=== PATIENT | female | born 1945 | race Caucasian/White ===

== ENCOUNTER 2021-12-14 14:23 | Outpatient (NON) | payer MEDICARE, SELFPAY | END 2021-12-14 14:24 | disposition home or self-care (01) | LOC: ANHLAB 14:24 | PROVIDERS: PCP Nurse Practitioner; Visit Provider Nurse Practitioner | DX: C44.729 Squamous cell carcinoma of skin of left lower limb, including hip (principal) | CPT/HCPCS: 88305; 88331 ==

== ENCOUNTER 2024-05-17 16:41 | Emergency (ER) | payer MEDICARE, SELFPAY ==
--- NOTE | ~2024-05-17 | XR_ITS ---
EXAM: XR tibia fibula LT 2V DATE: 05/17/2024 17:34 HISTORY: L leg swelling, infection ANTERIOR MID LOWER LEG . COMPARISON: None available. FINDINGS: Decreased mineralization. No fracture or dislocation. No lytic or blastic lesion. Mild deg enerative change at the knee and ankle. No erosion or periosteal change. Possible mild anterior soft tissue swelling. No foreign body or subcutaneous gas. Atherosclerotic ossification. Impression no acu te osseous finding in the left tibia/fibula. IMPRESSION: . Reviewed, dictated and finalized at location K. IMPRESSION: .
[2024-05-17 16:43] VITALS: BP 156/83; PULSE 95; RESP 18; TEMP 36.4; O2SAT 95
--- OUTSIDE RECORDS SUMMARY | 2024-05-17 16:44 | XMS_ITS | Data Portability ---
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 Name Role Phone TERRA RASHID Primary Care Provider Assessment Encounter Date Assessment Date Assessment LastModified by Organization Details LastModified Time 05/09/2023 05/09/2023 Assessment: Nicotine smoke: 1 ppd [id number] = 55 pack years Cough Dyspnea Postnasal drip Severe COPD Plan: The following were reviewed and explained to the patient: primary care/referral note PFT 07/07/18 FEV1 0.66 L (33%) PFT 09/08/20 FEV1 0.68 L (36%) Chest CT 10/24/[address] 01/18/[address] 01/20/[address] 07/01/22 emphysema Start Atrovent nasal spray 0.06% 1 spray to each nostril up to 4 times a day for postnasal drip. Cough/Dyspnea workup will be done as follows: Respiratory allergen panel for [facility] Serum IgE Serum total IgG, IgG1, IgG2, IgG3, IgG4 Shbpv-6-sgeclopkyg n phenotype and level TB stimulated gamma interferon B-type natriuretic peptide (BNP) Eosinophil count Complete pulmonary function testing (PFT) Sputum gm stain and culture The [employer] recommends annual screening for lung cancer with low-dose computed tomography (LDCT) for people aged 50 to 80 years old who smoke or formerly smoked and have a 20-year or greater pack-year history. Screening is no longer discontinued even when a person has not smoked for 15 years. Pulmonary rehabilitation may be included in the management of patients with chronic obstructive pulmonary disease (COPD). For respiratory diseases different from COPD, there have been no formal statements regarding patient selection. Pulmonary rehabilitation consists of assessment, exercise, education, and emotional support. It covers the goals of rehabilitation, the techniques of breathing, the necessity of nicotine cessation, the strategies to deal with panic attacks, the rationale of pulmonary medications, and the importance of nutrition. As the patient learns to live with her pulmonary condition through exercise and education, the patient will regain confidence with her abilities and feel improvement in her overall quality of life. The patient's FEV1 is 36%. The patient will be enrolled in pulmonary rehabilitation pending insurance coverage. General concepts of pulmonary rehabilitation were explained. Educational video was shown. Advised to continue not to smoke. Continue Roflumilast 500 mcg daily. Minimize Albuterol nebs as needed. Continue Albuterol HFA as needed. Continue Trelegy Ellipta 100/62.5/25 mcg 1 inhalation daily. Gargle after use. The patient does not know how to accurately administer the inhalers. Today, the patient was shown how to take these medications. The proper technique for delivering these medications was instructed. The patient expressed a clear understanding and demonstrated back how to use these medications. Without the proper technique, the patient will not reap the benefits of these medications as the contents will not reach the lower airways as intended to be. Adherence to therapy is advocated. Nonadherence may lead to treatment failure, further progression of the condition, and other complications. Hospitals admissions are often the result of individuals not taking prescription medications accurately. Alternatively, greater adherence to medication regimens have shown to lower rates of hospitalization and decrease total medical costs in patients with chronic medical conditions. Advocated influenza vaccination annually and pneumonia vaccination CARL. Encouraged patient to adjust caloric intake to maintain/achieve ideal body weight, emphasizing on fruits, vegetables, whole grains, and fat-free or low-fat products. These include lean meats, poultry, fish, beans, eggs, and nuts and foods that are low in saturated fats, trans-fats, cholesterol, salt (sodium), and glycemic index. Stressed the importance of regular exercise up to the patient's capacity limits. In this case, we recommend regular (4 x a week or more) walking or other light activity. Patient to monitor BP daily and bring records to PCP for further management. Follow-up: 1 week after PFT Not available 05/09/2023 14:57:59 06/23/2023 06/23/2023 Assessment: Nicotine smoke: 1 ppd [id number] = 55 pack years Postnasal drip (+) Aspergillus fumigatus IgE Severe COPD Plan: The following were reviewed and explained to the patient: Lab data 05/09/23 (+) Aspergillus fumigatus IgE PFT 07/07/18 FEV1 0.66 L (33%) PFT 09/08/20 FEV1 0.68 L (36%) PFT 06/14/23 FEV1 0.61 L (35%) Chest CT 10/24/[address] 01/18/[address] 01/20/[address] 07/01/22 emphysema Continue Atrovent nasal spray 0.06% 1 spray to each nostril up to 4 times a day for postnasal drip. Cough/Dyspnea workup will be done as follows: Sputum gm stain and culture if purulent [employer] recommends annual screening for lung cancer with low-dose computed tomography (LDCT) for people aged 50 to 80 years old who smoke or formerly smoked and have a 20-year or greater pack-year history. Screening is no longer discontinued even when a person has not smoked for [address] one week before return. Pulmonary rehabilitation may be included in the management of patients with chronic obstructive pulmonary disease (COPD). For respiratory diseases different from COPD, there have been no formal statements regarding patient selection. Pulmonary rehabilitation consists of assessment, exercise, education, and emotional support. It covers the goals of rehabilitation, the techniques of breathing, the necessity of nicotine cessation, the strategies to deal with panic attacks, the rationale of pulmonary medications, and the importance of nutrition. As the patient learns to live with her pulmonary condition through exercise and education, the patient will regain confidence with her abilities and feel improvement in her overall quality of life. The patient's FEV1 is 35%. The patient will be enrolled in pulmonary rehabilitation pending insurance coverage. General concepts of pulmonary rehabilitation were explained. Educational video was shown. Advised to continue not to smoke. Continue Roflumilast 500 mcg daily. Minimize Albuterol nebs as needed. Continue Albuterol HFA as needed. Continue Trelegy Ellipta 100/62.5/25 mcg 1 inhalation daily. Gargle after use. The patient does not know how to accurately administer the inhalers. Today, the patient was shown how to take these medications. The proper technique for delivering these medications was instructed. The patient expressed a clear understanding and demonstrated back how to use these medications. Without the proper technique, the patient will not reap the benefits of these medications as the contents will not reach the lower airways as intended to be. Adherence to therapy is advocated. Nonadherence may lead to treatment failure, further progression of the condition, and other complications. Hospitals admissions are often the result of individuals not taking prescription medications accurately. Alternatively, greater adherence to medication regimens have shown to lower rates of hospitalization and decrease total medical costs in patients with chronic medical conditions. Advocated influenza vaccination annually and pneumonia vaccination CARL. Encouraged patient to adjust caloric intake to maintain/achieve ideal body weight, emphasizing on fruits, vegetables, whole grains, and fat-free or low-fat products. These include lean meats, poultry, fish, beans, eggs, and nuts and foods that are low in saturated fats, trans-fats, cholesterol, salt (sodium), and glycemic index. Stressed the importance of regular exercise up to the patient's capacity limits. In this case, we recommend regular (4 x a week or more) walking or other light activity. Patient to monitor BP daily and bring records to PCP for further management. Follow-up: 3 months, September 2023 Not available 06/23/2023 10:37:33 09/26/2023 09/26/2023 Assessment: Nicotine smoke: 1 ppd [id number] = 55 pack years Postnasal drip (+) Aspergillus fumigatus IgE Severe COPD Plan: The following were reviewed and explained to the patient: Lab data 05/09/23 (+) Aspergillus fumigatus IgE PFT 07/07/18 FEV1 0.66 L (33%) PFT 09/08/20 FEV1 0.68 L (36%) PFT 06/14/23 FEV1 0.61 L (35%) Chest CT 10/24/[address] 01/18/[address] 01/20/[address] 07/01/22 emphysema Continue Atrovent nasal spray 0.06% 1 spray to each nostril up to 4 times a day for postnasal drip. Cough/Dyspnea workup will be done as follows: Sputum gm stain and culture if purulent Chest x-ray PA and lateral today due to increased cough frequency Pulmonary rehabilitation may be included in the management of patients with chronic obstructive pulmonary disease (COPD). For respiratory diseases different from COPD, there have been no formal statements regarding patient selection. Pulmonary rehabilitation consists of assessment, exercise, education, and emotional support. It covers the goals of rehabilitation, the techniques of breathing, the necessity of nicotine cessation, the strategies to deal with panic attacks, the rationale of pulmonary medications, and the importance of nutrition. As the patient learns to live with her pulmonary condition through exercise and education, the patient will regain confidence with her abilities and feel improvement in her overall quality of life. The patient's FEV1 is 35%. The patient will be enrolled in pulmonary rehabilitation pending insurance coverage. General concepts of pulmonary rehabilitation were explained. Educational video was shown. Advised to continue not to smoke. Continue Roflumilast 500 mcg daily. Minimize Albuterol nebs as needed. Continue Albuterol HFA as needed. Continue Trelegy Ellipta 100/62.5/25 mcg 1 inhalation daily. Gargle after use. The patient does not know how to accurately administer the inhalers. Today, the patient was shown how to take these medications. The proper technique for delivering these medications was instructed. The patient expressed a clear understanding and demonstrated back how to use these medications. Without the proper technique, the patient will not reap the benefits of these medications as the contents will not reach the lower airways as intended to be. Adherence to therapy is advocated. Nonadherence may lead to treatment failure, further progression of the condition, and other complications. Hospitals admissions are often the result of individuals not taking prescription medications accurately. Alternatively, greater adherence to medication regimens have shown to lower rates of hospitalization and decrease total medical costs in patients with chronic medical conditions. Advocated influenza vaccination annually and pneumonia vaccination CARL. Encouraged patient to adjust caloric intake to maintain/achieve ideal body weight, emphasizing on fruits, vegetables, whole grains, and fat-free or low-fat products. These include lean meats, poultry, fish, beans, eggs, and nuts and foods that are low in saturated fats, trans-fats, cholesterol, salt (sodium), and glycemic index. Stressed the importance of regular exercise up to the patient's capacity limits. In this case, we recommend regular (4 x a week or more) walking or other light activity. Patient to monitor BP daily and bring records to PCP for further management. Follow-up: 9 months, June 2024 Not available 09/26/2023 12:06:10 Plan of Treatment Reminders Order Date Submit Date Provider Last Modified By Organization Details Last Modified Time Details Appointments Any 15 2024 10:00A Lili Starr MD Not available Not available Not available Lab alpha-1-a ntitrypsi n (aat) phenotype , serum [id number] (Lab), [address] [place], [address], 06/28/2023 12:48:29 BNP (B-type natriuret ic peptide), serum or plasma [address] [facility] (Lab), [address] [place], [address], 05/09/2023 17:03:42 ige, total, serum [address] (Lab), [address] [place], [address], 06/28/2023 12:48:30 tb (M tuberculo sis), ifn-gamma silvia, blood [id number] [place] [address] (Lab), [address] [place], [address], 06/28/2023 12:48:30 eosinophi l count, manual, blood (OBS) [email or web address] [place] [address] (Lab), [address] [place], [address], 06/28/2023 12:48:30 [address] s 1+2+3+4, serum [id number] [place] [address] (Lab), [address] [place], [address], 06/28/2023 12:48:30 respirato ry allergen panel - [facility] [address]23 [facility] (Lab), [address] [place], [address], 05/25/2023 12:12:49 respirato ry allergen panel - [facility] b 2023 024 [email or web address] 5 [facility] (Lab), [address] [place], [address], 06/28/2023 12:48:30 culture, sputum 2023 024 [email or web address] 5 [facility] (Lab), [address] [place], [address], 06/28/2023 12:48:30 hepatic function panel, serum 2022 023 [email or web address] 5 Not available 01/19/2023 12:19:26 Referral pulmonary rehab referral 2023 024 [email or web address] [facility], [address] [place], [address], 12/19/2023 10:16:51 pulmonary rehab referral 2023 024 5 [facility], [address] [place], [address], 07/22/2023 11:37:19 pulmonary rehab referral 2023 024 [email or web address] 5 [facility], [address] [place], [address], 06/23/2023 14:35:46 Procedures None recorded. Surgeries None recorded. Imaging XR, chest, 2 view 2023 024 [facility] ([facility]), [address] [place], [address], 09/26/2023 14:20:10 LDCT, chest, for lung cancer screening 2023 024 [email or web address] 2 [facility] ([facility] Sched[facility]), [address] [place], [address], 09/05/2023 09:58:29 LDCT, chest, for lung cancer screening [address] (Radiology), [address] [facility] [place], [address], 06/30/2022 09:27:40 Medication Orders albuterol sulfate HFA 90 mcg/actua tion aerosol inhaler 2023 024 [facility]/Pharmacy #[id number], [address], [place], [address], 09/26/2023 11:53:52 Trelegy Ellipta 100 mcg-62.5 mcg-25 mcg powder for inhalatio n 2023 024 [id number], [address], [place], [address], 09/26/2023 11:53:[address] 500 mcg tablet 2023 024 [facility]/Pharmacy #[id number], [address], [place], [address], 09/26/2023 11:53:53 ipratropi um bromide 42 mcg (0.06 %) nasal spray 2023 024 [id number], [address], [place], [address], 09/26/2023 11:53:51 albuterol sulfate HFA 90 mcg/actua tion aerosol inhaler 2023 024 [facility]/Pharmacy #[id number], [address], [place], [address], 06/23/2023 10:41:14 Trelegy Ellipta 100 mcg-62.5 mcg-25 mcg powder for inhalatio n 2023 024 [id number], [address], [place], [address], 06/23/2023 10:37:[address] 500 mcg tablet 2023 024 [id number], [address], [place], [address], 06/23/2023 10:37:50 ipratropi um bromide 42 mcg (0.06 %) nasal spray 2023 [id number], [address], [place], [address], 06/23/2023 10:37:51 albuterol sulfate HFA 90 mcg/actua tion aerosol inhaler 2023 024 [id number] [address] [place], [address], 05/09/2023 14:44:30 Trelegy Ellipta 100 mcg-62.5 mcg-25 mcg powder for inhalatio n 2023 024 [id number], [address], [place], [address], 05/09/2023 14:44:[address] 500 mcg tablet 2023 024 [id number], [address], [place], [address], 05/09/2023 14:44:29 ipratropi um bromide 42 mcg (0.06 %) nasal spray 2023 024 [id number] [address] [place], [address], 05/09/2023 14:44:31 prednison e 20 mg tablet 2022 023 [facility] #[id number], [address], [place], [address], 05/01/2023 15:58:22 amoxicill in 875 mg-potass ium clavulana te 125 mg tablet 2022 023 [facility]/Pharmacy #[id number], [address], [place], [address], 05/01/2023 15:57:09 Trelegy Ellipta 100 mcg-62.5 mcg-25 mcg powder for inhalatio n [address] [facility][id number], [address], [place], [address], 11/05/2022 11:29:28 ipratropi um bromide 42 mcg (0.06 %) nasal spray 2022 023 [facility]armacy #[id number], [address], [place], [address], 05/09/2023 14:10:41 ipratropi um bromide 42 mcg (0.06 %) nasal spray 2022 023 [facility] #[id number], [address], [place], [address], 05/09/2023 14:10:41 Patient TargetsNo targets recorded. Patient Instructions Encounter Date Encounter Id Patient Instructions Last Modified By Organization Details Last Modified Time 11/05/2022 [id number] six minute walk test* - needs within 30days please [place] Not available 11/30/2022 09:59:06 05/09/2023 [id number] complete PFT w/ post bronchodilator spirometry* [email or web address] Not available 06/01/2023 09:10:20 09/26/2023 [id number] complete PFT w/ post bronchodilator spirometry* Not available 09/26/2023 12:02:46 Reason for Referral Pulmonary Rehab Referral for Severe chronic obstructive pulmonary disease Referring Physician: Mitch Starr, Pulmonary Disease, Encounter Date: 05/09/2023 Pulmonary Rehab Referral for Severe chronic obstructive pulmonary disease Referring Physician: Mitch Starr, Pulmonary Disease, Encounter Date: 06/23/2023 Pulmonary Rehab Referral for Severe chronic obstructive pulmonary disease Referring Physician: Mitch Starr, Pulmonary Disease, Encounter Date: 09/26/2023 Results Created Date Observation Date Name Description Value Unit Range Abnormal Flag Note LastModifiedBy Organization Detail LastModifiedTime 07/03/19 23 07/01/2022 CT, chest , w/o contr ast No observ ation record ed. [email or web address] [facility] (Radiology) [address] [place], [address], 07/05/2022 17:44:43 06/17/19 24 06/14/2023 compl ete PFT w/ post [facility] hodil ator jose metry * No observ ation record ed. [facility] ([facility] Sched[facility]) [address] [place], [address], 06/17/2023 09:53:05 09/26/19 24 09/26/2023 XR, chest , 2 view No observ ation record ed. [email or web address]5 [facility] [address] [place], [address], 09/26/2023 17:27:40 Result Notes None recorded. Problems Name Problem SNOMED Code Status Onset Date Resolution Date Notes Provider Name and Address Organization Details Recorded Time Posterior rhinorrhea 70963364 Active 2021 Not Available [facility] 3 02:52:22 COVID-19 248359257 Active 2020 Not Available [facility] 3 02:52:22 Ex-smoker 8000755 Active 2020 Not Available [facility] 3 02:52:22 Severe chronic obstructive pulmonary disease 753670365 Active 2023 Mitch Starr MD [address] [facility], [facility] [address], [place], [address] , [facility] [employer] [facility] 14:40:06 Notes:Medical History: COVID infection 11/2019 Rhinitis with postnasal drip Eosinophils 150/uL (+) Aspergillus fumigatus IgE AAT 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 Procedures Surgical History None recorded. Imaging Results Imaging Date Name Status LastModified by Organization Details LastModified Time 07/01/2022 CT, chest, w/o contrast completed [address] (Radiology) [address] [place], [address], 07/05/2022 17:44:43 06/14/2023 complete PFT w/ post bronchodilator spirometry* completed [facility] ([facility] Sched[facility]) [address] [place], [address], 06/17/2023 09:53:05 09/26/2023 XR, chest, 2 view [address] [place], [address], 09/26/2023 17:27:40 Procedure Notes None recorded. Medical Equipment None Reported. Allergies No known drug allergies Medications Name Sig Start Date Stop Date Status Note LastModified by Organization Details LastModified Time hydrocortis one 0.5 % topical cream APPLY TO AFFECTED AREA(S) ON THE SKIN ONCE EVERY 12 HOURS NEEDED 11/02 completed Not Available Not Available Not Available carvedilol 6.25 mg tablet TK 1 T PO BID 06/18 completed Not Available Not Available Not Available prednisone 10 mg tablet 06/29 completed Not Available Not Available Not Available doxycycline hyclate 100 mg capsule TAKE 1 CAPSULE BY MOUTH TWICE A DAY active Not Available Not Available No t Available clindamycin HCl 300 mg capsule TK 1 C PO Q 8 H FOR 10 DAYS 12/18 completed Not Available Not Available Not Available albuterol sulfate 2.5 mg/3 mL (0.083 %) solution for nebulizatio n INHALE 3 ML 4 TIMES A DAY BY NEBULIZAT ION ROUTE 05/08 completed Not Available Not Available Not Available ammonium lactate 12 % lotion APPLY TOPICALLY TO THE AFFECTED AREA EVERY DAY AT BEDTIME 04/30 completed Not Available Not Available Not Available azithromyci n 250 mg tablet TAKE 2 TABLETS BY MOUTH TODAY, THEN TAKE 1 TABLET DAILY FOR 4 DAYS 04/30 completed Not Available Not Available Not Available ofloxacin 0.3 % eye drops 04/30 completed Not Available Not Available Not Available prednisone 20 mg tablet TAKE 2 TABLETS BY MOUTH EVERY DAY IN THE MORNING FOR 5 DAYS 04/30 completed Not Available Not Available Not Available alendronate 70 mg tablet 06/29 completed Not Available Not Available Not Available permethrin 5 % topical cream APPLY TOPICALLY FROM NECK TO TOES AND LEAVE ON FOR 8 HOURS DIRECTED. REPEAT IN 1 WEEK 04/30 completed Not Available Not Available Not Available aspirin 81 mg tablet,reinaldo yed release qod active Not Available Not Available Not Available triamcinolo ne acetonide 0.1 % topical cream APPLY 1 APPLICATI ON ONTO THE LEFT LEG TWICE DAILY active Not Available Not Available No t Available simvastatin 40 mg tablet TAKE 1 TABLET BY MOUTH EVERYDAY AT BEDTIME active Not Available Not Available No t Available ketorolac 0.5 % eye drops 04/30 completed Not Available Not Available Not Available prednisolon e acetate 1 % eye drops,suspe nsion 04/30 completed Not Available Not Available Not Available linezolid 600 mg tablet TAKE 1 TABLET BY MOUTH EVERY 12 HOURS active Not Available Not Available No t Available benzonatate 100 mg capsule TAKE 1 CAPSULE BY MOUTH THREE TIMES A DAY 04/30 completed Not Available Not Available Not Available oseltamivir 75 mg capsule 06/29 completed Not Available Not Available Not Available clotrimazol e-betametha sone 1 %-0.05 % topical cream APPLY TO AFFECTED AREA TWICE A DAY 04/30 completed Not Available Not Available Not Available raloxifene 60 mg tablet TAKE 1 TABLET BY MOUTH EVERY DAY IN THE MORNING active Not Available Not Available No t Available montelukast 10 mg tablet TAKE 1 TABLET BY MOUTH EVERY DAY active Not Available Not Available No t Available hydroxyzine HCl 25 mg tablet TAKE 1 TABLET BY MOUTH EVERY DAY AT BEDTIME NEEDED FOR ITCHING FOR 30 DAYS 11/02 completed Not Available Not Available Not Available mupirocin 2 % topical ointment APPLY A SMALL AMOUNT TO AFFECTED AREA 3 TIMES A DAY active Not Available Not Available No t Available mirtazapine 15 mg tablet TAKE 1 TABLET BY MOUTH EVERYDAY AT BEDTIME active Not Available Not Available No t Available metoprolol succinate ER 25 mg tablet,exte nded release 24 hr TAKE 1 AND 1/2 TABLETS BY MOUTH EVERY DAY IN THE MORNING active Not Available Not Available No t Available levofloxaci n 500 mg tablet TK 1 T PO Q 24 H active Not Available Not Available No t Available methylpredn isolone 4 mg tablets in a dose pack TAKE 6 TABLETS ON DAY 1 DIRECTED ON PACKAGE AND DECREASE BY 1 TAB EACH DAY FOR A TOTAL OF 6 DAYS 05/04 completed Not Available Not Available Not Available albuterol sulfate HFA 90 mcg/actuati on aerosol inhaler INHALE 1 PUFF BY MOUTH EVERY 4 HOURS NEEDED active Not Available Not Available No t Available ipratropium bromide 42 mcg (0.06 %) nasal spray SPRAY 1 SPRAY 4 TIMES A DAY BY INTRANASA L ROUTE DIRECTED FOR 30 DAYS. active Not Available Not Available No t Available dexamethaso ne 0.5 mg tablet TAKE 1 TABLET BY MOUTH TWICE DAILY FOR 10 DAYS active Not Available Not Available No t Available hydroxyzine HCl 10 mg tablet TAKE 1 TABLET 3 TIMES A DAY BY ORAL ROUTE NEEDED. active Not Available Not Available No t Available cefdinir 300 mg capsule TAKE 1 CAPSULE BY MOUTH EVERY 12 HOURS 04/30 completed Not Available Not Available Not Available losartan 100 mg tablet TAKE 1 TABLET BY MOUTH EVERY DAY IN THE MORNING active Not Available Not Available No t Available fluticasone propionate 50 mcg/actuati on nasal spray,suspe nsion ADMINISTE R 1 SPRAY INTO EACH NOSTRIL EVERY DAY active Not Available Not Available No t Available cholecalcif emi (vitamin D3) 125 mcg (5,000 unit) capsule TAKE 1 CAPSULE BY MOUTH EVERY DAY active Not Available Not Available No t Available doxycycline hyclate 100 mg tablet 06/29 completed Not Available Not Available Not Available amoxicillin 875 mg-potassiu m clavulanate 125 mg tablet TAKE 1 TABLET BY MOUTH EVERY 12 HOURS DIRECTED FOR 7 DAYS 04/30 completed Not Available Not Available Not Available hydroxyzine pamoate 25 mg capsule TAKE 1 CAPSULE BY MOUTH ONCE EVERY 8-12 HOURS NEEDED FOR ITCHING 11/02 completed Not Available Not Available Not Available escitalopra m 5 mg tablet 06/29 completed Not Available Not Available Not Available Spiriva with HandiHaler 18 mcg and inhalation capsules 10/11 completed Not Available Not Available Not Available nitrofurant oin monohydrate /macrocryst als 100 mg capsule TAKE 1 CAPSULE BY MOUTH EVERY 12 HOURS 11/02 completed Not Available Not Available Not Available raloxifene active Not Available Not Av ailable Not Available Centrum Silver qd 04/30 completed Not Available Not Available Not Available Symbicort 160 mcg-4.5 mcg/actuati on HFA aerosol inhaler active Not Available Not Available Not Available cholecalcif emi (vitamin D3) 125 mcg (5,000 unit) tablet TAKE 1 TABLET BY MOUTH EVERY DAY active Not Available Not Available No t Available Vitamin D3 50 mcg (2,000 unit) capsule TAKE 1 CAPSULE BY MOUTH EVERY DAY 04/30 completed Not Available Not Available Not Available roflumilast 500 mcg tablet TAKE 1 TABLET BY MOUTH EVERY DAY AFTER A MEAL 2023 active Not Available Not Available Not Avai lable Mucus DM 30 mg-600 mg tablet,exte nded release TAKE 1 TABLET BY MOUTH EVERY 12 HOURS 04/30 completed Not Available Not Available Not Available Trelegy Ellipta 100 mcg-62.5 mcg-25 mcg powder for inhalation INHALE 1 PUFF BY MOUTH EVERY DAY 2023 active Not Available Not Available Not Avai lable Fluzone High-Dose Quad 2020-21 (PF) 240 mcg/0.7 mL IM syringe ADM 0.7ML IM UTD active Not Available Not Available No t Available Vitals Date Recorded Body height Body mass index (BMI) Body weight Body temperature Heart rate Oxygen saturation Oxygen saturation in Arterial blood by Pulse oximetry Systolic blood pressure Diastolic blood pressure Provider Name and Address Organization Details Last Updated DateTime 3 160.02 cm 16.8 kg/m2 97265.2 8 g 98.3 [degF] 97 /min 97 % 97 % 110 mm[Hg] 52 mm[Hg] Bruna HOOD - S [facility] 3 11:28:54 Date Recorded Body height Body mass index (BMI) Body weight Body temperature Heart rate Oxygen saturation Oxygen saturation in Arterial blood by Pulse oximetry Systolic blood pressure Diastolic blood pressure Provider Name and Address Organization Details Last Updated DateTime 3 160.02 cm 15.9 kg/m2 17830.3 1 g 97.7 [degF] 107 /min 93 % 93 % 132 mm[Hg] 62 mm[Hg] Bruna Cooley [place] [facility] 3 11:06:37 Date Recorded Body height Body mass index (BMI) Body weight Body temperature Systolic blood pressure Diastolic blood pressure Provider Name and Address Organization Details Last Updated DateTime 4 154.94 cm 16.9 kg/m2 33058.1 6 g 97.7 [degF] 136 mm[Hg] 62 mm[Hg] Linda Sosa MA [place] [facility] 4 14:09:33 Date Recorded Heart rate Oxygen saturation Oxygen saturation in Arterial blood by Pulse oximetry Heart rate Respiratory rate Provider Name and Address Organization Details Last Updated DateTime 4 97 /min 94 % 94 % 97 /min 15 /min Mitch Starr MD [address], [address] [place], [place] [facility] 4 14:57:07 Date Recorded Body height Body mass index (BMI) Body weight Heart rate Systolic blood pressure Diastolic blood pressure Provider Name and Address Organization Details Last Updated DateTime 4 154.94 cm 16.6 kg/m2 08689.1 3 g 84 /min 120 mm[Hg] 72 mm[Hg] Estefanía Cormier CMA [place] [facility] 4 10:12:12 Date Recorded Body temperature Oxygen saturation Oxygen saturation in Arterial blood by Pulse oximetry Heart rate Respiratory rate Provider Name and Address Organization Details Last Updated DateTime 4 97.5 [degF] 95 % 95 % 84 /min 15 /min Mitch Starr MD [address], [place], [address] [place] [facility] 4 10:34:34 Date Recorded Body height Body mass index (BMI) Body weight Body temperature Heart rate Oxygen saturation Oxygen saturation in Arterial blood by Pulse oximetry Systolic blood pressure Diastolic blood pressure Provider Name and Address Organization Details Last Updated DateTime 4 154.94 cm 15.7 kg/m2 51154.8 9 g 97.6 [degF] 88 /min 93 % 93 % 130 mm[Hg] 70 mm[Hg] Estefanía Cormier CMA [place] [facility] 4 11:24:47 Social History Question Answer Notes LastModified by Organization Details LastModified Time Tobacco Smoking Status Former Smoker [facility] [address] [facility] 04/14/[facility]22 02:38:59 What Is Your Level Of Alcohol Consumption? None MIGRATION.[id number] [id number] Information not available 04/14/2022 What Is Your Level Of Caffeine Consumption? Moderate MIGRATION.0301 [id number] Information not available 04/14/2022 How Much Tobacco Do You Chew? None MIGRATION.030 [id number] Information not available 04/14/2022 In The 14 Days Before Symptom Onset, Have You Had Close Contact With A Laboratory-confi rmed COVID-19 While That Case Was Ill? No MIGRATION.030 [id number] Information not available 04/14/2022 In The 14 Days Before Symptom Onset, Have You Had Close Contact With A Person Who Is Under Investigation For COVID-19 While That Person Was Ill? No MIGRATION.0301 [id number] Information not available 04/14/2022 Are You Currently Employed? No Information not available 05/09/2023 What Type Of Diet Are You Following? REGULAR MIGRATION.0301 [id number] Information not available 04/14/2022 Which Illicit Or Recreational Drugs Have You Used? None MIGRATION.0301 [id number] Information not available 04/14/2022 Do You Or Have You Ever Used E-cigarettes Or Vape? Never Used Electronic Cigarettes MIGRATION.0301 [id number] Information not available 04/14/2022 Do You Have An Electrostatic Air Filter? No Information not available 05/09/2023 When Did You Quit Smoking? 1-5yearssinalissa koroma MIGRATION.0301 [id number] Information not available 04/14/2022 Do You Have A Humidifier? No Information not available 05/09/2023 Where Do You Live? SingleLevelHouse Information not available 05/09/2023 Do You Have Moisture Problems In Your Home? No Information not available 05/09/2023 What Was The Date Of Your Most Recent Tobacco Screening? 05/09/2023 Information not available 05/09/2023 Do You Have Any Pets? No MIGRATION.0301 [id number] Information not available 04/14/2022 What Is Your Relationship Status? Single Information not available 05/09/2023 Do You Use Your Seat Belt Or Car Seat Routinely? Yes Information not available 05/09/2023 Do You Have Smoke And Carbon Monoxide Detectors In Your Home? Yes Information not available 05/09/2023 At What Age Did You Start Smoking Tobacco? 17 MIGRATION.0301 [id number] Information not available 04/14/2022 Are You Passively Exposed To Smoke? No Information not available 05/09/2023 Do You Or Have You Ever Used Smokeless Tobacco? Never Used Smokeless Tobacco MIGRATION.0301 [id number] Information not available 04/14/2022 Do You Feel Stressed (tense, Restless, Nervous, Or Anxious, Or Unable To Sleep At Night)? [id number] Information not available 05/09/2023 Do You Use Any Illicit Or Recreational Drugs? No MIGRATION.0301 101060 Information not available 04/14/2022 Do You Use Sunscreen Routinely? Yes Information not available 05/09/2023 Have You Recently Traveled Abroad? No MIGRATION.0301 287012 Information not available 04/14/2022 Do You Have Any Dietary Restrictions? No MIGRATION.0301 216111 Information not available 04/14/2022 Do You Or Have You Ever Used Any Other Forms Of Tobacco Or Nicotine? No MIGRATION.0301 [id number] Information not available 04/14/2022 Sex: Unknown Functional Status None recorded. Mental Status None recorded. Family History Relationship Description Onset Age of this Age Resolved Age Notes LastModified by Organization Details LastModified Time Father Heart disease Not available 2023 14:47:23 Mother Heart disease Not available 2023 14:47:28 Maternal Uncle Heart disease Not available 2023 14:47:39 Brother Heart disease Not available 2023 14:47:48 Son Coronary artery bypass graft Not available 14:48:31 Medical History No medical history recorded. Gynecological HistoryNo gynecological history recorded. Obstetrics History GPAL:G 0 P 0 0 0 0 Immunizations Vaccine Type Date Status Note Provider Nam e and Address Organization Details Recorded Time COVID-19, mRNA, LNP-S, PF, 100 mcg/0.5mL dose or 50 mcg/0.25mL dose 1 completed Not Available formerly [facility] 04/14/2022 03:03:57 COVID-19, mRNA, LNP-S, PF, 100 mcg/0.5mL dose or 50 mcg/0.25mL dose 1 completed Not Available formerly [facility] 04/14/2022 03:03:57 Influenza, high-dose, quadrivalent, PF 0 completed Not Available formerly [facility] 04/14/2022 03:03:57 Influenza, split virus, quadrivalent, preservative 9 completed Not Available formerly [facility] 04/14/2022 03:03:58 Past Encounters Encounter ID Performer Location Encounter Start Date Encounter Closed Date Diagnosis/Indication Diagnosis SNOMED-CT Code Diagnosis ICD10 Code Diagnosis Note [id number] [facility] [address] [address] 04/25/2020 00:00:00 04/25/2020 13:31:22 [id number] [facility] [place] [address] [place] [address] 08/22/2020 00:00:00 08/22/2020 13:13:26 [id number] [facility] [place] [address] [place] [address] 12/25/2020 00:00:00 12/25/2020 13:30:05 [id number] [facility] [place] [address] [place] [address] 05/04/2021 00:00:00 05/04/2021 13:24:03 [id number] [facility] [place] [address] [place] [address] 11/02/2021 00:00:00 11/02/2021 11:54:10 [id number] Elisha Stokes [facility] [place] [address] [place] [address] 05/03/2022 11:19:49 05/03/2022 14:25:47 Ex-smoker 5438587 Z87.891 Quit 2018 with 80 pack year historyLDC T 01/2021 with no nodule or mass in the lungsShe has not completed repeat, re-ordered today Posterior rhinorrhea 758 45194 R09.82 Continue ipratropiu m - good clinical benefitSal ine nasal rinses History of SARS-CoV-2 29 94367767 94733530 Z86.16 01/01/2020 Improved Chronic ob structive pulmonary disease 54061200 J44.9 CAT 16 1/2PFT 09/08/20 with FEV1:FVC ratio 33%.FEV1 PBD 35%.TLC 130%.DLCO 39%Continu e Trelegy Ellipta 100 and DalirespIn structed on techniqueA lbuterol PRNShe is aware of reportable signs and symptoms.C ontinues to decline MD due to cost - she will look in to Silver Sneakers through the [facility] on RA 07/17/18 WNLRTO in 6 months, PRN for concerns Bronchiectasis 48464350 J47.9 CT 01/17/21, noted to LLLContinu e flutter valve consistent lyNebulize r [id number] Elisha Stokes [facility] [place] [address] [place] [address] 11/05/2022 10:36:20 11/05/2022 11:53:57 Long-term drug therapy 602541106 Z79.899 Check LFT Acute exac erbation of chronic obstructive pulmonary disease 935280303 J44.1 Start prednisone and amoxDiscus sed S/S that require emergent evaluation Chronic ob structive pulmonary disease 46843378 J44.9 CAT 24 (was 16)PFT 09/08/20 with FEV1:FVC ratio 33%.FEV1 PBD 35%.TLC 130%.DLCO 39%Decline s repeatCont inue Trelegy Ellipta 100 and DalirespIn structed on techniqueA lbuterol PRNShe is aware of reportable signs and symptoms.C ontinues to decline MD due to cost - she will look in to Silver Sneakers through the [facility] on RA 07/17/18 WNLCheck 6MWTRTO in 6 months, PRN for concerns Posterior rhinorrhea 758 65788 R09.82 Continue ipratropiu m - good clinical benefitSal ine nasal rinses History of SARS-CoV-2 29 65274005 29020946 Z86.16 01/01/2020 Improved Ex-smoker 0294459 Z87.89 1 Quit 2017 with 80 pack year historyLDC T 01/2021 with no nodule or mass in the lungsRepea flavia 06/2022 with no changes [id number] MD BRAYDEN Guidry[address] [address] 05/09/2023 13:51:11 05/10/2023 08:03:22 Posterior rhinorrhea 67615803 R09.82 Dyspnea on exertion 6084 5006 R06.09 R05.9 T78.40XA D89.9 Ex-smoker 7885660 Z87.89 1 F17.218 F17.219 Severe chr onic obstructive pulmonary disease 534667939 J44.9 J42 [id number] [facility] [address] 06/23/2023 09:38:19 06/23/2023 10:47:42 Posterior rhinorrhea 95911529 R09.82 Ex-smoker 2312253 Z87.89 1 F17.218 F17.219 Severe chr onic obstructive pulmonary disease 341476267 J44.9 J42 [id number] MD [facility]mon[address] [address] 09/26/2023 10:42:54 09/27/2023 08:04:44 Posterior rhinorrhea 93029481 R09.82 Severe chr onic obstructive pulmonary disease 093893196 J44.9 J42 Health Concerns Section Related Observation LastModified by Organization Detai ls LastModified Time None Recorded Concern Status LastModified by Organization Details LastModified Time None Recorded Advance Directives Directive None Recorded Payers Encounter Date Sequence Insurance Name Policy Number Policy Farfan Covered Member ID Farfan Member ID Guarantor Name 05/03/2022 1 [employer] (MEDICARE REPLACEMENT PPO) [id number] L Elo Morrow [id number] Elo Odalys 11/05/2022 1 [employer] (MEDICARE REPLACEMENT PPO) [id number] L Elo Morrow [id number] Elo Odalys 05/09/2023 1 [employer] (MEDICARE REPLACEMENT PPO) [id number] L Elo Morrow [id number] Elo Odalys 06/23/2023 1 [employer] (MEDICARE REPLACEMENT PPO) [id number] Shilpa Wooner [id number] Elo Coelloebner 09/26/2023 1 [employer] (MEDICARE REPLACEMENT PPO) [id number] Shilpa Morrow [id number] Elo Wooner Notes Date Note Type Note Provider Name and Address Organization Details Recorded Time 05/03/2022 text/html Ms Morrow prese nts today to follow up on COPD, dyspnea, cough, recent exacerbationShe reports that she was using samples of Daliresp and realized that they were 3 months when she started to have some dyspnea.Antibiotics x2 and steroids from PCM.She is now using Daliresp from pharmacy and reports improvement in shortness of breath.Reports she is almost back to baselineContinues to have difficulty with the weather changesCough is chronic, unchangedRare clear mucous productionNo hemoptysisShe can still dress and bathe without shortness of breathNo dyspnea at rest.Denies weight loss, wheezing, chest tightnessRemains compliant with Trelegy Ellipta 100 - this remains affordable and she has good clinical benefitRescue use is rare.Continues compliance with DalirespShe has had one exacerbation this year Elisha Stokes, [employer] [address] [facility], [facility] [address], [place], [address], [facility] 05/03/2022 16:32:29 11/05/2022 text/html Ms Odalys elizabeth nts today to follow up on COPD, dyspnea, coughSHe has had increased dyspnea and cough for the last monthCough is mildly productive.Increased fatigue.Compliant with Daliresp and Trelegy Ellipta 100Has increased albuterol useContinues to have difficulty with the weather changesCough is chronic, unchangedRare clear mucous productionNo hemoptysisShe can still dress and bathe without shortness of breathDenies weight loss, wheezing, chest tightnessGood benefit from ipratropium Elisha Stokes, [employer] [address] [facility], [facility] [address], [place], [address], [facility] [employer] 11/05/2022 15:25:17 05/09/2023 text/html Primary care/Ref erring provider: Terra Rashid MD Patient is here to go over shortness of breath evaluation/management. Initial development of shortness of breath: 2018 Duration of shortness of breath: 6 years Condition of shortness of breath: stable Timing of shortness of breath: none Frequency: up to 3 times a day Limits activities: yes Aggravating factors: walking, going upstairs, getting upset Alleviating factors: rest Modified [employer] [place] (mMRC) Dyspnea Scale - Grade 2 Grade 0 I only get breathless with strenuous exercise . Grade 1 I get short of breath when hurrying on the level or walking up a slight hill . Grade 2 I walk slower than people of the same age on the level because of breathlessness or have to stop for breath when walking at my own pace on the level . Grade 3 I stop for breath after walking about 100 yards or after a few minutes on the level . Grade 4 I am too breathless to leave the house or I am breathless when dressing . Treatment history: Albuterol nebs as needed since lbuterol HFA as needed since 2017 Roflumilast 500 mcg daily since 2017 Trelegy Ellipta 100/62.5/25 mcg 1 inhalation daily since 2019 Other symptoms: Drooling: no Dysarthria: no Neck pain: no Odynophagia: no Dysphagia: no Weak mastication: no Facial weakness: no Nasal speech: no Protruding tongue: no Productive cough: clear to yellow Wheezing: no Chest tightness: yes Orthopnea: 2-pillow Frequent throat clearing or swallowing: yes Palpitations: no Heartburn: no Edema: no Environmental exposures: Nicotine smoke: 1 ppd 0142-3188 = 55 pack years Follansbee: no Dye: no Dust mites: yes Mold: no Damp basement: no Wood burning stove: no Animal dander: no Cockroaches: no Pollen: yes Arsenic: no Asbestos: no Beryllium: no Cadmium: no Chromium: no Petroleum smoke: no Diesel fumes: no Nickel: no Silica: no Soot: no EPWORTH SLEEPINESS SCALE (ESS) CHANCE OF DOZING SCORE 0 = would never doze 1 = slight chance of dozing 2 = moderate chance of dozing 3 = high chance of dozing SITUATION AND CHANCE OF DOZING Sitting and reading - 0 Watching television - 1 Sitting inactive in a public place (e.g. a theater or meeting) - 0 As a passenger in a car for an hour without a break - 0 Lying down to rest in the afternoon when circumstances permit - 0 Sitting and talking to someone - 0 Sitting quietly after lunch without alcohol - 0 In a car, while stopped for a few minutes in the traffic - 0 TOTAL SCORE 1 Subjectively, patient has a slight chance of dozing. Mitch Starr MD [address] [place] [address], [address], [facility] [place] [facility] 05/09/2023 14:58:13 06/23/2023 text/html Primary care/Ref erring provider: Terra Rashid MD Patient is here to go over her COPD management. Initial development of shortness of breath: 2018Duration of shortness of breath: 6 yearsCondition of shortness of breath: stableTiming of shortness of breath: noneFrequency: up to 3 times a dayLimits activities: yesAggravating factors: walking, going upstairs, getting upsetAlleviating factors: rest Modified [employer] [place] (mMRC) Dyspnea Scale - Grade 2Grade 0 I only get breathless with strenuous exercise .Grade 1 I get short of breath when hurrying on the level or walking up a slight hill .Grade 2 I walk slower than people of the same age on the level because of breathlessness or have to stop for breath when walking at my own pace on the level .Grade 3 I stop for breath after walking about 100 yards or after a few minutes on the level .Grade 4 I am too breathless to leave the house or I am breathless when dressing . Treatment history: Albuterol nebs as needed since lbuterol HFA as needed since 2017Roflumilast 500 mcg daily since 2017 Trelegy Ellipta 100/62.5/25 mcg 1 inhalation daily since 2019 Other symptoms:Drooling: noDysarthria: noNeck pain: noOdynophagia: noDysphagia: noWeak mastication: noFacial weakness: noNasal speech: noProtruding tongue: noProductive cough: clear to yellowWheezing: noChest tightness: yesOrthopnea: 2-pillowFrequent throat clearing or swallowing: yesPalpitations: noHeartburn: noEdema: no Environmental exposures:Nicotine smoke: 1 ppd 2255-6069 = 55 pack yearsPaint: noDye: noDust mites: yesMold: noDamp basement: noWood burning stove: noAnimal dander: noCockroaches: noPollen: yesArsenic: noAsbestos: noBeryllium: noCadmium: noChromium: noCoal smoke: noDiesel fumes: noNickel: noSilica: noSoot: no EPWORTH SLEEPINESS SCALE (ESS) CHANCE OF DOZING SCORE0 = would never doze1 = slight chance of dozing2 = moderate chance of dozing3 = high chance of dozing SITUATION AND CHANCE OF DOZINGSitting and reading - 0Watching television - 1Sitting inactive in a public place (e.g. a theater or meeting) - 0As a passenger in a car for an hour without a break - 0Lying down to rest in the afternoon when circumstances permit - 0Sitting and talking to someone - 0Sitting quietly after lunch without alcohol - 0In a car, while stopped for a few minutes in the traffic - 0TOTAL SCORE 1Subjectively, patient has a slight chance of dozing. Mitch Starr MD [address] [place] [address], [facility] [address], [place], [address], [facility] 06/23/2023 10:45:32 09/26/2023 text/html Primary care/Ref erring provider: Terra Rashid MD Patient is here to go over her COPD management. Initial development of shortness of breath: 2018Duration of shortness of breath: 6 yearsCondition of shortness of breath: stableTiming of shortness of breath: noneFrequency: up to 3 times a dayLimits activities: yesAggravating factors: walking, going upstairs, getting upsetAlleviating factors: rest Modified [employer] [place] (mMRC) Dyspnea Scale - Grade 2Grade 0 I only get breathless with strenuous exercise .Grade 1 I get short of breath when hurrying on the level or walking up a slight hill .Grade 2 I walk slower than people of the same age on the level because of breathlessness or have to stop for breath when walking at my own pace on the level .Grade 3 I stop for breath after walking about 100 yards or after a few minutes on the level .Grade 4 I am too breathless to leave the house or I am breathless when dressing . Treatment history: Albuterol nebs as needed since lbuterol HFA as needed since 2017Roflumilast 500 mcg daily since 2017 Trelegy Ellipta 100/62.5/25 mcg 1 inhalation daily since 2019 Other symptoms:Drooling: noDysarthria: noNeck pain: noOdynophagia: noDysphagia: noWeak mastication: noFacial weakness: noNasal speech: noProtruding tongue: noProductive cough: clear to yellowWheezing: noChest tightness: yesOrthopnea: 2-pillowFrequent throat clearing or swallowing: yesPalpitations: noHeartburn: noEdema: no Environmental exposures:Nicotine smoke: 1 ppd 2205-8131 = 55 pack yearsPaint: noDye: noDust mites: yesMold: noDamp basement: noWood burning stove: noAnimal dander: noCockroaches: noPollen: yesArsenic: noAsbestos: noBeryllium: noCadmium: noChromium: noCoal smoke: noDiesel fumes: noNickel: noSilica: noSoot: no EPWORTH SLEEPINESS SCALE (ESS) CHANCE OF DOZING SCORE0 = would never doze1 = slight chance of dozing2 = moderate chance of dozing3 = high chance of dozing SITUATION AND CHANCE OF DOZINGSitting and reading - 0Watching television - 0Sitting inactive in a public place (e.g. a theater or meeting) - 0As a passenger in a car for an hour without a break - 0Lying down to rest in the afternoon when circumstances permit - 0Sitting and talking to someone - 0Sitting quietly after lunch without alcohol - 0In a car, while stopped for a few minutes in the traffic - 0TOTAL SCORE 0Subjectively, patient has no chance of dozing. Mitch Starr MD [address] [place] [address], [place] [address], [place], [id number], [facility] 09/26/2023 12:06:22 OBGyn Episode No OBEpisode recorded.
--- OUTSIDE RECORDS SUMMARY | 2024-05-17 16:45 | XMS_ITS | Clinical Summary ---
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 Gender Identity Not on file Sexual Orientation Not on file Plan of Treatment Health Maintenance Due Date Last Done Comments Hepatitis C 1962 DTaP, Tdap and Td Vaccines ( 1 - Tdap) 05/22/1963 Zoster Vaccines (1 of 2) 1994 Dexa Scan (General) 2009 Pneumococcal Vaccine: 65+ Ye ars (1 of 1 - PCV) 2009 RSV Immunization or 60+ Years (1 - 1-dose 75+ series) 05/22/2019 COVID-19 Vaccine ( - 2023-2 5 season) 2023 Meningococcal B Vaccine Aged Out No l onger eligible based on patient's age to complete this topic Meningococcal Vaccine Aged Out No morgan kian eligible based on patient's age to complete this topic RSV Immunizations Under 20 Months Aged Out No longer eligible based on patient's age to complete this topic Insurance [facility] Care Teams Saw Boss Relationship Specialty Start Date End Date Terra Rashid MD PCP - General INTERNAL MEDICINE 01/15/20
--- OUTSIDE RECORDS SUMMARY | 2024-05-17 16:45 | XMS_ITS | Data Portability ---
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 Studies ordered as below. Discussed plan with patient/careg iver, who expressed understanding . Follow up as noted below. Not available 08/25/2023 11:19:56 09/30/2023 09/30/2023 Patient presented for follow up. Studies ordered as below. Discussed plan with patient/careg iver, who expressed understanding . Follow up as noted below. Not available 09/30/2023 11:08:13 11/14/2023 11/14/2023 Patient presented for follow up. Studies ordered as below. Discussed plan with patient/careg iver, who expressed understanding . Follow up as noted below. Not available 11/14/2023 15:58:33 01/06/2024 01/06/2024 Patient presented for follow up. Studies ordered as below. Discussed plan with patient/careg iver, who expressed understanding . Follow up as noted below. Not available 01/06/2024 10:21:14 04/05/2024 04/05/2024 Patient presented for follow up. Studies ordered as below. Discussed plan with patient/careg iver, who expressed understanding . Follow up as noted below. Not available 04/05/2024 10:44:09 Plan of Treatment Reminders Order Date Submit Date Provider Last Modified By Organization Details Last Modified Time Details Appointments BRIAN 2024 09:30A M US CAROTID ARTERY Not available Not available Not available ESTABLISH ED PATIENT 15 2024 09:30A M Terra Rashid MD Not available Not available Not available Lab CMP, serum or plasma 2024 025 [facility], [address], [place], [address], 04/06/2024 14:21:11 CBC w/ auto diff 2024 025 [facility], [address], [place], [address], 04/06/2024 14:21:10 lipid panel w/ direct LDL, serum 2024 025 [facility], [address], [place], [address], 04/12/2024 04:05:20 TSH, serum or plasma 2024 025 [facility] [employer] [facility], [address], [place], [address], 04/12/2024 04:05:20 vitamin D, 25-hydrox y, total, serum 2024 025 [facility] [employer] [facility], [address] [facility], [place], [address], 04/12/2024 04:05:20 CBC 2023 024 [facility] [employer] [facility], [address] [facility], [place], [address], 11/21/2023 04:10:04 CMP, serum or plasma 2023 024 [facility], [address] [facility], [place], [address], 11/15/2023 12:50:20 CBC 2023 024 [facility] [employer] [facility], [address], [place], [address], 10/07/2023 04:04:54 CMP, serum or plasma 2023 024 [facility], [address] [place] [address], [address], 10/01/2023 13:30:36 lipid panel w/ direct LDL, serum 2023 024 [facility], [address] [place] [address], [address], 10/07/2023 04:04:54 TSH, serum or plasma 2023 024 [facility], [address] [place] [address], [address], 10/07/2023 04:04:54 vitamin D, 25-hydrox y, total, serum 2023 024 [facility], [address] [place] [address], [address], 10/07/2023 04:04:54 Referral dermatolo gist referral 2023 024 [facility], [address], [place], [address], 01/06/2024 15:04:22 Procedures None recorded. Surgeries None recorded. Imaging CT, chest, w/o contrast 2023 024 [facility], [address], [place], [address], 03/31/2024 04:01:39 Medication Orders raloxifen e 60 mg tablet 2024 025 [facility] #[id number], [address], [place], [address], 04/05/2024 11:21:37 Dermend topical cream 2024 025 [facility]/Pharmacy #[id number], [address], [place], [address], 04/05/2024 11:21:29 benzonata te 100 mg capsule 2024 025 [id number], [address] , [place], [address], 04/05/2024 11:21:32 Zithromax Z-Mik 250 mg tablet 2024 025 [id number], [address] , [place], [address], 04/05/2024 11:21:33 metoprolo l succinate ER 50 mg tablet,ex tended release 24 hr 2024 025 [id number], [address], [place], [address], 04/05/2024 11:21:33 losartan 100 mg tablet 2024 025 [id number], [address] , [place], [address], 04/05/2024 11:21:34 prednison e 20 mg tablet 2024 025 [id number], [address] , [place], [address], 04/05/2024 11:21:31 mirtazapi ne 15 mg tablet 2024 025 [id number], [address] , [place], [address], 04/05/2024 11:21:31 cholecalc iferol (vitamin D3) 125 mcg (5,000 unit) capsule 2024 025 [id number], [address], [place], [address], 04/05/2024 11:21:26 Aspercrem e (lidocain e HCl) 4 % topical 2023 025 [id number], [address], [place], [address], 04/05/2024 11:15:03 linezolid 600 mg tablet 2023 024 [id number] [address] [place], [address], 01/06/2024 11:16:43 mupirocin 2 % topical ointment 2023 024 [facility], [address] [place], [address], 01/06/2024 11:17:04 linezolid 600 mg tablet 2023 024 [id number], [address] [place], [address], 01/06/2024 11:16:43 mupirocin 2 % topical ointment 2023 024 [id number], [address] [place], [address], 01/06/2024 11:17:02 Dermend topical cream 2023 024 [id number], [address], [place], [address], 08/25/2023 11:42:54 hydroxyzi ne HCl 10 mg tablet 2023 025 [id number], [address] [place], [address], 04/05/2024 11:15:42 doxycycli ne hyclate 100 mg capsule 2023 024 [id number], [address], [place], [address], 04/05/2024 11:08:40 mupirocin 2 % topical ointment 2023 024 [id number], [address], [place], [address], 01/06/2024 11:17:02 Patient TargetsNo targets recorded. Patient Instructions Encounter Date Encounter Id Patient Instructions Last Modified By Organization Details Last Modified Time 09/30/2023 [id number] Peripheral Arterial Disease (PAD): Care Instructions mshenouda Not available 09/30/2023 11:35:42 mammogram: about this test mshenouda Not available 09/30/2023 11:35:41 osteoporosis: ca re instructions mshenouda Not available 09/30/2023 11:35:42 chronic obstructive pulmonary disease (COPD): care instructions mshenouda Not available 09/30/2023 11:35:41 learning about copd and how to prevent lung infections mshenouda Not available 09/30/2023 11:35:41 high cholesterol : care instructions mshenouda Not available 09/30/2023 11:35:41 chronic obstructive pulmonary disease (COPD): care instructions mshenouda Not available 09/30/2023 11:35:41 01/06/2024 [id number] Peripheral Arterial Disease (PAD): Care Instructions mshenouda Not available 01/06/2024 11:21:59 osteoporosis: ca re instructions mshenouda Not available 01/06/2024 11:21:59 mammogram: about this test mshenouda Not available 01/06/2024 11:21:59 learning about healthy weight mshenouda Not available 01/06/2024 11:21:58 chronic obstructive pulmonary disease (COPD): care instructions mshenouda Not available 01/06/2024 11:21:59 learning about copd and how to prevent lung infections mshenouda Not available 01/06/2024 11:21:59 high cholesterol : care instructions mshenouda Not available 01/06/2024 11:21:59 04/05/2024 [id number] Peripheral Arterial Disease (PAD): Care Instructions mshenouda Not available 04/05/2024 11:21:17 (BRIAN) ankle brachial index* [place] Not available 04/05/2024 12:29:52 mammogram: about this test mshenouda Not available 04/05/2024 11:21:17 arthritis: care instructions mshenouda Not available 04/05/2024 11:21:16 osteoporosis: ca re instructions mshenouda Not available 04/05/2024 11:21:17 cough: care instructions mshenouda Not available 04/05/2024 11:21:18 diverticulosis: care instructions mshenouda Not available 04/05/2024 11:21:16 learning about diverticulosis and diverticulitis mshenouda Not available 04/05/2024 11:21:17 chronic obstructive pulmonary disease (COPD): care instructions mshenouda Not available 04/05/2024 11:21:16 learning about copd and how to prevent lung infections mshenouda Not available 04/05/2024 11:21:17 high cholesterol : care instructions mshenouda Not available 04/05/2024 11:21:17 age-related macular degeneration: care instructions mshenouda Not available 04/05/2024 11:21:16 living will mshenouda Not available 03/18 11:20:55 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 [address] [facility] [address], [place], [address], 04/06/2024 14:21:11 04/05/19 25 04/05/2024 COMPR EHENS TOMASA METAB OLIC PANEL potassium 4.1 mmol/ L 3.5-5. 2 Not Available [facility] [address] [facility] [address], [place], [address], 04/06/2024 14:21:11 04/05/19 25 04/05/2024 COMPR EHENS TOMASA METAB OLIC PANEL chloride 101 mmol/ L 98-107 Not Available [facility] [address] [facility] [address], [place], [address], 04/06/2024 14:21:11 04/05/19 25 04/05/2024 COMPR EHENS TOMASA METAB OLIC PANEL carbon dioxide (co2) 30.0 mmol/ L 18.0-2 9.0 high Not Available [facility] [address] [facility] [address], [place], [address], 04/06/2024 14:21:11 04/05/19 25 04/05/2024 COMPR EHENS TOMASA METAB OLIC PANEL glucose 96 mg/dL 65-99 Jacque l Fasti n - 99 mg/dL Impai red Fasti n - 125 mg/dL Diagn ostic of Diabe marly: => 126 mg/dL Ameri can [facility], 2007 Not Available [facility] [address] [facility] [address], [place], [address], 04/06/2024 14:21:11 04/05/19 25 04/05/2024 COMPR EHENS TOMASA METAB OLIC PANEL urea nitrogen (BUN) 15 mg/dL 8-23 Not Available [facility] [address] [facility] [address], [place], [address], 04/06/2024 14:21:11 04/05/19 25 04/05/2024 COMPR EHENS TOMASA METAB OLIC PANEL creatinine 0.50 mg/dL 0.57-1 .00 low Not Available [facility] [address] [facility] [address], [place], [address], 04/06/2024 14:21:11 04/05/19 25 04/05/2024 COMPR EHENS TOMASA METAB OLIC PANEL eGFR 95 mL/mi nute/ 1.73_ m2 >59 MDRD Study Equat ion: The calcu lated GFR is NOT appli cable for pedia tric (< 18 years old) and > 70 year old patie nts and patie nts that are NOT of stead y state . Not Available [facility] [address] [facility] [address], [place], [address], 04/06/2024 14:21:11 04/05/19 25 04/05/2024 COMPR EHENS TOMASA METAB OLIC PANEL calcium 9.3 mg/dL 8.7-10 .3 Not Available [facility] [address] [facility] [address], [place], [address], 04/06/2024 14:21:11 04/05/19 25 04/05/2024 COMPR EHENS TOMASA METAB OLIC PANEL protein, total 6.5 gm/dL 6.4-8. 3 Not Available [facility] [address] [facility] [address], [place], [address], 04/06/2024 14:21:11 04/05/19 25 04/05/2024 COMPR EHENS TOMASA METAB OLIC PANEL albumin 4.1 gm/dL 3.5-5. 2 Not Available [facility] [address] [facility] [address], [place], [address], 04/06/2024 14:21:11 04/05/19 25 04/05/2024 COMPR EHENS TOMASA METAB OLIC PANEL bilirubin, total 0.20 mg/dL 0.00-1 .20 Not Available [facility] [address] [facility] [address], [place], [address], 04/06/2024 14:21:11 04/05/19 25 04/05/2024 COMPR EHENS TOMASA METAB OLIC PANEL alkaline phosphatase (ALP) 65 U/L 39-117 Not Available [facility] [address] [facility] [address], [place], [address], 04/06/2024 14:21:11 04/05/19 25 04/05/2024 COMPR EHENS TOMASA METAB OLIC PANEL aspartate aminotransfe rase (AST) 25 U/L 0-32 Not Available [facility] [address] [facility] [address], [place], [address], 04/06/2024 14:21:11 04/05/19 25 04/05/2024 COMPR EHENS TOMASA METAB OLIC PANEL alanine aminotransfe rase (ALT) 21 U/L 0-33 Not Available [facility] [address] [facility] [address], [place], [address], 04/06/2024 14:21:11 04/05/19 25 04/05/2024 COMPR EHENS TOMASA METAB OLIC PANEL A/G ratio (calculated) 1.7 ratio 1.0-2. [address] [facility] [address] [facility] [address], [place], [address], 04/06/2024 14:21:11 04/05/19 25 04/05/2024 COMPR EHENS TOMASA METAB OLIC PANEL globulin (calculated) 2.4 gm/dL 1.5-3. [address] [facility] [address] [facility] [address], [place], [address], 04/06/2024 14:21:11 04/05/19 25 04/05/2024 COMPR EHENS TOMASA METAB OLIC PANEL BUN/creatini ne ratio (calculated) 30.0 ratio 8.0-20 .0 high Not Available [facility] [address] [facility] [address], [place], [address], 04/06/2024 14:21:11 04/05/19 25 04/05/2024 COMPR EHENS TOMASA METAB OLIC PANEL serum hemolysis index Normal index normal Not Available [facility] [address] [facility] [address], [place], [address], 04/06/2024 14:21:11 Result Notes None recorded. Problems Name Problem SNOMED Code Status Onset Date Resolution Date Notes Provider Name and Address Organization Details Recorded Time Chronic obstructiv e pulmonary disease 10169861 Active Not Available [facility] 3 13:52:09 Diverticul itis 563627964 Completed 08/01/2015 Terra Rashid MD [address], [place], [address] , [facility] 6 09:23:19 Pulmonary emphysema 47303067 Active Not Available [facility] 3 13:52:10 Benign hypertensi on 94272478 Active Not Available [facility] 3 13:52:09 Blood glucose outside reference range 378250438 Active Not Available [facility] 3 13:52:09 Hyperlipid emia 19015952 Active Not Available [facility] 3 13:52:09 Neoplasm of liver 626379723 Completed 10/19/2019 Terra Rashid MD [address], [place], [address] , [facility] 0 10:57:51 Osteopenia 694239429 Completed 08/01/2015 Terra Rashid MD [address], [place], [address] , [facility] 6 09:26:25 Osteoporos is 00014831 Active Not Available [facility] 3 13:52:09 Simple renal cyst 22931122 Active Not Available [facility] 3 13:52:10 Diverticul ar disease of colon 868469994 Active 2015 Not Available [facility] 3 13:52:09 Hemangioma of liver 54089547 Active 2015 Not Available [facility] 3 13:52:10 Mixed anxiety and depressive disorder 517622890 Active 2016 Not Available [facility] 3 13:52:09 Ex-smoker 7637196 Active 2016 Not Available [facility] 3 13:52:10 Coronary arterioscl erosis 50407022 Active [address] chest 7 Not Available [facility] 3 13:52:09 Body mass index less than 20 799457771 Active 2018 Not Available [facility] 3 13:52:09 Osteoarthr itis 113912439 Active 2019 Not Available [facility] 3 13:52:09 COVID-19 813235039 Completed 202007/17/2020 Terra Rashid MD [address], [place], [address] , [facility] 1 10:28:46 Allergic rhinitis caused by pollen 64066077 Active 2021 Not Available [facility] 3 13:52:09 Peripheral vascular disease 994245426 Active 2021 Not Available [facility] 3 13:52:09 Vitamin D deficiency 58758434 Active 2021 Not Available [facility] 3 13:52:09 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 277755838 Active 2022 Not Available [facility] 3 13:52:09 Cyst of kidney 094055134 Active [address] chest 3 Not Available [facility] 3 13:52:10 History of malignant neoplasm of skin 885602863 Active 2023 Terra Rashid MD [address], [place], [address] , [facility] 4 11:09:16 Problem Notes None recorded. Procedures Surgical History Date Name Laterality Status Provider Name and Address Organization Details Recorded Time 10/28/19 17 Date of Last Colonoscopy completed Shirley Ivey [facility] 05/13/2017 10:15:11 Tonsillectomy completed Shirley Ivey [facility] 08/01/2015 08:32:59 Imaging Results None recorded. Procedure Notes None recorded. Medical Equipment None Reported. Allergies Allergen ID Allergen Name Allergen Category Reaction Reaction Severity Criticality Documentation Date Start Date Code Code System Note Provider Name and Address Organization Details Recorded Time 2298 Augmentin medicatio n Not available Not available Not available 08/01/2015 22865 2 RxNorm Shirley Ivey [facility] 6 08:32:43 Medications Name Sig Start Date Stop Date Status Note LastModified by Organization Details LastModified Time magnesium citrate 1.745 gm/30ml soln 11/12 completed Not Available Not Available Not Available janelle yost 06/16 completed Not Available Not Available Not Available Prescriptio n - Prior Authorizati on Request take 1 tablet every day 12/02 completed Not Available Not Available Not Available hydrocortis one 0.5 % topical cream APPLY TO AFFECTED AREA(S) ON THE SKIN ONCE EVERY 12 HOURS NEEDED 04/26 completed Not Available Not Available Not Available carvedilol 6.25 mg tablet TAKE 1 TABLET BY MOUTH TWICE A DAY 01/18 completed Not Available Not Available Not Available prednisone 10 mg tablet 07/12 completed Not Available Not Available Not Available doxycycline hyclate 100 mg capsule TAKE 1 CAPSULE BY MOUTH TWICE A DAY 04/05 completed Not Available Not Available Not Available carvedilol 12.5 mg tablet TAKE 1 TABLET BY MOUTH TWICE A DAY active Not Available Not Available No t Available clindamycin HCl 300 mg capsule Take 1 capsule every 8 hours by oral route for 10 days. 07/21 completed Not Available Not Available Not Available albuterol sulfate 2.5 mg/3 mL (0.083 %) solution for nebulizatio n INHALE 3 ML 4 TIMES A DAY BY NEBULIZAT ION ROUTE 04/19 completed Not Available Not Available Not Available ammonium lactate 12 % lotion APPLY TOPICALLY TO THE AFFECTED AREA EVERY DAY AT BEDTIME 04/05 completed Not Available Not Available Not Available azithromyci n 250 mg tablet TAKE 2 TABLETS BY MOUTH TODAY, THEN TAKE 1 TABLET DAILY FOR 4 DAYS DIRECTED active Not Available Not Available No t Available ofloxacin 0.3 % eye drops 07/06 completed Not Available Not Available Not Available metoprolol succinate ER 50 mg tablet,exte nded release 24 hr TAKE 1 TABLET BY MOUTH EVERY DAY IN THE MORNING active Not Available Not Available No t Available clarithromy garret 500 mg tablet Take 1 tablet every 12 hours by oral route. 03/14 completed Not Available Not Available Not Available albuterol sulfate 1.25 mg/3 mL solution for nebulizatio n INHALE 1 VIAL (3 MLS) VIA NEBULIZER 3 TIMES A DAY NEEDED active Not Available Not Available No t Available FreeStyle Lancets 28 gauge bid PRN 05/24 completed Not Available Not Available Not Available prednisone 20 mg tablet TAKE 1 TABLET BY MOUTH EVERY DAY active Not Available Not Available No t Available alendronate 70 mg tablet TAKE 1 TABLET BY MOUTH EVERY WEEK 12/02 completed Not Available Not Available Not Available atenolol 25 mg tablet Take 1 tablet by mouth twice a day 11/12 completed Not Available Not Available Not Available clobetasol 0.05 % topical cream APPLY A THIN FILM TO AFFECTED AREA TWICE DAILY FOR 1 MONTH, THEN TWICE WEEKLY FOR THE NEXT 2 WEEKS active Not Available Not Available No t Available permethrin 5 % topical cream APPLY TOPICALLY FROM NECK TO TOES AND LEAVE ON FOR 8 HOURS DIRECTED. REPEAT IN 1 WEEK 06/23 completed Not Available Not Available Not Available metronidazo le 500 mg tablet Take 1 tablet every 8 hours by oral route. 03/17 completed Not Available Not Available Not Available sulfamethox azole 800 mg-trimetho prim 160 mg tablet 07/31 completed Not Available Not Available Not Available peg-electro lyte solution 420 gram oral solution 11/12 completed Not Available Not Available Not Available aspirin 81 mg tablet,reinaldo yed release TAKE 1 TABLET BY MOUTH EVERY DAY 2018 active Not Available Not Available Not Avai lable triamcinolo ne acetonide 0.1 % topical cream APPLY TWICE DAILY TO RASH UP TO 4 WEEKS, THEN DECREASE TO TWICE A DAY TWICE WEEKLY FOR MAINTENAN CE active Not Available Not Available No t Available simvastatin 40 mg tablet TAKE 1 TABLET BY MOUTH EVERYDAY AT BEDTIME active Not Available Not Available No t Available carvedilol 3.125 mg tablet Take 1 tablet twice a day by oral route. 12/02 completed Not Available Not Available Not Available ketorolac 0.5 % eye drops 03/22 completed Not Available Not Available Not Available alprazolam 0.25 mg tablet Take 1 tablet every day by oral route as needed. 12/02 completed Not Available Not Available Not Available prednisolon e acetate 1 % eye drops,suspe nsion 06/23 completed Not Available Not Available Not Available linezolid 600 mg tablet TAKE 1 TABLET BY MOUTH EVERY 12 HOURS 01/05 completed Not Available Not Available Not Available benzonatate 100 mg capsule TAKE 1 CAPSULE BY MOUTH THREE TIMES A DAY active Not Available Not Available No t Available oseltamivir 75 mg capsule Take 1 capsule twice a day by oral route. 05/15 completed Not Available Not Available Not Available ranitidine 150 mg tablet 1 PO BID 10/13 completed Not Available Not Available Not Available buspirone 10 mg tablet TAKE 1 TABLET 3 TIMES A DAY BY ORAL ROUTE NEEDED. 2024 active Not Available Not Available Not Avai lable clotrimazol e-betametha sone 1 %-0.05 % topical cream APPLY TO AFFECTED AREA TWICE A DAY 06/23 completed Not Available Not Available Not Available omeprazole 20 mg capsule,del ayed release Take 1 capsule every 12 hours by oral route. 08/26 completed Not Available Not Available Not Available raloxifene 60 mg tablet TAKE 1 TABLET BY MOUTH EVERY DAY IN THE MORNING active Not Available Not Available No t Available montelukast 10 mg tablet TAKE 1 TABLET BY MOUTH EVERY DAY 04/05 completed Not Available Not Available Not Available hydroxyzine HCl 25 mg tablet TAKE 1 TABLET BY MOUTH EVERY DAY AT BEDTIME NEEDED FOR ITCHING FOR 30 DAYS 09/29 completed Not Available Not Available Not Available zinc 50 mg tablet Take 1 tablet every day by oral route for 20 days. 04/18 completed Not Available Not Available Not Available ranitidine 150 mg capsule 1 PO BID 2016 active Not Available Not Available Not Avai lable mupirocin 2 % topical ointment AAA BID 2024 active Not Available Not Available Not Avai lable mirtazapine 15 mg tablet TAKE 1 TABLET BY MOUTH AT BEDTIME 2024 active Not Available Not Available Not Avai lable metoprolol succinate ER 25 mg tablet,exte nded release 24 hr TAKE 1 AND 1/2 TABLETS BY MOUTH EVERY DAY IN THE MORNING active Not Available Not Available No t Available levofloxaci n 500 mg tablet Take 1 tablet every 24 hours by oral route. 03/16 completed Not Available Not Available Not Available methylpredn isolone 4 mg tablets in a dose pack Take 1 package by oral route as needed. 05/05 completed Not Available Not Available Not Available albuterol sulfate HFA 90 mcg/actuati on aerosol inhaler INHALE 1 PUFF BY MOUTH THREE TIMES DAILY NEEDED active Not Available Not Available No t Available ipratropium bromide 42 mcg (0.06 %) nasal spray SPRAY 1 SPRAY 4 TIMES A DAY BY INTRANASA L ROUTE DIRECTED FOR 30 DAYS. 04/05 completed Not Available Not Available Not Available dexamethaso ne 0.5 mg tablet TAKE 1 TABLET BY MOUTH TWICE DAILY FOR 10 DAYS 07/17 completed Not Available Not Available Not Available Tussionex Pennkinetic ER 10 mg-8 mg/5 mL suspension, extended release Take 5 mL every 12 hours by oral route. 03/14 completed Not Available Not Available Not Available hydroxyzine HCl 10 mg tablet TAKE 1 TABLET 3 TIMES A DAY BY ORAL ROUTE NEEDED. 04/05 completed Not Available Not Available Not Available cefdinir 300 mg capsule TAKE 1 CAPSULE BY MOUTH EVERY 12 HOURS 03/04 completed Not Available Not Available Not Available [...] t Available doxycycline hyclate 100 mg tablet TAKE 1 TABLET BY MOUTH TWICE A DAY active Not Available Not Available No t Available amoxicillin 875 mg-potassiu m clavulanate 125 mg tablet 01/18 completed Not Available Not Available Not Available hydroxyzine pamoate 25 mg capsule TAKE 1 CAPSULE BY MOUTH ONCE EVERY 8-12 HOURS NEEDED FOR ITCHING 10/26 completed Not Available Not Available Not Available escitalopra m 5 mg tablet TAKE 1 TABLET BY MOUTH EVERY NIGHT AT BEDTIME 08/26 completed Not Available Not Available Not Available Spiriva with HandiHaler 18 mcg and inhalation capsules INHALE THE CONTENTS OF 1 CAPSULE VIA HANDIHALE R EVERY MORNING 07/12 completed Not Available Not Available Not Available nitrofurant oin monohydrate /macrocryst als 100 mg capsule TAKE 1 CAPSULE BY MOUTH EVERY 12 HOURS 10/26 completed Not Available Not Available Not Available losartan 100 mg-hydrochl orothiazide 12.5 mg tablet TAKE 1 TABLET EVERY MORNING 06/28 completed Not Available Not Available Not Available CeraVe topical cream Apply 1 g twice a day by topical route. 12/02 completed Not Available Not Available Not Available Symbicort 160 mcg-4.5 mcg/actuati on HFA aerosol inhaler USE 2 PUFFS TWICE A DAY WITH SPACER 07/12 completed Not Available Not Available Not Available cholecalcif emi (vitamin D3) 125 mcg (5,000 unit) tablet TAKE 1 TABLET BY MOUTH EVERY DAY 04/05 completed Not Available Not Available Not Available ranitidine 15 mg/mL oral suspension compounding kit active Not Available Not Available Not Available OneTouch Delica Lancets 33 gauge Use 1 lancet two times daily 2016 active Not Available Not Available Not Avai lable Vitamin D3 50 mcg (2,000 unit) capsule TAKE 1 CAPSULE BY MOUTH EVERY DAY 07/28 completed Not Available Not Available Not Available roflumilast 500 mcg tablet TAKE 1 TABLET BY MOUTH EVERY DAY AFTER A MEAL active Not Available Not Available No t Available OneTouch Verio test strips Check blood sugar two times daily 2016 active Not Available Not Available Not Avai lable Chantix Starting Month Box 0.5 mg (11)-1 mg (42) tablets in dose pack as directed 08/01 completed Not Available Not Available Not Available Mucus DM 30 mg-600 mg tablet,exte nded release TAKE 1 TABLET BY MOUTH EVERY 12 HOURS 10/26 completed Not Available Not Available Not Available Eliquis 5 mg tablet TAKE 1 TABLET BY MOUTH TWICE DAILY 07/17 completed Not Available Not Available Not Available Dermend topical cream Apply 1 g twice a day by topical route. 2024 active Not Available Not Available Not Avai lable Incruse Ellipta 62.5 mcg/actuati on powder for inhalation Inhale 1 puff every day by inhalatio n route. 07/12 completed Not Available Not Available Not Available Trelegy Ellipta 100 mcg-62.5 mcg-25 mcg powder for inhalation INHALE 1 PUFF BY MOUTH EVERY DAY active Not Available Not Available No t Available Mylanta Gas Minis 42 mg chewable tablet Take 1 tablet every day by oral route at dinner for 90 days. 2020 active Not Available Not Available Not Avai lable Fluzone High-Dose Quad 2019- (PF) 240 mcg/0.7 mL IM syringe ADM 0.7ML IM UTD 12/16 completed Not Available Not Available Not Available Vitals Date Recorded Body height Respiratory rate Body temperature Body mass index (BMI) Body weight Provider Name and Address Organization Details Last Updated DateTime 4 160.02 cm 16 /min 97.8 [degF] 15.1 kg/m2 34898.3 5 g Herlinda Tobar [facility] 4 11:22:02 Date Recorded Heart rate Systolic blood pressure Diastolic blood pressure Provider Name and Address Organization Details Last Updated DateTime 08/25/2023 92 /min 131 mm[Hg] 81 mm[Hg] Terra Rashid MD [address] [place] [address] [address], [place], [address], [facility] 08/25/2023 11:35:24 Date Recorded Body height Heart rate Respiratory rate Body temperature Body mass index (BMI) Body weight Systolic blood pressure Diastolic blood pressure Provider Name and Address Organization Details Last Updated DateTime 4 160.02 cm 79 /min 18 /min 97.7 [degF] 14.9 kg/m2 76668.7 6 g 138 mm[Hg] 77 mm[Hg] Herlinda Tobar [facility] 4 11:08:49 Date Recorded Body height Body temperature Respiratory rate Heart rate Systolic blood pressure Diastolic blood pressure Provider Name and Address Organization Details Last Updated DateTime 4 160.02 cm 97.8 [degF] 18 /min 113 /min 156 mm[Hg] 75 mm[Hg] Herlinda Tobar [facility] 4 16:00:51 Date Recorded Body height Body mass index (BMI) Body weight Body temperature Respiratory rate Heart rate Provider Name and Address Organization Details Last Updated DateTime 4 160.02 cm 14.7 kg/m2 83811.1 7 g 98.2 [degF] 18 /min 89 /min Herlinda Tobar [facility] 4 10:25:29 Date Recorded Systolic blood pressure Diastolic blood pressure Provider Name and Address Organization Details Last Updated DateTime 01/06/2024 134 mm[Hg] 78 mm[Hg] Terra Rashid MD [address] [facility] [address], [place], [address], [facility] 01/06/2024 11:17:36 Date Recorded Body height Body mass index (BMI) Body weight Body temperature Respiratory rate Heart rate Systolic blood pressure Diastolic blood pressure Provider Name and Address Organization Details Last Updated DateTime 5 160.02 cm 14.7 kg/m2 01910.1 7 g 98.7 [degF] 18 /min 110 /min 175 mm[Hg] 89 mm[Hg] Herlinda Tobar [facility] 5 10:47:47 Social History Question Answer Notes LastModified by Organizat ion Details LastModified Time Tobacco Smoking Status Former Smoker about 1PPD for over 30 years Grace resendiz, [facility] 04/18/2020 10:01:14 Do You Have An Advance Directive? No [id number] Information not available 11/30/2019 What Is Your Level Of Alcohol Consumption? None [id number] Information not available 11/30/2019 What Is Your Level Of Caffeine Consumption? Occasional Information not available 04/18/2020 Commercial Sex Work No Information not available 04/18/2020 Are There Any Guns Present In Your Home? No Information not available 04/18/2020 High Number Of Sexual Partners No Information not available 04/18/2020 History Of Inconsistent/n o Condom Use No Information not available 04/18/2020 Live Alone Or With Others? Alone [email or web address] Information not available 08/01/2015 What Was The Date Of Your Most Recent Tobacco Screening? 07/21/2018 [id number] Information not available 11/30/2019 Mother With HIV? No Information not available 04/18/2020 Performs Monthly Self-breast Exam? No Information not available 04/18/2020 Seat Belts Used Routinely Yes Information not available 04/18/2020 Sexual Partner Has HIV? No Information not available 04/18/2020 Sexual Partner Uses IV Drugs? No Information not available 04/18/2020 Smoke Alarm In Home Yes Information not available 04/18/2020 Do You Use Sunscreen Routinely? No Information not available 04/18/2020 Have You Used IV Drugs? No Information not available 04/18/2020 Sex: Unknown Functional Status Question Answer Note LastModified by Organization D etails LastModified Time Are you able to care for yourself? Yes Information n ot available 04/18/2020 Mental Status None recorded. Family History Relationship Description Onset Age of this Age Resolved Age Notes LastModified by Organization Details LastModified Time Father Coronary arterioscler osis 83 [email or web address] Not available 2015 08:33:25 Father Malignant tumor of prostate [email or web address] Not available 2015 08:33:34 Mother Coronary arterioscler osis 92 [email or web address] Not available 2015 08:33:25 Brother Coronary arterioscler osis 63 Not available 2015 08:33:25 Brother Diabetes mellitus [email or web address] Not available 2015 08:33:41 Medical History Condition Response Coronary Artery Disease N Other N Gout N Kidney Stones N Blood Diseases N Hyperthyroidism N Blood Transfusion N Breast Cancer N COPD N Depression N Lung Disease N Hypothyroidism N Defects or Inherited Disease N Developmental or Behavioral Disorders N Breast Problem N Difficulty Swallowing N Anesthesia Complications N Meniere's disease N Anxiety Disorder N Muscle, Joint, or Bone Problems N Obesity N Vision or Eye Problems N Arthritis N Polyps N Infertility N Mental Disorder N Cancer N Varicosities N Stroke N Endometriosis N Bladder or Kidney Problems N High Cholesterol N Liver Disease N Fibromyalgia N Headaches N Kidney Disease N Allergies/Hayfever N Heart Problems N Ear or Hearing Problems N Hospitalizations N Thyroid Problems N GI Problems N ADD/ADHD N Skin Problems N Eating Disorder N Anemia N MRSA exposure N Constipation N Mental Illness N Ovarian Cancer N Diabetes N Bedwetting N Seizures/Epilepsy N Tuberculosis N AIDS/HIV N Congestive Heart Failure (CHF) N Eczema N Diverticulitis N Abuse/Domestic Violence N Asthma N Reflux/GERD N Hepatitis N Heart Disease N Pulmonary Embolism N Pre-Eclampsia N Hypertension N Chronic Ear Infections N Osteoporosis N Chicken Pox N Autism Spectrum Disorder (ASD) N Thrombophilias N Gynecological History Statement/Question Response Date of Last Mammogram Date of Last Colonoscopy 10/27/2016 Obstetrics History GPAL:G 0 P 0 0 0 0 Immunizations Vaccine Type Date Status Note Provider Nam e and Address Organization Details Recorded Time Influenza, split virus, quadrivalent, preservative 5 completed Terra Rashid MD [address], [place], [address], [facility] 12/12/2022 14:04:19 pneumococcal polysaccharide PPV23 6 completed Terra Rashid MD [address], [place], [address], [facility] 12/12/2022 14:04:19 Influenza, split virus, quadrivalent, preservative 8 completed Terra Rashid MD [address], [place], [address], [facility] 12/12/2022 14:04:19 Influenza, split virus, quadrivalent, preservative 8 completed Terra Rashid MD [address], [place], [address], [facility] 12/12/2022 14:04:19 Influenza, split virus, quadrivalent, preservative 9 completed Terra Rashid MD [address], [place], [address], [facility] 12/12/2022 14:04:19 Influenza, split virus, quadrivalent, preservative 0 completed Terra Rashid MD [address], [place], [address], [facility] 12/12/2022 14:04:19 SARS-COV-2 (COVID-19) vaccine, UNSPECIFIED 1 completed Terra Rashid MD [address], [place], [address], [facility] 12/12/2022 14:04:19 Td(adult) unspecified formulation 6 completed Terra Rashid MD [address], [place], [address], [facility] 12/12/2022 14:04:19 Influenza, split virus, quadrivalent, preservative 1 completed Terra Rashid MD [address], [place], [address], [facility] 12/12/2022 14:04:19 Influenza, split virus, trivalent, preservative 6 completed Not Available [facility] 03/03/2019 02:27:19 Influenza, adjuvanted, quadrivalent, PF 3 completed Terra Rashid MD [address], [place], [address], [facility] 12/12/2022 14:04:19 COVID-19, mRNA, LNP-S, PF, lakhwinder-sucrose, 30 mcg/0.3 mL 3 completed Terra Rashid MD [address], [place], [address], [facility] 12/12/2022 14:04:19 Pneumococcal conjugate PCV20, polysaccharide [id number] conjugate, adjuvant, PF 4 completed Terra Rashid MD [address], [place], [address], [facility] 01/11/2024 17:30:57 Tdap 4 completed Terra Rashid MD [address], [place], [address], [facility] 01/11/2024 17:30:57 Pneumococcal conjugate PCV 13 7 completed Terra Rashid MD [address], [place], [address], [facility] 12/12/2022 14:04:19 Influenza, split virus, quadrivalent, preservative 7 completed Terra Rashid MD [address], [place], [address], [facility] 12/12/2022 14:04:19 Past Encounters Encounter ID Performer Location Encounter Start Date Encounter Closed Date Diagnosis/Indication Diagnosis SNOMED-CT Code Diagnosis ICD10 Code Diagnosis Note [id number] Terra Rashid MD [facility], [place], [facility] [address] [place] [address] 08/01/2015 08:59:01 08/01/2015 09:38:49 Benign hypertension 67372919 I10 Chronic ob structive pulmonary disease 42925698 J44.9 Osteopenia 317900219 M85 .80 Hyperlipidemia 94107380 E78.5 Active or passive immunization 281814369 Z23 Screening mammography 24 426943 Z12.31 Screening for malignant neoplasm of colon 971797865 Z12.11 Viral screening 20318284 4 Z11.59 Eruption 183116139 R21 [id number] Terra Rashid MD [facility], [place], [facility] [address] [place] [address] 11/07/2015 09:05:03 11/07/2015 09:57:02 Benign hypertension 33479982 I10 Chronic ob structive pulmonary disease 97805256 J44.9 Gastroesop hageal reflux disease without esophagitis 334341836 K21.9 Active or passive immunization 907950187 Z23 Screening mammography 24 679795 Z12.31 [id number] Terra Rashid MD [facility], [place], [facility] [address] [place] [address] 12/22/2015 09:55:08 12/22/2015 11:22:43 Eruption 487377981 R21 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 Diarrhea 13568022 R19.7 trial of viberzi // need C scope [id number] Terra Rashid MD [facility], [place], [facility] [address] [place] [address] 02/04/2016 09:52:20 02/04/2016 11:00:21 Sinusitis 38322554 J32.9 Cough 05272289 R05 Benign hypertension 1072 5009 I10 [id number] Edwige Smith [facility], [facility] [address] [place] [address] 03/10/2016 09:21:53 03/10/2016 10:44:31 Cough 80875729 R05 Acute bronchitis 5993954 2 J20.9 [id number] Terra Rashid MD [facility], [place], [facility] [address] [place] [address] 03/17/2016 09:24:01 03/17/2016 10:22:41 Eruption 350318095 R21 Tobacco de pendence, continuous 407451157 F17.290 [id number] Terra Rashid MD [facility], [facility] [address] [place] [address] 04/29/2016 09:21:17 04/29/2016 10:03:29 Cough 53365751 R05 Dyspnea 677197675 R06.00 O2 is 97% Wheezing 72793837 R06.2 Pulmonary emphysema 8743 3001 J43.9 Blood gluc ose outside reference range 289695946 R73.09 Benign hypertension 1072 5009 I10 Screening for malignant neoplasm of colon 951477548 Z12.11 Active or passive immunization 782020609 Z23 [id number] Edwige Smith [facility], [facility] [address] [place] [address] 06/18/2016 09:55:43 06/18/2016 10:44:02 Acute bronchitis 78199546 J20.9 Blood gluc ose outside reference range 006953727 R73.09 BS today 120 1 hour pp Probably increased due to bronchitis . Patient asking about diabetic diet. She agrees to diabetic education class offer here. [id number] Terra Rashid MD [facility], [facility] [address] [place] [address] 06/28/2016 10:48:07 06/28/2016 11:46:49 Pneumonia 350816924 J18.9 cont' Abx and prednisone , CXR 6 weeks Hyponatremia 11509890 E8 7.1 Benign hypertension 1072 5009 I10 Chronic ob structive pulmonary disease 96583635 J44.9 At [facility] ed risk for readmission to hospital 3797136891 100 Z91.89 [id number] Terra Rashid MD [facility], [facility] [address] [place] [address] 08/06/2016 10:15:20 08/06/2016 11:09:34 Benign hypertension 04804319 I10 Hyperlipidemia 84299338 E78.5 Pulmonary emphysema 8743 3001 J43.9 Osteoporosis 77605385 M8 1.0 Screening mammography 24 367165 Z12.31 Screening for malignant neoplasm of cervix 049272267 Z12.4 Screening for malignant neoplasm of colon 579016004 Z12.11 Active or passive immunization 843213709 Z23 [id number] Terra Rashid MD [facility], [facility] [address] [place] [address] 11/12/2016 09:16:28 11/12/2016 10:32:13 Adult health examination 626458966 Z00.00 Benign hypertension 1072 5009 I10 will change to coreg //BP 2 weeks Mixed anxi ety and depressive disorder 034829568 F41.8 Chronic ob structive pulmonary disease 97958298 J44.9 stable for now Hyperlipidemia 19061559 E78.5 last LDL 08/06/16 @ goal Osteoporosis 99007567 M8 1.0 last DEXA 04/18/15 Pulmonary emphysema 8743 3001 J43.9 stable Hemangioma of liver 9346 9006 D18.03 Diverticul ar disease of colon 031900928 K57.30 Blood gluc ose outside reference range 322217319 R73.09 check BG BID PRN R/O hypo Screening for malignant neoplasm of colon 475941238 Z12.11 last C scope 11/06/16 , recheck 2019 Screening mammography 24 894425 Z12.31 Screening for malignant neoplasm of cervix 744651125 Z12.4 Active or passive immunization 459823928 Z23 flu [id number] Terra Rashid MD [facility], [facility] [address] [place] [address] 01/05/2017 11:08:04 01/05/2017 12:20:45 Acute exacerbation of chronic obstructive pulmonary disease 989691138 J44.1 had in pt care for 4 daysstill on prednisone and DESMOND PRNon LABA,LAMA, ICS , and daliresppu lm eval Mixed anxi ety and depressive disorder 728982306 F41.8 add lorazepam .25 PRN QD [id number] Terra Rashid MD [facility], [facility] [address] [place] [address] 02/11/2017 10:02:20 02/11/2017 10:49:43 Pulmonary emphysema 88111583 J43.9 with exacerbati on , started 1-2 days ago Osteopenia 104663894 M85 .80 Benign hypertension 1072 5009 I10 Chronic ob structive pulmonary disease 73404082 J44.9 stable for now Superficia l ecchymosis 709539952 R58 [id number] LAWRENCE CEDILLO APN [facility], [facility] [address] [place] [address] 04/08/2017 09:52:46 04/08/2017 10:58:11 Swelling of ankle joint 488261957 M25.472 Benign hypertension 1072 5009 I10 Chronic ob structive pulmonary disease 67469253 J44.9 Hyperlipidemia 63657854 E78.5 Cellulitis of lower limb 078795509 L03.119 [id number] Terra Rashid MD [facility], [facility] [address] [place] [address] 05/13/2017 09:50:04 05/13/2017 10:57:12 Coronary arteriosclerosis 59091014 I25.10 Benign hypertension 1072 5009 I10 Chronic ob structive pulmonary disease 15487801 J44.9 stable for now Hyperlipidemia 72554371 E78.5 last LDL 08/06/16 @ goal Blood gluc ose outside reference range 149446889 R73.09 check BG BID PRN R/O hypo Osteoporosis 55190277 M8 1.0 last DEXA 04/18/15 Screening for malignant neoplasm of colon 420739318 Z12.11 last C scope 11/06/16 , recheck 2020 Screening mammography 24 505236 Z12.31 Screening for malignant neoplasm of cervix 772431080 Z12.4 Active or passive immunization 147817274 Z23 flu [id number] LAWRENCE CEDILLO APN [facility], [facility] [address] [place] [address] 07/15/2017 11:32:07 07/15/2017 12:24:14 Easy bruising 411940880 R58 bilateral forearms -may use vit C daily, bilberry extract (use with caution may cause hypoglycem ia), aloe vera, arnica creamhas been seen by dermatolog ist [id number] Terra Rashid MD [facility] [employer], [facility] [address] [place] [address] 08/26/2017 11:18:34 08/26/2017 12:28:41 Benign hypertension 10692304 I10 Hyperlipidemia 54846745 E78.5 last LDL 08/06/16 @ goal Coronary arteriosclerosis 14836204 I25.10 sees cardiology on reg basis Chronic ob structive pulmonary disease 42775378 J44.9 stable for now Screening mammography 24 173246 Z12.31 Screening for malignant neoplasm of cervix 054694157 Z12.4 Screening for malignant neoplasm of colon 722821189 Z12.11 last C scope 11/06/16 , recheck 2020 Active or passive immunization 296112455 Z23 flu [id number] Terra Rashid MD [facility] [employer], [facility] [address] [place] [address] 12/02/2017 09:20:10 12/02/2017 10:07:02 Chronic obstructive pulmonary disease 83643832 J44.9 stable for now Benign hypertension 1072 5009 I10 Hyperlipidemia 19877722 E78.5 last LDL 04/2017 @ goal Osteoporosis 05590533 M8 1.0 last DEXA 05/13/17 Mixed anxi ety and depressive disorder 682272787 F41.8 No SI , No HI Screening mammography 24 806418 Z12.31 Screening for malignant neoplasm of cervix 822369516 Z12.4 Active or passive immunization 453337212 Z23 flu [id number] LAWRENCE CEDILLO APN [facility], [facility] [address] [place] [address] 01/23/2018 09:29:56 01/23/2018 10:16:12 Cough 56660389 R05 completed abxcontinu es to experience cough -denies sob or wheezing Chronic ob structive pulmonary disease 07032380 J44.9 [id number] Terra Rashid MD [facility], [facility] [address] [place] [address] 04/07/2018 10:11:13 04/07/2018 11:08:49 Benign hypertension 43610345 I10 increase carvedilol to 6.25 Coronary arteriosclerosis 83294606 I25.10 sees cardiology on reg basis Hyperlipidemia 69772077 E78.5 last LDL 04/2017 @ goal Osteoporosis 18162087 M8 1.0 last DEXA 05/13/17 Mixed anxi ety and depressive disorder 745917874 F41.8 No SI , No HI Chronic ob structive pulmonary disease 32781442 J44.9 stable for now Screening mammography 24 479435 Z12.31 Screening for malignant neoplasm of cervix 944033795 Z12.4 Screening for malignant neoplasm of colon 859472809 Z12.11 last C scope 11/06/16 , recheck 2020 Active or passive immunization 174395655 Z23 flu Eruption 587720292 R21 [id number] LAWRENCE CEDILLO APN [employer], [facility] [address] [place] [address] 05/15/2018 09:52:02 05/15/2018 10:22:00 Follow-up visit 656606087 Z09 Chronic ob structive pulmonary disease 85153579 J44.9 cefdinir and prednisone rx not covering spiriva as per pthas not used proair since dc from hospital === feeling much bettero2 95% Benign hypertension 1072 5009 I10 Coronary arteriosclerosis 99265182 I25.10 Leukocytosis 038507901 D 72.829 could be due to IV and oral steroidno signs of infectionf ollow up after steroid taper Mixed anxi ety and depressive disorder 533714683 F41.8 Hyperlipidemia 22556206 E78.5 Antiplatel et agent therapy 427522773 Z79.02 Gastroesop hageal reflux disease without esophagitis 364199807 K21.9 Osteoporosis 18784341 M8 1.0 [id number] LAWRENCE CEDILLO APN [facility] [employer], [facility] [address] [place] [address] 07/12/2018 14:38:58 07/12/2018 15:47:52 Cellulitis of lower limb 238492223 L03.119 right ankle - started tuesday -edema and heatappt 07/21/18 will be kept for eval Benign hypertension 1072 5009 I10 stable on current regimen Chronic ob structive pulmonary disease 95797203 J44.9 has seen pulm - follow up 07/30/18 -trelegy -dc symbicort and spiriva Ankle edema 55693568 R60 .0 right ankle [id number] Terra Rashid MD [facility], [facility] [address] [place] [address] 07/21/2018 12:31:21 07/21/2018 13:13:07 Cellulitis of lower limb 422188493 L03.119 Superficia l ecchymosis 114728052 R58 decrease ASA to QOD , moistrizur e BID Chronic ob structive pulmonary disease 00853194 J44.9 stable for now Benign hypertension 1072 5009 I10 good control Screening mammography 24 204002 Z12.31 Screening for malignant neoplasm of cervix 448878687 Z12.4 Screening for malignant neoplasm of colon 383181524 Z12.11 last C scope 11/06/16 , recheck 2020 Active or passive immunization 316508523 Z23 flu [id number] Terra Rashid MD [facility], [facility] [address] [place] [address] 10/13/2018 11:25:59 10/13/2018 12:23:31 Benign hypertension 85395897 I10 good control Osteoporosis 66951726 M8 1.0 last DEXA 05/13/17 Hyperlipidemia 35715779 E78.5 last LDL 04/2017 @ goal Chronic ob structive pulmonary disease 34492141 J44.9 stable for nowlast PFT 03/2018 Ex-smoker 4887156 Z87.89 1 quit 2017having LDCT with pulm Screening mammography 24 736657 Z12.31 Screening for malignant neoplasm of cervix 744934976 Z12.4 Screening for malignant neoplasm of colon 365199724 Z12.11 last C scope 11/06/16 , recheck 2020 Adult heal th examination 696363109 Z00.01 Active or passive immunization 556391779 Z23 flu Coronary arteriosclerosis 33648013 I25.10 sees cardiology on reg basis Hemangioma of liver 9346 9006 D18.03 on US 11/11/16 Diverticul ar disease of colon 805147589 K57.30 asymptomat ic Mixed anxi ety and depressive disorder 343279972 F41.8 No SI , No [place] [id number] Terra Rashid MD [employer] [address] [place] [address] 01/18/2019 10:08:10 01/18/2019 10:56:50 Benign hypertension 28878649 I10 good control , will change coreg to metoprolol BP,Pulse 2 weeks Blood gluc ose outside reference range 436134074 R73.09 check BG BID PRN R/O hypo Body mass index less than 20 396439325 Z68.1 Chronic ob structive pulmonary disease 41695343 J44.9 stable for nowlast PFT 03/2018 Coronary arteriosclerosis 33031301 I25.10 sees cardiology on reg basis Hyperlipidemia 78957468 E78.5 last LDL 03/2018 @ goal Mixed anxi ety and depressive disorder 443308203 F41.8 No SI , No HI Osteoporosis 17793786 M8 1.0 last DEXA 05/13/17 Screening mammography 24 468173 Z12.31 Screening for malignant neoplasm of cervix 726014758 Z12.4 Screening for malignant neoplasm of colon 030811949 Z12.11 last C scope 11/06/16 , recheck 2020 Active or passive immunization 553157084 Z23 [id number] Terra Rashid MD [employer] [employer] [address] [place] [address] 04/20/2019 10:02:17 04/20/2019 10:33:41 Benign hypertension 66903959 I10 good control ,BP,Pulse 2 weeks Chronic ob structive pulmonary disease 46197301 J44.9 stable for nowlast PFT 03/2018 Coronary arteriosclerosis 11327605 I25.10 sees cardiology on reg basis Hyperlipidemia 36211704 E78.5 last LDL 01/2019 @ goal Mixed anxi ety and depressive disorder 292885647 F41.8 No SI , No HI Osteoporosis 78374340 M8 1.0 last DEXA 05/13/17 Pruritic rash 63004132 L 28.2 Screening mammography 24 718678 Z12.31 Screening for malignant neoplasm of cervix 511234088 Z12.4 Screening for malignant neoplasm of colon 647642796 Z12.11 last C scope 11/06/16 , recheck 2020 Active or passive immunization 729835974 Z23 [id number] Terra Rashid MD [employer] [employer] [address] [place] [address] 07/20/2019 10:09:47 07/20/2019 10:53:44 Benign hypertension 19468990 I10 good control ,increase metoprolol to 1.5 tab QAM BP , Pulse 2 weeks Body mass index less than 20 893301092 Z68.1 education Blood gluc ose outside reference range 038576384 R73.09 check BG BID PRN R/O hypo Chronic ob structive pulmonary disease 31916736 J44.9 stable for nowlast PFT 03/2018 Coronary arteriosclerosis 96485609 I25.10 sees cardiology on reg basis Hyperlipidemia 54360265 E78.5 last LDL 01/2019 @ goal Mixed anxi ety and depressive disorder 985091355 F41.8 No SI , No HI Osteoporosis 95778363 M8 1.0 last DEXA 05/13/17las t Vit D level 04/20/19 Screening mammography 24 373824 Z12.31 Screening for malignant neoplasm of cervix 016237323 Z12.4 Screening for malignant neoplasm of colon 227305121 Z12.11 last C scope 11/06/16 , recheck 2020 Active or passive immunization 046637061 Z23 Eruption 917738279 R21 [id number] Terra Rashid MD [employer] [employer] [address] [place] [address] 10/19/2019 10:18:07 10/19/2019 11:11:51 Benign hypertension 98121351 I10 good control ,BP , Pulse 2 weeks Hyperlipidemia 52785023 E78.5 last LDL 07/20/19 @ goal Osteoporosis 82768613 M8 1.0 last DEXA 07/20/19last Vit D level 04/20/19 Chronic ob structive pulmonary disease 67031925 J44.9 stable for nowlast PFT 07/20/19 Screening mammography 24 847454 Z12.31 Screening for malignant neoplasm of cervix 300569148 Z12.4 Screening for malignant neoplasm of colon 950943879 Z12.11 last C scope 11/06/16 , recheck 2020 Active or passive immunization 301818188 Z23 flu shot Adult heal th examination 759490895 Z00.01 Mixed anxi ety and depressive disorder 946953043 F41.8 No SI , No HI Pulmonary emphysema 8743 3001 J43.9 with exacerbati on , started 1-2 days ago Simple renal cyst 831925 09 N28.1 Ex-smoker 6815380 Z87.89 1 quit 2018having LDCT with pulm Hemangioma of liver 9346 9006 D18.03 on US 11/11/16 Diverticul ar disease of colon 789427286 K57.30 asymptomat ic Coronary arteriosclerosis 98274305 I25.10 sees cardiology on reg basis Blood gluc ose outside reference range 389779698 R73.09 check BG BID PRN R/O hypo Eruption 589317707 R21 [id number] Terra Rashid MD [employer] [employer] [address] [place] [address] 01/18/2020 10:15:45 01/18/2020 10:55:46 Tachycardia 9138756 R00.0 Benign hypertension 1072 5009 I10 good control ,BP , Pulse 2 weeks Chronic ob structive pulmonary disease 89351211 J44.9 stable for nowlast PFT 07/20/19 Hyperlipidemia 66689584 E78.5 last LDL 07/20/19 @ goal Mixed anxi ety and depressive disorder 181356278 F41.8 No SI , No HI Osteoporosis 77166655 M8 1.0 last DEXA 07/20/19last Vit D level 10/19/19 Screening mammography 24 418655 Z12.31 Screening for malignant neoplasm of cervix 081265987 Z12.4 Screening for malignant neoplasm of colon 194882252 Z12.11 last C scope 11/06/16 , recheck 2020 Active or passive immunization 322441075 Z23 flu shot COVID-19 418076525 U07.1 test +ve 12/30/19 , asymptomat ic now , O2 is 97% on RA [id number] Terra Rashid MD [facility] [employer] [address] [place] [address] 04/18/2020 09:55:13 04/18/2020 10:21:59 Benign hypertension 26077854 I10 good control ,BP , Pulse 2 weeks Body mass index less than 20 778163845 Z68.1 education Chronic ob structive pulmonary disease 15788922 J44.9 stable for nowlast PFT 07/20/19 Coronary arteriosclerosis 52074935 I25.10 sees cardiology on reg basis Diverticul ar disease of colon 229554631 K57.30 asymptomat ic Hyperlipidemia 43931322 E78.5 last LDL 07/20/19 @ goal Mixed anxi ety and depressive disorder 232377947 F41.8 No SI , No HI Osteoporosis 93257410 M8 1.0 last DEXA 07/20/19last Vit D level 10/19/19 Congestion of nasal sinus 81168403 R09.81 Pneumonia 134530322 J18. 9 cont' Abx and prednisone , CXR 6 weeks Screening mammography 24 261411 Z12.31 Screening for malignant neoplasm of cervix 132181103 Z12.4 Screening for malignant neoplasm of colon 396131367 Z12.11 last C scope 11/06/16 , recheck 2020 Active or passive immunization 526121806 Z23 had flu shot 10/2019 [id number] Terra Rashid MD [facility] [address] [place] [address] 07/17/2020 10:11:48 07/17/2020 10:48:10 Chronic obstructive pulmonary disease 15307797 J44.9 stable for nowlast PFT 07/20/19 Body mass index less than 20 399713959 Z68.1 education Benign hypertension 1072 5009 I10 good control ,BP , Pulse 2 weeks Coronary arteriosclerosis 86265854 I25.10 sees cardiology on reg basis Osteoporosis 25158500 M8 1.0 last DEXA 07/20/19 last Vit D level 04/18/20 Abdominal distension, gaseous 048707994 R14.0 Screening mammography 24 256898 Z12.31 last mammogram 04/23/20 Screening for malignant neoplasm of cervix 037772558 Z12.4 Screening for malignant neoplasm of colon 084790583 Z12.11 last C scope 11/06/16 , recheck 2020 Active or passive immunization 627685016 Z23 had flu shot 10/2019 Pruritic rash 74250804 L 28.2 Hyperlipidemia 97713278 E78.5 last LDL 04/18/20 @ goal [id number] Terra Rashid MD [employer], [facility] [address] [place] [address] 10/17/2020 10:15:52 10/17/2020 11:29:05 Hyperlipidemia 68879885 E78.5 last LDL 04/18/20 @ goal Mixed anxi ety and depressive disorder 718667927 F41.8 No SI , No HI Osteoporosis 56952759 M8 1.0 last DEXA 07/20/19 last Vit D level 04/18/20 Benign hypertension 1072 5009 I10 good control ,BP , Pulse 2 weeksEKG 01/18/2020 Body mass index less than 20 461555282 Z68.1 education Chronic ob structive pulmonary disease 78251679 J44.9 stable for nowlast PFT 07/20/19 Coronary arteriosclerosis 43098775 I25.10 sees cardiology on reg basis Screening mammography 24 009883 Z12.31 last mammogram 04/23/20 Screening for malignant neoplasm of cervix 965340674 Z12.4 Screening for malignant neoplasm of colon 229795671 Z12.11 last C scope 11/06/16 , recheck 2019 Active or passive immunization 087392750 Z23 had flu shot 10/2019 [id number] Terra Rashid MD [employer] [employer] [address] [place] [address] 01/16/2021 10:29:29 01/16/2021 11:12:27 Adult health examination 306875396 Z00.01 Benign hypertension 1072 5009 I10 good control ,BP , Pulse 2 weeksEKG 01/18/2020 Blood gluc ose outside reference range 248496540 R73.09 check BG BID PRN R/O hypo Body mass index less than 20 676103068 Z68.1 education Chronic ob structive pulmonary disease 94327557 J44.9 stable for nowlast PFT 2020 per Pt Coronary arteriosclerosis 47582364 I25.10 sees cardiology on reg basis Diverticul ar disease of colon 976423761 K57.30 asymptomat ic Ex-smoker 1984447 Z87.89 1 quit 2018having LDCT with pulm Hemangioma of liver 9346 9006 D18.03 on US 11/11/16 Hyperlipidemia 30836898 E78.5 last LDL 10/17/20 @ goal Mixed anxi ety and depressive disorder 503825217 F41.8 No SI , No HI 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 410485858 M19.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 Osteoporosis 75587704 M8 1.0 last DEXA 07/20/19 last Vit D level 10/17/20 Pulmonary emphysema 8743 3001 J43.9 with exacerbati on , started 1-2 days ago Simple renal cyst 747876 09 N28.1 stable Screening mammography 24 077337 Z12.31 last mammogram 04/23/20 Screening for malignant neoplasm of cervix 259717445 Z12.4 Screening for malignant neoplasm of colon 614124988 Z12.11 last C scope 11/06/16 , recheck 2020 Active or passive immunization 405200920 Z23 had flu shot 10/2019 Urgent deloris adrianne to urinate 07974543 R39.15 [id number] Terra Rashid MD [employer] [employer] [address] [place] [address] 04/17/2021 10:49:10 04/17/2021 11:32:50 Chronic obstructive pulmonary disease 41028572 J44.9 stable for nowlast PFT 2020 per Pt Localized eruption of skin 617543352 R21 Hyperlipidemia 49653214 E78.5 last LDL 10/17/20 @ goal Mixed anxi ety and depressive disorder 419921115 F41.8 No SI , No HI Osteoporosis 31715977 M8 1.0 last DEXA 07/20/19 last Vit D level 10/17/20 Benign hypertension 1072 5009 I10 good control ,BP , Pulse 2 weeksEKG 01/21/21 Screening mammography 24 623893 Z12.31 last mammogram 04/23/20 Screening for malignant neoplasm of cervix 871045945 Z12.4 Screening for malignant neoplasm of colon 387179483 Z12.11 last C scope 11/06/16 , recheck 2020 Active or passive immunization 685581607 Z23 had flu shot 10/2020210 Terra Rashid MD [employer], [facility] [address] [place] [address] 05/05/2021 14:37:56 05/05/2021 15:16:35 Localized eruption of skin 410399314 R21 [id number] Terra Rashid MD [facility] [place], [facility] [address] [place] [address] 07/20/2021 10:49:44 07/20/2021 11:38:34 Benign hypertension 00932970 I10 good control ,BP , Pulse 2 weeksEKG 01/21/21 Blood gluc ose outside reference range 990569268 R73.09 check BG BID PRN R/O hypo Body mass index less than 20 451705506 Z68.1 education Chronic ob structive pulmonary disease 34901293 J44.9 stable for nowlast PFT 2020 per Pt Coronary arteriosclerosis 45597499 I25.10 sees cardiology on reg basis Hyperlipidemia 87409375 E78.5 last LDL 04/17/21 @ goal Osteoporosis 79239174 M8 1.0 last DEXA 07/20/19 last Vit D level 05/17/21 Screening mammography 24 874308 Z12.31 last mammogram 04/2020 Screening for malignant neoplasm of cervix 518578158 Z12.4 Screening for malignant neoplasm of colon 444546167 Z12.11 last C scope 11/06/16 , recheck 2019 Active or passive immunization 033454875 Z23 had flu shot 10/2020 Localized eruption of skin 621035490 R21 arms Advance di rective discussed with patient 413459476 Z71.89 education Allergic r hinitis caused by pollen 44025460 J30.1 [id number] Terra Rashid MD [facility] [place], [facility] [address] [place] [address] 10/26/2021 11:13:03 10/26/2021 12:14:15 Chronic obstructive pulmonary disease 03675445 J44.9 stable for nowlast PFT 2020 per Pt Body mass index less than 20 403504754 Z68.1 education Benign hypertension 1072 5009 I10 good control ,BP , Pulse 2 weeksEKG 01/21/21 Coronary arteriosclerosis 57386534 I25.10 sees cardiology on reg basis Hyperlipidemia 20958732 E78.5 last LDL 04/17/21 @ goal Osteoporosis 38143483 M8 1.0 last DEXA 07/20/19 last Vit D level 05/17/21 Screening mammography 24 135382 Z12.31 last mammogram 04/2020 Screening for malignant neoplasm of cervix 397910575 Z12.4 Screening for malignant neoplasm of colon 490974331 Z12.11 last C scope 11/06/16 , recheck 2020 Active or passive immunization 108711445 Z23 had flu shot 10/2020 [id number] Terra Rashid MD [facility] [address] [place] [address] 01/25/2022 11:19:27 01/25/2022 12:34:50 Adult health examination 797541968 Z00.01 Peripheral vascular disease 671108559 I73.9 mild on screening on house call ABI[employer] education about use ASA 81 QD Benign hypertension 1072 5009 I10 good control ,BP , Pulse 2 weeksEKG 01/21/21 Allergic r hinitis caused by pollen 86291992 J30.1 Blood gluc ose outside reference range 632600223 R73.09 check BG BID PRN R/O hypo Body mass index less than 20 359424172 Z68.1 education Chronic ob structive pulmonary disease 93921147 J44.9 stable for nowlast PFT 10/26/21 Coronary arteriosclerosis 00623584 I25.10 sees cardiology on reg basis Diverticul ar disease of colon 104206672 K57.30 asymptomat ic Ex-smoker 9152089 Z87.89 1 quit 2019having LDCT with pulm Hemangioma of liver 9346 9006 D18.03 on US 11/11/16 Hyperlipidemia 94001296 E78.5 last LDL 04/17/21 @ goal Mixed anxi ety and depressive disorder 759171162 F41.8 No SI , No HI 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 735318647 M19.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 Osteoporosis 97451401 M8 1.0 last DEXA 07/20/19 last Vit D level 05/17/21 Pulmonary emphysema 8743 3001 J43.9 with exacerbati on , started 1-2 days ago Simple renal cyst 398904 09 N28.1 stable Vitamin D deficiency 347 62378 E55.9 Screening mammography 24 273641 Z12.31 last mammogram 04/2020 Screening for malignant neoplasm of cervix 190590607 Z12.4 asymptomat ic Active or passive immunization 238900381 Z23 had flu shot 10/2020 Screening for malignant neoplasm of colon 781166790 Z12.11 last C scope 11/06/16 , recheck 2020 Pharyngitis 929631425 J0 2.9 Localized eruption of skin 376746653 R21 arms [id number] Terra Rashid MD [facility], [facility] [address] [place] [address] 03/04/2022 10:18:18 03/04/2022 12:06:47 Cough 30275339 R05.9 O2 id 93 % on RA Chronic ob structive pulmonary disease 16904684 J44.9 stable for nowlast PFT 10/26/21 [id number] Terra Rashid MD [facility], [facility] [address] [place] [address] 04/26/2022 11:47:21 04/26/2022 12:41:09 Localized eruption of skin 813099552 R21 calf Age relate d macular degeneration 589097356 H35.30 seen ophthgetti ng shots now Preoperati ve cardiovascular examination 941836517 Z01.810 OK for cataract under MAC Chronic ob structive pulmonary disease 95750609 J44.9 stable for nowlast PFT 10/26/21 Screening mammography 24 239203 Z12.31 last mammogram 04/2020 Screening for malignant neoplasm of cervix 574278445 Z12.4 asymptomat ic Screening for malignant neoplasm of colon 013248214 Z12.11 last C scope 11/06/16 , recheck 2020 Active or passive immunization 847536853 Z23 did not get flu shot this year Benign hypertension 1072 5009 I10 good control ,BP , Pulse 2 weeksEKG 01/25/22 [id number] Terra Rashid MD [facility], [facility] [address] [place] [address] 07/27/2022 12:40:41 07/27/2022 13:54:15 Benign hypertension 66373897 I10 good control ,BP , Pulse 2 weeksEKG 01/25/22 Body mass index less than 20 210643777 Z68.1 education Chronic ob structive pulmonary disease 01690514 J44.9 stable for nowlast PFT 10/26/21 Coronary arteriosclerosis 95316170 I25.10 sees cardiology on reg basis Hyperlipidemia 52011830 E78.5 last LDL 01/25/22 @ goal Osteoporosis 20518670 M8 1.0 last DEXA 07/20/19 last Vit D level 05/17/21 Vitamin D deficiency 347 87621 E55.9 Screening mammography 24 425040 Z12.31 last mammogram 07/01/22 Screening for malignant neoplasm of cervix 361140577 Z12.4 asymptomat ic Screening for malignant neoplasm of colon 915709953 Z12.11 last C scope 11/06/16 , recheck 2020 Active or passive immunization 016398529 Z23 did not get flu shot this year [id number] Terra Rashid MD [employer] [address] [place] [address] 10/26/2022 15:17:35 10/26/2022 19:00:20 Benign hypertension 11310045 I10 good control ,BP , Pulse 2 weeksEKG 01/25/22 Chronic ob structive pulmonary disease 25637764 J44.9 stable for nowlast PFT 10/26/21 Coronary arteriosclerosis 01778127 I25.10 sees cardiology on reg basis Hyperlipidemia 29183339 E78.5 last LDL 01/25/22 @ goal Mixed anxi ety and depressive disorder 612438006 F41.8 No SI , No HI Osteoporosis 59480578 M8 1.0 last DEXA 07/20/19 last Vit D level 05/17/21 Peripheral vascular disease 717105290 I73.9 mild on screening [facility] about use ASA 81 QD Localized eruption of skin 139426054 R21 calf Screening mammography 24 351420 Z12.31 last mammogram 07/01/22 Screening for malignant neoplasm of cervix 461383562 Z12.4 asymptomat ic Screening for malignant neoplasm of colon 314969105 Z12.11 last C scope 11/06/16 , recheck 2020 Active or passive immunization 341851294 Z23 did not get flu shot this year [id number] Terra Rashid MD [employer] [address] [place] [address] 01/25/2023 10:53:53 01/25/2023 12:07:27 Adult health examination 477271931 Z00.01 Benign hypertension 1072 5009 I10 good control ,BP , Pulse 2 weeksEKG 01/25/22 Allergic r hinitis caused by pollen 50866132 J30.1 Body mass index less than 20 040275151 Z68.1 education Blood gluc ose outside reference range 896645367 R73.09 check BG BID PRN R/O hypo Chronic ob structive pulmonary disease 38342153 J44.9 stable for nowlast PFT 10/26/21 Coronary arteriosclerosis 55171328 I25.10 sees cardiology on reg basis Cyst of kidney 548797536 N28.1 Diverticul ar disease of colon 994602678 K57.30 asymptomat ic Ex-smoker 4409235 Z87.89 1 quit 2019last LDCT 07/01/22 Hemangioma of liver 9346 9006 D18.03 on US 11/11/16 Hyperlipidemia 45551980 E78.5 last LDL 01/25/22 @ goal Mixed anxi ety and depressive disorder 370049197 F41.8 No SI , No HI 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 535917414 M19.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 Osteoporosis 43409456 M8 1.0 last DEXA 08/10/22 last Vit D level 05/17/21 Peripheral vascular disease 440695172 I73.9 mild on screening on house call ABIlast BRIAN 03/04/22edu cation about use ASA 81 QD Pulmonary emphysema 8743 3001 J43.9 with exacerbati on , started 1-2 days ago Vitamin D deficiency 347 28351 E55.9 Screening mammography 24 375652 Z12.31 last mammogram 07/01/22 Screening for malignant neoplasm of cervix 755012514 Z12.4 asymptomat ic Screening for malignant neoplasm of colon 907987877 Z12.11 last C scope 11/06/16 , recheck 2020 Active or passive immunization 495429342 Z23 up to date Advance di rective discussed with patient 656506896 Z71.89 education Localized eruption of skin 313723153 R21 arms [id number] Terra Rashid MD [facility], [facility] [address] [place] [address] 04/22/2023 10:32:19 04/22/2023 11:36:50 Benign hypertension 92070737 I10 good control ,BP , Pulse 2 weeksEKG 01/25/22 Body mass index less than 20 318190995 Z68.1 education Chronic ob structive pulmonary disease 31827568 J44.9 stable for nowlast PFT 10/26/21 Hyperlipidemia 23449728 E78.5 last LDL 01/25/23 @ goal Mixed anxi ety and depressive disorder 102040379 F41.8 No SI , No HI Osteoporosis 25894005 M8 1.0 last DEXA 08/10/22 last Vit D level 01/25/23 Peripheral vascular disease 080112083 I73.9 mild on screening on house call ABIlast BRIAN 02/2023educ ation about use ASA 81 QD Screening mammography 24 014728 Z12.31 last mammogram 07/01/22 Screening for malignant neoplasm of cervix 941038949 Z12.4 asymptomat ic Screening for malignant neoplasm of colon 242903454 Z12.11 last C scope 11/06/16 , recheck 2020declin e C scope Active or passive immunization 821645628 Z23 up to date Ex-smoker 5572358 Z87.89 1 quit 2019last LDCT 07/01/22 Easy bruising 317544583 R58 History of malignant neoplasm of skin 280701231 Z85.828 per pt [id number] Terra Rashid MD [facility] [address] [place] [address] 06/24/2023 10:38:31 06/24/2023 11:35:49 Chronic obstructive pulmonary disease 24374083 J44.9 stable for nowseen pulm 06/2023last PFT 05/2023 Hyperlipidemia 09622662 E78.5 last LDL 01/25/23 @ goal Mixed anxi ety and depressive disorder 642687527 F41.8 No SI , No HI Peripheral vascular disease 264282693 I73.9 mild on screening on house call ABIlast BRIAN 02/2023educ ation about use ASA 81 QD Screening mammography 24 625059 Z12.31 last mammogram 07/01/22 Screening for malignant neoplasm of cervix 216791889 Z12.4 asymptomat ic Screening for malignant neoplasm of colon 625455802 Z12.11 last C scope 11/06/16 , recheck 2020declin e C scope Active or passive immunization 490080294 Z23 up to date Ex-smoker 5208380 Z87.89 1 quit 2019last LDCT 07/01/22 [id number] Terra Rashid MD [employer] [employer] [address] [place] [address] 08/25/2023 11:02:27 08/25/2023 11:48:51 Cellulitis of lower limb 591702178 L03.119 Itching of skin 75749712 0 L29.9 Easy bruising 614866572 R58 [id number] Terra Rashid MD [employer] [employer] [address] [place] [address] 09/30/2023 10:51:40 09/30/2023 11:43:52 Cellulitis of lower limb 797192419 L03.119 better but not gone Benign hypertension 1072 5009 I10 good control ,BP , Pulse 2 weeksEKG 05/23/23 Chronic ob structive pulmonary disease 33015086 J44.9 stable for nowseen pulm 06/2023last PFT 05/2023 Coronary arteriosclerosis 24017369 I25.10 sees cardiology on reg basis Hyperlipidemia 25546419 E78.5 last LDL 01/25/23 @ goal Osteoporosis 88333120 M8 1.0 last DEXA 08/10/22 last Vit D level 01/25/23 Peripheral vascular disease 891438995 I73.9 mild on screening on house call ABIlast BRIAN 02/2023educ ation about use ASA 81 QD Vitamin D deficiency 347 68219 E55.9 Pulmonary emphysema 8743 3001 J43.9 with exacerbati on , started 1-2 days ago Screening mammography 24 829356 Z12.31 last mammogram 07/19/23 Screening for malignant neoplasm of cervix 404587489 Z12.4 asymptomat ic Screening for malignant neoplasm of colon 821654885 Z12.11 last C scope 11/06/16 , recheck 2020declin e C scope Active or passive immunization [id number] Z23 up to date [id number] Terra Rashid MD [facility] [employer] [address] [place] [address] 11/14/2023 15:43:43 11/14/2023 16:48:06 Cellulitis of lower limb 330722529 L03.119 better but not goneelevat ion , Aristeo wrap ,derm eval Liver enzy mes level above reference range 947768200 R74.01 on 10/01/23 Benign hypertension 1072 5009 I10 good control ,BP , Pulse 2 weeksEKG 05/23/23 [id number] Terra Rashid MD [facility] [employer] [address] [place] [address] 01/06/2024 10:05:06 01/06/2024 11:25:03 Benign hypertension 48243634 I10 good control ,BP , Pulse 2 weeksEKG 05/23/23last ophth eval 11/2023 per pt Blood gluc ose outside reference range 544727677 R73.09 hypo Body mass index less than 20 624206885 Z68.1 education Chronic ob structive pulmonary disease 11167757 J44.9 stable for nowseen pulm 06/2023last PFT 05/2023 Coronary arteriosclerosis 23728415 I25.10 sees cardiology on reg basis History of malignant neoplasm of skin 521695680 Z85.828 per pt Hyperlipidemia 47614295 E78.5 last LDL 10/01/23 @ goal Mixed anxi ety and depressive disorder 677286798 F41.8 No SI , No HI Osteoporosis 77177715 M8 1.0 last DEXA 08/10/22 last Vit D level 10/01/23 Peripheral vascular disease 715869988 I73.9 mild on screening on house call ABIlast BRIAN 02/2023educ ation about use ASA 81 QD Vitamin D deficiency 347 46037 E55.9 last level 10/11/23 Screening mammography 314869 Z12.31 last mammogram 07/19/23 Screening for malignant neoplasm of cervix 938965836 Z12.4 asymptomat ic Screening for malignant neoplasm of colon 434299303 Z12.11 last C scope 11/06/16 , recheck 2019declin e C scope Active or passive immunization 476129000 Z23 up to date Pain of le ft shoulder joint 8284348609 0110146 M25.512 [id number] Terra Rashid MD [facility] [address] [place] [address] 04/05/2024 10:39:42 04/05/2024 11:27:03 Benign hypertension 06117056 I10 increase toprolBP , Pulse 2 weeksEKG 05/23/23last ophth eval 11/2023 per pt Cough 29510676 R05.9 O2 id 93 % on RA Chronic ob structive pulmonary disease 63997673 J44.9 stable for nowseen pulm 06/2023last PFT 05/2023 Coronary arteriosclerosis 75443467 I25.10 sees cardiology on reg basis Hemangioma of liver 9346 9006 D18.03 on US 11/11/16 Hyperlipidemia 58567277 E78.5 last LDL 10/01/23 @ goal 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 868301516 M19.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 Osteoporosis 80803765 M8 1.0 last DEXA 08/10/22 last Vit D level 10/01/23 Peripheral vascular disease 027291671 I73.9 mild on screening on house call ABIlast BRIAN 02/2023educ ation about use ASA 81 QD Vitamin D deficiency 347 85155 E55.9 last level 10/11/23 Easy bruising 444273993 R58 Screening mammography 24 316301 Z12.31 last mammogram 07/19/23 Screening for malignant neoplasm of cervix 951259337 Z12.4 asymptomat ic Screening for malignant neoplasm of colon 805007857 Z12.11 last C scope 11/06/16 , recheck 2020declin e C scope Active or passive immunization 384959637 Z23 up to date Mixed anxi ety and depressive disorder 420504250 F41.8 No SI , No HI Adult heal th examination 925558543 Z00.01 Diverticul ar disease of colon 355052208 K57.30 asymptomat ic History of malignant neoplasm of skin 357962974 Z85.828 per pt Age relate d macular degeneration 631268803 H35.30 seen ophthgetti ng shots now Health Concerns Section Related Observation LastModified by Organization Detai ls LastModified Time None Recorded Concern Status LastModified by Organization Details LastModified Time None Recorded Advance Directives Directive N: Payers Encounter Date Sequence Insurance Name Policy Number Policy Farfan Covered Member ID Farfan Member ID Guarantor Name 08/25/2023 1 [employer] (MEDICARE REPLACEMENT PPO) [id number] Shilpa Coelloebner [id number] Elo Odalys 09/30/2023 1 [employer] (MEDICARE REPLACEMENT PPO) [id number] Elo Pierce Odalys [id number] Elo Odalys 11/14/2023 1 [employer] (MEDICARE REPLACEMENT PPO) [id number] L Elo Pierce Odalys [id number] Elo Odalys 01/06/2024 1 [employer] (MEDICARE REPLACEMENT PPO) [id number] Shilpa Pierce Odalys [id number] Elo Odalys 04/05/2024 1 [employer] (MEDICARE REPLACEMENT PPO) [id number] Shilpa Coelloebner [id number] Elo Odalys Notes Date Note Type Note Provider Name and Address Organization Details Recorded Time 08/25/2023 text/html Hypertension F/UReported bypatient.Medications: taking medications as directed; no side effects from medication Lifestyle:regular exercise; limiting/avoiding salt; compliant with low salt diet Associated Symptoms:no dizziness; no lightheadedness; no chest pain; no shortness of breath; no palpitations; no edema; no calf pain with exertion; no headache Rt lower itching , swelling , 1 week Terra Rashid MD [address], [place], [address], [facility] 08/25/2023 11:43:10 09/30/2023 text/html Hypertension F/UReported bypatient.Medications: taking medications as directed; no side effects from medication Lifestyle:regular exercise; limiting/avoiding salt; compliant with low salt diet Associated Symptoms:no dizziness; no lightheadedness; no chest pain; no shortness of breath; no palpitations; no edema; no calf pain with exertion; no headache still have redness and tender Rt low ext Terra Rashid MD [address], [place], [address], [facility] 09/30/2023 11:36:12 11/14/2023 text/html Hypertension F/UReported bypatient.Medications: taking medications as directed; no side effects from medication Lifestyle:regular exercise; limiting/avoiding salt; compliant with low salt diet Associated Symptoms:no dizziness; no lightheadedness; no chest pain; no shortness of breath; no palpitations; no edema; no calf pain with exertion; no headache still have redness , itching , pain on both legs and feet Terra Rashid MD [address] [facility] [address], [place], [address], [facility] 11/14/2023 16:46:52 01/06/2024 text/html Hypertension F/UReported bypatient.Medications: taking medications as directed; no side effects from medication Lifestyle:regular exercise; limiting/avoiding salt; compliant with low salt diet Associated Symptoms:no dizziness; no lightheadedness; no chest pain; no shortness of breath; no palpitations; no edema; no calf pain with exertion; no headache Trera Rashid MD [address] [facility] [address], [place], [address], [facility] 01/06/2024 11:22:36 04/05/2024 text/html Hypertension F/UReported bypatient.Medications: taking medications as directed; no side effects from medication Lifestyle:regular exercise; limiting/avoiding salt; compliant with low salt diet Associated Symptoms:no dizziness; no lightheadedness; no chest pain; no shortness of breath; no palpitations; no edema; no calf pain with exertion; no headacheMedicare Annual Wellness VisitReported bypatient.Diet and Nutrition:healthy diet Fracture Risk:no history of fractures; no recent explained fracture; no sudden unexplained fractures; no previous musculoskeletal injuries Physical Activity:exercises on a regular basis; recent increase in physical activity; good physical condition; discussed exercise habits Depression Risk:never feels sad, empty, or tearful; no loss of interest in activities; no significant changes in weight; no sleep disturbances or insomnia; no agitation; no loss of energy; no feelings of worthlessness or guilt; no thoughts of suicide; no history of depression; no history of mood disorders Orientation:no disorientation to time; no disorientation to date; no disorientation to place Concentration and Memory:no decreased concentrating ability; no memory lapses or loss; does not forget words Speech/Motor difficulties:no speech difficulties; no difficulty expressing formulated concepts; no difficulty with fine manipulative tasks; no difficulty writing/copying; no slowed reaction time; does not knock things over when trying to pick them up Hearing:no loss of hearing Vision:no vision problems Activities of Daily Living:able to bathe with limited or no assistance; able to contol urination and bowels; able to dress with limited or no assistance; able to feed self with limited or no assistance; able to get out of chair or bed with limited or no assistance; able to groom with limited or no assistance; able to toilet with limited or no assistance Instrumental Activities of Daily Living:able to do house work with limited or no assistance; able to grocery shop with limited or no assistance; able to manage medications with limited or no assistance; able to manage money with limited or no assistance; able to prepare meals with limited or no assistance; able to use the phone with limited or no assistance Falls Risk Assessment:no frequent falls while walking; no fall in the past year; no fall since last visit; no dizziness/vertigo Home Safety:use of seatbelts; no vision or hearing loss while driving Terra Rashid MD [address] [place] [address], [place], [address], [facility] 04/05/2024 11:21:40 OBGyn Episode No OBEpisode recorded.
--- OUTSIDE RECORDS SUMMARY | 2024-05-17 16:45 | XMS_ITS | Encounter Summary ---
Author Organization [facility] Address [address] [place] [address] Care Team Providers Care Lung Splitter Name Role Phone Adriane Howard Primary Care Provider Becca webster Encounter Details Date Type Department Care Team (Late st Contact Info) Description 11/16/2021 Lab Requisition [facility] [address] [id number] Froylan Linn MD [address] [facility] [place] [address] Social History Tobacco Use Types Packs/Day Years Used Date Smoking Tobacco: Never Assessed Sex and Gender Information Value Date Recorded Sex Assigned at Not on file Gender Identity Not on file Sexual Orientation Not on file documented as of this encounter Plan of Treatment Not on file documented as of this encounter Procedures Procedure Name Priority Date/Time Associated Diagnosis Comments DERMATOPATHOLOGY Routine 11/12/2021 3:33 AM CDT documented in this encounter Results * DERMATOPATHOLOGY (11/12/2021 3:33 AM CDT) Case Report Dermatopathology Report Case: [id number] Authorizing Provider: Froylan Linn MD Collected: 11/12/2021 03:33 AM Ordering Location: [facility] Received: 11/16/2021 05:45 AM Pathologist: June Lang MD Specimens: A) - Skin, left distal rodriges B) - Skin, left ant ankle C) - Skin, right lower leg 1:39 PM CDT DERMATOPATHOLOGY LABORATORY Final Diagnosis Specimen A. SKIN, left distal rodriges: SQUAMOUS CELL CARCINOMA IN SITU, PRESENT AT THE BASE OF THE SPECIMEN (D04.72) (see microscopic description and comment) Specimen B. SKIN, left ant ankle: HYPERPLASTIC (HYPERTROPHIC) ACTINIC KERATOSIS; EXTENDING TO THE BASE OF THE SPECIMEN (L57.0) (see microscopic description and comment) Specimen C. SKIN, right lower leg: HYPERPLASTIC (HYPERTROPHIC) ACTINIC KERATOSIS; EXTENDING TO THE BASE OF THE SPECIMEN (L57.0) (see microscopic description and comment) 2 1:39 PM [facility] DERMATOPATHOLOGY [facility]ORATORY Clinical History 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 Path# [id number] B: BCCA vs. SCCA. Path# [id number] C: BCCA vs. SCCA. Path# [id number] 2 1:39 PM [facility] DERMATOPATHOLOGY LABORATORY Gross Description Specimen A: Received is one formalin filled container labeled with the patient's name and designated left distal rodriges. The specimen consists of a shave biopsy measuring 4d5t2mi and it is bisected. Jar 0. Specimen B: Received is one formalin filled container labeled with the patient's name and designated left ant ankle. The specimen consists of a shave biopsy measuring 6w1e5qf. Jar 0. Specimen C: Received is one formalin filled container labeled with the patient's name and designated right lower leg. The specimen consists of a shave biopsy measuring 2z7d9er. Jar 0. 2 1:39 PM [facility] DERMATOPATHOLOGY LABORATORY Microscopic Description Specimen A. SKIN, left distal rodriges: The epidermis shows parakeratosis, full thickness disorderly maturation of keratinocytes, mitoses at different levels, and dyskeratotic cells. Focal endophytic features are present. The lesion extends to the base of the biopsy. COMMENT: An invasive squamous cell carcinoma cannot be ruled out. Additional deeper sections were obtained and reviewed. Specimen B. SKIN, left ant ankle: There is hyperkeratosis alternating with parakeratosis. There is epidermal hyperplasia with disorderly maturation of keratinocytes with nuclear pleomorphism confined to the lower half of the epidermis. This process extends to the base of the specimen. COMMENT: A squamous cell carcinoma cannot be ruled out. Specimen C. SKIN, right lower leg: There is hyperkeratosis alternating with parakeratosis. There is epidermal hyperplasia with disorderly maturation of keratinocytes with nuclear pleomorphism confined to the lower half of the epidermis. Adnexal extension of the lesion is seen. This process extends to the base of the specimen. COMMENT: A squamous cell carcinoma cannot be ruled out. Additional deeper sections were obtained and reviewed. 2 1:39 PM CDT DERMATOPATHOLOGY LABORATORY Disclaimer An external and internal positive and negative controls are appropriate for the histochemical, immunohistochemical and immunofluorescence stain(s) in this case (if any), except where stated explicitly. The performance characteristics of the stain(s) cited in this report were developed and its performance characteristic determined by the Dermatopathology Laboratory at [facility], directed by Dr. Raheel uMniz. These tests need not be, and therefore are not, approved by the [place] Food and Drug Administration. The tests are used for clinical purposes. Billing Codes Specimen Charges Stain Charges 96664 15068 37117 1 1 1 2 1:39 PM CDT DERMATOPATHOLOGY LABORATORY Embedded Images 2 1:39 PM CDT DERMATOPATHOLOGY LABORATORY Pathology/Cytology TISSUE SPECIMEN FROM SKIN / Unknown 11/12/2021 3:33 AM CDT 11/16/2021 5:45 AM CDT Miscellaneous samples (specimen) TISSUE SPECIMEN FROM SKIN / Unknown 11/12/2021 3:33 AM CDT 11/16/2021 5:45 AM CDT Miscellaneous samples (specimen) TISSUE SPECIMEN FROM SKIN / Unknown 11/12/2021 3:33 AM CDT 11/16/2021 5:45 AM CDT Froylan Linn MD LAB - PATHOLOGY/CYTO LOGY ORDERABLES DERMATOPATHOLOGY LABORATORY [facility] - Department of Dermatology [address], [address] [phone] documented in this encounter Visit Diagnoses Not on filedocumented in this encounter Care Teams Lung Splitter Relationship Specialty Start Date End Date Adriane Howard Update Information PCP - General 12/28/21 documented as of this encounter
--- OUTSIDE RECORDS SUMMARY | 2024-05-17 16:45 | XMS_ITS | Data Portability ---
Author Organization [facility] TINGCarlyle Daysi Address [address] [place] [address] Care Team Providers Care Electric Motor Analyst Name Role Phone LEANNE CARDENAS Bit Gatherer [phone] Assessment No assessment recorded. Plan of Treatment Reminders Order Date Submit Date Provider Last Modified By Organization Details Last Modified Time Details Appointments None recorded. Lab urinalysi s, dipstick 2019 jcortopassi 1 In-Office Order, Internal Use Only DO Not Attach Compendium DO Not Attach Compendium, Do Not Delete/merge, [id number] 12:50:12 Referral None recorded. Procedures None recorded. Surgeries None recorded. Imaging MAMMO, screening , bilateral 2019 rrobinsn [facility], [address] [address], [place], [address], 1 08:37:04 Medication Orders None recorded. Patient TargetsNo targets recorded. Patient Instructions Encounter Date Encounter Id Patient Instructions Last Modified By Organization Details Last Modified Time 11/16/2019 [id number] mammogram: about this test Not available 11/16/2019 11:59:25 Reason for Referral None Reported. Results Created Date Observation Date Name Description Value Unit Range Abnormal Flag Note LastModifiedBy Organization Detail LastModifiedTime 11/16/19 20 11/16/2019 urina lysis , dipst ick Leukocytes Negati ve Not Available In-Office Order Internal Use Only DO Not Attach Compendium DO Not Attach Compendium, Do Not Delete/merge, [id number] 11/16/2019 11:09:53 11/16/19 20 11/16/2019 urina lysis , dipst ick Nitrite negati ve Not Available In-Office Order Internal Use Only DO Not Attach Compendium DO Not Attach Compendium, Do Not Delete/merge, 11/16/2019 11:09:53 11/16/19 20 11/16/2019 urina lysis , dipst ick Urobilinogen .2 Not Available In-Of fice Order Internal Use Only DO Not Attach Compendium DO Not Attach Compendium, Do Not Delete/merge, [id number] 11/16/2019 11:09:53 11/16/19 20 11/16/2019 urina lysis , dipst ick Protein Negati ve Not Available In-Office Order Internal Use Only DO Not Attach Compendium DO Not Attach Compendium, Do Not Delete/merge, 11/16/2019 11:09:53 11/16/19 20 11/16/2019 urina lysis , dipst ick pH 6.0 Not Available In-Office Order Internal Use Only DO Not Attach Compendium DO Not Attach Compendium, Do Not Delete/merge, 11/16/2019 11:09:53 11/16/19 20 11/16/2019 urina lysis , dipst ick Blood Non-He molyze d: Trace Not Available In-Office Order Internal Use Only DO Not Attach Compendium DO Not Attach Compendium, Do Not Delete/merge, 11/16/2019 11:09:53 11/16/19 20 11/16/2019 urina lysis , dipst ick Specific [place] 1.030 Not Available In-Off ice Order Internal Use Only DO Not Attach Compendium DO Not Attach Compendium, Do Not Delete/merge, 11/16/2019 11:09:53 11/16/19 20 11/16/2019 urina lysis , dipst ick Ketone Negati ve Not Available In-Office Order Internal Use Only DO Not Attach Compendium DO Not Attach Compendium, Do Not Delete/merge, 11/16/2019 11:09:53 11/16/19 20 11/16/2019 urina lysis , dipst ick Bilirubin Negati ve Not Available In-Office Order Internal Use Only DO Not Attach Compendium DO Not Attach Compendium, Do Not Delete/merge, [id number] 11/16/2019 11:09:53 11/16/19 20 11/16/2019 urina lysis , dipst ick Glucose Negati ve Not Available In-Office Order Internal Use Only DO Not Attach Compendium DO Not Attach Compendium, Do Not Delete/merge, [id number] 11/16/2019 11:09:53 Result Notes None recorded. Problems No Known Problems Medical Equipment None Reported. Allergies No known drug allergies Medications Name Sig Start Date Stop Date Status Note LastModified by Organization Details LastModified Time carvedilol 6.25 mg tablet 11/15 completed Not Available Not Available Not Available doxycycline hyclate 100 mg capsule TAKE 1 CAPSULE BY MOUTH TWICE A DAY active Not Available Not Available No t Available albuterol sulfate 2.5 mg/3 mL (0.083 %) solution for nebulizatio n INHALE 3 ML 4 TIMES A DAY BY NEBULIZAT ION ROUTE active Not Available Not Available No t Available ammonium lactate 12 % lotion APPLY TOPICALLY TO THE AFFECTED AREA EVERY DAY AT BEDTIME active Not Available Not Available No t Available azithromyci n 250 mg tablet TAKE 2 TABLETS BY MOUTH TODAY, THEN TAKE 1 TABLET DAILY FOR 4 DAYS active Not Available Not Available No t Available prednisone 20 mg tablet active Not Available Not Available Not Available permethrin 5 % topical cream APPLY TOPICALLY FROM NECK TO TOES AND LEAVE ON FOR 8 HOURS DIRECTED. REPEAT IN 1 WEEK active Not Available Not Available No t Available triamcinolo ne acetonide 0.1 % topical cream APPLY THIN LAYER TOPICALLY TO THE AFFECTED AREA TWICE DAILY active Not Available Not Available No t Available simvastatin 40 mg tablet TAKE 1 TABLET BY MOUTH EVERYDAY AT BEDTIME active Not Available Not Available No t Available clotrimazol e-betametha sone 1 %-0.05 % topical cream APPLY TO AFFECTED & SURROUNDI NG AREAS OF SKIN TWICE DAILY MORNING & EVENING FOR 2 WEEKS active Not Available Not Available No t Available raloxifene 60 mg tablet TAKE 1 [...] TAKE 1 AND 1/2 TABLETS BY MOUTH ONCE DAILY IN THE MORNING active Not Available Not Available No t Available methylpredn isolone 4 mg tablets in a dose pack active Not Available Not Available Not Available albuterol sulfate HFA 90 mcg/actuati on aerosol inhaler INHALE 1 PUFF BY MOUTH 3 TIMES A DAY NEEDED active Not Available Not Available No t Available ipratropium bromide 42 mcg (0.06 %) nasal spray SPRAY 2 SPRAYS 3 TIMES A DAY BY INTRANASA L ROUTE DIRECTED active Not Available Not Available No t Available dexamethaso ne 0.5 mg tablet TAKE 1 TABLET BY MOUTH TWICE DAILY FOR 10 DAYS active Not Available Not Available No t Available losartan 100 mg tablet TAKE 1 [...] EVERY 12 HOURS DIRECTED FOR 7 DAYS active Not Available Not Available No t Available nitrofurant oin monohydrate /macrocryst als 100 mg capsule TAKE 1 CAPSULE BY MOUTH EVERY 12 HOURS active Not Available Not Available No t Available Daliresp 500 mcg tablet TAKE 1 TABLET BY MOUTH EVERY DAY active Not Available Not Available No t Available Mucus DM 30 mg-600 mg tablet,exte nded release TAKE 1 TABLET BY MOUTH EVERY 12 HOURS active Not Available Not Available No t Available Trelegy Ellipta 100 mcg-62.5 mcg-25 mcg powder for inhalation INHALE 1 PUFF BY MOUTH EVERY DAY active Not Available Not Available No t Available Fluzone High-Dose Quad (PF) 240 mcg/0.7 mL IM syringe active Not Available Not Available N ot Available Vitals Date Recorded Body height Body mass index (BMI) Body weight Systolic blood pressure Diastolic blood pressure Provider Name and Address Organization Details Last Updated DateTime 11/16/2019 158.75 cm 16.9 kg/m2 33427.68 g 128 mm[Hg] 60 mm[Hg] Sofia Murphy MA [place] - [facility] 0 11:31:59 Social History Question Answer Notes LastModified by Organizat ion Details LastModified Time Tobacco Smoking Status Former Smoker 2018 Quit smoking Sofia Murphy MA [facility], [place] - [facility] 11/16/2019 11:21:08 What Is Your Level Of Alcohol Consumption? None Information not available 11/16/2019 Is Blood Transfusion Acceptable In An Emergency? Yes Information not available 11/16/2019 What Is Your Level Of Caffeine Consumption? Moderate Coffee, Soda. Information not available 11/16/2019 How Much Tobacco Do You Chew? None Information not available 11/16/2019 Are You Currently Employed? Yes Information not available 11/16/2019 What Type Of Diet Are You Following? REGULAR Information not available 11/16/2019 Which Illicit Or Recreational Drugs Have You Used? None Information not available 11/16/2019 Do You Or Have You Ever Used E-cigarettes Or Vape? Never Used Electronic Cigarettes Information not available 11/16/2019 Education 12 Information no t available 11/16/2019 What Is Your Occupation? [employer] Information not available 11/16/2019 Live Alone Or With Others? Alone Information not available 11/16/2019 What Was The Date Of Your Most Recent Tobacco Screening? 11/16/2019 Information not available 11/16/2019 How Many Children Do You Have? 3 Information not available 11/16/2019 Performs Monthly Self-breast Exam? No Information not available 11/16/2019 What Is Your Relationship Status? Information not available 11/16/2019 Seat Belts Used Routinely Yes Information not available 11/16/2019 Are You Sexually Active? No Information not available 11/16/2019 At What Age Did You Start Smoking Tobacco? 16 Information not available 11/16/2019 Do You Or Have You Ever Used Smokeless Tobacco? Never Used Smokeless Tobacco Information not available 11/16/2019 How Much Tobacco Do You Smoke? 0.5 PPD Information not available 11/16/2019 General Stress Level Low Information not available 11/16/2019 Do You Use Sunscreen Routinely? No Information not available 11/16/2019 On What Date Was Tobacco Cessation Counseling Provided? 11/16/2019 Information not available 11/16/2019 How Many Years Have You Smoked Tobacco? 56 Information not available 11/16/2019 Sex: Unknown Functional Status Question Answer Note LastModified by Organizat ion Details LastModified Time What is your exercise level? Occasional Information not available 11/16/2019 Mental Status None recorded. Family History Nothing Reported. Medical History Condition Response Diabetes N Coronary Artery Disease N High Blood Pressure Y Atrial Fibrillation N Seizures/Epilepsy N Acid Reflux (GERD) N Cancer N Kidney or Bladder Problems N Stroke N Asthma N Blood Clots N Allergies Y COPD Y Anemia N High Cholesterol Y Heart Attack ([place]) N Heart Failure N Osteoporosis Y Gynecological History Statement/Question Response Menses Monthly N If Post Menopausal, Age at Menopause Date of Last Mammogram Obstetrics History GPAL:G 3 P 3 0 0 3 Type Value Full Term 3 Induced 0 Spontaneous 0 Premature 0 Living 3 Total 3 Past Encounters Encounter ID Performer Location Encounter Start Date Encounter Closed Date Diagnosis/Indication Diagnosis SNOMED-CT Code Diagnosis ICD10 Code Diagnosis Note [id number] RONNIE ZURITA (CHIEF TECHNOLOGIST) [address] [place] [id number] 11/16/2019 10:53:49 11/19/2019 15:58:50 Screening for malignant neoplasm of breast 339222894 Z12.31 Average risk. Advised that can likely stop routine screening after age 75. Postmenopausal state 764 70743 Z78.0 -clinical breast exam completed today, unremarkab le. Pt declined pelvic exam. -cervical cancer screening UTD: last Pap (2009), (negative) . Screening no longer indicated. -referral for screening mammogram issued for routine breast cancer screening -Educated osteoporos is including calcium rich diet, weight bearing exercise. Pt on supplement and gets routine bone density tests. -RTC prn Osteoporosis 44220771 M8 1.0 On raloxifene per PCP. Follows with routine bone density tests. Health Concerns Section Related Observation LastModified by Organization Detai ls LastModified Time None Recorded Concern Status LastModified by Organization Details LastModified Time None Recorded Advance Directives Directive N: 11/16/19 Pt thinks she cross s. Payers Encounter Date Sequence Insurance Name Policy Number Policy Farfan Covered Member ID Farfan Member ID Guarantor Name 11/16/2019 1 [facility] [id number] Elo Morrow [id number] Elo Morrow Notes Date Note Type Note Provider Name and Address Organization Details Recorded Time 11/16/2019 text/html Annual GYNReport ed bypatient.History:n o gynecologic complaints Menstrual cycle:postmenopausa l Urinary symptoms:No hematuria;Stress incontinence Vulva:No genital lesion Vagina:Normal vaginal discharge Breast:No breast pain; No breast lump; No nipple discharge Menopausal Symptoms:No menopausal symptoms; Normal vaginal lubrication Psychological symptoms:No depression; No anxiety; No PMDD Preventive measures:Encourage self breast examination; Encourage regular exercise; Encourage no tobacco use; Needs to schedule mammogram; Needs to schedule colonoscopy 74 yo F former smoker (28 PY) with PMH of COPD, hyperlipidemia, HTN, hemorrhoids presenting for routine gynecological visit. She was referred by her PCP. Last mammogram: unknown but is overdue Last Pap: unknown, probably ~10 years ago, pt denies any history of abnormal resultsDEXA: pt states her PCP orders DEXA scans every couple of years and that she takes medicines for it. RONNIE ZURITA Attn: Accounting,[address] [facility], [place], [address], [facility] 11/16/2019 12:59:10 OBGyn Episode No OBEpisode recorded.
--- OUTSIDE RECORDS SUMMARY | 2024-05-17 16:45 | XMS_ITS | Clinical Summary ---
Author Organization [facility] Address [address] [place] [address] Care Team Providers Care Wood Model Builder Name Role Phone Adriane Howard Primary Care Provider Becca webster Source Comments [facility],non-owned Affiliates and Associated Physician Practices is amultiple site organization consisting of ambulatory clinics and hospital sitesin [place], [place], [place] and [place]. This disclosure is being madepursuant to the Care Everywhere program and may not contain all informatio navailable regarding this patient. Last updated 17.[facility] Social History Tobacco Use Types Packs/Day Years Used Date Smoking Tobacco: Never Assessed Sex and Gender Information Value Date Recorded Sex Assigned at Not on file Gender Identity Not on file Sexual Orientation Not on file Plan of Treatment Health Maintenance Due Date Last Done Comments BONE DENSITY TESTING 1944 DTAP/TDAP/TD VACCINES (1 - Tdap) 05/22/1963 PNEUMOCOCCAL VACCINE 50+ (1 of 1 - PCV) 1994 ZOSTER VACCINE (1 of 2) 1994 Respiratory Syncytial Virus (RSV) Vaccine Pt: or over 60 yrs (1 - 1-dose 75+ series) 05/22/2019 COVID-19 VACCINE ( - 2023-2 5 season) 2023 INFLUENZA VACCINE (#1) 2023 08/07/2015 DEPRESSION SCREENING 02/15/2024 HEPATITIS B VACCINE Aged Out No longe r eligible based on patient's age to complete this topic HIB VACCINE Aged Out No longer eligi ble based on patient's age to complete this topic HPV VACCINE Aged Out No longer eligi ble based on patient's age to complete this topic MENINGOCOCCAL (Group B) VACC INE SHARED DECISION-MAKING Aged Out No longer eligibl e based on patient's age to complete this topic MENINGOCOCCAL GROUPS A/C/Y/W VACCINE Aged Out No longer eligible b ased on patient's age to complete this topic Care Teams Wood Model Builder Relationship Specialty Start Date End Date Adriane Howard Update Information PCP - General 12/28/21
--- NOTE | 2024-05-17 17:17 | ED.LOWEXIN ---
HPI - Extremity Injury (Lower) General Chief Complaint: Extremity Injury, Lower Stated Complaint: injury to left leg Time Seen by Provider: 05/17/24 17:01 History of Present Illness HPI Narrative: Patient is a 78 year old female who presents to the ER with complaints of left lower extremity redness and swelling. She reports she ran into her car door on April 26, 2024, and injured the medial portion of her L anterior rodriges. Patient reports she went to urgent care where they put her on doxycycline and mupirocin. She is unsure when she last received her tetanus shot. Patient denies any recent fevers, calf pain, decreased range of motion. She endorses a history of COPD, but no diabetes. Related Data Allergies Allergy/AdvReac Type Severity Reaction Status Date / Time No Known Allergies Allergy Verified 05/17/24 16:42 Review of Systems Review of Systems: All systems reviewed & are unremarkable except as noted in HPI and below Exam Narrative: GENERAL: Well appearing, well-nourished, non-toxic, in no acute distress. HEAD: Normocephalic, atraumatic. NECK: Supple. No adenopathy, no masses. RESPIRATORY: Airway patent, respirations nonlabored. Clear to auscultation bilaterally, no rales, rhonchi, wheezing. CARDIOVASCULAR: Regular rate and rhythm without murmurs, rubs, or gallops. Peripheral pulses 2+ and equal bilaterally. ABDOMINAL: Soft, nontender, nondistended, no hepatosplenomegaly. Normoactive BS. MUSCULOSKELETAL: Moves all extremities. Strength/ROM intact without gross deformities. SKIN: Warm, dry, normal color. No rashes. + hot, edematous, reddened medial down to lower portion of L anterior rodriges with open wound approximately 1 1/2 inches long-open area is red with small amount of purulent drainage. NEURO: A&O X3. Speech clear. Cranial nerves II-XII intact. No ataxic movements. PSYCHIATRIC: Appropriate mood and affect. Normal interaction. Course Vital Signs Vital signs: Vital Signs Temperature 36.4 C 05/17/24 16:43 Pulse Rate 95 05/17/24 16:43 Respiratory Rate 18 05/17/24 16:43 Blood Pressure 156/83 H 05/17/24 16:43 Pulse Oximetry 95 05/17/24 16:43 Oxygen Delivery Room Air 05/17/24 16:43 Temperature 36.4 C 05/17/24 16:43 Pulse Rate 95 05/17/24 16:43 Respiratory Rate 18 05/17/24 16:43 Blood Pressure 156/83 H 05/17/24 16:43 Pulse Oximetry 95 05/17/24 16:43 Oxygen Delivery Room Air 05/17/24 16:43 MDM - Extremity Injury (Lower) MDM Narrative Medical decision making narrative: Patient is a 78 year old female who presents to the ER with complaints of left lower extremity redness and swelling. She reports she ran into her car door on April 26, 2024, and injured the medial portion of her L anterior rodriges. Patient reports she went to urgent care where they put her on doxycycline and mupirocin. She is unsure when she last received her tetanus shot. Patient denies any recent fevers, calf pain, decreased range of motion. She endorses a history of COPD, but no diabetes. Labs Ordered: None necessary Imaging Ordered: Left tib/fib x-ray Medications Ordered: Toradol 30 mg IM, Tdap Results: Patient's x-ray indicates Decreased mineralization. No fracture or dislocation. No lytic or blastic lesion. Mild degenerative change at the knee and ankle. No erosion or periosteal change. Possible mild anterior soft tissue swelling. No foreign body or subcutaneous gas. Atherosclerotic ossification. Impression no acute osseous finding in the left tibia/fibula. Diagnosis: Cellulitis Patient Education/Shared MDM: 1720-patient requests she not be admitted to the hospital for IV antibiotics. Results of x-ray shared with patient. She endorses improvement following medication administration. Patient strongly advised to maintain hydration status upon discharge and follow-up with her PCP as soon as possible. She will be discharged home with a prescription for Bactrim and Keflex. Patient should complete her full dose of antibiotics. Strict return precautions provided. Patient verbalized understanding is in agreement with plan. Vital signs stable at time of discharge. All questions answered. Differential Diagnosis Differential diagnosis: Likely other (Cellulitis, osteomyelitis, need for immunization) Imaging Data Attestation: I personally reviewed and interpreted this imaging study as follows: Radiologist's impression: Impressions Tibia/Fibula X-Ray 05/17/24 17:44 IMPRESSION: . Discharge Plan Discharge Clinical Impression: Cellulitis Patient Disposition: Home, Self-Care Condition: Stable Instructions: Antibiotic Form Additional Instructions: Please return to the ER with any worsening symptoms. Follow-up VERY closely with your primary care provider. Make an appointment as soon as possible. Take all medications as prescribed, including regularly scheduled medications. Complete full dose of antibiotics. Patient Language: New Zealander Prescriptions: New sulfamethoxazole-trimethoprim [Bactrim DS] 800-160 mg tablet 1 tablet PO Q12H 5 Days Qty: 10 0RF cephalexin 500 mg capsule 500 mg PO Q8H 10 Days Qty: 30 0RF Follow-up/Referrals: PHYSICIAN NOT ON STAFF,NONSTAFF [Non-Staff] - Time of Disposition: 18:41
[2024-05-17] MEDS: KETOROLAC 30 MG/ML VIAL (*BKC) IM (17:21)
--- OUTSIDE RECORDS SUMMARY | 2024-05-17 17:39 | XMS_ITS | Encounter Summary ---
Author Organization [facility] Address [address] [place] [address] Care Team Providers Care Funeral Arranger Name Role Phone Adriane Howard Primary Care Provider Becca webster Encounter Details Date Type Department Care Team (Late st Contact Info) Description 11/16/2021 Lab Requisition [facility] [address] [place] [id number] Froylan Linn MD 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 Path# [id number] B: BCCA vs. SCCA. Path# [id number] C: BCCA vs. SCCA. Path# [id number] 2 1:39 PM [facility] DERMATOP[facility]Y [facility]ORAT[facility] Gross Description Specimen A: Received is one formalin filled container labeled with the patient's name and designated left distal rodriges. The specimen consists of a shave biopsy measuring 2i1c1hs and it is bisected. Jar 0. Specimen B: Received is one formalin filled container labeled with the patient's name and designated left ant ankle. The specimen consists of a shave biopsy measuring 8f7x6ok. Jar 0. Specimen C: Received is one formalin filled container labeled with the patient's name and designated right lower leg. The specimen consists of a shave biopsy measuring 6e3d0ds. Jar 0. 2 1:39 PM [facility] DERMATOPATHOLOGY [facility]ORATORY Microscopic Description Specimen A. SKIN, [...] characteristic determined by the Dermatopathology Laboratory at [facility], directed by Dr. Raheel Muniz. These tests need not be, and therefore are not, approved by the [place] Food and Drug Administration. The tests are used for clinical purposes. Billing Codes Specimen Charges Stain Charges 79488 [id number] 1 1 1 2 1:39 PM CDT [...] LAB - PATHOLOGY/CYTO LOGY ORDERABLES DERMATOPATHOLOGY LABORATORY [facility] - Department of Dermatology [address], [address] [phone] documented in this encounter Visit Diagnoses Not on filedocumented in this encounter Care Teams Funeral Arranger Relationship Specialty Start Date End Date Adriane Howard Update Information PCP - General 12/28/21 documented as of this encounter
--- OUTSIDE RECORDS SUMMARY | 2024-05-17 17:39 | XMS_ITS | Clinical Summary ---
Author Organization [facility] Address [address] [place] [address] Care Team Providers Care Front Line Leader Name Role Phone Adriane Howard Primary Care Provider Becca webster Source Comments [facility],non-owned Affiliates and Associated Physician Practices is amultiple site organization consisting of ambulatory clinics and hospital sitesin [place], [place], [place] and [place]. This disclosure is being madepursuant to the Care Everywhere program and may not contain all informatio navailable regarding this patient. Last updated 17.[facility] Social History Tobacco Use Types Packs/Day Years [...] age to complete this topic Care Teams Front Line Leader Relationship Specialty Start Date End Date Adriane Howard Update Information PCP - General 12/28/21
--- OUTSIDE RECORDS SUMMARY | 2024-05-17 17:39 | XMS_ITS | Clinical Summary ---
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
[2024-05-17] MEDS: TETANUS,DIPHTHERIA,AC PERTUSSIS ADULT (0.5 ML) BOOSTRIX IM (18:52)
[2024-05-17] MEDS: SULFAMETHOXAZOLE/TRIMETHOPRIM 800/160 MG DS TABLET 1 TAB PO (18:53)
[2024-05-17] MEDS: CEPHALEXIN 500 MG CAPSULE PO (18:53)
== END 2024-05-17 19:06 | disposition home or self-care (01) ==
PROVIDERS: Emergency Provider Registered Nurse
DX: L03.116 Cellulitis of left lower limb (principal); J44.9 Chronic obstructive pulmonary disease, unspecified; Z23 Encounter for immunization; X58.XXXA Exposure to other specified factors, initial encounter
CPT/HCPCS: 73590; 90471; 90715; 96372; 99283; A9270; J1885

== ENCOUNTER 2024-05-21 14:35 | Inpatient (IN) | payer MEDICARE, SELFPAY ==
--- NOTE | ~2024-05-21 | US_ITS ---
EXAMINATION: US venous doppler [facility] DATE: 05/21/2024 17:51 INDICATION: Left lower extremity swelling TECHNIQUE: Grayscale ultrasound images without and with compression and Doppler ultrasound images of the left lower extremity veins were obtained. COMPARISON: None. FINDINGS: The visualized portions of left common femoral vein, profunda (deep) femoral vein, femoral vein, popl iteal vein, peroneal veins, posterior tibial veins, and greater saphenous vein outflow are patent. IMPRESSION: 1. No deep venous thrombosis. Reviewed, dictated and finalized at location A.
[2024-05-21 14:57] VITALS: BP 139/71; PULSE 95; RESP 14; TEMP 36.9; O2SAT 96
--- NOTE | 2024-05-21 15:49 | ED_ITS ---
HPI - Extremity Injury (Lower) General Chief Complaint: Extremity Injury, Lower <Elisha Aguiar PA-C - Last Filed: 05/21/24 18:40> Stated Complaint: Swelling to left leg-seen <Elisha Aguiar PA-C - Last Filed: 05/21/24 18:40> Time Seen by Provider: 05/21/24 15:50 <Elisha Aguiar PA-C - Last Filed: 05/21/24 18:40> Focused HPI: This is a 79 year old female that presents to the ER for left lower extremity edema. Reports she was seen at urgent care when she hit her rodriges on the car door. She finished a course of doxycycline. Reports she was seen in the ER 2 days ago. Reports she was recommended to stay at that time. Reports she has had worsening redness and swelling in her leg despite taking oral antibiotics prescribed by the ER (Bactrim and Cephalexin). GENERAL: Elderly, well-nourished, and in no acute distress. HEAD: Normocephalic, atraumatic. CHEST: Clear to auscultation. ?No respiratory distress. HEART: Regular rate and rhythm.? NEURO: ?Alert and oriented x3. Patient screened in triage and initial orders placed.? ?Additional care and disposition to be based upon?diagnostic testing and treatment. <Elisha Aguiar PA-C - Last Filed: 05/21/24 18:40> Focused HPI: This is a 79 year old female that presents to the ER for left lower extremity edema. Reports she was seen at urgent care when she hit her rodriges on the car door. She finished a course of doxycycline. Reports she was seen in the ER 2 days ago. Reports she was recommended to stay at that time. Reports she has had worsening redness and swelling in her leg despite taking oral antibiotics prescribed by the ER (Bactrim and Cephalexin). GENERAL: Elderly, well-nourished, and in no acute distress. HEAD: Normocephalic, atraumatic. CHEST: Clear to auscultation. ?No respiratory distress. HEART: Regular rate and rhythm.? NEURO: ?Alert and oriented x3. Patient screened in triage and initial orders placed.? ?Additional care and disposition to be based upon?diagnostic testing and treatment. <Johanna You PA-C - Last Filed: 05/21/24 18:57> Source: patient and old records reviewed <Johanna You PA-C - Last Filed: 05/21/24 18:57> Mode of arrival: ambulatory <Johanna You PA-C - Last Filed: 05/21/24 18:57> Limitations: no limitations <Johanna You PA-C - Last Filed: 05/21/24 18:57> History of Present Illness HPI Narrative: Agree with above HPI. Reports original injury occurred approx 1 month ago. Denies fevers. Denies previous hx of DVT. Denies DM. <Johanna You PA-C - Last Filed: 05/21/24 18:57> Related Data Allergies/Adverse Reactions: Allergies Allergy/AdvReac Type Severity Reaction Status Date / Time No Known Allergies Allergy Verified 05/17/24 16:42 <Elisha Aguiar PA-C - Last Filed: 05/21/24 18:40> Review of Systems 2 Review of Systems: All systems reviewed & are unremarkable except as noted in HPI. <Johanna You PA-C - Last Filed: 05/21/24 18:57> All systems reviewed & are unremarkable except as noted in HPI and below < Johanna You PA-C - Last Filed: 05/21/24 18:57> [facility] Past Medical History Medical History: Medical History (Updated 05/21/24 @ 18:39 by Elisha Aguiar PA-C) History of hyperlipidemia History of hypertension <Elisha Aguair PA-C - Last Filed: 05/21/24 18:40> Social History Social History: Social History (Updated 05/21/24 @ 18:40 by Elisha Aguiar PA-C) Substance use: never <Elisha Aguiar PA-C - Last Filed: 05/21/24 18:40> Exam 2 Narrative: GENERAL: Elderly, petite/frail - BMI 14.9, non-toxic, in no acute distress. HEAD: Normocephalic, atraumatic. RESPIRATORY: Airway patent, respirations nonlabored. Clear to auscultation bilaterally, no rales, rhonchi, wheezing. CARDIOVASCULAR: Regular rate and rhythm without murmurs, rubs, or gallops. Pedal pulses intact. MUSCULOSKELETAL: Moves all extremities. No gross deformities. Diffuse erythema, warmth, slight pitting edema in L lower leg, foot up to just below knee. Scabbed crusted wound to anterior rodriges w/o active purulent drainage - focal tenderness. Superficial abrasion/skin tear to L posterior proximal calf with scant bleeding. SKIN: Warm, dry, normal color. NEURO: A&O X3. Speech clear. Cranial nerves II-XII grossly intact. Steady gait. No ataxic movements. PSYCHIATRIC: Appropriate mood and affect. Normal interaction. <Johanna You PA-C - Last Filed: 05/21/24 18:57> Course [employer]/PA Physician Supervision This visit was performed by both a physician and an APC. I performed all aspects of the MDM as documented. <Leandro Wray MD - Last Filed: 05/21/24 19:01> Vital Signs Vital signs: Vital Signs Temperature 98.5 F 05/21/24 14:57 Pulse Rate 95 05/21/24 14:57 Respiratory Rate 14 05/21/24 14:57 Blood Pressure 139/71 05/21/24 14:57 Pulse Oximetry 96 05/21/24 14:57 Oxygen Delivery Room Air 05/21/24 14:57 Temperature 98.5 F 05/21/24 14:57 Pulse Rate 95 05/21/24 14:57 Respiratory Rate 18 05/21/24 17:07 Blood Pressure 97/78 L 05/21/24 17:07 Pulse Oximetry 93 05/21/24 17:07 Oxygen Delivery Room Air 05/21/24 17:07 <Elisha Aguiar PA-C - Last Filed: 05/21/24 18:40> Vital Signs Temperature 98.5 F 05/21/24 14:57 Pulse Rate 95 05/21/24 14:57 Respiratory Rate 14 05/21/24 14:57 Blood Pressure 139/71 05/21/24 14:57 Pulse Oximetry 96 05/21/24 14:57 Oxygen Delivery Room Air 05/21/24 14:57 Temperature 98.5 F 05/21/24 14:57 Pulse Rate 95 05/21/24 14:57 Respiratory Rate 18 05/21/24 17:07 Blood Pressure 97/78 L 05/21/24 17:07 Pulse Oximetry 93 05/21/24 17:07 Oxygen Delivery Room Air 05/21/24 17:07 <Johanna You PA-C - Last Filed: 05/21/24 18:57> Vital Signs Temperature 98.5 F 05/21/24 14:57 Pulse Rate 95 05/21/24 14:57 Respiratory Rate 14 05/21/24 14:57 Blood Pressure 139/71 05/21/24 14:57 Pulse Oximetry 96 05/21/24 14:57 Oxygen Delivery Room Air 05/21/24 14:57 Temperature 98.5 F 05/21/24 14:57 Pulse Rate 95 05/21/24 14:57 Respiratory Rate 18 05/21/24 17:07 Blood Pressure 97/78 L 05/21/24 17:07 Pulse Oximetry 93 05/21/24 17:07 Oxygen Delivery Room Air 05/21/24 17:07 <Leandro Wray MD - Last Filed: 05/21/24 19:01> MDM - Extremity Injury (Lower) MDM Narrative Medical decision making narrative: Patient presented to ED with 1 month hx of persistent cellulitis to left lower extremity. Was recently seen in the ED here and recommended she be admitted at that time, however patient wanted to try additional antibiotics. Patient has been on 3 separate courses of antibiotics including doxycycline, Bactrim, Keflex. Reporting worsening symptoms. She is afebrile here. Vital signs are otherwise stable. She is neurovascularly intact. Good pulses. Cbc without leukocytosis. CMP is unremarkable. Venous Doppler ultrasound was obtained and negative for DVT. Patient will be admitted for IV abx given failed OP therapy. Discussed case with Maya TRUJILLO hospitalist, accepted patient for admission. IV cefazolin started in the ED. Patient and family in agreement with plan and admission. <Johanna You PA-C - Last Filed: 05/21/24 18:57> Medical Records Attestation: I reviewed the patient's medical records. <Johanna You PA-C - Last Filed: 05/21/24 18:57> Lab Data Attestation: I reviewed the patient's lab results. <Johanna You PA-C - Last Filed: 05/21/24 18:57> Result diagrams: 05/21/24 17:16 05/21/24 17:16 <Elisha Aguiar PA-C - Last Filed: 05/21/24 18:40> Labs: Lab Results 05/21/24 Range/Units 17:16 WBC 7.4 (4.5-10.0) K/mm3 RBC 4.63 (4.2-5.4) M/mm3 Hgb 13.6 (12.0-15.0) g/dL Hct 43.0 (37.0-47.0) % MCV 92.9 (80-100) fl MCH 29.4 (26-34) pg MCHC 31.6 L (32-36) g/dl RDW 14.4 (11.5-14.5) % Plt Count 251 (150-375) k/mm3 MPV 10.9 H (7.4-10.4) fl Immature Gran % (Auto) 0.1 (0-0.5) % Neut % (Auto) 65.5 (45.5-73.1) % Lymph % (Auto) 21.2 (18.3-44.2) % [place] % (Auto) 8.5 (2.6-8.5) % Eos % (Auto) 3.8 (0-4.4) % Baso % (Auto) 0.9 (0.2-1.2) % Lymph # (Auto) 1.57 (0.9-3.2) K/mm3 [place] # (Auto) 0.6 (0.1-0.6) K/mm3 Eos # (Auto) 0.3 (0-0.3) K/mm3 Baso # (Auto) 0.1 (0.0-0.1) K/mm3 Abs Immat Gran (auto) 0.01 (0.00-0.031) K/mm3 Absolute Neuts (auto) 4.8 (1.3-6.7) K/mm3 Absolute Nucleated RBC 0.000 (0.0-0.012) K/mm3 Nucleated RBC % 0.0 (0.0-0.2) % ESR 7 (0-20) mm/hr Sodium 138 (137-145) mmol/L Potassium 4.3 (3.4-5.0) mmol/L Chloride 100 (98-107) mmol/L Carbon Dioxide 31 H (22-30) mmol/L Anion Gap 7 (4-12) mmol/L BUN 19 H (7-17) mg/dL Creatinine 0.91 (0.7-1.0) mg/dL Estim Creat Clear Calc 26 ml/min Estimated GFR 59 (59 - ) Glucose 84 (65-110) mg/dL Calcium 9.4 (8.4-10.2) mg/dL Total Bilirubin 0.4 (0.2-1.3) mg/dL AST 43 H (14-36) U/L ALT 35 (6-35) U/L Alkaline Phosphatase 62 (38-126) U/L C-Reactive Protein < 0.5 (<1.0) mg/dL Total Protein 7.0 (6.3-8.2) g/dL Albumin 4.4 (3.5-5.1) g/dL <Elisha Aguiar PA-C - Last Filed: 05/21/24 18:40> Lab Results 05/21/24 Range/Units 17:16 WBC 7.4 (4.5-10.0) K/mm3 RBC 4.63 (4.2-5.4) M/mm3 Hgb 13.6 (12.0-15.0) g/dL Hct 43.0 (37.0-47.0) % MCV 92.9 (80-100) fl MCH 29.4 (26-34) pg MCHC 31.6 L (32-36) g/dl RDW 14.4 (11.5-14.5) % Plt Count 251 (150-375) k/mm3 MPV 10.9 H (7.4-10.4) fl Immature Gran % (Auto) 0.1 (0-0.5) % Neut % (Auto) 65.5 (45.5-73.1) % Lymph % (Auto) 21.2 (18.3-44.2) % [place] % (Auto) 8.5 (2.6-8.5) % Eos % (Auto) 3.8 (0-4.4) % Baso % (Auto) 0.9 (0.2-1.2) % Lymph # (Auto) 1.57 (0.9-3.2) K/mm3 [place] # (Auto) 0.6 (0.1-0.6) K/mm3 Eos # (Auto) 0.3 (0-0.3) K/mm3 Baso # (Auto) 0.1 (0.0-0.1) K/mm3 Abs Immat Gran (auto) 0.01 (0.00-0.031) K/mm3 Absolute Neuts (auto) 4.8 (1.3-6.7) K/mm3 Absolute Nucleated RBC 0.000 (0.0-0.012) K/mm3 Nucleated RBC % 0.0 (0.0-0.2) % ESR 7 (0-20) mm/hr Sodium 138 (137-145) mmol/L Potassium 4.3 (3.4-5.0) mmol/L Chloride 100 (98-107) mmol/L Carbon Dioxide 31 H (22-30) mmol/L Anion Gap 7 (4-12) mmol/L BUN 19 H (7-17) mg/dL Creatinine 0.91 (0.7-1.0) mg/dL Estim Creat Clear Calc 26 ml/min Estimated GFR 59 (59 - ) Glucose 84 (65-110) mg/dL Calcium 9.4 (8.4-10.2) mg/dL Total Bilirubin 0.4 (0.2-1.3) mg/dL AST 43 H (14-36) U/L ALT 35 (6-35) U/L Alkaline Phosphatase 62 (38-126) U/L C-Reactive Protein < 0.5 (<1.0) mg/dL Total Protein 7.0 (6.3-8.2) g/dL Albumin 4.4 (3.5-5.1) g/dL <Johanna You PA-C - Last Filed: 05/21/24 18:57> Lab Results 05/21/24 Range/Units 17:16 WBC 7.4 (4.5-10.0) K/mm3 RBC 4.63 (4.2-5.4) M/mm3 Hgb 13.6 (12.0-15.0) g/dL Hct 43.0 (37.0-47.0) % MCV 92.9 (80-100) fl MCH 29.4 (26-34) pg MCHC 31.6 L (32-36) g/dl RDW 14.4 (11.5-14.5) % Plt Count 251 (150-375) k/mm3 MPV 10.9 H (7.4-10.4) fl Immature Gran % (Auto) 0.1 (0-0.5) % Neut % (Auto) 65.5 (45.5-73.1) % Lymph % (Auto) 21.2 (18.3-44.2) % [place] % (Auto) 8.5 (2.6-8.5) % Eos % (Auto) 3.8 (0-4.4) % Baso % (Auto) 0.9 (0.2-1.2) % Lymph # (Auto) 1.57 (0.9-3.2) K/mm3 [place] # (Auto) 0.6 (0.1-0.6) K/mm3 Eos # (Auto) 0.3 (0-0.3) K/mm3 Baso # (Auto) 0.1 (0.0-0.1) K/mm3 Abs Immat Gran (auto) 0.01 (0.00-0.031) K/mm3 Absolute Neuts (auto) 4.8 (1.3-6.7) K/mm3 Absolute Nucleated RBC 0.000 (0.0-0.012) K/mm3 Nucleated RBC % 0.0 (0.0-0.2) % ESR 7 (0-20) mm/hr Sodium 138 (137-145) mmol/L Potassium 4.3 (3.4-5.0) mmol/L Chloride 100 (98-107) mmol/L Carbon Dioxide 31 H (22-30) mmol/L Anion Gap 7 (4-12) mmol/L BUN 19 H (7-17) mg/dL Creatinine 0.91 (0.7-1.0) mg/dL Estim Creat Clear Calc 26 ml/min Estimated GFR 59 (59 - ) Glucose 84 (65-110) mg/dL Calcium 9.4 (8.4-10.2) mg/dL Total Bilirubin 0.4 (0.2-1.3) mg/dL AST 43 H (14-36) U/L ALT 35 (6-35) U/L Alkaline Phosphatase 62 (38-126) U/L C-Reactive Protein < 0.5 (<1.0) mg/dL Total Protein 7.0 (6.3-8.2) g/dL Albumin 4.4 (3.5-5.1) g/dL <Leandro Wray MD - Last Filed: 05/21/24 19:01> Imaging Data Attestation: I personally reviewed and interpreted this imaging study as follows: < Johanna You PA-C - Last Filed: 05/21/24 18:57> Radiologist's impression: ITS Impressions Venous Doppler Study 05/21/24 18:09 IMPRESSION: 1. No deep venous thrombosis. <Elisha Aguiar PA-C - Last Filed: 05/21/24 18:40> Critical Care Time Critical Care Time Critical Care Time: No <Elisha Aguiar PA-C - Last Filed: 05/21/24 18:40> Discharge Plan Discharge Clinical Impression: Cellulitis of left lower extremity <Elisha Aguiar PA-C - Last Filed: 05/21/24 18:40> Patient Disposition: Still a Patient <FABIOLA Owens Last Filed: 05/21/24 18:40> Condition: Stable <FABIOLA Owens Last Filed: 05/21/24 18:40> Patient Language: Uzbek <FABIOLA Owens Last Filed: 05/21/24 18:40> Prescriptions: No Action sulfamethoxazole-trimethoprim [Bactrim DS] 800-160 mg tablet 1 tablet PO Q12H 5 Days Qty: 10 0RF cephalexin 500 mg capsule 500 mg PO Q8H 10 Days Qty: 30 0RF <FABIOLA Owens Last Filed: 05/21/24 18:40> Follow-up/Referrals: UNKNOWN,DOCTOR [Non-Staff] - <FABIOLA Owens Last Filed: 05/21/24 18:40>
--- OUTSIDE RECORDS SUMMARY | 2024-05-21 16:46 | XMS_ITS | Data Portability ---
Author Organization [place] - [facility], Main Office Address [address] [place] [address] Care Team Providers Care Gluing Machine Operator Automatic Name Role Phone TERRA RASHID Primary Care Provider Assessment Encounter Date Assessment Date Assessment LastModified by Organization Details LastModified Time 05/09/2023 05/09/2023 Assessment: Nicotine smoke: 1 ppd 2733-5463 = 55 pack years Cough Dyspnea Postnasal [...] done as follows: Respiratory allergen panel [facility] Serum IgE Serum total IgG, IgG1, IgG2, IgG3, IgG4 Rkpzu-7-heyhiudtig n phenotype and level TB stimulated gamma interferon B-type natriuretic peptide (BNP) Eosinophil count Complete pulmonary function testing (PFT) Sputum gm stain and culture The [employer] recommends annual screening for lung [...] 06/23/2023 06/23/2023 Assessment: Nicotine smoke: 1 ppd 0502-6012 = 55 pack years Postnasal drip (+) [...] gm stain and culture if purulent The [employer] recommends annual screening for lung [...] 09/26/2023 09/26/2023 Assessment: Nicotine smoke: 1 ppd 7658-1134 = 55 pack years Postnasal drip (+) [...] n (aat) phenotype , serum [email or web address] (Lab), [address] [place], [address], 06/28/2023 12:48:29 BNP (B-type natriuret ic peptide), serum or plasma 2023 024 [facility] (Lab), [address] [place], [address], 05/09/2023 17:03:42 ige, total, serum [address] (Lab), [address] [place], [address], 06/28/2023 12:48:30 tb (M tuberculo sis), ifn-gamma silvia, blood [email or web address] [place] [address] (Lab), [address] [place], [address], 06/28/2023 12:48:30 eosinophi l count, manual, blood (OBS) [email or web address] [place] [address] (Lab), [address] [place], [address], 06/28/2023 12:48:30 [address] s 1+2+3+4, serum [email or web address] [place] [address] (Lab), [address] [place], [address], 06/28/2023 12:48:30 respirato ry allergen panel - [facility] [place] [facility] 2023 [facility] (Lab), [address] [place], [address], 05/25/2023 12:12:49 respirato ry allergen panel - [facility] b 2023 024 5 [facility] (Lab), [address] [place], [address], 06/28/2023 12:48:30 culture, sputum 2023 024 [email or web address] 5 [facility] (Lab), [address] [place], [address], 06/28/2023 12:48:30 hepatic function panel, serum 2022 023 [email or web address] 5 Not available 01/19/2023 12:19:26 Referral pulmonary rehab referral 2023 024 [email or web address] [facility], [address] [place], [address], 12/19/2023 10:16:51 pulmonary rehab referral 2023 024 [email or web address] 5 [facility], [address] [place], [address], 07/22/2023 11:37:19 pulmonary rehab referral 2023 024 [email or web address] 5 [facility], [address] [place], [address], 06/23/2023 14:35:46 Procedures None recorded. Surgeries None recorded. Imaging XR, chest, 2 view 2023 024 [place] [facility] (One Call Scheduling), [address] [place], [address], 09/26/2023 14:20:10 LDCT, chest, for lung cancer screening 2023 024 [email or web address] 2 [facility] (One Call Scheduling), [address] [place], [address], 09/05/2023 09:58:29 LDCT, chest, for lung cancer screening [address] (Radiology), [address] [facility] [place], [address], 06/30/2022 09:27:40 Medication Orders albuterol sulfate HFA 90 mcg/actua tion aerosol inhaler 2023 024 [facility]/Pharmacy #[id number], [address], [place], [address], 09/26/2023 11:53:52 Trelegy Ellipta 100 mcg-62.5 mcg-25 mcg powder for inhalatio n 2023 024 [id number], [address], [place], [address], 09/26/2023 11:53:[address] 500 mcg tablet 2023 024 [facility]/Pharmacy #33829, [address], [place], [address], 09/26/2023 11:53:53 ipratropi um bromide 42 mcg (0.06 %) nasal spray 2023 024 [id number], [address], [place], [address], 09/26/2023 11:53:51 albuterol sulfate HFA 90 mcg/actua tion aerosol inhaler 2023 024 [facility]/Pharmacy #61576, [address], [place], [address], 06/23/2023 10:41:14 Trelegy Ellipta 100 mcg-62.5 mcg-25 mcg powder for inhalatio n 2023 024 [id number], [address], [place], [address], 06/23/2023 10:37:[address] 500 mcg tablet 2023 024 [id number], [address], [place], [address], 06/23/2023 10:37:50 ipratropi um bromide 42 mcg (0.06 %) nasal spray 2023 024 [id number], [address], [place], [address], 06/23/2023 10:37:51 albuterol sulfate HFA 90 mcg/actua tion aerosol inhaler 2023 024 [facility] [address] [place], [address], 05/09/2023 14:44:30 Trelegy Ellipta 100 mcg-62.5 mcg-25 mcg powder for inhalatio n 2023 024 [id number], [address], [place], [address], 05/09/2023 14:44:[address] 500 mcg tablet 2023 024 [id number], [address], [place], [address], 05/09/2023 14:44:29 ipratropi um bromide 42 mcg (0.06 %) nasal spray 2023 024 [facility] [address] [place], [address], 05/09/2023 14:44:31 prednison e 20 mg tablet 2022 023 [facility][id number], [address], [place], [address], 05/01/2023 15:58:22 amoxicill in 875 mg-potass ium clavulana te 125 mg tablet 2022 023 [facility]/Pharmacy #98163, [address], [place], [address], 05/01/2023 15:57:09 Trelegy Ellipta 100 mcg-62.5 mcg-25 mcg powder for inhalatio n 2022 023 [facility]/Pharmacy #03446, [address], [place], [address], 11/05/2022 11:29:28 ipratropi um bromide 42 mcg (0.06 %) nasal spray 2022 023 [facility]/Pharmacy #57531, [address], [place], [address], 05/09/2023 14:10:41 ipratropi um bromide 42 mcg (0.06 %) nasal spray 2022 023 [facility]armacy #86304, [address], [place], [address], 05/09/2023 14:10:41 Patient TargetsNo targets recorded. Patient Instructions Encounter Date Encounter Id Patient Instructions Last Modified By Organization Details Last Modified Time 11/05/2022 [id number] six minute walk test* - needs within 30days please [place] Not available 11/30/2022 09:59:06 05/09/2023 [id number] complete PFT w/ post bronchodilator spirometry* [email or web address] Not available 06/01/2023 09:10:20 09/26/2023 [id number] complete PFT w/ post bronchodilator spirometry* Not [...] contr ast No observ ation record ed. [email or web address] [facility] (Radiology) [address] [place], [address], 07/05/2022 17:44:43 06/17/19 24 06/14/2023 compl ete PFT w/ post [facility] hodil ator jose metry * No observ ation record ed. [facility] (One Call Scheduling) [address] [place], [address], 06/17/2023 09:53:05 09/26/19 24 09/26/2023 XR, chest , 2 view No observ ation record ed. [email or web address] [address] [place], [address], 09/26/2023 17:27:40 Result Notes None recorded. Problems Name Problem SNOMED Code Status Onset Date Resolution Date Notes Provider Name and Address Organization Details Recorded Time Posterior rhinorrhea 08669724 Active 2021 Not Available [facility] 02:52:22 COVID-19 112404694 Active 2020 Not Available [employer] 3 02:52:22 Ex-smoker 3052083 Active 2020 Not Available [facility] 02:52:22 Severe chronic obstructive pulmonary disease 924911103 Active 2023 Mitch Starr MD [address] [facility], [place], [address] , [facility] [employer] [facility] 14:40:06 Notes:Medical History: COVID infection 11/2019 Rhinitis with postnasal drip Eosinophils 150/uL (+) 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 Procedures Surgical History None recorded. Imaging Results Imaging Date Name Status LastModified by Organization Details LastModified Time 07/01/2022 CT, chest, w/o contrast completed [address] (Radiology) [address] [place], [address], 07/05/2022 17:44:43 06/14/2023 complete PFT w/ post bronchodilator spirometry* completed [facility] (One Call Scheduling) [address] [place], [address], 06/17/2023 09:53:05 09/26/2023 XR, chest, 2 view completed [address] [place], [address], 09/26/2023 17:27:40 Procedure Notes None recorded. Medical [...] Updated DateTime 3 160.02 cm 16.8 kg/m2 44812.2 8 g 98.3 [degF] 97 /min 97 % 97 % 110 mm[Hg] 52 mm[Hg] Bruna HOOD - [facility] [employer] 3 11:28:54 Date Recorded Body height Body mass index (BMI) Body weight Body temperature Heart rate Oxygen saturation Oxygen saturation in Arterial blood by Pulse oximetry Systolic blood pressure Diastolic blood pressure Provider Name and Address Organization Details Last Updated DateTime 3 160.02 cm 15.9 kg/m2 85312.3 1 g 97.7 [degF] 107 /min 93 % 93 % 132 mm[Hg] 62 mm[Hg] Bruna Cooley OR [employer] [facility] [employer] 3 11:06:37 Date Recorded Body height Body mass index (BMI) Body weight Body temperature Systolic blood pressure Diastolic blood pressure Provider Name and Address Organization Details Last Updated DateTime 4 154.94 cm 16.9 kg/m2 74414.1 6 g 97.7 [degF] 136 mm[Hg] 62 mm[Hg] Linda Sosa MA OR [employer] [facility] [employer] 4 14:09:33 Date Recorded Heart rate Oxygen saturation Oxygen saturation in Arterial blood by Pulse oximetry Heart rate Respiratory rate Provider Name and Address Organization Details Last Updated DateTime 4 97 /min 94 % 94 % 97 /min 15 /min Mitch Starr MD [address], [address] [place] [employer] 4 14:57:07 Date Recorded Body height Body mass index (BMI) Body weight Heart rate Systolic blood pressure Diastolic blood pressure Provider Name and Address Organization Details Last Updated DateTime 4 154.94 cm 16.6 kg/m2 82112.1 3 g 84 /min 120 mm[Hg] 72 mm[Hg] Estefanía Cormier CMA [place] [employer] [facility] [employer] 4 10:12:12 Date Recorded Body temperature Oxygen saturation Oxygen saturation in Arterial blood by Pulse oximetry Heart rate Respiratory rate Provider Name and Address Organization Details Last Updated DateTime 4 97.5 [degF] 95 % 95 % 84 /min 15 /min Mitch Starr MD [address], [place], [address] [place] [employer] [facility] [employer] 4 10:34:34 Date Recorded Body height Body mass index (BMI) Body weight Body temperature Heart rate Oxygen saturation Oxygen saturation in Arterial blood by Pulse oximetry Systolic blood pressure Diastolic blood pressure Provider Name and Address Organization Details Last Updated DateTime 4 154.94 cm 15.7 kg/m2 25330.8 9 g 97.6 [degF] 88 /min 93 % 93 % 130 mm[Hg] 70 mm[Hg] Estefanía Cormier CMA [place] [facility] 4 11:24:47 Social History Question Answer Notes LastModified by Organization Details LastModified Time Tobacco Smoking Status Former Smoker quit 2018 Not Available [facility] 04/14/2022 02:38:59 What Is Your Level Of Alcohol Consumption? None MIGRATION.0301 [id number] Information not available 04/14/2022 What Is Your Level Of Caffeine Consumption? Moderate MIGRATION.0301 616117 Information not available 04/14/2022 How Much Tobacco Do You Chew? None MIGRATION.030 [id number] Information not available 04/14/2022 In The 14 Days Before Symptom Onset, Have You Had Close Contact With A Laboratory-confi rmed COVID-19 While That Case Was Ill? No MIGRATION.030 [id number] Information not available 04/14/2022 In The 14 Days Before Symptom Onset, Have You Had Close Contact With A Person Who Is Under Investigation For COVID-19 While That Person Was Ill? No MIGRATION.0301 [id number] Information not available 04/14/2022 Are You Currently Employed? No Information not available 05/09/2023 What Type Of Diet Are You Following? REGULAR MIGRATION.0301 [id number] Information not available 04/14/2022 Which Illicit Or Recreational Drugs Have You Used? None MIGRATION.0301 [id number] Information not available 04/14/2022 Do You Or Have You Ever Used E-cigarettes Or Vape? Never Used Electronic Cigarettes MIGRATION.0301 605863 Information not available 04/14/2022 Do You Have An Electrostatic Air Filter? No Information not available 05/09/2023 When Did You Quit Smoking? 1-5yearssinalissa koroma MIGRATION.0301 614101 Information not available 04/14/2022 Do You Have A Humidifier? No Information not available 05/09/2023 Where Do You Live? SingleLevelHouse Information not available 05/09/2023 Do You Have Moisture Problems In Your Home? No Information not available 05/09/2023 What Was The Date Of Your Most Recent Tobacco Screening? 05/09/2023 Information not available 05/09/2023 Do You Have Any Pets? No MIGRATION.0301 [id number] Information not available 04/14/2022 What Is Your Relationship Status? Single Information not available 05/09/2023 Do You Use Your Seat Belt Or Car Seat Routinely? Yes Information not available 05/09/2023 Do You Have Smoke And Carbon Monoxide Detectors In Your Home? Yes Information not available 05/09/2023 At What Age Did You Start Smoking Tobacco? 17 MIGRATION.0301 405778 Information not available 04/14/2022 Are You Passively Exposed To Smoke? No Information not available 05/09/2023 Do You Or Have You Ever Used Smokeless Tobacco? Never Used Smokeless Tobacco MIGRATION.0301 [id number] Information not available 04/14/2022 Do You Feel Stressed (tense, Restless, Nervous, Or Anxious, Or Unable To Sleep At Night)? [id number] Information not available 05/09/2023 Do You Use Any Illicit Or Recreational Drugs? No MIGRATION.0301 421702 Information not available 04/14/2022 Do You Use Sunscreen Routinely? Yes Information not available 05/09/2023 Have You Recently Traveled Abroad? No MIGRATION.0301 227628 Information not available 04/14/2022 Do You Have Any Dietary Restrictions? No MIGRATION.0301 312281 Information not available 04/14/2022 Do You Or Have You Ever Used Any Other Forms Of Tobacco Or Nicotine? No MIGRATION.0301 950201 Information not available 04/14/2022 Sex: Unknown Functional [...] 50 mcg/0.25mL dose 1 completed Not Available [facility] 04/14/2022 03:03:57 COVID-19, mRNA, LNP-S, PF, 100 mcg/0.5mL dose or 50 mcg/0.25mL dose 1 completed Not Available [facility] 04/14/2022 03:03:57 Influenza, high-dose, quadrivalent, PF 0 completed Not Available [facility] 04/14/2022 03:03:57 Influenza, split virus, quadrivalent, preservative 9 completed Not Available [facility] 04/14/2022 03:03:58 Past Encounters Encounter ID Performer Location Encounter Start Date Encounter Closed Date Diagnosis/Indication Diagnosis SNOMED-CT Code Diagnosis ICD10 Code Diagnosis Note [id number] [facility] [address] [address] 04/25/2020 00:00:00 04/25/2020 13:31:22 [id number] [facility] [place] [address] [place] [address] 08/22/2020 00:00:00 08/22/2020 13:13:26 [id number] [facility] [place] [address] [place] [address] 12/25/2020 00:00:00 12/25/2020 13:30:05 [id number] [facility] [place] [address] [place] [id number] 05/04/2021 00:00:00 05/04/2021 13:24:03 [id number] [facility] [place] [address] [place] [address] 11/02/2021 00:00:00 11/02/2021 11:54:10 [id number] Elisha Stokes [facility] [place] [address] [place] [address] 05/03/2022 11:19:49 05/03/2022 14:25:47 Ex-smoker 2391288 Z87.891 Quit 2018 with 80 pack year historyLDC T 01/2021 with no nodule or mass in the lungsShe has not completed repeat, re-ordered today Posterior rhinorrhea 758 49838 R09.82 Continue ipratropiu m - good clinical benefitSal ine nasal rinses History of SARS-CoV-2 29 71788668 85471994 Z86.16 01/01/2020 Improved Chronic ob structive pulmonary disease 15423454 J44.9 CAT 16 1/2PFT 09/08/20 with FEV1:FVC ratio 33%.FEV1 PBD 35%.TLC 130%.DLCO 39%Continu e Trelegy Ellipta 100 and DalirespIn structed on techniqueA lbuterol PRNShe is aware of reportable signs and symptoms.C ontinues to decline ND due to cost - she will look in to Silver Sneakers through the [facility] on RA 07/17/18 WNLRTO in 6 months, PRN for concerns Bronchiectasis 00446430 J47.9 CT 01/17/21, noted to LLLContinu e flutter valve consistent lyNebulize r [id number] Elisha Stokes [facility] [place] [address] [place] [address] 11/05/2022 10:36:20 11/05/2022 11:53:57 Long-term drug therapy 955230351 Z79.899 Check LFT Acute exac erbation of chronic obstructive pulmonary disease 046348548 J44.1 Start prednisone and amoxDiscus sed S/S that require emergent evaluation Chronic ob structive pulmonary disease 41291744 J44.9 CAT 24 (was 16)PFT 09/08/20 with FEV1:FVC ratio 33%.FEV1 PBD 35%.TLC 130%.DLCO 39%Decline s repeatCont inue Trelegy Ellipta 100 and DalirespIn structed on techniqueA lbuterol PRNShe is aware of reportable signs and symptoms.C ontinues to decline ND due to cost - she will look in to [employer] [facility] the [employer] on RA 07/17/18 WNLCheck 6MWTRTO in 6 months, PRN for concerns Posterior rhinorrhea 758 69151 R09.82 Continue ipratropiu m - good clinical benefitSal ine nasal rinses History of SARS-CoV-2 29 44989172 27181194 Z86.16 01/01/2020 Improved Ex-smoker 6612778 Z87.89 1 Quit 2017 with 80 pack year historyLDC T 01/2021 with no nodule or mass in the lungsRepea flavia 06/2022 with no changes [id number] MD BRAYDEN Guidry[address] [address] 05/09/2023 13:51:11 05/10/2023 08:03:22 Posterior rhinorrhea 52187046 R09.82 Dyspnea on exertion 6084 5006 R06.09 R05.9 T78.40XA D89.9 Ex-smoker 1329473 Z87.89 1 F17.218 F17.219 Severe chr onic obstructive pulmonary disease 542428156 J44.9 J42 [id number] MD [facility] [address] 06/23/2023 09:38:19 06/23/2023 10:47:42 Posterior rhinorrhea 77557645 R09.82 Ex-smoker 4029595 Z87.89 1 F17.218 F17.219 Severe chr onic obstructive pulmonary disease 957868153 J44.9 J42 [id number] MD BRAYDEN [facility] Pulmon[address] [address] 09/26/2023 10:42:54 09/27/2023 08:04:44 Posterior rhinorrhea 44684488 R09.82 Severe chr onic obstructive pulmonary disease 878386676 J44.9 J42 Health Concerns Section Related Observation LastModified by Organization Detai ls LastModified Time None Recorded Concern Status LastModified by Organization Details LastModified Time None Recorded Advance Directives Directive None Recorded Payers Encounter Date Sequence Insurance Name Policy Number Policy Farfan Covered Member ID Farfan Member ID Guarantor Name 05/03/2022 1 [employer] (MEDICARE REPLACEMENT PPO) [id number] L Elo Morrow [id number] Elo Odalys 11/05/2022 1 [employer] (MEDICARE REPLACEMENT PPO) [id number] L Elo Morrow [id number] Elo Odalys 05/09/2023 1 [employer] (MEDICARE REPLACEMENT PPO) [id number] L Elo Morrow [id number] Elo Odalys 06/23/2023 1 [employer] (MEDICARE REPLACEMENT PPO) [id number] Shilpa Wooner [id number] Elo Coelloebner 09/26/2023 1 [employer] (MEDICARE REPLACEMENT PPO) [id number] Shilpa Morrow [id number] Elo Wooner Notes Date Note Type Note Provider Name and Address Organization Details Recorded Time 05/03/2022 text/html Ms Mororw prese nts today to follow up on [...] had one exacerbation this year Elisha Stokes, SASH [employer]ER[employer]BC [address] [facility] [address], [place], [address], [facility] [employer] 05/03/2022 16:32:29 11/05/2022 text/html Ms Odalys elizabeth [...] chest tightnessGood benefit from ipratropium Elisha Stokes, SASH [employer] [address] [facility] [address], [place], [address], [facility] [employer] 11/05/2022 15:25:17 05/09/2023 text/html Primary care/Ref erring [...] upset Alleviating factors: rest Modified [employer] [place] (mMRC) Dyspnea Scale - Grade 2 Grade [...] no Environmental exposures: Nicotine smoke: 1 ppd 8258-3725 = 55 pack years Gruver: no Dye: no Dust mites: yes Mold: no Damp basement: no Wood burning stove: no Animal dander: no Cockroaches: no Pollen: yes Arsenic: no Asbestos: no Beryllium: no Cadmium: no Chromium: no Winston smoke: no Diesel fumes: no Nickel: no [...] slight chance of dozing. Mitch Starr MD [address] [place] [address], [address], [facility] [employer] [facility] 05/09/2023 14:58:13 06/23/2023 text/html Primary care/Ref erring provider: eTrra Rashid MD Patient is here to go over her COPD management. Initial development of shortness of breath: 2018Duration of shortness of breath: 6 yearsCondition of shortness of breath: stableTiming of shortness of breath: noneFrequency: up to 3 times a dayLimits activities: yesAggravating factors: walking, going upstairs, getting upsetAlleviating factors: rest Modified [employer] [place] (mMRC) Dyspnea Scale - Grade 2Grade 0 [...] noEdema: no Environmental exposures:Nicotine smoke: 1 ppd 5804-6427 = 55 pack yearsPaint: noDye: noDust mites: [...] slight chance of dozing. Mitch Starr MD [address] [place] [address], [facility], [place], [address], [facility] [employer] 06/23/2023 10:45:32 09/26/2023 text/html Primary care/Ref erring provider: Terra Rashid MD Patient is here to go over her COPD management. Initial development of shortness of breath: 2018Duration of shortness of breath: 6 yearsCondition of shortness of breath: stableTiming of shortness of breath: noneFrequency: up to 3 times a dayLimits activities: yesAggravating factors: walking, going upstairs, getting upsetAlleviating factors: rest Modified [employer] [place] (mMRC) Dyspnea Scale - Grade 2Grade 0 [...] noEdema: no Environmental exposures:Nicotine smoke: 1 ppd 0826-1805 = 55 pack yearsPaint: noDye: noDust mites: [...] no chance of dozing. Mitch Starr MD [address] [place] [address], [place] [address], [place], [address], [facility] 09/26/2023 12:06:22 OBGyn Episode No OBEpisode recorded.
--- OUTSIDE RECORDS SUMMARY | 2024-05-21 16:47 | XMS_ITS | Clinical Summary ---
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
--- OUTSIDE RECORDS SUMMARY | 2024-05-21 16:47 | XMS_ITS | Encounter Summary ---
Author Organization [facility] Address [address] [place] [address] Care Team Providers Care Restaurant Kitchen Manager Name Role Phone Adriane Howard Primary Care Provider Becca webster Encounter Details Date Type Department Care Team (Late st Contact Info) Description 11/16/2021 Lab Requisition [facility] DermPath Lab [address] [id number] Froylan Linn MD [address] [place] [address] Social History Tobacco Use Types Packs/Day Years [...] AM CDT) Case Report Dermatopathology Report Case: [id number] Authorizing Provider: Froylan Linn MD Collected: 11/12/2021 03:33 AM Ordering Location: [facility] DermPath Lab Received: 11/16/2021 05:45 AM Pathologist: [...] microscopic description and comment) 2 1:39 PM [facility] Clinical History 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 SCCA. Path# [id number] 2 1:39 PM [facility] Gross Description Specimen A: Received is one formalin filled container labeled with the patient's name and designated left distal rodriges. The specimen consists of a shave biopsy measuring 1d8g1tu and it is bisected. Jar 0. Specimen B: Received is one formalin filled container labeled with the patient's name and designated left ant ankle. The specimen consists of a shave biopsy measuring 4b7k9je. Jar 0. Specimen C: Received is one formalin filled container labeled with the patient's name and designated right lower leg. The specimen consists of a shave biopsy measuring 4k1k2ug. Jar 0. 2 1:39 PM [facility] Microscopic Description Specimen A. SKIN, [...] characteristic determined by the Dermatopathology Laboratory at [facility], directed by Dr. Raheel Muniz. These tests need not be, and therefore are not, approved by the [place] Food and Drug Administration. The tests are used for clinical purposes. Billing Codes Specimen Charges Stain Charges 68481 69404 28438 1 1 1 2 1:39 PM CDT [...] LAB - PATHOLOGY/CYTO LOGY ORDERABLES DERMATOPATHOLOGY LABORATORY [facility] - Department of Dermatology [address], [address] [phone] documented in this encounter Visit Diagnoses Not on filedocumented in this encounter Care Teams Restaurant Kitchen Manager Relationship Specialty Start Date End Date Adriane Howard Update Information PCP - General 12/28/21 documented as of this encounter
--- OUTSIDE RECORDS SUMMARY | 2024-05-21 16:47 | XMS_ITS | Data Portability ---
[facility] Address [address] [place] [address] Care Team Providers Care Dental Office Manager Name Role Phone LEANNE CARDENAS Iphone Developer Assessment No assessment recorded. Plan of Treatment Reminders Order Date Submit Date Provider Last Modified By Organization Details Last Modified Time Details Appointments None recorded. Lab urinalysi s, dipstick 2019 [email or web address] 1 In-Office Order, Internal Use Only DO Not Attach Compendium DO Not Attach Compendium, Do Not Delete/merge, [id number] 0 12:50:12 Referral None recorded. Procedures None recorded. Surgeries None recorded. Imaging MAMMO, screening , bilateral 2019 [email or web address] [facility], [address] [place] [address], [place], [address], 1 08:37:04 Medication Orders None recorded. Patient TargetsNo targets recorded. Patient Instructions Encounter Date Encounter Id Patient Instructions Last Modified By Organization Details Last Modified Time 11/16/2019 [id number] mammogram: about this test Not available 11/16/2019 11:59:25 Reason for Referral None Reported. Results Created Date Observation Date Name Description Value Unit Range Abnormal Flag Note LastModifiedBy Organization Detail LastModifiedTime 11/16/19 20 11/16/2019 urina lysis , dipst ick Leukocytes Negati ve Not Available In-Office Order Internal Use Only DO Not Attach Compendium DO Not Attach Compendium, Do Not Delete/merge, [id number] 11/16/2019 11:09:53 11/16/19 20 11/16/2019 urina lysis , dipst ick Nitrite negati ve Not Available In-Office Order Internal Use Only DO Not Attach Compendium DO Not Attach Compendium, Do Not Delete/merge, 11/16/2019 11:09:53 11/16/19 20 11/16/2019 urina lysis , dipst ick Urobilinogen .2 Not Available In-Of fice Order Internal Use Only DO Not Attach Compendium DO Not Attach Compendium, Do Not Delete/merge, [id number] 11/16/2019 11:09:53 11/16/19 20 11/16/2019 urina lysis [...] 11/16/2019 urina lysis , dipst ick Specific [place] 1.030 Not Available In-Off ice Order Internal [...] DO Not Attach Compendium, Do Not Delete/merge, [id number] 11/16/2019 11:09:53 11/16/19 20 11/16/2019 urina lysis , dipst ick Glucose Negati ve Not Available In-Office Order Internal Use Only DO Not Attach Compendium DO Not Attach Compendium, Do Not Delete/merge, [id number] 11/16/2019 11:09:53 Result Notes None recorded. Problems [...] Updated DateTime 11/16/2019 158.75 cm 16.9 kg/m2 92024.68 g 128 mm[Hg] 60 mm[Hg] Sofia Murphy MA [place] - [facility] 0 11:31:59 Social History Question Answer Notes LastModified by Organizat ion Details LastModified Time Tobacco Smoking Status Former Smoker 2018 Quit smoking Sofia Murphy MA [facility], [place] - [facility] 11/16/2019 11:21:08 What Is [...] N Acid Reflux (GERD) N Cancer N Stroke N Kidney or Bladder Problems N Asthma N Allergies Y COPD Y Blood Clots N Anemia N High Cholesterol Y Heart Attack (NM) N Osteoporosis Y Heart Failure N Gynecological History Statement/Question Response Menses Monthly N If Post Menopausal, Age at Menopause Date of Last Mammogram Obstetrics History GPAL:G 3 P 3 0 0 3 Type Value Full Term 3 Induced 0 Spontaneous 0 Premature 0 Living 3 Total 3 Past Encounters Encounter ID Performer Location Encounter Start Date Encounter Closed Date Diagnosis/Indication Diagnosis SNOMED-CT Code Diagnosis ICD10 Code Diagnosis Note [id number] RONNIE ZURITA (HOSPITAL LIBRARIAN) [address] [place] [phone] 11/16/2019 10:53:49 11/19/2019 15:58:50 Screening for malignant neoplasm of breast 960513613 Z12.31 Average risk. Advised that can likely stop routine screening after age 75. Postmenopausal state [phone] 73970 Z78.0 -clinical breast exam completed today, unremarkab le. Pt declined pelvic exam. -cervical cancer screening UTD: last Pap (2009), (negative) . Screening no longer indicated. -referral for screening mammogram issued for routine breast cancer screening -Educated osteoporos is including calcium rich diet, weight bearing exercise. Pt on supplement and gets routine bone density tests. -RTC prn Osteoporosis [id number] M8 1.0 On raloxifene per PCP. Follows [...] Farfan Member ID Guarantor Name 11/16/2019 1 [facility] [id number] Elo Morrow [id number] Elo Morrow Notes Date Note Type Note [...] for it. RONNIE ZURITA Attn: Accounting,[address] [facility], [place], [address], [facility] 11/16/2019 12:59:10 OBGyn Episode No OBEpisode recorded.
--- OUTSIDE RECORDS SUMMARY | 2024-05-21 16:47 | XMS_ITS | Data Portability ---
Author Organization [facility], [employer] Address [address] [address] Care Team Providers Care Home Attendant Name Role Phone TERRA RASHID Primary Care [...] Lab CMP, serum or plasma 2024 025 [facility], [address], [place], [address], 04/06/2024 14:21:11 CBC w/ auto diff 2024 025 [facility], [address], [place], [address], 04/06/2024 14:21:10 lipid panel w/ direct LDL, serum [address], [address], [place], [address], 2024 16:24:50 TSH, serum or plasma [address], [address], [place], [address], 2024 16:24:50 vitamin D, 25-hydrox y, total, serum [address], [address], [place], [address], 2024 16:24:50 CBC 2023 024 [facility], [address], [place], [address], 11/21/2023 04:10:04 CMP, serum or plasma 2023 024 [facility], [address], [place], [address], 11/15/2023 12:50:20 CBC 2023 024 [facility], [address], [place], [address], 10/07/2023 04:04:54 CMP, serum or plasma 2023 024 [facility], [address] [place] [address], [place], [address], 10/01/2023 13:30:36 lipid panel w/ direct LDL, serum 2023 024 [facility], [address] [place] [address], [place], [address], 10/07/2023 04:04:54 TSH, serum or plasma 2023 024 [facility], [address] [place] [address], [place], [address], 10/07/2023 04:04:54 vitamin D, 25-hydrox y, total, serum 2023 024 [facility], [address] [place] [address], [place], [address], 10/07/2023 04:04:54 Referral dermatolo gist referral 2023 024 [facility], [address], [place], [address], 01/06/2024 15:04:22 Procedures None recorded. Surgeries None recorded. Imaging CT, chest, w/o contrast 2023 024 [facility], [address], [place], [address], 03/31/2024 04:01:39 Medication Orders raloxifen e 60 mg tablet 2024 025 [facility] #[id number], [address], [place], [address], 04/05/2024 11:21:37 Dermend topical cream 2024 025 [facility]acy #[id number], [address], [place], [address], 04/05/2024 11:21:29 benzonata te 100 mg capsule 2024 025 [id number], [address], [place], [address], 04/05/2024 11:21:32 Zithromax Z-Mik 250 mg tablet 2024 025 [id number], [address] , [place], [address], 04/05/2024 11:21:33 metoprolo l succinate ER 50 mg tablet,ex tended release 24 hr 2024 025 [id number], [address] [facility], [place], [address], 04/05/2024 11:21:33 losartan 100 mg tablet 2024 025 [id number], [address] , [place], [address], 04/05/2024 11:21:34 prednison e 20 mg tablet 2024 025 [id number], [address] , [place], [address], 04/05/2024 11:21:31 mirtazapi ne 15 mg tablet 2024 025 [id number], [address], [place], [address], 04/05/2024 11:21:31 cholecalc iferol (vitamin D3) 125 mcg (5,000 unit) capsule 2024 025 [id number], [address] [place], [address], 04/05/2024 11:21:26 Aspercrem e (lidocain e HCl) 4 % topical 2023 025 [id number], [address], [place], [address], 04/05/2024 11:15:03 linezolid 600 mg tablet 2023 024 [id number] [address], [place], [address], 01/06/2024 11:16:43 mupirocin 2 % topical ointment 2023 024 [id number], [address], [place], [address], 01/06/2024 11:17:04 linezolid 600 mg tablet 2023 024 [id number], [address], [place], [address], 01/06/2024 11:16:43 mupirocin 2 % topical ointment 2023 024 [id number], [address], [place], [address], 01/06/2024 11:17:02 Dermend topical cream 2023 024 [id number], [address], [place], [address], 08/25/2023 11:42:54 hydroxyzi ne HCl 10 mg tablet 2023 025 [id number], [address], [place], [address], 04/05/2024 11:15:42 doxycycli ne hyclate 100 mg capsule 2023 024 [id number], [address], [place], [address], 04/05/2024 11:08:40 mupirocin 2 % topical ointment 2023 024 [id number], [address], [place], [address], 01/06/2024 11:17:02 Patient TargetsNo targets recorded. Patient Instructions Encounter Date Encounter Id Patient Instructions Last Modified By Organization Details Last Modified Time 09/30/2023 [id number] Peripheral Arterial Disease (PAD): Care Instructions mshenouda [...] instructions [email or web address] Not available 09/30/2023 11:35:41 01/06/2024 [id number] Peripheral Arterial Disease (PAD): Care Instructions [email or web address] [...] instructions [email or web address] Not available 01/06/2024 11:21:59 04/05/2024 [id number] Peripheral Arterial Disease (PAD): Care Instructions mshenouda [...] Not available 03/18 11:20:55 Reason for Referral Graduate Intern Referral for C ellulitis of lower limb Referring Physician: Terra Rashid, Internal Medicine, Encounter Date: 11/14/2023 Results Created Date Observation Date Name Description Value Unit Range Abnormal Flag Note LastModifiedBy Organization Detail LastModifiedTime 04/05/1904/05/2024 COMPR EHENS TOMASA METAB OLIC PANEL sodium 141 mmol/ L 134-14 4 Not Available [facility] [address], [place], [address], 04/06/2024 14:21:11 04/05/1904/05/2024 COMPR EHENS TOMASA METAB OLIC PANEL potassium 4.1 mmol/ L 3.5-5. 2 Not Available [facility] [address] [facility] [address], [place], [address], 04/06/2024 14:21:11 04/05/1910 0404/05/2024 COMPR EHENS TOMASA METAB OLIC PANEL chloride 101 mmol/ L 98-107 Not Available [facility] [address] [facility] [address], [place], [address], 04/06/2024 14:21:11 04/05/19 25 04/05/2024 COMPR EHENS TOMASA METAB OLIC PANEL carbon dioxide (co2) 30.0 mmol/ L 18.0-2 9.0 high Not Available [facility] [address] [facility] [address], [place], [address], 04/06/2024 14:21:11 04/05/19 25 04/05/2024 COMPR EHENS TOMASA METAB OLIC PANEL glucose 96 mg/dL 65-99 Jacque l Fasti n - 99 mg/dL Impai red Fasti n - 125 mg/dL Diagn ostic of Diabe marly: => 126 mg/dL Ameri can [facility] n, 2007 Not Available [facility] [address] [facility] [address], [place], [address], 04/06/2024 14:21:11 04/05/19 25 04/05/2024 COMPR EHENS TOMASA METAB OLIC PANEL urea nitrogen (BUN) 15 mg/dL 8-23 Not Available [facility] [address] [facility] [address], [place], [address], 04/06/2024 14:21:11 04/05/19 25 04/05/2024 COMPR EHENS TOMASA METAB OLIC PANEL creatinine 0.50 mg/dL 0.57-1 .00 low Not Available [facility] [address] [facility] [address], [place], [address], 04/06/2024 14:21:11 04/05/19 25 04/05/2024 COMPR EHENS TOMASA METAB OLIC PANEL eGFR 95 mL/mi nute/ 1.73_ m2 >59 MDRD Study Equat ion: The calcu lated GFR is NOT appli cable for pedia tric (< 18 years old) and > 70 year old patie nts and patie nts that are NOT of [place] . Not Available [facility] [address] [facility] [address], [place], [address], 04/06/2024 14:21:11 04/05/19 25 04/05/2024 COMPR EHENS TOMASA METAB OLIC PANEL calcium 9.3 mg/dL 8.7-10 .3 Not Available [facility] [address] [facility] [address], [place], [address], 04/06/2024 14:21:11 04/05/19 25 04/05/2024 COMPR EHENS TOMASA METAB OLIC PANEL protein, total 6.5 gm/dL 6.4-8. 3 Not Available [facility] [address] [facility] [address], [place], [address], 04/06/2024 14:21:11 04/05/19 25 04/05/2024 COMPR EHENS TOMASA METAB OLIC PANEL albumin 4.1 gm/dL 3.5-5. 2 Not Available [facility] [address] [facility] [address], [place], [address], 04/06/2024 14:21:11 04/05/19 25 04/05/2024 COMPR EHENS TOMASA METAB OLIC PANEL bilirubin, total 0.20 mg/dL 0.00-1 .20 Not Available [facility] [address] [facility] [address], [place], [address], 04/06/2024 14:21:11 04/05/19 25 04/05/2024 COMPR EHENS TOMASA METAB OLIC PANEL alkaline phosphatase (ALP) 65 U/L 39-117 Not Available [facility] [address] [facility] [address], [place], [address], 04/06/2024 14:21:11 04/05/19 25 04/05/2024 COMPR EHENS TOMASA METAB OLIC PANEL aspartate aminotransfe rase (AST) 25 U/L 0-32 Not Available [facility] [address] [facility] [address], [place], [address], 04/06/2024 14:21:11 04/05/19 25 04/05/2024 COMPR EHENS TOMASA METAB OLIC PANEL alanine aminotransfe rase (ALT) 21 U/L 0-33 Not Available [facility] [address] [facility] [address], [place], [address], 04/06/2024 14:21:11 04/05/19 25 04/05/2024 COMPR EHENS TOMASA METAB OLIC PANEL A/G ratio (calculated) 1.7 ratio 1.0-2. 7 Not Available [facility] [address] [facility] [address], [place], [address], 04/06/2024 14:21:11 04/05/19 25 04/05/2024 COMPR EHENS TOMASA METAB OLIC PANEL globulin (calculated) 2.4 gm/dL 1.5-3. 8 Not Available [facility] [address] [facility] [address], [place], [address], 04/06/2024 14:21:11 04/05/19 25 04/05/2024 COMPR EHENS TOMASA METAB OLIC PANEL BUN/creatini ne ratio (calculated) 30.0 ratio 8.0-20 .0 high Not Available [facility] [address] [facility] [address], [place], [address], 04/06/2024 14:21:11 04/05/19 25 04/05/2024 COMPR EHENS TOMASA METAB OLIC PANEL serum hemolysis index Normal index normal Not Available [facility] [address] [facility] [address], [place], [address], 04/06/2024 14:21:11 Result Notes None recorded. Problems Name Problem SNOMED Code Status Onset Date Resolution Date Notes Provider Name and Address Organization Details Recorded Time Chronic obstructiv e pulmonary disease 21560920 Active Not Available [facility] 3 13:52:09 Diverticul itis 182435509 Completed 08/01/2015 Terra Rashid MD [address], [place], [address] , [facility] 6 09:23:19 Pulmonary emphysema 45650852 Active Not Available [facility] 3 13:52:10 Benign hypertensi on 59675501 Active Not Available [facility] 3 13:52:09 Blood glucose outside reference range 845725478 Active Not Available [facility] 3 13:52:09 Hyperlipid emia 57675009 Active Not Available [facility] 3 13:52:09 Neoplasm of liver 666322165 Completed 10/19/2019 Terra Rashid MD [address], [place], [address] , [facility] 0 10:57:51 Osteopenia 969464117 Completed 08/01/2015 Terra Rashid MD [address], [place], [address] , [facility] 6 09:26:25 Osteoporos is 69654003 Active Not Available [facility] 3 13:52:09 Simple renal cyst 44408065 Active Not Available [facility] 3 13:52:10 Diverticul ar disease of colon 582202810 Active 2015 Not Available [facility] 3 13:52:09 Hemangioma of liver 82995156 Active 2015 Not Available [facility] 3 13:52:10 Mixed anxiety and depressive disorder 881118900 Active 2016 Not Available [facility] 3 13:52:09 Ex-smoker 8266325 Active 2016 Not Available [facility] 3 13:52:10 Coronary arterioscl erosis 11902386 Active [address] chest 7 Not Available [facility] 3 13:52:09 Body mass index less than 20 876006520 Active 2018 Not Available [facility] 3 13:52:09 Osteoarthr itis 050708812 Active 2019 Not Available [facility] 3 13:52:09 COVID-19 006388275 Completed 202007/17/2020 Terra Rashid MD [address], [place], [address] , [facility] 1 10:28:46 Allergic rhinitis caused by pollen 60640243 Active 2021 Not Available [facility] 3 13:52:09 Peripheral vascular disease 447911135 Active 2021 Not Available [facility] 3 13:52:09 Vitamin D deficiency 61268020 Active 2021 Not Available [facility] 3 13:52:09 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 Procedures Surgical History Date Name Laterality Status Provider Name and Address Organization Details Recorded Time 10/28/19 17 Date of Last Colonoscopy completed Shirley Ivey [facility] 05/13/2017 10:15:11 Tonsillectomy completed Shirley Ivey [facility] 08/01/2015 08:32:59 Imaging Results None recorded. Procedure Notes None recorded. Medical Equipment None Reported. Allergies Allergen ID Allergen Name Allergen Category Reaction Reaction Severity Criticality Documentation Date Start Date Code Code System Note Provider Name and Address Organization Details Recorded Time 2295 Augmentin medicatio n Not available Not available Not available 08/01/2015 63711 2 RxNorm Shirley Ivey [facility] 6 08:32:43 Medications Name Sig Start Date Stop Date Status Note LastModified by Organization Details LastModified Time magnesium citrate 1.745 gm/30ml soln 11/12 completed Not Available Not Available Not Available arabella yost 06/16 completed Not Available Not Available [...] Not Available Not Available No t Available Arabella Yost 28 gauge bid PRN 05/24 completed Not [...] Available Not Avai lable Fluzone High-Dose Quad (PF) 240 mcg/0.7 mL IM syringe ADM 0.7ML IM UTD 12/16 completed Not Available Not Available Not Available Vitals Date Recorded Body height Respiratory rate Body temperature Body mass index (BMI) Body weight Provider Name and Address Organization Details Last Updated DateTime 4 160.02 cm 16 /min 97.8 [degF] 15.1 kg/m2 67439.3 5 g Herlinda Tobar [facility] 4 11:22:02 Date Recorded Heart rate Systolic blood pressure Diastolic blood pressure Provider Name and Address Organization Details Last Updated DateTime 08/25/2023 92 /min 131 mm[Hg] 81 mm[Hg] Terra Rashid MD [address] [facility] [address], [place], [address], [facility] 08/25/2023 11:35:24 Date Recorded Body height Heart rate Respiratory rate Body temperature Body mass index (BMI) Body weight Systolic blood pressure Diastolic blood pressure Provider Name and Address Organization Details Last Updated DateTime 4 160.02 cm 79 /min 18 /min 97.7 [degF] 14.9 kg/m2 23949.7 6 g 138 mm[Hg] 77 mm[Hg] Herlinda Tobar [facility] 4 11:08:49 Date Recorded Body height Body temperature Respiratory rate Heart rate Systolic blood pressure Diastolic blood pressure Provider Name and Address Organization Details Last Updated DateTime 4 160.02 cm 97.8 [degF] 18 /min 113 /min 156 mm[Hg] 75 mm[Hg] Herlinda Tobar [facility] 4 16:00:51 Date Recorded Body height Body mass index (BMI) Body weight Body temperature Respiratory rate Heart rate Provider Name and Address Organization Details Last Updated DateTime 4 160.02 cm 14.7 kg/m2 49045.1 7 g 98.2 [degF] 18 /min 89 /min Herlinda Tobar [facility] 4 10:25:29 Date Recorded Systolic blood pressure Diastolic blood pressure Provider Name and Address Organization Details Last Updated DateTime 01/06/2024 134 mm[Hg] 78 mm[Hg] Terra Rashid MD [address] [facility] [address], [place], [address], [facility] 01/06/2024 11:17:36 Date Recorded Body height Body mass index (BMI) Body weight Body temperature Respiratory rate Heart rate Systolic blood pressure Diastolic blood pressure Provider Name and Address Organization Details Last Updated DateTime 5 160.02 cm 14.7 kg/m2 82991.1 7 g 98.7 [degF] 18 /min 110 /min 175 mm[Hg] 89 mm[Hg] Herlinda Tobar [facility] 5 10:47:47 Social History Question Answer Notes LastModified by Organizat ion Details LastModified Time Tobacco Smoking Status Former Smoker about 1PPD for over 30 years Grace resendiz, [facility] 04/18/2020 10:01:14 Do You Have An Advance Directive? No [id number] Information not available 11/30/2019 What Is Your Level Of Alcohol Consumption? None [id number] Information not available 11/30/2019 What Is Your [...] 04/18/2020 Live Alone Or With Others? Alone [email or web address] Information not available 08/01/2015 What Was The Date Of Your Most Recent Tobacco Screening? 07/21/2018 [id number] Information not available 11/30/2019 Mother With HIV? [...] LastModified Time Father Coronary arterioscler [email or web address] [email or web address] Not available 2015 08:33:25 Father Malignant tumor of prostate [email or web address] Not available 2015 08:33:34 Mother Coronary arterioscler osis 92 [email or web address] Not available 2015 08:33:25 Brother Coronary arterioscler osis 63 [email or web address] Not available 2015 08:33:25 Brother Diabetes mellitus [email or web address] Not available 2015 08:33:41 Medical History Condition Response Coronary Artery Disease N Other N Gout N Blood Diseases N Kidney Stones N Hyperthyroidism N Blood Transfusion N Breast Cancer N Lung Disease N COPD N Depression N Hypothyroidism N Defects or Inherited Disease N Developmental or Behavioral Disorders N Breast Problem N Difficulty Swallowing N Anesthesia Complications N Meniere's disease N Anxiety Disorder N Muscle, Joint, or Bone Problems N Obesity N Vision or Eye Problems N Arthritis N Polyps N Infertility N Mental Disorder N Cancer N Stroke N Varicosities N Endometriosis N Bladder or Kidney Problems N High Cholesterol N Liver Disease N Fibromyalgia N Headaches N Kidney Disease N Allergies/Hayfever N Heart Problems N Ear or Hearing Problems N Hospitalizations N Thyroid Problems N GI Problems N ADD/ADHD N Eating Disorder N Skin Problems N Anemia N MRSA exposure N Constipation N Mental Illness N Diabetes N Ovarian Cancer N Bedwetting N Seizures/Epilepsy N Tuberculosis N AIDS/HIV N Congestive Heart Failure (CHF) N Eczema N Abuse/Domestic Violence N Diverticulitis N Asthma N Reflux/GERD N Hepatitis N Heart Disease N Pulmonary Embolism N Chronic Ear Infections N Pre-Eclampsia N Hypertension N Chicken Pox N Autism Spectrum Disorder (ASD) N Osteoporosis N Thrombophilias N Gynecological History Statement/Question Response Date of Last Mammogram Date of Last Colonoscopy 10/27/2016 Obstetrics History GPAL:G 0 P 0 0 0 0 Immunizations Vaccine Type Date Status Note Provider Nam e and Address Organization Details Recorded Time Influenza, split virus, quadrivalent, preservative 5 completed Terra Rashid MD [address], [place], [address], [facility] 12/12/2022 14:04:19 pneumococcal polysaccharide PPV23 6 completed Terra Rashid MD [address], [place], [address], [facility] 12/12/2022 14:04:19 Influenza, split virus, quadrivalent, preservative 8 completed Terra Rashid MD [address], [place], [address], [facility] 12/12/2022 14:04:19 Influenza, split virus, quadrivalent, preservative 8 completed Terra Rashid MD [address], [place], [address], [facility] 12/12/2022 14:04:19 Influenza, split virus, quadrivalent, preservative 9 completed Terra Rashid MD [address], [place], [address], [facility] 12/12/2022 14:04:19 Influenza, split virus, quadrivalent, preservative 0 completed Terra Rashid MD [address], [place], [address], [facility] 12/12/2022 14:04:19 SARS-COV-2 (COVID-19) vaccine, UNSPECIFIED 1 completed Terra Rashid MD [address], [place], [address], [facility] 12/12/2022 14:04:19 Td(adult) unspecified formulation 6 completed Terra Rashid MD [address], [place], [address], [facility] 12/12/2022 14:04:19 Influenza, split virus, quadrivalent, preservative 1 completed Terra Rashid MD [address], [place], [address], [facility] 12/12/2022 14:04:19 Influenza, split virus, trivalent, preservative 6 completed Not Available [facility] 03/03/2019 02:27:19 Influenza, adjuvanted, quadrivalent, PF 3 completed Terra Rashid MD [address], [place], [address], [facility] 12/12/2022 14:04:19 COVID-19, mRNA, LNP-S, PF, lakhwinder-sucrose, 30 mcg/0.3 mL 3 completed Terra Rashid MD [address], [place], [address], [facility] 12/12/2022 14:04:19 Pneumococcal conjugate PCV20, polysaccharide [id number] conjugate, adjuvant, PF 4 completed Terra Rashid MD [address], [place], [address], [facility] 01/11/2024 17:30:57 Tdap 4 completed Terra Rashid MD [address], [place], [address], [facility] 01/11/2024 17:30:57 Pneumococcal conjugate PCV 13 7 completed Terra Rashid MD [address], [place], [address], [facility] 12/12/2022 14:04:19 Influenza, split virus, quadrivalent, preservative 7 completed Terra Rashid MD [address] [facility] [address], [place], [address], [facility] 12/12/2022 14:04:19 Past Encounters Encounter ID Performer Location Encounter Start Date Encounter Closed Date Diagnosis/Indication Diagnosis SNOMED-CT Code Diagnosis ICD10 Code Diagnosis Note [id number] Terra Rashid MD [facility], [facility] [address] [place] [address] 08/01/2015 08:59:01 08/01/2015 09:38:49 Benign hypertension 31121372 I10 Chronic ob structive pulmonary disease 74140072 J44.9 Osteopenia 152209960 M85 .80 Hyperlipidemia 83963539 E78.5 Active or passive immunization 821801908 Z23 Screening mammography 24 802104 Z12.31 Screening for malignant neoplasm of colon 402694313 Z12.11 Viral screening 67235828 4 Z11.59 Eruption 715623502 R21 [id number] Terra Rashid MD [facility], [facility] [address] [place] [address] 11/07/2015 09:05:03 11/07/2015 09:57:02 Benign hypertension 55721111 I10 Chronic ob structive pulmonary disease 75501510 J44.9 Gastroesop hageal reflux disease without esophagitis 003138154 K21.9 Active or passive immunization 319207509 Z23 Screening mammography 24 827568 Z12.31 [id number] Terra Rashid MD [facility], [facility] [address] [place] [address] 12/22/2015 09:55:08 12/22/2015 11:22:43 Eruption 558988146 R21 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 Diarrhea 11120537 R19.7 trial of viberzi // need C scope [id number] Terra Rashid MD [facility], [facility] [address] [place] [address] 02/04/2016 09:52:20 02/04/2016 11:00:21 Sinusitis 64272524 J32.9 Cough 49783137 R05 Benign hypertension 1072 5009 I10 [id number] Edwige Smith [facility], [facility] [address] [place] [address] 03/10/2016 09:21:53 03/10/2016 10:44:31 Cough 88445663 R05 Acute bronchitis 1328270 2 J20.9 [id number] Terra [facility] [facility], [facility] [address] [place] [address] 03/17/2016 09:24:01 03/17/2016 10:22:41 Eruption 541345869 R21 Tobacco de pendence, continuous 358389510 F17.290 [id number] Terra Rashid MD [facility], [facility] [address] [place] [address] 04/29/2016 09:21:17 04/29/2016 10:03:29 Cough 53778810 R05 Dyspnea 596809610 R06.00 O2 is 97% Wheezing 34670412 R06.2 Pulmonary emphysema 8743 3001 J43.9 Blood gluc ose outside reference range 580270250 R73.09 Benign hypertension 1072 5009 I10 Screening for malignant neoplasm of colon 124043750 Z12.11 Active or passive immunization 710547716 Z23 [id number] Edwige Smith, [facility], [facility] [address] [place] [address] 06/18/2016 09:55:43 06/18/2016 10:44:02 Acute bronchitis 03974403 J20.9 Blood gluc ose outside reference range 259212499 R73.09 BS today 120 1 hour pp Probably increased due to bronchitis . Patient asking about diabetic diet. She agrees to diabetic education class offer here. [id number] Terra Rashid MD [facility], [facility] [address] [place] [address] 06/28/2016 10:48:07 06/28/2016 11:46:49 Pneumonia 087889140 J18.9 cont' Abx and prednisone , CXR 6 weeks Hyponatremia 29689722 E8 7.1 Benign hypertension 1072 5009 I10 Chronic ob structive pulmonary disease 21373687 J44.9 At [facility] ed risk for readmission to hospital [id number] 100 Z91.89 [id number] Terra Rashid MD [employer], [facility] [address] [place] [address] 08/06/2016 10:15:20 08/06/2016 11:09:34 Benign hypertension 15290540 I10 Hyperlipidemia 01651924 E78.5 Pulmonary emphysema 8743 3001 J43.9 Osteoporosis 75304987 M8 1.0 Screening mammography 24 098320 Z12.31 Screening for malignant neoplasm of cervix 270206510 Z12.4 Screening for malignant neoplasm of colon 495153361 Z12.11 Active or passive immunization 856446004 Z23 [id number] Terra Rashid MD [employer], [facility] [address] [place] [address] 11/12/2016 09:16:28 11/12/2016 10:32:13 Adult health examination 532118634 Z00.00 Benign hypertension 1072 5009 I10 will change to coreg //BP 2 weeks Mixed anxi ety and depressive disorder 988730362 F41.8 Chronic ob structive pulmonary disease 35129529 J44.9 stable for now Hyperlipidemia 86851703 E78.5 last LDL 08/06/16 @ goal Osteoporosis 22665777 M8 1.0 last DEXA 04/18/15 Pulmonary emphysema 8743 3001 J43.9 stable Hemangioma of liver 9346 9006 D18.03 Diverticul ar disease of colon 465606632 K57.30 Blood gluc ose outside reference range 992324854 R73.09 check BG BID PRN R/O hypo Screening for malignant neoplasm of colon 649088121 Z12.11 last C scope 11/06/16 , recheck 2020 Screening mammography 24 192010 Z12.31 Screening for malignant neoplasm of cervix 391160708 Z12.4 Active or passive immunization 677891337 Z23 flu [id number] Terra Rashid MD [employer], [facility] [address] [place] [address] 01/05/2017 11:08:04 01/05/2017 12:20:45 Acute exacerbation of chronic obstructive pulmonary disease 275721541 J44.1 had in pt care for 4 daysstill on prednisone and DESMOND PRNon LABA,LAMA, ICS , and daliresppu lm eval Mixed anxi ety and depressive disorder 510438164 F41.8 add lorazepam .25 PRN QD [id number] Terra Rashid MD [employer] [facility], [facility] [address] [place] [address] 02/11/2017 10:02:20 02/11/2017 10:49:43 Pulmonary emphysema 11003809 J43.9 with exacerbati on , started 1-2 days ago Osteopenia 468833191 M85 .80 Benign hypertension 1072 5009 I10 Chronic ob structive pulmonary disease 18566469 J44.9 stable for now Superficia l ecchymosis 222240214 R58 [id number] LAWRENCE CEDILLO APN [employer] [facility], [facility] [address] [place] [address] 04/08/2017 09:52:46 04/08/2017 10:58:11 Swelling of ankle joint 873101706 M25.472 Benign hypertension 1072 5009 I10 Chronic ob structive pulmonary disease 61249776 J44.9 Hyperlipidemia 43394331 E78.5 Cellulitis of lower limb 062641131 L03.119 [id number] Terra Rashid MD [employer] [facility], [facility] [address] [place] [address] 05/13/2017 09:50:04 05/13/2017 10:57:12 Coronary arteriosclerosis 10509382 I25.10 Benign hypertension 1072 5009 I10 Chronic ob structive pulmonary disease 70614747 J44.9 stable for now Hyperlipidemia 10086910 E78.5 last LDL 08/06/16 @ goal Blood gluc ose outside reference range 506866080 R73.09 check BG BID PRN R/O hypo Osteoporosis 68949106 M8 1.0 last DEXA 04/18/15 Screening for malignant neoplasm of colon 777431204 Z12.11 last C scope 11/06/16 , recheck 2020 Screening mammography 24 753998 Z12.31 Screening for malignant neoplasm of cervix 062670290 Z12.4 Active or passive immunization 441150894 Z23 flu 45405 LAWRENCE CEDILLO APN [employer] [facility], [facility] [address] [place] [address] 07/15/2017 11:32:07 07/15/2017 12:24:14 Easy bruising 371046376 R58 bilateral forearms -may use vit C daily, bilberry extract (use with caution may cause hypoglycem ia), aloe vera, arnica cream[place] [id number] Terra Rashid MD [employer] [facility], [facility] [address] [place] [address] 08/26/2017 11:18:34 08/26/2017 12:28:41 Benign hypertension 24067159 I10 Hyperlipidemia 29772430 E78.5 last LDL 08/06/16 @ goal Coronary arteriosclerosis 81384346 I25.10 sees cardiology on reg basis Chronic ob structive pulmonary disease 44997886 J44.9 stable for now Screening mammography 24 574945 Z12.31 Screening for malignant neoplasm of cervix 765839007 Z12.4 Screening for malignant neoplasm of colon 791523915 Z12.11 last C scope 11/06/16 , recheck 2020 Active or passive immunization 856266527 Z23 flu [id number] Terra Rashid MD [employer] [facility], [facility] [address] [place] [address] 12/02/2017 09:20:10 12/02/2017 10:07:02 Chronic obstructive pulmonary disease 61607550 J44.9 stable for now Benign hypertension 1072 5009 I10 Hyperlipidemia 99120609 E78.5 last LDL 04/2017 @ goal Osteoporosis 29831768 M8 1.0 last DEXA 05/13/17 Mixed anxi ety and depressive disorder 043738344 F41.8 No SI , No HI Screening mammography 24 076722 Z12.31 Screening for malignant neoplasm of cervix 187217004 Z12.4 Active or passive immunization 039432895 Z23 flu [id number] LAWRENCE CEDILLO APN [employer] [facility], [facility] [address] [place] [address] 01/23/2018 09:29:56 01/23/2018 10:16:12 Cough 77004827 R05 completed abxcontinu es to experience cough -denies sob or wheezing Chronic ob structive pulmonary disease 56109074 J44.9 [id number] Terra Rashid MD [employer], [facility] [address] [place] [address] 04/07/2018 10:11:13 04/07/2018 11:08:49 Benign hypertension 90136228 I10 increase carvedilol to 6.25 Coronary arteriosclerosis 99687263 I25.10 sees cardiology on reg basis Hyperlipidemia 02880532 E78.5 last LDL 04/2017 @ goal Osteoporosis 25625783 M8 1.0 last DEXA 05/13/17 Mixed anxi ety and depressive disorder 278273413 F41.8 No SI , No HI Chronic ob structive pulmonary disease 30134164 J44.9 stable for now Screening mammography 24 246770 Z12.31 Screening for malignant neoplasm of cervix 683898940 Z12.4 Screening for malignant neoplasm of colon 974251921 Z12.11 last C scope 11/06/16 , recheck 2020 Active or passive immunization 975200851 Z23 flu Eruption 518907296 R21 [id number] LAWRENCE CEDILLO APN [employer], [facility] [address] [place] [address] 05/15/2018 09:52:02 05/15/2018 10:22:00 Follow-up visit 913130633 Z09 Chronic ob structive pulmonary disease 99314893 J44.9 cefdinir and prednisone rx not covering spiriva as per pthas not used proair since dc from hospital === feeling much bettero2 95% Benign hypertension 1072 5009 I10 Coronary arteriosclerosis 03541471 I25.10 Leukocytosis 111443152 D 72.829 could be due to IV and oral steroidno signs of infectionf ollow up after steroid taper Mixed anxi ety and depressive disorder 947308108 F41.8 Hyperlipidemia 37719241 E78.5 Antiplatel et agent therapy 635522211 Z79.02 Gastroesop hageal reflux disease without esophagitis 849624594 K21.9 Osteoporosis 96884942 M8 1.0 336005 LAWRENCE CEDILLO APN [employer] [address] [place] [address] 07/12/2018 14:38:58 07/12/2018 15:47:52 Cellulitis of lower limb 836430371 L03.119 right ankle - started tuesday -edema and heatappt 07/21/18 will be kept for eval Benign hypertension 1072 5009 I10 stable on current regimen Chronic ob structive pulmonary disease 66199371 J44.9 has seen pulm - follow up 07/30/18 -trelegy -dc symbicort and spiriva Ankle edema 11131889 R60 .0 right ankle [id number] Terra Rashid MD [employer] [facility], [facility] [address] [place] [address] 07/21/2018 12:31:21 07/21/2018 13:13:07 Cellulitis of lower limb 668311081 L03.119 Superficia l ecchymosis 880756185 R58 decrease ASA to QOD , moistrizur e BID Chronic ob structive pulmonary disease 09886842 J44.9 stable for now Benign hypertension 1072 5009 I10 good control Screening mammography 24 466557 Z12.31 Screening for malignant neoplasm of cervix 619202017 Z12.4 Screening for malignant neoplasm of colon 830896012 Z12.11 last C scope 11/06/16 , recheck 2020 Active or passive immunization 509661960 Z23 flu [id number] Terra Rashid MD [employer] [facility], [facility] [address] [place] [address] 10/13/2018 11:25:59 10/13/2018 12:23:31 Benign hypertension 91201571 I10 good control Osteoporosis 66681242 M8 1.0 last DEXA 05/13/17 Hyperlipidemia 20288197 E78.5 last LDL 04/2017 @ goal Chronic ob structive pulmonary disease 11063437 J44.9 stable for nowlast PFT 03/2018 Ex-smoker 2428550 Z87.89 1 quit 2018having LDCT with pulm Screening mammography 24 059999 Z12.31 Screening for malignant neoplasm of cervix 141903600 Z12.4 Screening for malignant neoplasm of colon 999897071 Z12.11 last C scope 11/06/16 , recheck 2020 Adult heal th examination 718185764 Z00.01 Active or passive immunization 404150610 Z23 flu Coronary arteriosclerosis 71776494 I25.10 sees cardiology on reg basis Hemangioma of liver 9346 9006 D18.03 on US 11/11/16 Diverticul ar disease of colon 196177650 K57.30 asymptomat ic Mixed anxi ety and depressive disorder 202703399 F41.8 No SI , No [place] [id number] Terra Rashid MD [employer] [address] [place] [address] 01/18/2019 10:08:10 01/18/2019 10:56:50 Benign hypertension 32580943 I10 good control , will change coreg to metoprolol BP,Pulse 2 weeks Blood gluc ose outside reference range 569964410 R73.09 check BG BID PRN R/O hypo Body mass index less than 20 405278112 Z68.1 Chronic ob structive pulmonary disease 29348360 J44.9 stable for nowlast PFT 03/2018 Coronary arteriosclerosis 43726694 I25.10 sees cardiology on reg basis Hyperlipidemia 77901062 E78.5 last LDL 03/2018 @ goal Mixed anxi ety and depressive disorder 774586280 F41.8 No SI , No HI Osteoporosis 88552438 M8 1.0 last DEXA 05/13/17 Screening mammography 24 751085 Z12.31 Screening for malignant neoplasm of cervix 072428896 Z12.4 Screening for malignant neoplasm of colon 606449124 Z12.11 last C scope 11/06/16 , recheck 2020 Active or passive immunization 999507731 Z23 [id number] Terra Rashid MD [employer] [address] [place] [address] 04/20/2019 10:02:17 04/20/2019 10:33:41 Benign hypertension 85561926 I10 good control ,BP,Pulse 2 weeks Chronic ob structive pulmonary disease 74658036 J44.9 stable for nowlast PFT 03/2018 Coronary arteriosclerosis 79102842 I25.10 sees cardiology on reg basis Hyperlipidemia 80359224 E78.5 last LDL 01/2019 @ goal Mixed anxi ety and depressive disorder 812083788 F41.8 No SI , No HI Osteoporosis 82668149 M8 1.0 last DEXA 05/13/17 Pruritic rash 85954453 L 28.2 Screening mammography 24 420064 Z12.31 Screening for malignant neoplasm of cervix 021635991 Z12.4 Screening for malignant neoplasm of colon 614131350 Z12.11 last C scope 11/06/16 , recheck 2020 Active or passive immunization 434211697 Z23 [id number] Terra Rashid MD [employer], [facility] [address] [place] [address] 07/20/2019 10:09:47 07/20/2019 10:53:44 Benign hypertension 42441527 I10 good control ,increase metoprolol to 1.5 tab QAM BP , Pulse 2 weeks Body mass index less than 20 787236750 Z68.1 education Blood gluc ose outside reference range 218941358 R73.09 check BG BID PRN R/O hypo Chronic ob structive pulmonary disease 97827177 J44.9 stable for nowlast PFT 03/2018 Coronary arteriosclerosis 72467813 I25.10 sees cardiology on reg basis Hyperlipidemia 04244157 E78.5 last LDL 01/2019 @ goal Mixed anxi ety and depressive disorder 217927723 F41.8 No SI , No HI Osteoporosis 01632234 M8 1.0 last DEXA 05/13/17las t Vit D level 04/20/19 Screening mammography 24 591575 Z12.31 Screening for malignant neoplasm of cervix 209546840 Z12.4 Screening for malignant neoplasm of colon 877525339 Z12.11 last C scope 11/06/16 , recheck 2020 Active or passive immunization 545770889 Z23 Eruption 697879295 R21 [id number] Terra Rashid MD [employer], [facility] [address] [place] [address] 10/19/2019 10:18:07 10/19/2019 11:11:51 Benign hypertension 38288579 I10 good control ,BP , Pulse 2 weeks Hyperlipidemia 78428374 E78.5 last LDL 07/20/19 @ goal Osteoporosis 80131911 M8 1.0 last DEXA 07/20/19last Vit D level 04/20/19 Chronic ob structive pulmonary disease 59277888 J44.9 stable for nowlast PFT 07/20/19 Screening mammography 24 792246 Z12.31 Screening for malignant neoplasm of cervix 913340284 Z12.4 Screening for malignant neoplasm of colon 066072523 Z12.11 last C scope 11/06/16 , recheck 2020 Active or passive immunization 946909964 Z23 flu shot Adult heal th examination 154810457 Z00.01 Mixed anxi ety and depressive disorder 952852208 F41.8 No SI , No HI Pulmonary emphysema 8743 3001 J43.9 with exacerbati on , started 1-2 days ago Simple renal cyst 188558 09 N28.1 Ex-smoker 4946020 Z87.89 1 quit 2018having LDCT with pulm Hemangioma of liver 9346 9006 D18.03 on US 11/11/16 Diverticul ar disease of colon 598531574 K57.30 asymptomat ic Coronary arteriosclerosis 52518115 I25.10 sees cardiology on reg basis Blood gluc ose outside reference range 389644213 R73.09 check BG BID PRN R/O hypo Eruption 282711595 R21 [id number] Terra Rashid MD [employer] [address] [place] [address] 01/18/2020 10:15:45 01/18/2020 10:55:46 Tachycardia 3155327 R00.0 Benign hypertension 1072 5009 I10 good control ,BP , Pulse 2 weeks Chronic ob structive pulmonary disease 33238488 J44.9 stable for nowlast PFT 07/20/19 Hyperlipidemia 52947364 E78.5 last LDL 07/20/19 @ goal Mixed anxi ety and depressive disorder 906296700 F41.8 No SI , No HI Osteoporosis 23357677 M8 1.0 last DEXA 07/20/19last Vit D level 10/19/19 Screening mammography 24 202229 Z12.31 Screening for malignant neoplasm of cervix 451592517 Z12.4 Screening for malignant neoplasm of colon 489226865 Z12.11 last C scope 11/06/16 , recheck 2020 Active or passive immunization 292583072 Z23 flu shot COVID-19 801440080 U07.1 test +ve 12/30/19 , asymptomat ic now , O2 is 97% on RA [id number] Terra Rashid MD [employer] [employer] [address] [place] [address] 04/18/2020 09:55:13 04/18/2020 10:21:59 Benign hypertension 41538072 I10 good control ,BP , Pulse 2 weeks Body mass index less than 20 402431489 Z68.1 education Chronic ob structive pulmonary disease 57146338 J44.9 stable for nowlast PFT 07/20/19 Coronary arteriosclerosis 74185919 I25.10 sees cardiology on reg basis Diverticul ar disease of colon 429495114 K57.30 asymptomat ic Hyperlipidemia 37570619 E78.5 last LDL 07/20/19 @ goal Mixed anxi ety and depressive disorder 788733808 F41.8 No SI , No HI Osteoporosis 42699176 M8 1.0 last DEXA 07/20/19last Vit D level 10/19/19 Congestion of nasal sinus 75430063 R09.81 Pneumonia 404500036 J18. 9 cont' Abx and prednisone , CXR 6 weeks Screening mammography 24 868195 Z12.31 Screening for malignant neoplasm of cervix 207293763 Z12.4 Screening for malignant neoplasm of colon 808623610 Z12.11 last C scope 11/06/16 , recheck 2020 Active or passive immunization 763297376 Z23 had flu shot 10/2019 [id number] Terra Rashid MD [facility] [employer], [facility] [address] [place] [address] 07/17/2020 10:11:48 07/17/2020 10:48:10 Chronic obstructive pulmonary disease 57879551 J44.9 stable for nowlast PFT 07/20/19 Body mass index less than 20 833992491 Z68.1 education Benign hypertension 1072 5009 I10 good control ,BP , Pulse 2 weeks Coronary arteriosclerosis 14589933 I25.10 sees cardiology on reg basis Osteoporosis 36695042 M8 1.0 last DEXA 07/20/19 last Vit D level 04/18/20 Abdominal distension, gaseous 608335575 R14.0 Screening mammography 24 444059 Z12.31 last mammogram 04/23/20 Screening for malignant neoplasm of cervix 511101720 Z12.4 Screening for malignant neoplasm of colon 147269147 Z12.11 last C scope 11/06/16 , recheck 2020 Active or passive immunization 882798518 Z23 had flu shot 10/2019 Pruritic rash 47907692 L 28.2 Hyperlipidemia 45364252 E78.5 last LDL 04/18/20 @ goal [id number] Terra Rashid MD [employer] [employer] [address] [place] [address] 10/17/2020 10:15:52 10/17/2020 11:29:05 Hyperlipidemia 97750914 E78.5 last LDL 04/18/20 @ goal Mixed anxi ety and depressive disorder 174500449 F41.8 No SI , No HI Osteoporosis 86975269 M8 1.0 last DEXA 07/20/19 last Vit D level 04/18/20 Benign hypertension 1072 5009 I10 good control ,BP , Pulse 2 weeksEKG 01/18/2020 Body mass index less than 20 742170944 Z68.1 education Chronic ob structive pulmonary disease 54855505 J44.9 stable for nowlast PFT 07/20/19 Coronary arteriosclerosis 56804145 I25.10 sees cardiology on reg basis Screening mammography 24 504823 Z12.31 last mammogram 04/23/20 Screening for malignant neoplasm of cervix 567657997 Z12.4 Screening for malignant neoplasm of colon 151007414 Z12.11 last C scope 11/06/16 , recheck 2019 Active or passive immunization 572342977 Z23 had flu shot 10/2019 [id number] Terra Rashid MD [employer] [employer] [address] [place] [address] 01/16/2021 10:29:29 01/16/2021 11:12:27 Adult health examination 973588036 Z00.01 Benign hypertension 1072 5009 I10 good control ,BP , Pulse 2 weeksEKG 01/18/2020 Blood gluc ose outside reference range 525214572 R73.09 check BG BID PRN R/O hypo Body mass index less than 20 352643935 Z68.1 education Chronic ob structive pulmonary disease 06729121 J44.9 stable for nowlast PFT 2020 per Pt Coronary arteriosclerosis 77373396 I25.10 sees cardiology on reg basis Diverticul ar disease of colon 491942433 K57.30 asymptomat ic Ex-smoker 1174391 Z87.89 1 quit 2018having LDCT with pulm Hemangioma of liver 9346 9006 D18.03 on US 11/11/16 Hyperlipidemia 21911616 E78.5 last LDL 10/17/20 @ goal Mixed anxi ety and depressive disorder 764541571 F41.8 No SI , No HI 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 036917208 M19.90 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 Osteoporosis 46424644 M8 1.0 last DEXA 07/20/19 last Vit D level 10/17/20 Pulmonary emphysema 8743 3001 J43.9 with exacerbati on , started 1-2 days ago Simple renal cyst 839920 09 N28.1 stable Screening mammography 24 217612 Z12.31 last mammogram 04/23/20 Screening for malignant neoplasm of cervix 122112423 Z12.4 Screening for malignant neoplasm of colon 774820977 Z12.11 last C scope 11/06/16 , recheck 2020 Active or passive immunization 794657690 Z23 had flu shot 10/2019 Urgent deloris adrianne to urinate 50671744 R39.15 [id number] Terra Rashid MD [employer] [employer] [address] [place] [address] 04/17/2021 10:49:10 04/17/2021 11:32:50 Chronic obstructive pulmonary disease 13626927 J44.9 stable for nowlast PFT 2020 per Pt Localized eruption of skin 474777794 R21 Hyperlipidemia 01890227 E78.5 last LDL 10/17/20 @ goal Mixed anxi ety and depressive disorder 621426820 F41.8 No SI , No HI Osteoporosis 34726401 M8 1.0 last DEXA 07/20/19 last Vit D level 10/17/20 Benign hypertension 1072 5009 I10 good control ,BP , Pulse 2 weeksEKG 01/21/21 Screening mammography 24 713432 Z12.31 last mammogram 04/23/20 Screening for malignant neoplasm of cervix 545382848 Z12.4 Screening for malignant neoplasm of colon 248475836 Z12.11 last C scope 11/06/16 , recheck 2020 Active or passive immunization 731425078 Z23 had flu shot 10/2020210 Terra Rashid MD [employer], [facility] [address] [place] [address] 05/05/2021 14:37:56 05/05/2021 15:16:35 Localized eruption of skin 255140986 R21 [id number] Terra Rashid MD [facility], [facility] [address] [place] [address] 07/20/2021 10:49:44 07/20/2021 11:38:34 Benign hypertension 71802451 I10 good control ,BP , Pulse 2 weeksEKG 01/21/21 Blood gluc ose outside reference range 286886528 R73.09 check BG BID PRN R/O hypo Body mass index less than 20 765947561 Z68.1 education Chronic ob structive pulmonary disease 28544515 J44.9 stable for nowlast PFT 2020 per Pt Coronary arteriosclerosis 38551140 I25.10 sees cardiology on reg basis Hyperlipidemia 18720536 E78.5 last LDL 04/17/21 @ goal Osteoporosis 10893298 M8 1.0 last DEXA 07/20/19 last Vit D level 05/17/21 Screening mammography 24 451553 Z12.31 last mammogram 04/2020 Screening for malignant neoplasm of cervix 961541732 Z12.4 Screening for malignant neoplasm of colon 338322679 Z12.11 last C scope 11/06/16 , recheck 2019 Active or passive immunization 116665988 Z23 had flu shot 10/2020 Localized eruption of skin 889674904 R21 arms Advance di rective discussed with patient 035705056 Z71.89 education Allergic r hinitis caused by pollen 96536760 J30.1 [id number] Terra Rashid MD [facility], [facility] [address] [place] [address] 10/26/2021 11:13:03 10/26/2021 12:14:15 Chronic obstructive pulmonary disease 42078415 J44.9 stable for nowlast PFT 2020 per Pt Body mass index less than 20 816087819 Z68.1 education Benign hypertension 1072 5009 I10 good control ,BP , Pulse 2 weeksEKG 01/21/21 Coronary arteriosclerosis 29860435 I25.10 sees cardiology on reg basis Hyperlipidemia 76704531 E78.5 last LDL 04/17/21 @ goal Osteoporosis 63024170 M8 1.0 last DEXA 07/20/19 last Vit D level 05/17/21 Screening mammography 24 505136 Z12.31 last mammogram 04/2020 Screening for malignant neoplasm of cervix 323237341 Z12.4 Screening for malignant neoplasm of colon 175556586 Z12.11 last C scope 11/06/16 , recheck 2020 Active or passive immunization 615498538 Z23 had flu shot 10/2020 [id number] Terra Rashid MD [facility] [address] [place] [address] 01/25/2022 11:19:27 01/25/2022 12:34:50 Adult health examination 867207340 Z00.01 Peripheral vascular disease 129566025 I73.9 mild on screening on house call ABIrecheck education about use ASA 81 QD Benign hypertension 1072 5009 I10 good control ,BP , Pulse 2 weeksEKG 01/21/21 Allergic r hinitis caused by pollen 87358328 J30.1 Blood gluc ose outside reference range 362284775 R73.09 check BG BID PRN R/O hypo Body mass index less than 20 965200731 Z68.1 education Chronic ob structive pulmonary disease 59922453 J44.9 stable for nowlast PFT 10/26/21 Coronary arteriosclerosis 03278878 I25.10 sees cardiology on reg basis Diverticul ar disease of colon 177664028 K57.30 asymptomat ic Ex-smoker 8654528 Z87.89 1 quit 2019having LDCT with pulm Hemangioma of liver 9346 9006 D18.03 on US 11/11/16 Hyperlipidemia 44570055 E78.5 last LDL 04/17/21 @ goal Mixed anxi ety and depressive disorder 038927668 F41.8 No SI , No HI 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 080797698 M19.90 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 Osteoporosis 47303193 M8 1.0 last DEXA 07/20/19 last Vit D level 05/17/21 Pulmonary emphysema 8743 3001 J43.9 with exacerbati on , started 1-2 days ago Simple renal cyst 072800 09 N28.1 stable Vitamin D deficiency 347 89230 E55.9 Screening mammography 24 571239 Z12.31 last mammogram 04/2020 Screening for malignant neoplasm of cervix 897754166 Z12.4 asymptomat ic Active or passive immunization 834320085 Z23 had flu shot 10/2020 Screening for malignant neoplasm of colon 074032777 Z12.11 last C scope 11/06/16 , recheck 2020 Pharyngitis 943047205 J0 2.9 Localized eruption of skin 388921494 R21 arms [id number] Terra Rashid MD [employer], [facility] [address] [place] [address] 03/04/2022 10:18:18 03/04/2022 12:06:47 Cough 55562730 R05.9 O2 id 93 % on RA Chronic ob structive pulmonary disease 06779269 J44.9 stable for nowlast PFT 10/26/21 [id number] Terra Rashid MD [employer], [facility] [address] [place] [address] 04/26/2022 11:47:21 04/26/2022 12:41:09 Localized eruption of skin 420565341 R21 calf Age relate d macular degeneration 550793091 H35.30 seen ophthgetti ng shots now Preoperati ve cardiovascular examination 323406101 Z01.810 OK for cataract under MAC Chronic ob structive pulmonary disease 47729738 J44.9 stable for nowlast PFT 10/26/21 Screening mammography 24 600268 Z12.31 last mammogram 04/2020 Screening for malignant neoplasm of cervix 236178502 Z12.4 asymptomat ic Screening for malignant neoplasm of colon 353604725 Z12.11 last C scope 11/06/16 , recheck 2020 Active or passive immunization 850426400 Z23 did not get flu shot this year Benign hypertension 1072 5009 I10 good control ,BP , Pulse 2 weeksEKG 01/25/22 [id number] Terra Rashid MD [employer], [facility] [address] [place] [address] 07/27/2022 12:40:41 07/27/2022 13:54:15 Benign hypertension 14855660 I10 good control ,BP , Pulse 2 weeksEKG 01/25/22 Body mass index less than 20 922659858 Z68.1 education Chronic ob structive pulmonary disease 16840941 J44.9 stable for nowlast PFT 10/26/21 Coronary arteriosclerosis 80597440 I25.10 sees cardiology on reg basis Hyperlipidemia 14384585 E78.5 last LDL 01/25/22 @ goal Osteoporosis 73911683 M8 1.0 last DEXA 07/20/19 last Vit D level 05/17/21 Vitamin D deficiency 347 48264 E55.9 Screening mammography 24 728450 Z12.31 last mammogram 07/01/22 Screening for malignant neoplasm of cervix 425225535 Z12.4 asymptomat ic Screening for malignant neoplasm of colon 988495679 Z12.11 last C scope 11/06/16 , recheck 2020 Active or passive immunization 635867731 Z23 did not get flu shot this year [id number] Terra Rashid MD [employer] [address] [place] [address] 10/26/2022 15:17:35 10/26/2022 19:00:20 Benign hypertension 75063054 I10 good control ,BP , Pulse 2 weeksEKG 01/25/22 Chronic ob structive pulmonary disease 66451639 J44.9 stable for nowlast PFT 10/26/21 Coronary arteriosclerosis 59419988 I25.10 sees cardiology on reg basis Hyperlipidemia 43121852 E78.5 last LDL 01/25/22 @ goal Mixed anxi ety and depressive disorder 341729567 F41.8 No SI , No HI Osteoporosis 03733926 M8 1.0 last DEXA 07/20/19 last Vit D level 05/17/21 Peripheral vascular disease 172082383 I73.9 mild on screening on house call [employer] [facility] education about use ASA 81 QD Localized eruption of skin 309147295 R21 calf Screening mammography 24 615635 Z12.31 last mammogram 07/01/22 Screening for malignant neoplasm of cervix 987852909 Z12.4 asymptomat ic Screening for malignant neoplasm of colon 731091808 Z12.11 last C scope 11/06/16 , recheck 2020 Active or passive immunization 027633113 Z23 did not get flu shot this year [id number] Terra Rashid MD [employer] [address] [place] [address] 01/25/2023 10:53:53 01/25/2023 12:07:27 Adult health examination 485085225 Z00.01 Benign hypertension 1072 5009 I10 good control ,BP , Pulse 2 weeksEKG 01/25/22 Allergic r hinitis caused by pollen 40439961 J30.1 Body mass index less than 20 207197930 Z68.1 education Blood gluc ose outside reference range 865121098 R73.09 check BG BID PRN R/O hypo Chronic ob structive pulmonary disease 61786511 J44.9 stable for nowlast PFT 10/26/21 Coronary arteriosclerosis 54699807 I25.10 sees cardiology on reg basis Cyst of kidney 834459402 N28.1 Diverticul ar disease of colon 449965696 K57.30 asymptomat ic Ex-smoker 3474213 Z87.89 1 quit 2019last LDCT 07/01/22 Hemangioma of liver 9346 9006 D18.03 on US 11/11/16 Hyperlipidemia 46457335 E78.5 last LDL 01/25/22 @ goal Mixed anxi ety and depressive disorder 859833895 F41.8 No SI , No HI 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 352578883 M19.90 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 Osteoporosis 69311042 M8 1.0 last DEXA 08/10/22 last Vit D level 05/17/21 Peripheral vascular disease 896101150 I73.9 mild on screening on house call [facility] BRINA 03/04/22edu cation about use ASA 81 QD Pulmonary emphysema 8743 3001 J43.9 with exacerbati on , started 1-2 days ago Vitamin D deficiency 347 12616 E55.9 Screening mammography 24 076642 Z12.31 last mammogram 07/01/22 Screening for malignant neoplasm of cervix 631724842 Z12.4 asymptomat ic Screening for malignant neoplasm of colon 364169102 Z12.11 last C scope 11/06/16 , recheck 2020 Active or passive immunization 049473203 Z23 up to date Advance di rective discussed with patient 589238453 Z71.89 education Localized eruption of skin 764958798 R21 arms [id number] Terra Rashid MD [place] [employer] [facility] [address] [place] [address] 04/22/2023 10:32:19 04/22/2023 11:36:50 Benign hypertension 87658500 I10 good control ,BP , Pulse 2 weeksEKG 01/25/22 Body mass index less than 20 671138606 Z68.1 education Chronic ob structive pulmonary disease 87029088 J44.9 stable for nowlast PFT 10/26/21 Hyperlipidemia 78662356 E78.5 last LDL 01/25/23 @ goal Mixed anxi ety and depressive disorder 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 No SI , No HI Osteoporosis 11236436 M8 1.0 last DEXA 08/10/22 last Vit D level 01/25/23 Peripheral vascular disease 180958676 I73.9 mild on screening on house call [facility] BRIAN 02/2023educ ation about use ASA 81 QD Screening mammography 24 668184 Z12.31 last mammogram 07/01/22 Screening for malignant neoplasm of cervix 487931736 Z12.4 asymptomat ic Screening for malignant neoplasm of colon 795658665 Z12.11 last C scope 11/06/16 , recheck 2020declin e C scope Active or passive immunization 594453525 Z23 up to date Ex-smoker 8745773 Z87.89 1 quit 2019last LDCT 07/01/22 Easy bruising 023989777 R58 History of malignant neoplasm of skin 605925434 Z85.828 per pt [id number] Terra Rashid MD [employer] [facility], [facility] [address] [place] [address] 06/24/2023 10:38:31 06/24/2023 11:35:49 Chronic obstructive pulmonary disease 31432450 J44.9 stable for nowseen pulm 06/2023last PFT 05/2023 Hyperlipidemia 79143574 E78.5 last LDL 01/25/23 @ goal Mixed anxi ety and depressive disorder 023392980 F41.8 No SI , No HI Peripheral vascular disease 572313704 I73.9 mild on screening on house call [facility] BRIAN 02/2023educ ation about use ASA 81 QD Screening mammography 24 231066 Z12.31 last mammogram 07/01/22 Screening for malignant neoplasm of cervix 423969333 Z12.4 asymptomat ic Screening for malignant neoplasm of colon 068958607 Z12.11 last C scope 11/06/16 , recheck 2020declin e C scope Active or passive immunization 271154256 Z23 up to date Ex-smoker 9479138 Z87.89 1 quit 2019last LDCT 07/01/22 [id number] Terra Rashid MD [employer] [facility], [employer] [address] [place] [address] 08/25/2023 11:02:27 08/25/2023 11:48:51 Cellulitis of lower limb 713137017 L03.119 Itching of skin 53295362 0 L29.9 Easy bruising 921560841 R58 [id number] Terra Rashid MD [employer], [facility] [address] [place] [address] 09/30/2023 10:51:40 09/30/2023 11:43:52 Cellulitis of lower limb 830650207 L03.119 better but not gone Benign hypertension 1072 5009 I10 good control ,BP , Pulse 2 weeksEKG 05/23/23 Chronic ob structive pulmonary disease 56975313 J44.9 stable for nowseen pulm 06/2023last PFT 05/2023 Coronary arteriosclerosis 65743385 I25.10 sees cardiology on reg basis Hyperlipidemia 98080693 E78.5 last LDL 01/25/23 @ goal Osteoporosis 16184977 M8 1.0 last DEXA 08/10/22 last Vit D level 01/25/23 Peripheral vascular disease 730207459 I73.9 mild on screening on house call [facility] BRIAN 02/2023educ ation about use ASA 81 QD Vitamin D deficiency 347 60714 E55.9 Pulmonary emphysema 8743 3001 J43.9 with exacerbati on , started 1-2 days ago Screening mammography 24 476674 Z12.31 last mammogram 07/19/23 Screening for malignant neoplasm of cervix 442173970 Z12.4 asymptomat ic Screening for malignant neoplasm of colon 751417240 Z12.11 last C scope 11/06/16 , recheck 2020declin e C scope Active or passive immunization 826727687 Z23 up to date [id number] Terra Rashid MD [employer], [employer] [address] [place] [address] 11/14/2023 15:43:43 11/14/2023 16:48:06 Cellulitis of lower limb 325862587 L03.119 better but not goneelevat ion , Aristeo wrap ,derm eval Liver enzy mes level above reference range 743497349 R74.01 on 10/01/23 Benign hypertension 1072 5009 I10 good control ,BP , Pulse 2 weeksEKG 05/23/23 [id number] Terra Rashid MD [employer] [address] [place] [address] 01/06/2024 10:05:06 01/06/2024 11:25:03 Benign hypertension 62141150 I10 good control ,BP , Pulse 2 weeksEKG 05/23/23last ophth eval 11/2023 per pt Blood gluc ose outside reference range 588013900 R73.09 hypo Body mass index less than 20 337572960 Z68.1 education Chronic ob structive pulmonary disease 82862134 J44.9 stable for nowseen pulm 06/2023last PFT 05/2023 Coronary arteriosclerosis 73196568 I25.10 sees cardiology on reg basis History of malignant neoplasm of skin 619342156 Z85.828 per pt Hyperlipidemia 16837304 E78.5 last LDL 10/01/23 @ goal Mixed anxi ety and depressive disorder 280798288 F41.8 No SI , No HI Osteoporosis 34045899 M8 1.0 last DEXA 08/10/22 last Vit D level 10/01/23 Peripheral vascular disease 362365197 I73.9 mild on screening on house call [facility] BRIAN 02/2023educ ation about use ASA 81 QD Vitamin D deficiency 347 28218 E55.9 last level 10/11/23 Screening mammography 24 607493 Z12.31 last mammogram 07/19/23 Screening for malignant neoplasm of cervix 104336323 Z12.4 asymptomat ic Screening for malignant neoplasm of colon 007241476 Z12.11 last C scope 11/06/16 , recheck 2020declin e C scope Active or passive immunization 324254004 Z23 up to date Pain of le ft shoulder joint 4414582360 8256541 M25.512 [id number] Terra Rashid MD [employer] [facility] [address] [place] [address] 04/05/2024 10:39:42 04/05/2024 11:27:03 Benign hypertension 97434768 I10 increase toprolBP , Pulse 2 weeksEKG 05/23/23last ophth eval 11/2023 per pt Cough 86305439 R05.9 O2 id 93 % on RA Chronic ob structive pulmonary disease 76332540 J44.9 stable for nowseen pulm 06/2023last PFT 05/2023 Coronary arteriosclerosis 43570193 I25.10 sees cardiology on reg basis Hemangioma of liver 9346 9006 D18.03 on US 11/11/16 Hyperlipidemia 02081236 E78.5 last LDL 10/01/23 @ goal 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 660203575 M19.90 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 Osteoporosis 64120424 M8 1.0 last DEXA 08/10/22 last Vit D level 10/01/23 Peripheral vascular disease 011476755 I73.9 mild on screening on house call [facility] BRIAN 02/2023educ ation about use ASA 81 QD Vitamin D deficiency 347 45381 E55.9 last level 10/11/23 Easy bruising 687793742 R58 Screening mammography 24 239271 Z12.31 last mammogram 07/19/23 Screening for malignant neoplasm of cervix 779905956 Z12.4 asymptomat ic Screening for malignant neoplasm of colon 613797066 Z12.11 last C scope 11/06/16 , recheck 2019declin e C scope Active or passive immunization 846904822 Z23 up to date Mixed anxi ety and depressive disorder 909449027 F41.8 No SI , No HI Adult heal th examination 254282668 Z00.01 Diverticul ar disease of colon 118658613 K57.30 asymptomat ic History of malignant neoplasm of skin 079628528 Z85.828 per pt Age relate d macular degeneration 032325336 H35.30 seen ophthgetti ng shots now Health Concerns Section Related Observation LastModified by Organization Detai ls LastModified Time None Recorded Concern Status LastModified by Organization Details LastModified Time None Recorded Advance Directives Directive N: Payers Encounter Date Sequence Insurance Name Policy Number Policy Farfan Covered Member ID Farfan Member ID Guarantor Name 08/25/2023 1 [employer] (MEDICARE REPLACEMENT PPO) [id number] Shilpa Morrow [id number] Elo Odalys 09/30/2023 1 [employer] (MEDICARE REPLACEMENT PPO) [id number] Shilpa Pierce Odalys [id number] Elo Odalys 11/14/2023 1 [employer] (MEDICARE REPLACEMENT PPO) [id number] Shilpa Pierce Odalys [id number] Elo Odalys 01/06/2024 1 [employer] (MEDICARE REPLACEMENT PPO) [id number] Shilpa Pierce Odalys [id number] Elo Odalys 04/05/2024 1 [employer] (MEDICARE REPLACEMENT PPO) [id number] Shilpa Coelloebner [id number] Elo Odalys Notes Date Note Type Note [...] , 1 week Terra Rashid MD [address], [place], [address], [facility] 08/25/2023 11:43:10 09/30/2023 text/html Hypertension F/UReported bypatient.Medications: taking medications as directed; no side effects from medication Lifestyle:regular exercise; limiting/avoiding salt; compliant with low salt diet Associated Symptoms:no dizziness; no lightheadedness; no chest pain; no shortness of breath; no palpitations; no edema; no calf pain with exertion; no headache still have redness and tender Rt low ext Terra Rashid MD [address], [place], [address], [facility] 09/30/2023 11:36:12 11/14/2023 text/html Hypertension F/UReported bypatient.Medications: [...] legs and feet Terra Rashid MD [address] [facility] [address], [place], [address], [facility] 11/14/2023 16:46:52 01/06/2024 text/html Hypertension F/UReported bypatient.Medications: taking medications as directed; no side effects from medication Lifestyle:regular exercise; limiting/avoiding salt; compliant with low salt diet Associated Symptoms:no dizziness; no lightheadedness; no chest pain; no shortness of breath; no palpitations; no edema; no calf pain with exertion; no headache Terra Rashid MD [address] [facility] [address], [place], [address], [facility] 01/06/2024 11:22:36 04/05/2024 text/html Hypertension F/UReported bypatient.Medications: [...] hearing loss while driving Terra Rashid MD [address] [place] [address] [address], [place], [address], [facility] 04/05/2024 11:21:40 OBGyn Episode No OBEpisode recorded.
--- OUTSIDE RECORDS SUMMARY | 2024-05-21 16:47 | XMS_ITS | Clinical Summary ---
Author Organization [facility] Address [address] [place] [address] Care Team Providers Care Biological Science Technician Fish Name Role Phone Adriane Howard Primary Care Provider Becca webster Source Comments [facility],non-owned Affiliates and Associated Physician Practices is amultiple site organization consisting of ambulatory clinics and hospital sitesin [place], [place], [place] and [place]. This disclosure is being madepursuant to the Care Everywhere program and may not contain all informatio navailable regarding this patient. Last updated 17.[facility] Social History Tobacco Use Types Packs/Day Years [...] VACCINE ( - 2023-2 5 season) 2023 DEPRESSION SCREENING 02/15/2024 INFLUENZA VACCINE (Season Ended) 2024 08/07/19 16 HEPATITIS B VACCINE Aged Out No longe [...] age to complete this topic Care Teams Biological Science Technician Fish Relationship Specialty Start Date End Date Adriane Howard Update Information PCP - General 12/28/21
[2024-05-21 17:07] VITALS: BP 97/78; RESP 18; O2SAT 93
[2024-05-21 17:28] LABS: Basophils Absolute Auto 0.1 K/mm3 (0.0-0.1); Basophils Percent Auto 0.9 % (0.2-1.2); Eosinophils Absolute Auto 0.3 K/mm3 (0-0.3); Eosinophils Percent Auto 3.8 % (0-4.4); Hemoglobin 13.6 g/dL (12.0-15.0); Immature Granulocyte Absolute 0.01 K/mm3 (0.00-0.031); Immature Granulocyte Percent A 0.1 % (0-0.5); Lymphocytes Absolute Auto 1.57 K/mm3 (0.9-3.2); Lymphocytes Percent Auto 21.2 % (18.3-44.2); Mean Corpuscular HGB Conc 31.6 g/dl (32-36); Mean Corpuscular Hemoglobin 29.4 pg (26-34); Mean Corpuscular Volume 92.9 fl (80-100); Mean Platelet Volume 10.9 fl (7.4-10.4); Monocytes Absolute Auto 0.6 K/mm3 (0.1-0.6); Monocytes Percent Auto 8.5 % (2.6-8.5); Neutrophils Absolute Auto 4.8 K/mm3 (1.3-6.7); Neutrophils Percent Auto 65.5 % (45.5-73.1); Platelet Count Result 251 k/mm3 (150-375); Red Blood Count 4.63 M/mm3 (4.2-5.4); Red Cell Distribution Width 14.4 % (11.5-14.5); White Blood Count 7.4 K/mm3 (4.5-10.0)
[2024-05-21 17:43] LABS: Alanine Aminotransferase 35 U/L (6-35); Albumin Level 4.4 g/dL (3.5-5.1); Alkaline Phosphatase 62 U/L (38-126); Anion Gap 7 mmol/L (4-12); Aspartate Amino Transferase 43 U/L (14-36); Bilirubin,Total 0.4 mg/dL (0.2-1.3); Blood Urea Nitrogen 19 mg/dL (7-17); CRP < 0.5 mg/dL (<1.0); Calcium 9.4 mg/dL (8.4-10.2); Carbon Dioxide 31 mmol/L (22-30); Chloride 100 mmol/L (98-107); Estimated CRCL calculation 26 ml/min; Estimated Glomerular Filt Rate 59; Glucose 84 mg/dL (65-110); Potassium 4.3 mmol/L (3.4-5.0); Sodium 138 mmol/L (137-145)
--- OUTSIDE RECORDS SUMMARY | 2024-05-21 18:11 | XMS_ITS | Clinical Summary ---
Author Organization [facility] Address [address] [place] [address] Care Team Providers Care Client Technologies Specialist Name Role Phone Adriane Howard Primary Care Provider Becca webster Source Comments [facility],non-owned Affiliates and Associated Physician Practices is amultiple site organization consisting of ambulatory clinics and hospital sitesin [place], [place], [place] and [place]. This disclosure is being madepursuant to the Care Everywhere program and may not contain all informatio navailable regarding this patient. Last updated 17.[facility] Social History Tobacco Use Types Packs/Day Years [...] age to complete this topic Care Teams Client Technologies Specialist Relationship Specialty Start Date End Date Adriane Howard Update Information PCP - General 12/28/21
--- OUTSIDE RECORDS SUMMARY | 2024-05-21 18:11 | XMS_ITS | Clinical Summary ---
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
--- OUTSIDE RECORDS SUMMARY | 2024-05-21 18:11 | XMS_ITS | Encounter Summary ---
Author Organization [facility] Address [address] [place] [address] Care Team Providers Care Transportation Driver Name Role Phone Adriane Howard Primary Care Provider Becca webster Encounter Details Date Type Department Care Team (Late st Contact Info) Description 11/16/2021 Lab Requisition [facility] DermPath Lab [address] [id number] Froylan Linn MD [address] [address] Social History Tobacco Use Types Packs/Day Years [...] AM CDT) Case Report Dermatopathology Report Case: [id number] Authorizing Provider: Froylan Linn MD Collected: 11/12/2021 03:33 AM Ordering Location: [facility] Derm[facility] Lab Received: 11/16/2021 05:45 [...] Clinical History 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 Path# [id number] B: BCCA vs. SCCA. Path# [id number] C: BCCA vs. SCCA. Path# [id number] 2 1:39 PM [facility] DERMATOPATHOLOGY [facility]ORAT[facility] Gross Description Specimen A: Received is one formalin filled container labeled with the patient's name and designated left distal rodriges. The specimen consists of a shave biopsy measuring 0p6h3bd and it is bisected. Jar 0. Specimen B: Received is one formalin filled container labeled with the patient's name and designated left ant ankle. The specimen consists of a shave biopsy measuring 5m6v7pk. Jar 0. Specimen C: Received is one formalin filled container labeled with the patient's name and designated right lower leg. The specimen consists of a shave biopsy measuring 8u5t9iu. Jar 0. 2 1:39 PM [facility] [...] characteristic determined by the Dermatopathology Laboratory at [facility], directed by Dr. Raheel Muniz. These tests need not be, and therefore are not, approved by the [place] Food and Drug Administration. The tests are used for clinical purposes. Billing Codes Specimen Charges Stain Charges 97641 90799 32919 1 1 1 2 1:39 PM CDT [...] LAB - PATHOLOGY/CYTO LOGY ORDERABLES DERMATOPATHOLOGY LABORATORY [facility] - Department of Dermatology [address], [address] [phone] documented in this encounter Visit Diagnoses Not on filedocumented in this encounter Care Teams Transportation Driver Relationship Specialty Start Date End Date Adriane Howard Update Information PCP - General 12/28/21 documented as of this encounter
[2024-05-21 18:15] LABS: Erythrocyte Sedimentation Rate 7 mm/hr (0-20)
[2024-05-21 19:33] VITALS: BMI 25.1
[2024-05-21] MEDS: ceFAZolin 1 GM/NS 50 ML 1 GM/50 ML BAG IVPB (19:58)
[2024-05-21 20:03] VITALS: TEMP 36.9
--- NOTE | 2024-05-21 20:22 | ADMGEN ---
This patient, Elo Morrow, was admitted to 2 Medical Room 242-. Patient/family oriented to hospital policies and general routines including ID bracelet, bed and alarms, visiting hours, pain management, procedures, bathroom and other care routines, personal items, smoking policy, room service/diet, and visiting hours. Information on how to activate the Rapid Response Team has been discussed. Patient/Family are encouraged to report perceived risks to care and to ask questions if they do not understand what they are told or what they should do.
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
[2024-05-21] MEDS: SODIUM CHLORIDE 0.9% IV 500 ML 999 ML IV CONT (21:22)
[2024-05-21 22:00] VITALS: BP 132/72; PULSE 91; RESP 18; TEMP 36.7; O2SAT 93
[2024-05-21] MEDS: ACETAMINOPHEN 325 MG TABLET 650 MG PO (23:56)
[2024-05-21] MEDS: busPIRone HCL 10 MG TABLET PO (23:56)
[2024-05-22] VITALS (7 sets, daily range): BP systolic 123–155; BP diastolic 60–75; PULSE 67–90; RESP 12–18; TEMP 36.4–37.2; O2SAT 95–100
[2024-05-22] MEDS: ACETAMINOPHEN 325 MG TABLET 650 MG PO ×3 (05:00→20:38)
--- NOTE | 2024-05-22 07:27 | P.PNIM_ITS ---
Progress Note: A&P Assessment and Plan (1) Cellulitis of left lower extremity: Code(s): L03.116 - Cellulitis of left lower limb Status: Acute Assessment and Plan: Failed outpatient p.o. antibiotics??? Continue cefazolin (2) Contact dermatitis of lower leg: Code(s): L25.9 - Unspecified contact dermatitis, unspecified cause Status: Acute Assessment and Plan: contact dermatitis from the large amount of triple antibiotic ointment that she has been putting on the area. Switched to Minerin cream Avoid triple antibiotic cream as it has erythromycin (3) Hypertension: Code(s): I10 - Essential (primary) hypertension Status: Acute Assessment and Plan: Continue Cozaar (4) Anxiety: Code(s): F41.9 - Anxiety disorder, unspecified Status: Acute Assessment and Plan: Continue Remeron and buspirone Added Atarax for itching and anxiety (5) Chronic obstructive pulmonary disease: Code(s): J44.9 - Chronic obstructive pulmonary disease, unspecified Status: Acute Assessment and Plan: Continue home inhalers Time Spent With Patient Time with patient: Greater than 35 minutes Subjective Date/time seen: 05/22/24 07:27 Interval history: 79-year-old female with chronic obstructive pulmonary disease, hypertension, anxiety, and osteoporosis who presented to the emergency department with complaints of left leg swelling and redness. Possible reaction to topical erythromycin. Wound care recommending a new cream. Patient's lower extremity is still swollen and severely painful to touch. Continue IV antibiotics Review of Systems Review of Systems: 12 systems were reviewed and are negativ e except for as per HPI. Exam Narrative: General: Well-developed female sitting up in bed in no acute distress. Nontoxic in appearance. Weight: 64.4 kg. BMI: 25.1. HEENT: PERRL, EOMI. Sclera anicteric. Oral mucosa moist. Neck: Supple. Respiratory: Respirations are nonlabored she is speaking in full sentences. Lung sounds are a bit diminished with rare expiratory wheezing. Cardiovascular: Regular rate and rhythm with S1-S2. Gastrointestinal: Abdomen is soft, nontender, and nondistended with positive bowel sounds. Skin: Warm and dry. Scabbed and crusted wound on the anterior rodriges without active drainage. There is a superficial abrasion/skin tear, likely due to excoriation, on the left posterior calf with some bruising from excoriations as well. The tissue more distal to the anterior abrasion is erythematous and there is some edema. She scratches the area quite frequently. It is not warm but is slightly tender to touch. Extremities: No cyanosis, clubbing, or edema aside from the edema up to the left lower leg. Neurological: Alert. Cranial nerves 2-12 are grossly intact. No gross focal deficits to casual conversation. Psychiatric: Pleasant and cooperative with normal mood and affect. Judgment and insight intact. Objective Data Vital Signs Vital Signs: Vital Signs - 24 hr 05/21/24 14:57 05/21/24 17:07 05/21/24 20:03 Temperature 98.5 F 98.4 F Pulse Rate 95 Respiratory Rate 14 18 Blood Pressure 139/71 97/78 L Pulse Oximetry 96 93 Oxygen Delivery Room Air Room Air 05/21/24 20:41 05/21/24 22:00 05/22/24 06:00 Temperature 98.0 F 97.5 F L Pulse Rate 91 87 Respiratory Rate 18 18 Blood Pressure 132/72 123/60 Pulse Oximetry 93 95 Oxygen Delivery Room Air Intake/Output Intake/Output: Intake & Output 05/19/24 05/20/24 05/21/24 05/22/24 23:59 23:59 23:59 23:59 Intake Total 500 Balance 500 Meds/Results Medications: Active Medications Generic Name Dose Route Start Last Admin Trade Name Freq PRN Reason Stop Dose Admin Acetaminophen 650 mg 05/21/24 18:47 05/22/24 05:00 Acetaminophen 325 Mg Tablet PO 650 mg Q4H PRN Administration Mild Pain (1-3) or Fever Albuterol 1 puff 05/21/24 22:47 Albuterol Sulfate (*Sp) Aerosol 1 Puff INHALATION Q6-8H PRN shortness of breath or wheezing Buspirone HCl 10 mg 05/21/24 22:47 05/21/24 23:56 Buspirone Hcl 10 Mg Tablet PO 10 mg TID PRN Administration anxiety Enoxaparin Sodium 40 mg 05/22/24 09:00 Enoxaparin 40 Mg/0.4 Ml Syringe SUB-Q DAILY NIMA Fluticasone/Umeclidinium/Vilanterol 1 puff 05/22/24 08:00 Fluticasone/Umeclidin/Vilanter 100-62.5-25 Mcg Ellipta INHALATION DAILYRT NIMA Cefazolin Sodium 500 mg/ 50 mls @ 100 mls/hr 05/22/24 08:00 Sodium Chloride IVPB Q12H NIMA Losartan Potassium 100 mg 05/22/24 09:00 Losartan Potassium 100 Mg Tablet PO DAILY NIMA Metoprolol Succinate 50 mg 05/22/24 09:00 Metoprolol Succinate Ext Rel 50 Mg Tabcr PO DAILY NIMA Mirtazapine 15 mg 05/22/24 21:00 Mirtazapine 15 Mg Tablet PO HS [facility] Multi-Ingred Cream/Lotion/Oil/Oint 1 applic 05/22/24 09:00 Eucerin Cream 120 Gm Jar TOPICAL DAILY [facility] Raloxifene HCl 60 mg 05/22/24 09:00 Raloxifene Hcl (*Chemo) 60 Mg Tablet PO DAILY [facility] Simvastatin 40 mg 05/22/24 18:00 Simvastatin 20 Mg Tablet PO QPM [facility] Vitamin D 5,000 units 05/22/24 09:00 Cholecalciferol 5,000 Units Tablet BY MOUTH DAILY [facility] Radiology Results: ITS Impressions Venous Doppler Study 05/21/24 18:09 IMPRESSION: 1. No deep venous thrombosis. Labs Labs: Laboratory Results - last 24 hr 05/21/24 17:16 WBC 7.4 RBC 4.63 Hgb 13.6 Hct 43.0 MCV 92.9 MCH 29.4 MCHC 31.6 L RDW 14.4 Plt Count 251 MPV 10.9 H Immature Gran % (Auto) 0.1 Neut % (Auto) 65.5 Lymph % (Auto) 21.2 [place] % (Auto) 8.5 Eos % (Auto) 3.8 Baso % (Auto) 0.9 Lymph # (Auto) 1.57 [place] # (Auto) 0.6 Eos # (Auto) 0.3 Baso # (Auto) 0.1 Abs Immat Gran (auto) 0.01 Absolute Neuts (auto) 4.8 Absolute Nucleated RBC 0.000 Nucleated RBC % 0.0 ESR 7 Sodium 138 Potassium 4.3 Chloride 100 Carbon Dioxide 31 H Anion Gap 7 BUN 19 H Creatinine 0.91 Estim Creat Clear Calc 26 Estimated GFR 59 Glucose 84 Calcium 9.4 Total Bilirubin 0.4 AST 43 H ALT 35 Alkaline Phosphatase 62 C-Reactive Protein < 0.5 Total Protein 7.0 Albumin 4.4 Quality VTE Prophylaxis VTE prophylaxis: pharmacologic ordered Hospitalist MIPS Advance Care Plan I have confirmed that the patient's Advanced Care Plan is present, code status is documented, or surrogate decision maker is listed in patient medical record.: Yes Medication Reconciliation I have utilized all available resources to obtain, update and review the patients current medications (includes all prescriptions, OTC, herbals, cannabis, and nutritional supplements).: Yes
[2024-05-22] MEDS: LOSARTAN POTASSIUM 100 MG TABLET PO (08:23)
[2024-05-22] MEDS: CHOLECALCIFEROL 5,000 UNITS TABLET 5000 UNITS BY MOUTH (08:23)
[2024-05-22] MEDS: METOPROLOL SUCCINATE EXT REL 50 MG TABCR PO (08:23)
[2024-05-22] MEDS: ENOXAPARIN 40 MG/0.4 ML SYRINGE SUB-Q (08:24)
[2024-05-22] MEDS: SODIUM CHLORIDE 0.9% IVPB ×2 (08:24→20:38)
[2024-05-22] MEDS: CEFAZOLIN IVPB ×2 (08:24→20:38)
[2024-05-22] MEDS: EUCERIN CREAM 120 GM JAR 1 APPLIC TOPICAL (08:31)
[2024-05-22] MEDS: RALOXIFENE HCL (*CHEMO) 60 MG TABLET PO (08:31)
[2024-05-22 08:53] LABS: Anion Gap 7 mmol/L (4-12); Blood Urea Nitrogen 19 mg/dL (7-17); Calcium 8.8 mg/dL (8.4-10.2); Carbon Dioxide 28 mmol/L (22-30); Chloride 102 mmol/L (98-107); Estimated CRCL calculation 51 ml/min; Estimated Glomerular Filt Rate > 60; Glucose 84 mg/dL (65-110); Potassium 4.4 mmol/L (3.4-5.0); Sodium 137 mmol/L (137-145)
[2024-05-22 08:56] LABS: Basophils Absolute Auto 0.1 K/mm3 (0.0-0.1); Basophils Percent Auto 1.2 % (0.2-1.2); Eosinophils Absolute Auto 0.5 K/mm3 (0-0.3); Eosinophils Percent Auto 7.8 % (0-4.4); Hematocrit 41.8 % (37.0-47.0); Hemoglobin 13.1 g/dL (12.0-15.0); Lymphocytes Absolute Auto 1.89 K/mm3 (0.9-3.2); Lymphocytes Percent Auto 27.9 % (18.3-44.2); Mean Corpuscular HGB Conc 31.3 g/dl (32-36); Mean Corpuscular Hemoglobin 29.5 pg (26-34); Mean Corpuscular Volume 94.1 fl (80-100); Mean Platelet Volume 11.3 fl (7.4-10.4); Monocytes Absolute Auto 0.7 K/mm3 (0.1-0.6); Monocytes Percent Auto 10.9 % (2.6-8.5); Neutrophils Absolute Auto 3.5 K/mm3 (1.3-6.7); Neutrophils Percent Auto 52.2 % (45.5-73.1); Platelet Count Result 245 k/mm3 (150-375); Red Blood Count 4.44 M/mm3 (4.2-5.4); Red Cell Distribution Width 14.3 % (11.5-14.5); White Blood Count 6.8 K/mm3 (4.5-10.0)
[2024-05-22] MEDS: FLUTICASONE/UMECLIDIN/VILANTER 100-62.5-25 MCG ELLIPTA 1 PUFF INHALATION (09:37)
[2024-05-22] MEDS: SIMVASTATIN 20 MG TABLET 40 MG PO (17:45)
[2024-05-22 18:41] LABS: Glucose Point of Care 101 mg/dl (65-105)
[2024-05-22] MEDS: busPIRone HCL 10 MG TABLET PO (20:39)
[2024-05-22] MEDS: MIRTAZAPINE 15 MG TABLET PO (20:39)
[2024-05-22] MEDS: hydrOXYzine HCL 25 MG TABLET PO (20:39)
[2024-05-23] MEDS: ACETAMINOPHEN 325 MG TABLET 650 MG PO (04:36)
[2024-05-23 05:13] LABS: Basophils Absolute Auto 0.1 K/mm3 (0.0-0.1); Basophils Percent Auto 1.2 % (0.2-1.2); Eosinophils Absolute Auto 0.7 K/mm3 (0-0.3); Eosinophils Percent Auto 8.1 % (0-4.4); Hematocrit 41.4 % (37.0-47.0); Immature Granulocyte Absolute 0.01 K/mm3 (0.00-0.031); Immature Granulocyte Percent A 0.1 % (0-0.5); Lymphocytes Absolute Auto 2.13 K/mm3 (0.9-3.2); Lymphocytes Percent Auto 25.4 % (18.3-44.2); Mean Corpuscular HGB Conc 31.4 g/dl (32-36); Mean Corpuscular Hemoglobin 29.6 pg (26-34); Mean Corpuscular Volume 94.3 fl (80-100); Mean Platelet Volume 11.4 fl (7.4-10.4); Monocytes Percent Auto 11.8 % (2.6-8.5); Neutrophils Absolute Auto 4.5 K/mm3 (1.3-6.7); Neutrophils Percent Auto 53.4 % (45.5-73.1); Platelet Count Result 253 k/mm3 (150-375); Red Blood Count 4.39 M/mm3 (4.2-5.4); Red Cell Distribution Width 14.3 % (11.5-14.5); White Blood Count 8.4 K/mm3 (4.5-10.0)
[2024-05-23 05:24] LABS: Anion Gap 8 mmol/L (4-12); Blood Urea Nitrogen 17 mg/dL (7-17); Calcium 9.1 mg/dL (8.4-10.2); Carbon Dioxide 28 mmol/L (22-30); Chloride 102 mmol/L (98-107); Estimated CRCL calculation 57 ml/min; Estimated Glomerular Filt Rate > 60; Glucose 72 mg/dL (65-110); Potassium 4.2 mmol/L (3.4-5.0); Sodium 138 mmol/L (137-145)
[2024-05-23 06:00] VITALS: BP 149/63; PULSE 113; RESP 18; TEMP 36.5; O2SAT 90
--- NOTE | 2024-05-23 07:06 | P.PNIM_ITS ---
Progress Note: A&P Assessment and Plan (1) Cellulitis of left lower extremity: Code(s): L03.116 - Cellulitis of left lower limb Status: Acute Assessment and Plan: - Monitor vital signs, I&Os, neuro status and patient is a fall risk - Monitor serum electrolytes, CBC, cultures, WBC and temp curve - Wound care consulted - Continue Cefazolin - Gentle IV fluids resuscitation (2) Contact dermatitis of lower leg: Code(s): L25.9 - Unspecified contact dermatitis, unspecified cause Status: Acute Assessment and Plan: - Contact dermatitis from the large amount of triple antibiotic ointment that she has been putting on the area. - Switched to Minerin cream - Avoid triple antibiotic cream as it has erythromycin (3) Hypertension: Code(s): I10 - Essential (primary) hypertension Status: Acute Assessment and Plan: - Continue Cozaar (4) Anxiety: Code(s): F41.9 - Anxiety disorder, unspecified Status: Acute Assessment and Plan: - Continue Remeron and buspirone - Added Atarax for itching and anxiety (5) Chronic obstructive pulmonary disease: Code(s): J44.9 - Chronic obstructive pulmonary disease, unspecified Status: Acute Assessment and Plan: - Continue home inhalers Time Spent With Patient Time: 15 Subjective Date/time seen: 05/23/24 07:06 Interval history: 79-year-old female with chronic obstructive pulmonary disease, hypertension, anxiety, and osteoporosis who presented to the emergency department with complaints of left leg swelling and redness. 05/23/2024 Possible reaction to topical erythromycin. Wound care recommending a new cream. Patient's lower extremity is still swollen and severely painful to touch. Continue IV antibiotics Review of Systems Review of Systems: 12 systems were reviewed and are negativ e except for as per HPI. Exam Narrative: General: Well-developed female sitting up in bed in no acute distress. Nontoxic in appearance. Weight: 64.4 kg. BMI: 25.1. HEENT: PERRL, EOMI. Sclera anicteric. Oral mucosa moist. Neck: Supple. Respiratory: Respirations are nonlabored she is speaking in full sentences. Lung sounds are a bit diminished with rare expiratory wheezing. Cardiovascular: Regular rate and rhythm with S1-S2. Gastrointestinal: Abdomen is soft, nontender, and nondistended with positive bowel sounds. Skin: Warm and dry. Scabbed and crusted wound on the anterior rodriges without active drainage. There is a superficial abrasion/skin tear, likely due to excoriation, on the left posterior calf with some bruising from excoriations as well. The tissue more distal to the anterior abrasion is erythematous and there is some edema. She scratches the area quite frequently. It is not warm but is slightly tender to touch. Extremities: No cyanosis, clubbing, or edema aside from the edema up to the left lower leg. Neurological: Alert. Cranial nerves 2-12 are grossly intact. No gross focal deficits to casual conversation. Psychiatric: Pleasant and cooperative with normal mood and affect. Judgment and insight intact. Objective Data Vital Signs Vital Signs: Vital Signs - 24 hr 05/22/24 08:22 05/22/24 08:23 05/22/24 08:54 Temperature 98.1 F Pulse Rate 67 67 67 Respiratory Rate 16 16 Blood Pressure 136/66 Pulse Oximetry 100 100 Oxygen Delivery Room Air 05/22/24 14:00 05/22/24 20:00 05/22/24 22:00 Temperature 99.0 F 98.5 F Pulse Rate 90 90 81 Respiratory Rate 12 12 18 Blood Pressure 155/61 H 125/75 Pulse Oximetry 95 95 95 Oxygen Delivery Room Air 05/23/24 06:00 Temperature 97.7 F Pulse Rate 113 H Respiratory Rate 18 Blood Pressure 149/63 H Pulse Oximetry 90 Oxygen Delivery Intake/Output Intake/Output: Intake & Output 05/20/24 05/21/24 05/22/24 05/23/24 23:59 23:59 23:59 23:59 Intake Total 500 1130 Balance 500 1130 Meds/Results Medications: Active Medications Generic Name Dose Route Start Last Admin Trade Name Freq PRN Reason Stop Dose Admin Acetaminophen 650 mg 05/21/24 18:47 05/23/24 04:36 Acetaminophen 325 Mg Tablet PO 650 mg Q4H PRN Administration Mild Pain (1-3) or Fever Albuterol 1 puff 05/21/24 22:47 Albuterol Sulfate (*Sp) Aerosol 1 Puff INHALATION Q6-8H PRN shortness of breath or wheezing Buspirone HCl 10 mg 05/21/24 22:47 05/22/24 20:39 Buspirone Hcl 10 Mg Tablet PO 10 mg TID PRN Administration anxiety Enoxaparin Sodium 40 mg 05/22/24 09:00 05/22/24 08:24 Enoxaparin 40 Mg/0.4 Ml Syringe SUB-Q 40 mg DAILY NIMA Administration Fluticasone/Umeclidinium/Vilanterol 1 puff 05/22/24 08:00 05/22/24 09:37 Fluticasone/Umeclidin/Vilanter 100-62.5-25 Mcg Ellipta INHALATION 1 puff DAILYRT NIMA Administration Hydroxyzine HCl 25 mg 05/22/24 11:13 05/22/24 20:39 Hydroxyzine Hcl 25 Mg Tablet PO 25 mg Q6H PRN Administration Itching Cefazolin Sodium 500 mg/ 50 mls @ 100 mls/hr 05/22/24 08:00 05/22/24 21:08 Sodium Chloride IVPB Infused Q12H NIMA Infusion Losartan Potassium 100 mg 05/22/24 09:00 05/22/24 08:23 Losartan Potassium 100 Mg Tablet PO 100 mg DAILY NIMA Administration Metoprolol Succinate 50 mg 05/22/24 09:00 05/22/24 08:23 Metoprolol Succinate Ext Rel 50 Mg Tabcr PO 50 mg DAILY NIMA Administration Mirtazapine 15 mg 05/22/24 21:00 05/22/24 20:39 Mirtazapine 15 Mg Tablet PO 15 mg HS NIMA Administration Multi-Ingred Cream/Lotion/Oil/Oint 1 applic 05/22/24 09:00 05/22/24 08:31 Eucerin Cream 120 Gm Jar TOPICAL 1 applic DAILY NIMA Administration Raloxifene HCl 60 mg 05/22/24 09:00 05/22/24 08:31 Raloxifene Hcl (*Chemo) 60 Mg Tablet PO 60 mg DAILY NIMA Administration Simvastatin 40 mg 05/22/24 18:00 05/22/24 17:45 Simvastatin 20 Mg Tablet PO 40 mg QPM NIMA Administration Vitamin D 5,000 units 05/22/24 09:00 05/22/24 08:23 Cholecalciferol 5,000 Units Tablet BY MOUTH 5,000 units DAILY NIMA Administration Radiology Results: ITS Impressions Venous Doppler Study 05/21/24 18:09 IMPRESSION: 1. No deep venous thrombosis. Labs Labs: Laboratory Results - last 24 hr 05/22/24 05/22/24 05/23/24 08:18 18:38 04:20 WBC 6.8 8.4 RBC 4.44 4.39 Hgb 13.1 13.0 Hct 41.8 41.4 MCV 94.1 94.3 MCH 29.5 29.6 MCHC 31.3 L 31.4 L RDW 14.3 14.3 Plt Count 245 253 MPV 11.3 H 11.4 H Immature Gran % (Auto) 0.0 0.1 Neut % (Auto) 52.2 53.4 Lymph % (Auto) 27.9 25.4 [place] % (Auto) 10.9 H 11.8 H Eos % (Auto) 7.8 H 8.1 H Baso % (Auto) 1.2 1.2 Lymph # (Auto) 1.89 2.13 [place] # (Auto) 0.7 H 1.0 H Eos # (Auto) 0.5 H 0.7 H Baso # (Auto) 0.1 0.1 Abs Immat Gran (auto) 0.00 0.01 Absolute Neuts (auto) 3.5 4.5 Absolute Nucleated RBC 0.000 0.000 Nucleated RBC % 0.0 0.0 Sodium 137 138 Potassium 4.4 4.2 Chloride 102 102 Carbon Dioxide 28 28 Anion Gap 7 8 BUN 19 H 17 Creatinine 0.70 0.63 L Estim Creat Clear Calc 51 57 Estimated GFR > 60 > 60 Glucose 84 72 POC Capillary Glucose 101 Calcium 8.8 9.1 Quality VTE Prophylaxis VTE prophylaxis: pharmacologic ordered
[2024-05-23] MEDS: CEFAZOLIN IVPB ×2 (09:04→20:33)
[2024-05-23] MEDS: ENOXAPARIN 40 MG/0.4 ML SYRINGE SUB-Q (09:04)
[2024-05-23] MEDS: SODIUM CHLORIDE 0.9% IVPB ×2 (09:04→20:33)
[2024-05-23 09:05] VITALS: PULSE 100
[2024-05-23] MEDS: LOSARTAN POTASSIUM 100 MG TABLET PO (09:05)
[2024-05-23] MEDS: RALOXIFENE HCL (*CHEMO) 60 MG TABLET PO (09:05)
[2024-05-23] MEDS: METOPROLOL SUCCINATE EXT REL 50 MG TABCR PO (09:05)
[2024-05-23] MEDS: CHOLECALCIFEROL 5,000 UNITS TABLET 5000 UNITS BY MOUTH (09:05)
[2024-05-23 09:06] VITALS: RESP 18; O2SAT 92
[2024-05-23] MEDS: EUCERIN CREAM 120 GM JAR 1 APPLIC TOPICAL (09:06)
[2024-05-23] MEDS: FLUTICASONE/UMECLIDIN/VILANTER 100-62.5-25 MCG ELLIPTA 1 PUFF INHALATION (09:09)
[2024-05-23 14:00] VITALS: BP 129/62; PULSE 88; RESP 14; TEMP 36.8; O2SAT 96
[2024-05-23] MEDS: SIMVASTATIN 20 MG TABLET 40 MG PO (17:21)
[2024-05-23] MEDS: MIRTAZAPINE 15 MG TABLET PO (20:34)
[2024-05-23 22:00] VITALS: BP 120/59; PULSE 90; RESP 18; TEMP 36.7; O2SAT 94
[2024-05-24] MEDS: ACETAMINOPHEN 325 MG TABLET 650 MG PO (00:35)
[2024-05-24 06:00] VITALS: BP 129/61; PULSE 84; RESP 18; TEMP 36.3; O2SAT 93
[2024-05-24] MEDS: FLUTICASONE/UMECLIDIN/VILANTER 100-62.5-25 MCG ELLIPTA 1 PUFF INHALATION (08:11)
[2024-05-24 08:27] LABS: Alanine Aminotransferase 29 U/L (6-35); Albumin Level 3.7 g/dL (3.5-5.1); Alkaline Phosphatase 54 U/L (38-126); Anion Gap 3 mmol/L (4-12); Aspartate Amino Transferase 38 U/L (14-36); Bilirubin,Total 0.6 mg/dL (0.2-1.3); Blood Urea Nitrogen 17 mg/dL (7-17); Calcium 8.6 mg/dL (8.4-10.2); Carbon Dioxide 31 mmol/L (22-30); Chloride 105 mmol/L (98-107); Estimated CRCL calculation 64 ml/min; Estimated Glomerular Filt Rate > 60; Glucose 88 mg/dL (65-110); Potassium 4.1 mmol/L (3.4-5.0); Sodium 139 mmol/L (137-145)
[2024-05-24 08:31] LABS: Basophils Absolute Auto 0.1 K/mm3 (0.0-0.1); Basophils Percent Auto 1.2 % (0.2-1.2); Eosinophils Absolute Auto 0.6 K/mm3 (0-0.3); Eosinophils Percent Auto 9.9 % (0-4.4); Hematocrit 41.3 % (37.0-47.0); Hemoglobin 13.2 g/dL (12.0-15.0); Immature Granulocyte Absolute 0.02 K/mm3 (0.00-0.031); Immature Granulocyte Percent A 0.3 % (0-0.5); Lymphocytes Percent Auto 27.9 % (18.3-44.2); Mean Corpuscular Hemoglobin 30.1 pg (26-34); Mean Corpuscular Volume 94.1 fl (80-100); Mean Platelet Volume 11.2 fl (7.4-10.4); Monocytes Absolute Auto 0.6 K/mm3 (0.1-0.6); Monocytes Percent Auto 9.9 % (2.6-8.5); Neutrophils Absolute Auto 3.3 K/mm3 (1.3-6.7); Neutrophils Percent Auto 50.8 % (45.5-73.1); Platelet Count Result 252 k/mm3 (150-375); Red Blood Count 4.39 M/mm3 (4.2-5.4); Red Cell Distribution Width 14.3 % (11.5-14.5); White Blood Count 6.5 K/mm3 (4.5-10.0)
[2024-05-24 09:06] VITALS: PULSE 84
[2024-05-24] MEDS: RALOXIFENE HCL (*CHEMO) 60 MG TABLET PO (09:06)
[2024-05-24] MEDS: CHOLECALCIFEROL 5,000 UNITS TABLET 5000 UNITS BY MOUTH (09:06)
[2024-05-24] MEDS: METOPROLOL SUCCINATE EXT REL 50 MG TABCR PO (09:06)
[2024-05-24] MEDS: LOSARTAN POTASSIUM 100 MG TABLET PO (09:06)
[2024-05-24] MEDS: AMOXICILLIN/CLAVULANATE K 875-125 MG TAB 1 TABLET PO ×2 (09:06→21:17)
[2024-05-24] MEDS: ENOXAPARIN 40 MG/0.4 ML SYRINGE SUB-Q (09:06)
[2024-05-24 09:08] VITALS: PULSE 84; RESP 18; O2SAT 93
[2024-05-24] MEDS: EUCERIN CREAM 120 GM JAR 1 APPLIC TOPICAL (09:08)
--- NOTE | 2024-05-24 11:47 | P.PNIM_ITS ---
Progress Note: A&P Assessment and Plan (1) Cellulitis of left lower extremity: Code(s): L03.116 - Cellulitis of left lower limb Status: Acute Assessment and Plan: - Monitor vital signs, I&Os, neuro status and patient is a fall risk - Monitor serum electrolytes, CBC, cultures, WBC and temp curve - Wound care consulted, started Minerin cream - Continue Cefazolin - Gentle IV fluids resuscitation (2) Contact dermatitis of lower leg: Code(s): L25.9 - Unspecified contact dermatitis, unspecified cause Status: Acute Assessment and Plan: - Contact dermatitis from the large amount of triple antibiotic ointment that she has been putting on the area. - Switched to Minerin cream - Avoid triple antibiotic cream as it has erythromycin (3) Hypertension: Code(s): I10 - Essential (primary) hypertension Status: Acute Assessment and Plan: - Continue Cozaar (4) Anxiety: Code(s): F41.9 - Anxiety disorder, unspecified Status: Acute Assessment and Plan: - Continue Remeron and buspirone - Added Atarax for itching and anxiety (5) Chronic obstructive pulmonary disease: Code(s): J44.9 - Chronic obstructive pulmonary disease, unspecified Status: Acute Assessment and Plan: - Continue home inhalers Time Spent With Patient Time: Subjective Date/time seen: 05/24/24 11:47 Interval history: 79-year-old female with chronic obstructive pulmonary disease, hypertension, anxiety, and osteoporosis who presented to the emergency department with complaints of left leg swelling and redness. 05/24/2024 Patient examined at beside sitting comfortably. Switched to Minerin Cream. Patient's lower extremity is swollen but reports improvement in regards to pain and overall swelling. Continuing IV antibiotics with discharge tomorrow and will switch to PO Cephalexin. Family states that the past couple of evenings it has seemed as though the patient has been more confused than usual. Upon examination in A.M., neurological exam is benign and pt is A&Ox4. Will continue to monitor. Review of Systems Review of Systems: 12 systems were reviewed and are negativ e except for as per HPI. Exam Narrative: General: Well-developed female sitting up in bed in no acute distress. Nontoxic in appearance. Weight: 64.4 kg. BMI: 25.1. HEENT: PERRL, EOMI. Sclera anicteric. Oral mucosa moist. Neck: Supple. Respiratory: Respirations are nonlabored she is speaking in full sentences. Lung sounds normal Cardiovascular: Regular rate and rhythm with S1-S2. Gastrointestinal: Abdomen is soft, nontender, and nondistended with positive bowel sounds. Skin: Warm and dry. Scabbed and crusted wound on the anterior rodriges without active drainage. There is a superficial abrasion/skin tear, likely due to excoriation, on the left posterior calf with some bruising from excoriations as well. The tissue more distal to the anterior abrasion is erythematous and there is some edema. She scratches the area quite frequently. It is not warm but is slightly tender to touch. Extremities: No cyanosis, clubbing, or edema aside from the edema up to the left lower leg. Neurological: Alert. Cranial nerves 2-12 are grossly intact. No gross focal deficits to casual conversation. Psychiatric: Pleasant and cooperative with normal mood and affect. Judgment and insight intact. Objective Data Vital Signs Vital Signs: Vital Signs - 24 hr 05/23/24 14:00 05/23/24 20:00 05/23/24 22:00 Temperature 98.2 F 98.1 F Pulse Rate 88 90 Respiratory Rate 14 18 Blood Pressure 129/62 120/59 L Pulse Oximetry 96 94 Oxygen Delivery Room Air 05/24/24 06:00 05/24/24 09:06 Temperature 97.4 F L Pulse Rate 84 84 Respiratory Rate 18 Blood Pressure 129/61 Pulse Oximetry 93 Oxygen Delivery Intake/Output Intake/Output: Intake & Output 05/21/24 05/22/24 05/23/24 05/24/24 23:59 23:59 23:59 23:59 Intake Total 500 1130 1490 280 Balance 500 1130 1490 280 Meds/Results Medications: Active Medications Generic Name Dose Route Start Last Admin Trade Name Freq PRN Reason Stop Dose Admin Acetaminophen 650 mg 05/21/24 18:47 05/24/24 00:35 Acetaminophen 325 Mg Tablet PO 650 mg Q4H PRN Administration Mild Pain (1-3) or Fever Albuterol 1 puff 05/21/24 22:47 Albuterol Sulfate (*Sp) Aerosol 1 Puff INHALATION Q6-8H PRN shortness of breath or wheezing Amoxicillin/Clavulanate Potassium 1 tablet 05/24/24 09:00 05/24/24 09:06 Amoxicillin/Clavulanate K 875-125 Mg Tab PO 05/30/24 23:59 1 tablet Q12HR NIMA Administration Buspirone HCl 10 mg 05/21/24 22:47 05/22/24 20:39 Buspirone Hcl 10 Mg Tablet PO 10 mg TID PRN Administration anxiety Enoxaparin Sodium 40 mg 05/22/24 09:00 05/24/24 09:06 Enoxaparin 40 Mg/0.4 Ml Syringe SUB-Q 40 mg DAILY NIMA Administration Fluticasone/Umeclidinium/Vilanterol 1 puff 05/22/24 08:00 05/24/24 08:11 Fluticasone/Umeclidin/Vilanter 100-62.5-25 Mcg Ellipta INHALATION 1 puff DAILYRT NIMA Administration Hydroxyzine HCl 25 mg 05/22/24 11:13 05/22/24 20:39 Hydroxyzine Hcl 25 Mg Tablet PO 25 mg Q6H PRN Administration Itching Losartan Potassium 100 mg 05/22/24 09:00 05/24/24 09:06 Losartan Potassium 100 Mg Tablet PO 100 mg DAILY NIMA Administration Metoprolol Succinate 50 mg 05/22/24 09:00 05/24/24 09:06 Metoprolol Succinate Ext Rel 50 Mg Tabcr PO 50 mg DAILY NIMA Administration Mirtazapine 15 mg 05/22/24 21:00 05/23/24 20:34 Mirtazapine 15 Mg Tablet PO 15 mg HS NIMA Administration Multi-Ingred Cream/Lotion/Oil/Oint 1 applic 05/22/24 09:00 05/24/24 09:08 Eucerin Cream 120 Gm Jar TOPICAL 1 applic DAILY NIMA Administration Raloxifene HCl 60 mg 05/22/24 09:00 05/24/24 09:06 Raloxifene Hcl (*Chemo) 60 Mg Tablet PO 60 mg DAILY NIMA Administration Simvastatin 40 mg 05/22/24 18:00 05/23/24 17:21 Simvastatin 20 Mg Tablet PO 40 mg QPM NIMA Administration Vitamin D 5,000 units 05/22/24 09:00 05/24/24 09:06 Cholecalciferol 5,000 Units Tablet BY MOUTH 5,000 units DAILY NIMA Administration Radiology Results: ITS Impressions Venous Doppler Study 05/21/24 18:09 IMPRESSION: 1. No deep venous thrombosis. Labs Labs: Laboratory Results - last 24 hr 05/24/24 08:00 WBC 6.5 RBC 4.39 Hgb 13.2 Hct 41.3 MCV 94.1 MCH 30.1 MCHC 32.0 RDW 14.3 Plt Count 252 MPV 11.2 H Immature Gran % (Auto) 0.3 Neut % (Auto) 50.8 Lymph % (Auto) 27.9 [place] % (Auto) 9.9 H Eos % (Auto) 9.9 H Baso % (Auto) 1.2 Lymph # (Auto) 1.80 [place] # (Auto) 0.6 Eos # (Auto) 0.6 H Baso # (Auto) 0.1 Abs Immat Gran (auto) 0.02 Absolute Neuts (auto) 3.3 Absolute Nucleated RBC 0.000 Nucleated RBC % 0.0 Sodium 139 Potassium 4.1 Chloride 105 Carbon Dioxide 31 H Anion Gap 3 L BUN 17 Creatinine 0.55 L Estim Creat Clear Calc 64 Estimated GFR > 60 Glucose 88 Calcium 8.6 Total Bilirubin 0.6 AST 38 H ALT 29 Alkaline Phosphatase 54 Total Protein 6.0 L Albumin 3.7 Quality VTE Prophylaxis VTE prophylaxis: pharmacologic ordered
[2024-05-24 14:00] VITALS: BP 129/50; PULSE 89; RESP 12; TEMP 36.8; O2SAT 94
[2024-05-24] MEDS: SIMVASTATIN 20 MG TABLET 40 MG PO (17:14)
[2024-05-24 20:35] VITALS: BP 123/59; PULSE 89; RESP 18; TEMP 36.6; O2SAT 97
[2024-05-24] MEDS: MIRTAZAPINE 15 MG TABLET PO (21:16)
[2024-05-25 06:09] VITALS: BP 119/56; PULSE 83; RESP 14; TEMP 37.1; O2SAT 92
[2024-05-25 07:17] LABS: Basophils Absolute Auto 0.1 K/mm3 (0.0-0.1); Basophils Percent Auto 0.7 % (0.2-1.2); Eosinophils Absolute Auto 0.6 K/mm3 (0-0.3); Eosinophils Percent Auto 7.3 % (0-4.4); Hematocrit 41.8 % (37.0-47.0); Hemoglobin 13.2 g/dL (12.0-15.0); Immature Granulocyte Absolute 0.01 K/mm3 (0.00-0.031); Immature Granulocyte Percent A 0.1 % (0-0.5); Lymphocytes Percent Auto 23.5 % (18.3-44.2); Mean Corpuscular HGB Conc 31.6 g/dl (32-36); Mean Corpuscular Hemoglobin 29.7 pg (26-34); Mean Corpuscular Volume 93.9 fl (80-100); Monocytes Absolute Auto 0.8 K/mm3 (0.1-0.6); Monocytes Percent Auto 10.7 % (2.6-8.5); Neutrophils Absolute Auto 4.4 K/mm3 (1.3-6.7); Neutrophils Percent Auto 57.7 % (45.5-73.1); Platelet Count Result 249 k/mm3 (150-375); Red Blood Count 4.45 M/mm3 (4.2-5.4); Red Cell Distribution Width 14.3 % (11.5-14.5); White Blood Count 7.7 K/mm3 (4.5-10.0)
[2024-05-25] MEDS: FLUTICASONE/UMECLIDIN/VILANTER 100-62.5-25 MCG ELLIPTA 1 PUFF INHALATION (08:03)
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
[2024-05-25 09:06] VITALS: PULSE 88
[2024-05-25] MEDS: LOSARTAN POTASSIUM 100 MG TABLET PO (09:06)
[2024-05-25] MEDS: ACETAMINOPHEN 325 MG TABLET 650 MG PO (09:06)
[2024-05-25] MEDS: METOPROLOL SUCCINATE EXT REL 50 MG TABCR PO (09:06)
[2024-05-25] MEDS: AMOXICILLIN/CLAVULANATE K 875-125 MG TAB 1 TABLET PO (09:06)
[2024-05-25] MEDS: RALOXIFENE HCL (*CHEMO) 60 MG TABLET PO (09:06)
[2024-05-25] MEDS: CHOLECALCIFEROL 5,000 UNITS TABLET 5000 UNITS BY MOUTH (09:06)
[2024-05-25] MEDS: EUCERIN CREAM 120 GM JAR 1 APPLIC TOPICAL (09:08)
[2024-05-25 10:23] LABS: Alanine Aminotransferase 33 U/L (6-35); Albumin Level 3.6 g/dL (3.5-5.1); Alkaline Phosphatase 51 U/L (38-126); Anion Gap 6 mmol/L (4-12); Aspartate Amino Transferase 37 U/L (14-36); Bilirubin,Total 0.4 mg/dL (0.2-1.3); Blood Urea Nitrogen 17 mg/dL (7-17); Calcium 8.7 mg/dL (8.4-10.2); Carbon Dioxide 30 mmol/L (22-30); Chloride 104 mmol/L (98-107); Estimated CRCL calculation 40 ml/min; Estimated Glomerular Filt Rate > 60; Glucose 92 mg/dL (65-110); Potassium 4.3 mmol/L (3.4-5.0); Sodium 140 mmol/L (137-145)
== END 2024-05-25 12:38 | disposition home or self-care (01) | DRG 603 ==
LOC: ANHED 18:14 → ANH2MED 19:21
PROVIDERS: Nurse Practitioner Gerontology; Physician Assistant; Admitting Provider Internal Medicine; Emergency Provider Physician Assistant; PCP Internal Medicine; Visit Provider Physician Assistant
DX: L03.116 Cellulitis of left lower limb (principal); E78.5 Hyperlipidemia, unspecified; F41.9 Anxiety disorder, unspecified; I10 Essential (primary) hypertension; J44.9 Chronic obstructive pulmonary disease, unspecified; L25.9 Unspecified contact dermatitis, unspecified cause; M81.0 Age-related osteoporosis without current pathological fracture; Z85.828 Personal history of other malignant neoplasm of skin; Z87.891 Personal history of nicotine dependence
CPT/HCPCS: 36415; 80048; 80053; 82948; 85025; 85652; 86140; 93971; 94640; 96365; 96366; 96375; 99285; A9270; G0378; J0690; J1650; J7040

== ENCOUNTER 2024-10-26 12:16 | Outpatient (CLI) | payer MEDICARE, SELFPAY ==
--- OUTSIDE RECORDS SUMMARY | 2024-10-26 13:12 | XMS_ITS | Encounter Summary ---
Author Organization [facility] Address [address] [place] [address] Care Team Providers Care Valuation Consultant Name Role Phone Adriane Howard Primary Care Provider Becca webster Encounter Details Date Type Department Care Team (Late st Contact Info) Description 11/16/2021 Lab Requisition [facility] [address] [place] [address] Froylan Linn MD [address] [place] [address] Social History Tobacco Use Types Packs/Day Years Used Date Smoking Tobacco: Never Assessed Comments Unknown Sex and Gender Information Value Date Recorded Sex Assigned at Not on file Legal Sex Female 4:06 PM CDT Gender Identity Not on file Sexual Orientation Not on file documented as of this encounter Plan of Treatment Not on file documented as of this encounter Procedures Procedure Name Priority Date/Time Associated Diagnosis Comments DERMATOPATHOLOGY Routine 11/12/2021 3:33 AM CDT documented in this encounter Results * DERMATOPATHOLOGY (11/12/2021 3:33 AM CDT) Case Report Dermatopathology Report Case: [id number] Authorizing Provider: Froylan Linn MD Collected: 11/12/2021 03:33 AM Ordering Location: [facility] Received: 11/16/2021 05:45 AM Pathologist: June Lang MD Specimens: A) - Skin, left distal rodriges B) - Skin, left ant ankle C) - Skin, right lower leg 1:39 PM T DERMATOPATHOLOGY LABORATORY Final Diagnosis Specimen A. 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 Path# [id number] B: BCCA vs. SCCA. Path# [id number] C: BCCA vs. SCCA. Path# [id number] 1:39 PM CDT DERMATOPATHOLOGY LABORATORY Gross Description Specimen A: Received is one formalin filled container labeled with the patient's name and designated left distal rodriges. The specimen consists of a shave biopsy measuring [id number] and it is bisected. Jar 0. Specimen B: Received is one formalin filled container labeled with the patient's name and designated left ant ankle. The specimen consists of a shave biopsy measuring [id number]. Jar 0. Specimen C: Received is one formalin filled container labeled with the patient's name and designated right lower leg. The specimen consists of a shave biopsy measuring [id number]. Jar 0. 1:39 PM T DERMATOPATHOLOGY LABORATORY Microscopic Description Specimen A. SKIN, [...] determined by the Dermatopathology Laboratory at [facility], directed by Dr. Raheel Muniz. These tests need not be, and therefore are not, approved by the [place] Food and Drug Administration. The tests are used for clinical purposes. Billing Codes Specimen Charges Stain Charges 93617 [id number] 1 1 1 2 1:39 PM CDT [...] 3:33 AM CDT 11/16/2021 5:45 AM CDT us Froylan Linn MD LAB - PATHOLOGY/CYTOLOGY ORDER CRISTOPHER Final Result DERMATOPATHOLOGY LABORATORY [facility] - Department of Dermatology [address], [address] [phone] documented in this encounter Visit Diagnoses Not on filedocumented in this encounter Care Teams Valuation Consultant Relationship Specialty Start Date End Date Adriane Howard Update Information PCP - General 12/28/21 documented as of this encounter
--- OUTSIDE RECORDS SUMMARY | 2024-10-26 13:12 | XMS_ITS | Clinical Summary ---
Author Organization [facility] [employer] Address [address] [address] Care Team Providers Care [employer] Sales Consultant Name Role Phone Adriane Howard Primary Care Provider Becca webster Source Comments [facility] [employer],non-owned Affiliates and Associated Physician Practices is amultiple site organization consisting of ambulatory clinics and hospital sitesin [place], [place], [place] and [place]. This disclosure is being madepursuant to the Care Everywhere program and may not contain all information available regarding this patient. Last updated 17.[facility] [employer] Social History Tobacco Use Types Packs/Day Years [...] yrs (1 - 1-dose 75+ series) 05/22/2019 DEPRESSION SCREENING 02/15/2024 COVID-19 VACCINE (1 - 2023-2 5 season) 2024 INFLUENZA VACCINE (#1) 2024 08/07/2015 HEPATITIS B VACCINE Aged Out No longe [...] patient's age to complete this topic Insurance AETNA Care Teams [employer] Sales Consultant Relationship Specialty Start Date End Date Adriane Howard Update Information PCP - General 12/28/21
--- NOTE | 2024-11-09 19:32 | WPDPFTINT ---
PFT Procedure Performed PFT Procedure Performed Spirometry with Pre/Post Bronchodilator Plethysmography (Lung Vol) Diffusing Cap (DLCO) Flow Vol Loop PFT Interpretation DOS: 10/26/2024 REQUESTING: Mona Rea PA-C REASON FOR TESTING: COPD PULMONARY FUNCTION TESTS Results are reliable and reproducible. Repeatability of spirometry FEV1 maneuver pre and post bronchodilator is Grade A. Arash: GLI 2012 reference equations were used. Spirometry: The pre-bronchodilator FEV1 is 0.58 L, 31%, severely decreased. The pre-bronchodilator FVC is 1.54 L, 63%, mildly decreased. The FEV1/FVC ratio is 38%. After bronchodilator, the FEV1 is 0.57 L, 20%, -2%. After bronchodilator, the FVC is 1.63 L, 66%, +5%. The FEV1/FVC ratio is 35%. Lung volumes: The total lung capacity is 5.17 L, 105%. The functional residual capacity is 4.05 L, 143%. The residual volume is 3.63 L, 155%. The RV/TLC is 70%, increased, consistent with air trapping. Airway resistance is increased. Diffusion: DLCO is 4.8, 25%, severely decreased. The DLCO/VA is 2.26, 54%, moderately decreased. Flow volume loop: The flow volume loop shows severe coving of the expiratory limb. IMPRESSION: This shows a severe obstructive ventilatory impairment without response to bronchodilator, moderate air trapping, and a severe diffusion impairment with partial correction for alveolar volume. Lack of response to bronchodilator should not preclude use if clinically indicated. There are no prior studies for comparison. Kathleen Wright MD
--- NOTE | 2024-11-09 19:43 | WPDSIXMINUTE ---
Six Minute Walk Procedure Procedure Performed Pulmonary Stress Test (6 min walk) Six Minute Walk Six Minute Walk: DATE OF SERVICE: 10/26/2024 REQUESTING: Mona eRa PA-C REASON FOR TESTING: COPD SIX MINUTE WALK This test was conducted per ATS guidelines. No walking aids were used. The patient was breathing room air during testing. The initial saturation was 94%, and initial heart rate was 84 beats per minute. The patient walked without stopping, completing 243.8 m/800 ft. The saturation at the end of testing was 91%, and the heart rate was 103 beats per minute. The initial Dionna score was 0. At the end of the test, the Dionna score was 2. IMPRESSION: This is a normal study. The patient did not require supplemental oxygen with exertion. Kathleen Wright MD
== END 2024-10-26 12:17 | disposition home or self-care (01) ==
PROVIDERS: PCP Internal Medicine; Visit Provider Physician Assistant
DX: R06.09 Other forms of dyspnea (principal); J44.9 Chronic obstructive pulmonary disease, unspecified
CPT/HCPCS: 94060; 94618; 94726; 94729

== ENCOUNTER 2025-01-03 15:13 | Outpatient (CLI) | payer MEDICARE, SELFPAY ==
--- NOTE | ~2025-01-03 | CT_ITS ---
EXAMINATION: CTA chest PE protocol DATE: 01/03/2025 15:48 INDICATION: Elevated d-dimer. TECHNIQUE: Computed tomography angiography (CTA) of the chest was performed with 100 mL Omnipaque-350 intravenous contrast timed to evaluate the pulmonary arteries. Coronal maximum intensity projection 3D-reconstructions were created by the technologist. Automated exposure control and iterative reconstruction technique were employed. The dose-length product was 138.07 mGy-cm. COMPARISON: Venous Doppler exam dated 05/21/2024. FINDINGS: Severe monroe acinar emphysematous lungs. Prominent central pulmonary arteries due to pulmonary hypertension. No evidence of pulmonary emboli. Thoracic aorta shows severe atherosclerotic changes. Significant calcific changes of proximal renal arteries and superior mesenteric artery and celiac axis the upper abdomen. IMPRESSION: 1. No evidence of pulmonary emboli. 2. Severe emphysema with evidence of pulmonary arterial hypertension. 3. Significant atherosclerotic changes of thoracic aorta. Atherosclerotic changes of proximal celiac axis, superior mesenteric artery and renal arteries. Reviewed, dictated and finalized at location T. [employer] IMPRESSION: 1. No evidence of pulmonary emboli. 2. Severe emphysema with evidence of pulmonary arterial hypertension. 3. Significant atherosclerotic changes of thoracic aorta. Atherosclerotic gamez es of proximal celiac axis, superior mesenteric artery and renal arteries.
[2025-01-03 15:47] LABS: Estimated Glomerular Filt Rate > 60
--- OUTSIDE RECORDS SUMMARY | 2025-01-03 18:04 | XMS_ITS | Data Portability ---
Author Organization [facility], [employer] Address [address] [address] Care Team Providers Care Dance Entertainer Name Role Phone SAMSON SHAUNHENRYBARB Primary Care Provider Assessment Encounter Date Assessment Date Assessment LastModified by Organization Details LastModified Time 04/05/2024 04/05/2024 Patient presented for follow up. Studies ordered as below. Discussed plan with patient/careg iver, who expressed understanding . Follow up as noted below. Not available 04/05/2024 10:44:09 07/05/2024 07/05/2024 Patient presented for follow up. Studies ordered as below. Discussed plan with patient/careg iver, who expressed understanding . Follow up as noted below. Not available 07/05/2024 10:37:40 07/31/2024 07/31/2024 Patient presented for follow up. Studies ordered as below. Discussed plan with patient/careg iver, who expressed understanding . Follow up as noted below. Not available 07/31/2024 15:21:33 08/29/2024 08/29/2024 Patient presented for follow up. Studies ordered as below. Discussed plan with patient/careg iver, who expressed understanding . Follow up as noted below. Not available 08/29/2024 15:08:37 11/29/2024 11/29/2024 Patient presented for follow up. Studies ordered as below. Discussed plan with patient/careg iver, who expressed understanding . Follow up as noted below. Not available 11/29/2024 14:17:28 Plan of Treatment Reminders Order Date Submit Date Provider Last Modified By Organization Details Last Modified Time Details Appointments ESTABLISH ED PATIENT 15 2025 01:15P Lili Rashid MD Not available Not available Not available Lab CMP, serum or plasma 2024 025 [facility], [address] [place] [address], [id number], 12/01/2024 13:14:07 CBC w/ auto diff 2024 025 [facility], [address] [place] [address], [address], 12/01/2024 13:14:06 lipid panel w/ direct LDL, serum 2024 025 [facility], [address] [place] [address], [address], 12/06/2024 04:08:42 TSH, serum or plasma 2024 025 [facility], [address] [place] [address], [address], 12/06/2024 04:08:42 D-dimer, quant, plasma 2024 025 [facility], [address] [place] [address], [address], 12/01/2024 13:14:08 vitamin D, 25-hydrox y, total, serum 2024 025 [employer] [facility], [address], [address], [place], [address], 09/07/2024 04:05:08 CMP, serum or plasma 2024 025 [employer] [facility], [address], [address], [place], [address], 10/03/2024 03:40:04 CBC w/ auto diff 2024 025 [employer] [facility], [address], [address], [place], [address], 09/07/2024 04:05:08 CMP, serum or plasma 2024 025 [facility], [address] [place] [address], [address], 04/06/2024 14:21:11 CBC w/ auto diff 2024 025 [facility], [address] [place] [address], [address], 04/06/2024 14:21:10 lipid panel w/ direct LDL, serum [address], [address] [place] [address], [address], 2024 16:24:50 TSH, serum or plasma [address], [address] [place] [address], [address], 2024 16:24:50 vitamin D, 25-hydrox y, total, serum [address], [address] [place] [address], [address], 2024 16:24:50 Referral gastroent erologist referral 2024 025 ALLYSON Pérez MD, [address], [address], [place], [address], 12/20/2024 16:30:54 dermatolo gist referral 2024 025 [facility], [address], [address], [place], [address], 08/28/2024 04:07:50 pulmonolo gist referral 2024 025 [facility], [address], [address], [place], [address], 09/21/2024 13:51:38 Procedures None recorded. Surgeries None recorded. Imaging CT, chest + abdomen + pelvis, w/o contrast 2024 [facility], [address], [place], [address], 12/06/2024 04:08:42 bone density 2024 025 [facility], [address], [place], [address], 09/12/2024 04:03:54 MAMMO, screening , digital, bilateral 2024 025 [facility], [address], [place], [address], 11/27/2024 04:11:17 electroca rdiogram 2024 025 [facility], [facility], [address] [place] [address] [address] , [facility] [address], [place], [address], 08/30/2024 11:13:19 Medication Orders Dermend topical cream 2024 025 [facility] #[id number], [address], [place], [address], 11/29/2024 15:26:32 ammonium lactate 12 % lotion 2024 025 [facility] #[id number], [address], [place], [address], 11/29/2024 15:26:32 Ensure Clear oral liquid 2024 025 [facility] #[id number], [address], [place], [address], 11/29/2024 15:26:[address] 500 mcg tablet 2024 025 [id number], [address], [place], [address], 08/29/2024 15:35:20 prednison e 20 mg tablet 2024 025 [id number], [address] [place], [address], 08/29/2024 15:35:23 albuterol sulfate HFA 90 mcg/actua tion aerosol inhaler 2024 025 [id number], [address] [place], [address], 07/31/2024 15:49:22 mupirocin 2 % topical ointment 2024 025 [id number], [address] [place], [address], 07/31/2024 15:49:22 ammonium lactate 12 % lotion 2024 025 [id number], [address] [place], [address], 07/31/2024 15:49:22 prednison e 20 mg tablet 2024 025 [id number], [address] [place], [address], 07/05/2024 11:07:59 clindamyc in HCl 300 mg capsule 2024 025 [facility] #[id number], [address] [place], [address], 08/29/2024 15:33:53 mupirocin 2 % topical ointment 2024 025 [facility] #[id number], [address] [place], [address], 07/05/2024 11:08:00 raloxifen e 60 mg tablet 2024 025 [id number], [address], [place], [address], 04/05/2024 11:21:37 Dermend topical cream 2024 025 [id number], [address] , [place], [address], 04/05/2024 11:21:29 benzonata te 100 mg capsule 2024 025 [id number], [address] [facility], [place], [address], 07/05/2024 10:53:35 Zithromax Z-Mik 250 mg tablet 2024 025 [id number], [address] [facility], [place], [address], 07/05/2024 10:53:31 metoprolo l succinate ER 50 mg tablet,ex tended release 24 hr 2024 025 [id number], [address], [place], [address], 04/05/2024 11:21:33 losartan 100 mg tablet 2024 025 [id number], [address] , [place], [address], 04/05/2024 11:21:34 prednison e 20 mg tablet 2024 025 [facility], [address] [place], [address], 04/05/2024 11:21:31 mirtazapi ne 15 mg tablet 2024 025 [id number], [address], [place], [address], 04/05/2024 11:21:31 cholecalc iferol (vitamin D3) 125 mcg (5,000 unit) capsule 2024 025 [facility] #[id number], [address], [place], [address], 04/05/2024 11:21:26 Patient TargetsNo targets recorded. Patient Instructions Encounter Date Encounter Id Patient Instructions Last Modified By Organization Details Last Modified Time 04/05/2024 [id number] Peripheral Arterial Disease (PAD): Care Instructions mshenouda [...] living will mshenouda Not available 03/18 11:20:55 07/05/2024 [id number] Peripheral Arterial Disease (PAD): Care Instructions mshenouda Not available 07/05/2024 11:07:55 leg and ankle edema: care instructions mshenouda Not available 07/05/2024 11:07:55 chronic obstructive pulmonary disease (COPD): care instructions mshenouda Not available 07/05/2024 11:07:55 learning about copd and how to prevent lung infections mshenouda Not available 07/05/2024 11:07:55 07/31/2024 [id number] Peripheral Arterial Disease (PAD): Care Instructions mshenouda Not available 07/31/2024 15:49:19 osteoporosis: ca re instructions mshenouda Not available 07/31/2024 15:49:19 rash: care instructions mshenouda Not available 07/31/2024 15:49:19 chronic obstructive pulmonary disease (COPD): care instructions mshenouda Not available 07/31/2024 15:49:19 learning about copd and how to prevent lung infections mshenouda Not available 07/31/2024 15:49:19 dry skin: care instructions mshenouda Not available 07/31/2024 15:49:19 08/29/2024 [id number] Peripheral Arterial Disease (PAD): Care Instructions mshenouda Not available 08/29/2024 15:39:19 osteoporosis: ca re instructions mshenouda Not available 08/29/2024 15:39:19 mammogram: about this test mshenouda Not available 08/29/2024 15:39:19 high cholesterol : care instructions mshenouda Not available 08/29/2024 15:39:19 11/29/2024 [id number] Peripheral Arterial Disease (PAD): Care Instructions mshenouda Not available 11/29/2024 15:26:27 osteoporosis: ca re instructions mshenouda Not available 11/29/2024 15:26:28 high cholesterol : care instructions mshenouda Not available 11/29/2024 15:26:27 dry skin: care instructions mshenouda Not available 11/29/2024 15:26:28 shortness of breath: care instructions mshenouda Not available 11/29/2024 15:26:27 Reason for Referral Litigation Docket Manager Referral for E ruption Referring Physician: Terra Rashid, Internal Medicine, Encounter Date: 07/31/2024 Senior Software Engineering Manager Referral for C hronic obstructive pulmonary disease Referring Physician: Terra Rashid, Internal Medicine, Encounter Date: 07/31/2024 Train Control Electronic Technician Referral for Unintentional weight loss Referring Physician: Terra Rashid, Internal Medicine, Encounter Date: 11/29/2024 Results Created Date Observation Date Name Description Value Unit Range Abnormal Flag Note LastModifiedBy Organization Detail LastModifiedTime 06/24/19 25 06/23/2024 COLOG UARD cologuard result CANCEL LED - ORDER D not applic able Not Available [facility] [address], [place], [address], 06/23/2024 09:37:18 04/05/19 25 04/05/2024 COMPR EHENS TOMASA METAB OLIC PANEL sodium 141 mmol/ L 134-14 4 Not Available [facility] [address], [place], [address], 04/06/2024 14:21:11 04/05/19 25 04/05/2024 COMPR EHENS TOMASA METAB OLIC PANEL potassium 4.1 mmol/ L 3.5-5. 2 Not Available [facility] [address], [place], [address], 04/06/2024 14:21:11 04/05/19 25 04/05/2024 COMPR EHENS TOMASA METAB OLIC PANEL chloride 101 mmol/ L 98-107 Not Available [facility] [address] [facility] [address], [place], [address], 04/06/2024 14:21:11 04/05/19 25 04/05/2024 COMPR EHENS TOMASA METAB OLIC PANEL carbon dioxide (co2) 30.0 mmol/ L 18.0-2 9.0 high Not Available [facility] [address] [facility] [address], [place], [address], 04/06/2024 14:21:11 04/05/19 25 04/05/2024 COMPR EHENS TOMSAA METAB OLIC PANEL glucose 96 mg/dL 65-99 Jacque l Fasti n - 99 mg/dL Impai red Fasti n - 125 mg/dL Diagn ostic of Diabe marly: => 126 mg/dL Ameri can [facility], 2008 Not Available [facility] [address] [facility] [address], [place], [address], 04/06/2024 14:21:11 04/05/19 25 04/05/2024 COMPR EHENS TOMASA METAB OLIC PANEL urea nitrogen (BUN) 15 mg/dL 8-23 Not Available [facility] [address] [facility] [address], [place], [address], 04/06/2024 14:21:11 04/05/19 25 04/05/2024 COMPR EHENS TOMASA METAB OLIC PANEL creatinine 0.50 mg/dL 0.57-1 .00 low Not Available [facility] [address] [facility] [address], [place], [address], 04/06/2024 14:21:11 04/05/19 25 04/05/2024 COMPR EHENS TOMASA METAB OLIC PANEL eGFR 95 mL/mi nute/ 1.73_ m2 >59 MDRD Study Equat ion: The calcu lated GFR is NOT appli cable for pedia tric (< 18 years old) and > 70 year old patie nts and patie nts that are NOT of stead y state . Not Available [facility] [address] [facility] [address], [place], [address], 04/06/2024 14:21:11 04/05/19 25 04/05/2024 COMPR EHENS TOMASA METAB OLIC PANEL calcium 9.3 mg/dL 8.7-10 .3 Not Available [facility] [address] [facility] [address], [place], [address], 04/06/2024 14:21:11 04/05/19 25 04/05/2024 COMPR EHENS TOMASA METAB OLIC PANEL protein, total 6.5 gm/dL 6.4-8. 3 Not Available [facility] [address] [facility] [address], [place], [address], 04/06/2024 14:21:11 04/05/19 25 04/05/2024 COMPR EHENS TOMASA METAB OLIC PANEL albumin 4.1 gm/dL 3.5-5. 2 Not Available [facility] [address] [facility] [address], [place], [address], 04/06/2024 14:21:11 04/05/19 25 04/05/2024 COMPR EHENS TOMASA METAB OLIC PANEL bilirubin, total 0.20 mg/dL 0.00-1 .20 Not Available [facility] [address] [facility] [address], [place], [address], 04/06/2024 14:21:11 04/05/19 25 04/05/2024 COMPR EHENS TOMASA METAB OLIC PANEL alkaline phosphatase (ALP) 65 U/L 39-117 Not Available [facility] [address] [facility] [address], [place], [address], 04/06/2024 14:21:11 04/05/19 25 04/05/2024 COMPR EHENS TOMASA METAB OLIC PANEL aspartate aminotransfe rase (AST) 25 U/L 0-32 Not Available [facility] [address] [facility] [address], [place], [address], 04/06/2024 14:21:11 04/05/19 25 04/05/2024 COMPR EHENS TOMASA METAB OLIC PANEL alanine aminotransfe rase (ALT) 21 U/L 0-33 Not Available [place] [address] [facility] [address], [place], [address], 04/06/2024 14:21:11 04/05/19 25 04/05/2024 COMPR EHENS TOMASA METAB OLIC PANEL A/G ratio (calculated) 1.7 ratio 1.0-2. 7 Not Available [place] [address] [facility] [address], [place], [address], 04/06/2024 14:21:11 04/05/19 25 04/05/2024 COMPR EHENS TOMASA METAB OLIC PANEL globulin (calculated) 2.4 gm/dL 1.5-3. 8 Not Available [facility] [address], [place], [address], 04/06/2024 14:21:11 04/05/19 25 04/05/2024 COMPR EHENS TOMASA METAB OLIC PANEL BUN/creatini ne ratio (calculated) 30.0 ratio 8.0-20 .0 high Not Available [facility] [address], [place], [address], 04/06/2024 14:21:11 04/05/19 25 04/05/2024 COMPR EHENS TOMASA METAB OLIC PANEL serum hemolysis index NORMAL index normal Not Available [facility] [address], [place], [address], 04/06/2024 14:21:11 11/30/19 25 12/01/2024 D-DIM ER D-dimer 0.59 mg/L_ feu 0.00-0 .49 high Accor ding to the assay manuf actur er's publi shed packa ge inser t, a jacque l (<0.5 0 mg/L FEU) D-dim er resul t in conju nctio n with a non-h igh clini gino proba bilit y asses sment , exclu deloris deep vein throm bosis (DVT) and pulmo nary embol ism (PE) with high sensi tivit y. D-dim er value s incre ase with age and this can make VTE exclu evelyn of an older popul ation diffi cult. To addre ss this, the Ameri can Colle ge of Physi cians , based on best avail able evide nce and recen t guide lines , recom mends that clini cians use age-a djust ed D-dim er thres holds in patie nts great er than 50 years of age with: a) a low proba bilit y of PE who do not meet all Pulmo nary Embol ism Rule Out Crite erin, or b) in those with inter media te proba bilit y of PE. The formu la for an age-a djust ed D-dim er cut-o ff is age/ 100. For examp le, a 60 year old patie nt would have an age-a djust ed cut-o ff of 0.60 mg/L FEU and an 80 year old 0.80 mg/L FEU. Not Available [facility] [address], [place], [address], 12/01/2024 13:14:08 05/23/19 25 2024 [place], doppl er, venou s No observ ation record ed. [facility] [address], [place], [address], 07/05/2024 10:52:05 08/30/19 25 08/30/2024 elect adis aldrich am No observ ation record ed. [facility], [facility] [address], [place], [address], 11/29/2024 14:39:41 12/11/19 25 10/26/2024 jose metry testi ng* No observ ation record ed. [facility] Not Available 2024 21:33:54 Result Notes None recorded. Problems Name Problem SNOMED Code Status Onset Date Resolution Date Notes Provider Name and Address Organization Details Recorded Time Chronic obstructiv e pulmonary disease 08576141 Active Not Available [facility] 3 13:52:09 Diverticul itis 010686082 Completed 08/01/2015 Terra Rashid MD [address] [place], [place], [address] , [place] [facility] 6 09:23:19 Pulmonary emphysema 01752186 Active Not Available [facility] 3 13:52:10 Benign hypertensi on 46571798 Active Not Available [facility] 3 13:52:09 Blood glucose outside reference range 370168571 Active Not Available [facility] 3 13:52:09 Hyperlipid emia 23394719 Active Not Available [facility] 3 13:52:09 Neoplasm of liver 017333244 Completed 10/19/2019 Terra Rashid MD [address] [place], [place], [address] , [facility] 0 10:57:51 Osteopenia 475606649 Completed 08/01/2015 MD Brianda Rebollar[address] [place], [place], [address] , [facility] 6 09:26:25 Osteoporos is 79185617 Active Not Available [facility] 3 13:52:09 Simple renal cyst 62332907 Active Not Available [facility] 3 13:52:10 Diverticul ar disease of colon 482937165 Active 2015 Not Available [facility] 3 13:52:09 Hemangioma of liver 40730720 Active 2015 Not Available [facility] 3 13:52:10 Mixed anxiety and depressive disorder 464638784 Active 2016 Not Available [facility] 3 13:52:09 Ex-smoker 8962551 Active 2016 Not Available [facility] 3 13:52:10 Coronary arterioscl erosis 59084228 Active [address] chest 7 Not Available [facility] 3 13:52:09 Body mass index less than 20 391286010 Active 2018 Not Available [facility] 3 13:52:09 Osteoarthr itis 870980915 Active 2019 Not Available [facility] 3 13:52:09 COVID-19 293805572 Completed 202007/17/2020 Terra Rashid MD [address] [place], [place], [address] , [facility] 1 10:28:46 Allergic rhinitis caused by pollen 11911952 Active 2021 Not Available [facility] 3 13:52:09 Peripheral vascular disease 521990310 Active 2021 Not Available [facility] 3 13:52:09 Vitamin D deficiency 63603716 Active 2021 Not Available [facility] 3 13:52:09 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 365584905 Active 2022 Not Available [facility] 3 13:52:09 Cyst of kidney 103159220 Active [address] chest 3 Not Available [facility] 3 13:52:10 History of malignant neoplasm of skin 590258257 Active 2023 Terra Rashid MD [address] [place], [place], [address] , [facility] 4 11:09:16 Stasis dermatitis 54815764 Active 2024 Terra Rashid MD [address] [place], [place], [address] , [facility] 5 15:33:33 Severe chronic obstructiv e pulmonary disease 996354172 Active 2024 Terra Rashid MD [address] [place], [place], [address] , [facility] 5 15:35:02 D-dimer above reference range 495168616 Active 2024 Terra Rashid MD [address] [place], [place], [address] , [facility] 5 19:40:23 Problem Notes None recorded. Procedures Surgical History Date Name Laterality Status Provider Name and Address Organization Details Recorded Time 10/28/19 Date of Last Colonoscopy completed Shirley Ivey [facility] 05/13/2017 10:15:11 [facility] 08/01/2015 08:32:59 Imaging Results None recorded. Procedure Notes None recorded. Medical Equipment None Reported. Allergies Allergen ID Allergen Name Allergen Category Reaction Reaction Severity Criticality Documentation Date Start Date Code Code System Note Provider Name and Address Organization Details Recorded Time 2295 Augmentin medicatio n Not available Not available Not available 08/01/2015 59222 2 RxNorm Shirley Ivey [facility] 6 08:32:43 Medications Name Sig Start Date Stop Date Status Note LastModified by Organization Details LastModified Time magnesium citrate 1.745 gm/30ml soln 11/12 completed Not Available Not Available Not Available freestyle mis lancets 06/16 completed Not Available Not Available Not [...] t Available clindamycin HCl 300 mg capsule TAKE 1 CAPSULE BY MOUTH EVERY 8 HOURS FOR 10 DAYS 08/29 completed Not Available Not Available Not Available [...] 1 TABLET DAILY FOR 4 DAYS DIRECTED 07/05 completed Not Available Not Available Not Available ofloxacin 0.3 % eye drops 07/06 [...] azole 800 mg-trimetho prim 160 mg tablet TAKE 1 TABLET BY MOUTH EVERY 12 HOURS FOR 5 DAYS 07/31 completed Not Available Not Available Not [...] 1 TABLET BY MOUTH EVERYDAY AT BEDTIME 2024 active Not Available Not Available Not Avai lable carvedilol 3.125 mg tablet Take 1 tablet [...] CAPSULE BY MOUTH THREE TIMES A DAY 07/05 completed Not Available Not Available Not Available cephalexin 500 mg capsule TAKE 1 CAPSULE BY MOUTH EVERY 8 HOURS FOR 10 DAYS 07/05 completed Not Available Not Available Not Available oseltamivir 75 mg capsule Take 1 [...] BY MOUTH EVERY DAY IN THE MORNING 2024 active Not Available Not Available Not Avai lable montelukast 10 mg tablet TAKE 1 TABLET [...] Avai lable mupirocin 2 % topical ointment APPLY TO AFFECTED AREA TWICE A DAY active Not Available Not Available No t Available mirtazapine 15 mg tablet TAKE 1 TABLET BY MOUTH EVERYDAY AT BEDTIME 2024 active Not Available Not Available Not Avai lable metoprolol succinate ER 25 mg tablet,exte nded release 24 hr TAKE 1 AND 1/2 TABLETS BY MOUTH EVERY DAY IN THE MORNING 2024 active Not Available Not Available Not Avai lable levofloxaci n 500 mg tablet Take 1 tablet every 24 hours by oral route. 03/16 completed Not Available Not Available Not Available methylpredn isolone 4 mg tablets in a dose pack Take 1 dose pk by oral route as directed. 05/05 completed Not Available Not Available Not [...] BY MOUTH EVERY DAY IN THE MORNING 2024 active Not Available Not Available Not Avai lable fluticasone propionate 50 mcg/actuati on nasal spray,suspe nsion ADMINISTE R 1 SPRAY INTO EACH NOSTRIL EVERY DAY active Not Available Not Available No t Available cholecalcif emi (vitamin D3) 125 mcg (5,000 unit) capsule TAKE 1 CAPSULE BY MOUTH EVERY DAY active Not Available Not Available No t Available doxycycline hyclate 100 mg tablet TAKE 1 TABLET BY MOUTH TWICE A DAY 07/05 completed Not Available Not Available Not Available amoxicillin 875 mg-potassiu m clavulanate 125 mg tablet TAKE 1 TABLET BY MOUTH EVERY 12 HOURS X6 DAYS 07/05 completed Not Available Not Available Not Available [...] completed Not Available Not Available Not Available Aspercreme (lidocaine HCl) 4 % topical Apply 1 applicati on twice a day by topical route. 04/05 completed Not Available Not Available Not Available Trelegy Ellipta 100 mcg-62.5 mcg-25 mcg powder for inhalation INHALE 1 PUFF BY MOUTH EVERY DAY active Not Available Not Available No t Available Ensure Clear oral liquid Take 300 mL every day by oral route. 2024 active Not Available Not Available Not Avai lable Mylanta Gas Minis 42 mg chewable tablet Take 1 tablet every day by oral route at dinner for 90 days. 2020 active Not Available Not Available Not Avai lable Fluzone High-Dose Quad (PF) 240 mcg/0.7 mL IM syringe ADM 0.7ML IM UTD 12/16 completed Not Available Not Available Not Available Vitals Date Recorded Body height Body mass index (BMI) Body weight Body temperature Respiratory rate Heart rate Systolic And Diastolic Provider Name and Address Organization Details Last Updated DateTime 5 160.02 cm 14.7 kg/m2 59663.1 7 g 98.7 [degF] 18 /min 110 /min 175/89 mm[Hg] Herlinda Tobar [facility] 10:47:47 Date Recorded Systolic And Diastolic Provider Name and Address Organization Details Last Updated DateTime 07/05/2024 132/80 mm[Hg] Terra Rashid MD [address] [facility] [address], [place], [address], [facility] 07/05/2024 11:01:14 Date Recorded Body height Heart rate Respiratory rate Body mass index (BMI) Body weight Body temperature Provider Name and Address Organization Details Last Updated DateTime 5 160.02 cm 88 /min 18 /min 14.7 kg/m2 79453.1 7 g 98.7 [degF] Herlinda Tobar [facility] 10:41:10 Date Recorded Systolic And Diastolic Provider Name and Address Organization Details Last Updated DateTime 07/31/2024 135/86 mm[Hg] Terra Rashid MD [address] [address], [place], [address] 07/31/2024 15:35:52 Date Recorded Body height Body mass index (BMI) Body weight Body temperature Respiratory rate Heart rate Provider Name and Address Organization Details Last Updated DateTime 160.02 cm 14.5 kg/m2 14071.5 7 g 98.1 [degF] 18 /min 91 /min Herlinda Tobar [facility] 15:21:13 Date Recorded Systolic And Diastolic Provider Name and Address Organization Details Last Updated DateTime 08/29/2024 136/74 mm[Hg] Terra Rashid MD [address] [facility] [address], [place], [address] 08/29/2024 15:28:38 Date Recorded Body height Body temperature Body mass index (BMI) Body weight Heart rate Respiratory rate Provider Name and Address Organization Details Last Updated DateTime 5 160.02 cm 98.4 [degF] 14.7 kg/m2 64553.1 7 g 88 /min 18 /min Herlinda Tobar [facility] 15:10:37 Date Recorded Heart rate Provider Name an d Address Organization Details Last Updated DateTime 11/29/2024 96 /min Terra Rashid MD [address] [facility] [address], [place], [address] 11/29/2024 14:39:41 Date Recorded Body height Body mass index (BMI) Body weight Body temperature Respiratory rate Systolic And Diastolic Provider Name and Address Organization Details Last Updated DateTime 160.02 cm 14.2 kg/m2 82332.3 9 g 97.8 [degF] 18 /min 126/73 mm[Hg] Herlinda Tobar [facility] 14:19:04 Social History Question Answer Notes LastModified by Organizat ion Details LastModified Time Tobacco Smoking Status Former Smoker about 1PPD for over 30 years Grace Abebe martín [facility] 04/18/2020 10:01:14 Do You Have An Advance Directive? No [id number] Information not available 11/30/2019 What Is Your [...] 04/18/2020 Live Alone Or With Others? Alone [email or web address] Information not available 08/01/2015 What Was The Date Of Your Most Recent Tobacco Screening? 07/21/2018 [id number] Information not available 11/30/2019 Mother With HIV? [...] LastModified by Organization D etails LastModified Time What is your level of alcohol consumption? None [id number] Information not available 11/30/2019 Are you able to care for yourself independently? Yes Information not available 04/18/2020 Mental Status None recorded. Family History Relationship Description Onset Age of this Age Resolved Age Notes LastModified by Organization Details LastModified Time Father Coronary arterioscler osis 83 [email or web address] Not available 2015 08:33:25 Father Malignant neoplasm of prostate [email or web address] Not available 2015 08:33:34 Mother Coronary arterioscler osis 92 [email or web address] Not available 2015 08:33:25 Brother Coronary arterioscler osis [email or web address] Not available 2015 08:33:25 Brother Diabetes mellitus [email or web address] Not available 2015 08:33:41 Medical History Condition Response Coronary Artery Disease N Gout N Other N Blood Diseases N Kidney Stones N Hyperthyroidism N Blood Transfusion N Breast Cancer N Depression N COPD N Lung Disease N Hypothyroidism N Developmental or Behavioral Disorders N Defects or Inherited Disease N Breast Problem N Difficulty Swallowing N Anesthesia Complications N Meniere's disease N Anxiety Disorder N Muscle, Joint, or Bone Problems N Obesity N Vision or Eye Problems N Arthritis N Polyps N Infertility N Mental Disorder N Cancer N Varicosities N Stroke N Endometriosis N Bladder or Kidney Problems N High Cholesterol N Liver Disease N Headaches N Fibromyalgia N Kidney Disease N Allergies/Hayfever N Heart [...] Influenza, split virus, quadrivalent, preservative 5 completed MD Brianda Rebollar[address], [place], [address], [facility] 12/12/2022 14:04:19 pneumococcal polysaccharide PPV23 6 completed MD Ayden Rebollar [address], [place], [address], [facility] 12/12/2022 14:04:19 Influenza, split virus, quadrivalent, preservative 8 completed MD Ayden Rebollar [address], [place], [address], [facility] 12/12/2022 14:04:19 Influenza, split virus, quadrivalent, preservative 8 completed MD Ayden Rebollar [address], [place], [address], [facility] 12/12/2022 14:04:19 Influenza, split virus, quadrivalent, preservative 9 completed MD Ayden Rebollar [address], [place], [address], [facility] 12/12/2022 14:04:19 Influenza, split virus, quadrivalent, preservative 0 completed MD Ayden Rebollar [address], [place], [address], [facility] 12/12/2022 14:04:19 SARS-COV-2 (COVID-19) vaccine, UNSPECIFIED 1 completed MD Ayden Rebollar [address], [place], [address], [facility] 12/12/2022 14:04:19 Td(adult) unspecified formulation 6 completed MD Ayden Rebollar [address], [place], [address], [facility] 12/12/2022 14:04:19 Influenza, split virus, quadrivalent, preservative 1 completed MD Ayden Rebollar [address], [place], [address], [facility] 12/12/2022 14:04:19 Influenza, split virus, trivalent, preservative 6 completed Not Available [facility] 03/03/2019 02:27:19 Influenza, adjuvanted, quadrivalent, PF 3 completed MD [address], [place], [address], [facility] 12/12/2022 14:04:19 COVID-19, mRNA, LNP-S, PF, lakhwinder-sucrose, 30 mcg/0.3 mL 3 completed MD [address], [place], [address], [facility] 12/12/2022 14:04:19 Pneumococcal conjugate PCV20, polysaccharide DLE125 conjugate, adjuvant, PF 4 completed MD [address], [place], [address], [facility] 01/11/2024 17:30:57 Tdap 4 completed MD [address]den [address], [place], [address], [facility] 01/11/2024 17:30:57 Pneumococcal conjugate PCV 13 7 completed MD [address], [place], [address], [facility] 12/12/2022 14:04:19 Influenza, split virus, quadrivalent, preservative 7 completed MD Ayden [address], [place], [address], [facility] 12/12/2022 14:04:19 Past Encounters Encounter ID Performer Location Encounter Start Date Encounter Closed Date Diagnosis/Indication Diagnosis SNOMED-CT Code Diagnosis ICD10 Code Diagnosis IMO Codes Diagnosis Note [id number] Terra Rashid MD [facility], [facility] [address] [place] [address] 08/01/2015 08:59:01 08/01/2015 09:38:49 Benign hypertension 93278687 I10 Chronic ob structive pulmonary disease 25096591 J44.9 Osteopenia 539791494 M85 .80 Hyperlipidemia 98548435 E78.5 Active or passive immunization 136714388 Z23 Screening mammography 24 627349 Z12.31 Screening for malignant neoplasm of colon 137016450 Z12.11 Viral screening 45246832 4 Z11.59 Eruption 254237356 R21 [id number] Terra Rashid MD [facility], [place] [address] [address] [place] [address] 11/07/2015 09:05:03 11/07/2015 09:57:02 Benign hypertension 17558985 I10 Chronic ob structive pulmonary disease 87586120 J44.9 Gastroesop hageal reflux disease without esophagitis 674377716 K21.9 Active or passive immunization 904922501 Z23 Screening mammography 24 269578 Z12.31 [id number] Terra Rashid MD [facility], [address] ,[address] [address] 12/22/2015 09:55:08 12/22/2015 11:22:43 Eruption 288747022 R21 Gastritis caused by Helicobacter 88826361 B96.81 Diarrhea 81180254 R19.7 trial of viberzi // need C scope [id number] Terra Rashid MD [facility], [address] ,[address] [address] 02/04/2016 09:52:20 02/04/2016 11:00:21 Sinusitis 01967946 J32.9 Cough 26539111 R05 Benign hypertension 1072 5009 I10 [id number] Edwige Smith, [facility], [place] [address] [address] [place] [address] 03/10/2016 09:21:53 03/10/2016 10:44:31 Cough 57672426 R05 Acute bronchitis 0551754 2 J20.9 [id number] Terra Rashid MD [facility], [place] [address] [address] [place] [address] 03/17/2016 09:24:01 03/17/2016 10:22:41 Eruption 207922809 R21 Tobacco de pendence, continuous 431969242 F17.290 [id number] Terra Rashid MD [facility], [place] [address] [place] [address] 04/29/2016 09:21:17 04/29/2016 10:03:29 Cough 60148342 R05 Dyspnea 229239871 R06.00 O2 is 97% Wheezing 75486417 R06.2 Pulmonary emphysema 8743 3001 J43.9 Blood gluc ose outside reference range 784653652 R73.09 Benign hypertension 1072 5009 I10 Screening for malignant neoplasm of colon 228511601 Z12.11 Active or passive immunization 787483165 Z23 [id number] Edwige Smith, [facility], [place] [address] [place] [address] 06/18/2016 09:55:43 06/18/2016 10:44:02 Acute bronchitis 68506350 J20.9 Blood gluc ose outside reference range 690708108 R73.09 BS today 120 1 hour pp Probably increased due to bronchitis . Patient asking about diabetic diet. She agrees to diabetic education class offer here. [id number] Terra Rashid MD [facility], [facility] [place] [address] 06/28/2016 10:48:07 06/28/2016 11:46:49 Pneumonia 061333561 J18.9 cont' Abx and prednisone , CXR 6 weeks Hyponatremia 16729170 E8 7.1 Benign hypertension 1072 5009 I10 Chronic ob structive pulmonary disease 00903518 J44.9 [facility] risk for readmission to hospital 8456471657 100 Z91.89 [id number] Terra Rashid MD [facility], [facility] [place] [address] 08/06/2016 10:15:20 08/06/2016 11:09:34 Benign hypertension 88080676 I10 Hyperlipidemia 41988050 E78.5 Pulmonary emphysema 8743 3001 J43.9 Osteoporosis 30882167 M8 1.0 Screening mammography 24 057987 Z12.31 Screening for malignant neoplasm of cervix 548304757 Z12.4 Screening for malignant neoplasm of colon 177880925 Z12.11 Active or passive immunization 307674709 Z23 [id number] Terra Rashid MD [employer] [facility] [employer], [place] [address] [place] [address] 11/12/2016 09:16:28 11/12/2016 10:32:13 Adult health examination 415149332 Z00.00 Benign hypertension 1072 5009 I10 will change to coreg //BP 2 weeks Mixed anxi ety and depressive disorder 225824632 F41.8 Chronic ob structive pulmonary disease 44780537 J44.9 stable for now Hyperlipidemia 69821386 E78.5 last LDL 08/06/16 @ goal Osteoporosis 29970174 M8 1.0 last DEXA 04/18/15 Pulmonary emphysema 8743 3001 J43.9 stable Hemangioma of liver 9346 9006 D18.03 Diverticul ar disease of colon 631496899 K57.30 Blood gluc ose outside reference range 077783504 R73.09 check BG BID PRN R/O hypo Screening for malignant neoplasm of colon 160120388 Z12.11 last C scope 11/06/16 , recheck 2020 Screening mammography 24 765499 Z12.31 Screening for malignant neoplasm of cervix 540767256 Z12.4 Active or passive immunization 125675857 Z23 flu [id number] Terra Rashid MD [facility] [place] [employer], [place] [address] [place] [address] 01/05/2017 11:08:04 01/05/2017 12:20:45 Acute exacerbation of chronic obstructive pulmonary disease 417178229 J44.1 had in pt care for 4 daysstill on prednisone and DESMOND PRNon LABA,LAMA, ICS , and daliresppu lm eval Mixed anxi ety and depressive disorder 337259229 F41.8 add lorazepam .25 PRN QD [id number] Terra Rashid MD [employer] [facility] [place] [address] 02/11/2017 10:02:20 02/11/2017 10:49:43 Pulmonary emphysema 97020971 J43.9 with exacerbati on , started 1-2 days ago Osteopenia 816486853 M85 .80 Benign hypertension 1072 5009 I10 Chronic ob structive pulmonary disease 32337944 J44.9 stable for now Superficia l ecchymosis 116358590 R58 [id number] LAWRENCE CEDILLO APN [facility], [address] [place] [address] 04/08/2017 09:52:46 04/08/2017 10:58:11 Swelling of ankle joint 792622711 M25.472 Benign hypertension 1072 5009 I10 Chronic ob structive pulmonary disease 94035451 J44.9 Hyperlipidemia 27962215 E78.5 Cellulitis of lower limb 541383681 L03.119 [id number] Terra Rashid MD [facility], [address] [place] [address] 05/13/2017 09:50:04 05/13/2017 10:57:12 Coronary arteriosclerosis 82738645 I25.10 Benign hypertension 1072 5009 I10 Chronic ob structive pulmonary disease 36858720 J44.9 stable for now Hyperlipidemia 39157602 E78.5 last LDL 08/06/16 @ goal Blood gluc ose outside reference range 246650958 R73.09 check BG BID PRN R/O hypo Osteoporosis 73476168 M8 1.0 last DEXA 04/18/15 Screening for malignant neoplasm of colon 575871617 Z12.11 last C scope 11/06/16 , recheck 2020 Screening mammography 24 963320 Z12.31 Screening for malignant neoplasm of cervix 500174171 Z12.4 Active or passive immunization 658667256 Z23 flu [id number] LAWRENCE CEDILLO APN [facility], [address] [place] [address] 07/15/2017 11:32:07 07/15/2017 12:24:14 Easy bruising 615366857 R58 bilateral forearms -may use vit C daily, bilberry extract (use with caution may cause hypoglycem ia), aloe vera, arnica [place] [id number] Terra Rashid MD [facility], [address] [place] [address] 08/26/2017 11:18:34 08/26/2017 12:28:41 Benign hypertension 44318423 I10 Hyperlipidemia 91308724 E78.5 last LDL 08/06/16 @ goal Coronary arteriosclerosis 03817586 I25.10 sees cardiology on reg basis Chronic ob structive pulmonary disease 30715380 J44.9 stable for now Screening mammography 24 309877 Z12.31 Screening for malignant neoplasm of cervix 528410358 Z12.4 Screening for malignant neoplasm of colon 023216364 Z12.11 last C scope 11/06/16 , recheck 2020 Active or passive immunization 409540099 Z23 flu [id number] Terra Rashid MD [facility], [facility] [place] [address] 12/02/2017 09:20:10 12/02/2017 10:07:02 Chronic obstructive pulmonary disease 88938378 J44.9 stable for now Benign hypertension 1072 5009 I10 Hyperlipidemia 41084228 E78.5 last LDL 04/2017 @ goal Osteoporosis 68051281 M8 1.0 last DEXA 05/13/17 Mixed anxi ety and depressive disorder 511030495 F41.8 No SI , No HI Screening mammography 24 961383 Z12.31 Screening for malignant neoplasm of cervix 287088467 Z12.4 Active or passive immunization 963522782 Z23 flu [id number] LAWRENCE CEDILLO APN [facility], [place] [address] [place] [address] 01/23/2018 09:29:56 01/23/2018 10:16:12 Cough 63637579 R05 completed abxcontinu es to experience cough -denies sob or wheezing Chronic ob structive pulmonary disease 92396189 J44.9 [id number] Terra Rashid MD [facility], [facility] [place] [address] 04/07/2018 10:11:13 04/07/2018 11:08:49 Benign hypertension 43434174 I10 increase carvedilol to 6.25 Coronary arteriosclerosis 57322714 I25.10 sees cardiology on reg basis Hyperlipidemia 28009950 E78.5 last LDL 04/2017 @ goal Osteoporosis 32206761 M8 1.0 last DEXA 3/30/18 Mixed anxi ety and depressive disorder 547222338 F41.8 No SI , No HI Chronic ob structive pulmonary disease 40511582 J44.9 stable for now Screening mammography 24 943347 Z12.31 Screening for malignant neoplasm of cervix 522570090 Z12.4 Screening for malignant neoplasm of colon 925348099 Z12.11 last C scope 11/06/16 , recheck 2020 Active or passive immunization 313857678 Z23 flu Eruption 598949485 R21 [id number] LAWRENCE CEDILLO APN [facility] [place] [facility], [place] [address] [address] [place] [address] 05/15/2018 09:52:02 05/15/2018 10:22:00 Follow-up visit 265523936 Z09 Chronic ob structive pulmonary disease 70920083 J44.9 cefdinir and prednisone rx not covering spiriva as per pthas not used proair since dc from hospital === feeling much bettero2 95% Benign hypertension 1072 5009 I10 Coronary arteriosclerosis 57502682 I25.10 Leukocytosis 632299628 D 72.829 could be due to IV and oral steroidno signs of infectionf ollow up after steroid taper Mixed anxi ety and depressive disorder 999414627 F41.8 Hyperlipidemia 86778985 E78.5 Antiplatel et agent therapy 389515565 Z79.02 Gastroesop hageal reflux disease without esophagitis 203722168 K21.9 Osteoporosis 49333512 M8 1.0 [id number] LAWRENCE CEDILLO APN [facility] [place] [facility], [place] [address] [address] [place] [address] 07/12/2018 14:38:58 07/12/2018 15:47:52 Cellulitis of lower limb 044203833 L03.119 right ankle - started tuesday -edema and heatappt 07/21/18 will be kept for eval Benign hypertension 1072 5009 I10 stable on current regimen Chronic ob structive pulmonary disease 71715125 J44.9 has seen pulm - follow up 07/30/18 -trelegy -dc symbicort and spiriva Ankle edema 27391725 R60 .0 right ankle [id number] Terra Rashid MD [facility], [place] [address] [address] [place] [address] 07/21/2018 12:31:21 07/21/2018 13:13:07 Cellulitis of lower limb 249526898 L03.119 Superficia l ecchymosis 902948313 R58 decrease ASA to QOD , moistrizur e BID Chronic ob structive pulmonary disease 97782496 J44.9 stable for now Benign hypertension 1072 5009 I10 good control Screening mammography 24 038695 Z12.31 Screening for malignant neoplasm of cervix 663265800 Z12.4 Screening for malignant neoplasm of colon 829781095 Z12.11 last C scope 11/06/16 , recheck 2020 Active or passive immunization 183684527 Z23 flu [id number] Terra Rashid MD [facility] [facility] [place] [address] 10/13/2018 11:25:59 10/13/2018 12:23:31 Benign hypertension 41153629 I10 good control Osteoporosis 19051180 M8 1.0 last DEXA 05/13/17 Hyperlipidemia 66751262 E78.5 last LDL 04/2017 @ goal Chronic ob structive pulmonary disease 67619599 J44.9 stable for nowlast PFT 03/2018 Ex-smoker 6194301 Z87.89 1 quit 2018having LDCT with pulm Screening mammography 24 933093 Z12.31 Screening for malignant neoplasm of cervix 768604899 Z12.4 Screening for malignant neoplasm of colon 949708280 Z12.11 last C scope 11/06/16 , recheck 2020 Adult heal th examination 732667053 Z00.01 Active or passive immunization 400541782 Z23 flu Coronary arteriosclerosis 76901738 I25.10 sees cardiology on reg basis Hemangioma of liver 9346 9006 D18.03 on US 11/11/16 Diverticul ar disease of colon 731089119 K57.30 asymptomat ic Mixed anxi ety and depressive disorder 260496811 F41.8 No SI , No [place] [id number] Terra Rashid MD [facility] [place] [address] 01/18/2019 10:08:10 01/18/2019 10:56:50 Benign hypertension 32881205 I10 good control , will change coreg to metoprolol BP,Pulse 2 weeks Blood gluc ose outside reference range 448806402 R73.09 check BG BID PRN R/O hypo Body mass index less than 20 465084989 Z68.1 Chronic ob structive pulmonary disease 42252259 J44.9 stable for nowlast PFT 03/2018 Coronary arteriosclerosis 71114515 I25.10 sees cardiology on reg basis Hyperlipidemia 80815419 E78.5 last LDL 03/2018 @ goal Mixed anxi ety and depressive disorder 713312118 F41.8 No SI , No HI Osteoporosis 34848852 M8 1.0 last DEXA 05/13/17 Screening mammography 24 908493 Z12.31 Screening for malignant neoplasm of cervix 497386235 Z12.4 Screening for malignant neoplasm of colon 545115062 Z12.11 last C scope 11/06/16 , recheck 2020 Active or passive immunization 513770599 Z23 [id number] Terra Rashid MD [facility], [place] [address] [place] [address] 04/20/2019 10:02:17 04/20/2019 10:33:41 Benign hypertension 37194498 I10 good control ,BP,Pulse 2 weeks Chronic ob structive pulmonary disease 70133666 J44.9 stable for nowlast PFT 03/2018 Coronary arteriosclerosis 55597590 I25.10 sees cardiology on reg basis Hyperlipidemia 46334476 E78.5 last LDL 01/2019 @ goal Mixed anxi ety and depressive disorder 743405368 F41.8 No SI , No HI Osteoporosis 05458860 M8 1.0 last DEXA 05/13/17 Pruritic rash 09138647 L 28.2 Screening mammography 24 436760 Z12.31 Screening for malignant neoplasm of cervix 527047803 Z12.4 Screening for malignant neoplasm of colon 897677572 Z12.11 last C scope 11/06/16 , recheck 2020 Active or passive immunization 484386372 Z23 [id number] Terra Rashid MD [facility], [place] [address] [address] [place] [address] 07/20/2019 10:09:47 07/20/2019 10:53:44 Benign hypertension 09611863 I10 good control ,increase metoprolol to 1.5 tab QAM BP , Pulse 2 weeks Body mass index less than 20 918581125 Z68.1 education Blood gluc ose outside reference range 955419961 R73.09 check BG BID PRN R/O hypo Chronic ob structive pulmonary disease 94150225 J44.9 stable for nowlast PFT 03/2018 Coronary arteriosclerosis 18338285 I25.10 sees cardiology on reg basis Hyperlipidemia 40054365 E78.5 last LDL 01/2019 @ goal Mixed anxi ety and depressive disorder 963820506 F41.8 No SI , No HI Osteoporosis 54884475 M8 1.0 last DEXA 05/13/17las t Vit D level 04/20/19 Screening mammography 24 559523 Z12.31 Screening for malignant neoplasm of cervix 833031639 Z12.4 Screening for malignant neoplasm of colon 197136393 Z12.11 last C scope 11/06/16 , recheck 2020 Active or passive immunization 469778490 Z23 Eruption 556164750 R21 [id number] Terra Rashid MD [facility] [place] [facility], [address] [address] 10/19/2019 10:18:07 10/19/2019 11:11:51 Benign hypertension 54406713 I10 good control ,BP , Pulse 2 weeks Hyperlipidemia 87563303 E78.5 last LDL 07/20/19 @ goal Osteoporosis 39670444 M8 1.0 last DEXA 07/20/19last Vit D level 04/20/19 Chronic ob structive pulmonary disease 74907566 J44.9 stable for nowlast PFT 07/20/19 Screening mammography 24 647164 Z12.31 Screening for malignant neoplasm of cervix 816846261 Z12.4 Screening for malignant neoplasm of colon 275775546 Z12.11 last C scope 11/06/16 , recheck 2020 Active or passive immunization 491679612 Z23 flu shot Adult heal th examination 152306402 Z00.01 Mixed anxi ety and depressive disorder 955130415 F41.8 No SI , No HI Pulmonary emphysema 8743 3001 J43.9 with exacerbati on , started 1-2 days ago Simple renal cyst 061489 09 N28.1 Ex-smoker 9225782 Z87.89 1 quit 2018having LDCT with pulm Hemangioma of liver 9346 9006 D18.03 on US 11/11/16 Diverticul ar disease of colon 179079589 K57.30 asymptomat ic Coronary arteriosclerosis 34875640 I25.10 sees cardiology on reg basis Blood gluc ose outside reference range 057616727 R73.09 check BG BID PRN R/O hypo Eruption 967926188 R21 [id number] Terra Rashid MD [employer], [place] [address] [place] [address] 01/18/2020 10:15:45 01/18/2020 10:55:46 Tachycardia 8913037 R00.0 Benign hypertension 1072 5009 I10 good control ,BP , Pulse 2 weeks Chronic ob structive pulmonary disease 71901324 J44.9 stable for nowlast PFT 07/20/19 Hyperlipidemia 73766675 E78.5 last LDL 07/20/19 @ goal Mixed anxi ety and depressive disorder 431661935 F41.8 No SI , No HI Osteoporosis 96121165 M8 1.0 last DEXA 07/20/19last Vit D level 10/19/19 Screening mammography 24 964109 Z12.31 Screening for malignant neoplasm of cervix 028066560 Z12.4 Screening for malignant neoplasm of colon 310942901 Z12.11 last C scope 11/06/16 , recheck 2019 Active or passive immunization 482445380 Z23 flu shot COVID-19 110518812 U07.1 test +ve 12/30/19 , asymptomat ic now , O2 is 97% on RA [id number] Terra Rashid MD [employer] [address] [place] [address] 04/18/2020 09:55:13 04/18/2020 10:21:59 Benign hypertension 53097243 I10 good control ,BP , Pulse 2 weeks Body mass index less than 20 327971648 Z68.1 education Chronic ob structive pulmonary disease 24093686 J44.9 stable for nowlast PFT 07/20/19 Coronary arteriosclerosis 84565619 I25.10 sees cardiology on reg basis Diverticul ar disease of colon 294396051 K57.30 asymptomat ic Hyperlipidemia 19096673 E78.5 last LDL 07/20/19 @ goal Mixed anxi ety and depressive disorder 425214059 F41.8 No SI , No HI Osteoporosis 95317719 M8 1.0 last DEXA 07/20/19last Vit D level 10/19/19 Congestion of nasal sinus 63777509 R09.81 Pneumonia 154615648 J18. 9 cont' Abx and prednisone , CXR 6 weeks Screening mammography 24 320650 Z12.31 Screening for malignant neoplasm of cervix 762865150 Z12.4 Screening for malignant neoplasm of colon 797624624 Z12.11 last C scope 11/06/16 , recheck 2020 Active or passive immunization 728525029 Z23 had flu shot 10/2019 [id number] Terra Rashid MD [employer], [place] [address] [place] [address] 07/17/2020 10:11:48 07/17/2020 10:48:10 Chronic obstructive pulmonary disease 45725690 J44.9 stable for nowlast PFT 07/20/19 Body mass index less than 20 901768671 Z68.1 education Benign hypertension 1072 5009 I10 good control ,BP , Pulse 2 weeks Coronary arteriosclerosis 10446482 I25.10 sees cardiology on reg basis Osteoporosis 10585702 M8 1.0 last DEXA 07/20/19 last Vit D level 04/18/20 Distension of abdomen caused by intestinal gas 684421507 R14.0 Screening mammography 24 568014 Z12.31 last mammogram 04/23/20 Screening for malignant neoplasm of cervix 765463247 Z12.4 Screening for malignant neoplasm of colon 159727341 Z12.11 last C scope 11/06/16 , recheck 2020 Active or passive immunization 664676485 Z23 had flu shot 10/2019 Pruritic rash 41967264 L 28.2 Hyperlipidemia 39650718 E78.5 last LDL 04/18/20 @ goal [id number] Terra Rashid MD [employer], [place] [address] [place] [address] 10/17/2020 10:15:52 10/17/2020 11:29:05 Hyperlipidemia 44030131 E78.5 last LDL 04/18/20 @ goal Mixed anxi ety and depressive disorder 138502410 F41.8 No SI , No HI Osteoporosis 76267675 M8 1.0 last DEXA 07/20/19 last Vit D level 04/18/20 Benign hypertension 1072 5009 I10 good control ,BP , Pulse 2 weeksEKG 01/18/2020 Body mass index less than 20 730572164 Z68.1 education Chronic ob structive pulmonary disease 59200551 J44.9 stable for nowlast PFT 07/20/19 Coronary arteriosclerosis 87552213 I25.10 sees cardiology on reg basis Screening mammography 24 108309 Z12.31 last mammogram 04/23/20 Screening for malignant neoplasm of cervix 935217140 Z12.4 Screening for malignant neoplasm of colon 318952661 Z12.11 last C scope 11/06/16 , recheck 2019 Active or passive immunization 364276294 Z23 had flu shot 10/2019 [id number] Terra Rashid MD [place] [email or web address], [place] [address] [facility] [place] ,[address] [address] 01/16/2021 10:29:29 01/16/2021 11:12:27 Adult health examination 705622197 Z00.01 Benign hypertension 1072 5009 I10 good control ,BP , Pulse 2 weeksEKG 01/18/2020 Blood gluc ose outside reference range 390397690 R73.09 check BG BID PRN R/O hypo Body mass index less than 20 273307813 Z68.1 education Chronic ob structive pulmonary disease 36581264 J44.9 stable for nowlast PFT 2020 per Pt Coronary arteriosclerosis 20391493 I25.10 sees cardiology on reg basis Diverticul ar disease of colon 149868427 K57.30 asymptomat ic Ex-smoker 5899927 Z87.89 1 quit 2018having LDCT with pulm Hemangioma of liver 9346 9006 D18.03 on US 11/11/16 Hyperlipidemia 89318068 E78.5 last LDL 10/17/20 @ goal Mixed anxi ety and depressive disorder 513855249 F41.8 No SI , No HI 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 Osteoporosis 33662400 M8 1.0 last DEXA 07/20/19 last Vit D level 10/17/20 Pulmonary emphysema 8743 3001 J43.9 with exacerbati on , started 1-2 days ago Simple renal cyst 273510 09 N28.1 stable Screening mammography 24 418471 Z12.31 last mammogram 04/23/20 Screening for malignant neoplasm of cervix 435256950 Z12.4 Screening for malignant neoplasm of colon 641142670 Z12.11 last C scope 11/06/16 , recheck 2020 Active or passive immunization 227102454 Z23 had flu shot 10/2019 Urgent deloris adrianne to urinate 03166269 R39.15 [id number] Terra Rashid MD [facility] [employer] [facility], [employer] [address] [place] [address] 04/17/2021 10:49:10 04/17/2021 11:32:50 Chronic obstructive pulmonary disease 46089956 J44.9 stable for nowlast PFT 2020 per Pt Localized eruption of skin 855720227 R21 Hyperlipidemia 90556545 E78.5 last LDL 10/17/20 @ goal Mixed anxi ety and depressive disorder 967953938 F41.8 No SI , No HI Osteoporosis 17104081 M8 1.0 last DEXA 07/20/19 last Vit D level 10/17/20 Benign hypertension 1072 5009 I10 good control ,BP , Pulse 2 weeksEKG 01/21/21 Screening mammography 24 832682 Z12.31 last mammogram 04/23/20 Screening for malignant neoplasm of cervix 246044312 Z12.4 Screening for malignant neoplasm of colon 514303852 Z12.11 last C scope 11/06/16 , recheck 2020 Active or passive immunization 840818601 Z23 had flu shot 10/2020210 Terra Rashid MD [employer] [employer] [facility], [employer] [facility] [place] [address] 05/05/2021 14:37:56 05/05/2021 15:16:35 Localized eruption of skin 746263052 R21 [id number] Terra Rashid MD [employer], [employer] [facility] [address] [place] [address] 07/20/2021 10:49:44 07/20/2021 11:38:34 Benign hypertension 71814828 I10 good control ,BP , Pulse 2 weeksEKG 01/21/21 Blood gluc ose outside reference range 726136189 R73.09 check BG BID PRN R/O hypo Body mass index less than 20 665773559 Z68.1 education Chronic ob structive pulmonary disease 18207459 J44.9 stable for nowlast PFT 2020 per Pt Coronary arteriosclerosis 98910026 I25.10 sees cardiology on reg basis Hyperlipidemia 37687628 E78.5 last LDL 04/17/21 @ goal Osteoporosis 57958749 M8 1.0 last DEXA 07/20/19 last Vit D level 05/17/21 Screening mammography 24 662597 Z12.31 last mammogram 04/2020 Screening for malignant neoplasm of cervix 157945415 Z12.4 Screening for malignant neoplasm of colon 242576059 Z12.11 last C scope 11/06/16 , recheck 2020 Active or passive immunization 154401126 Z23 had flu shot 10/2020 Localized eruption of skin 631725090 R21 arms Advance di rective discussed with patient 664246825 Z71.89 education Allergic r hinitis caused by pollen 11411801 J30.1 [id number] Terra Rashid MD [facility], [place] [address] [facility] ,[address] [address] 10/26/2021 11:13:03 10/26/2021 12:14:15 Chronic obstructive pulmonary disease 40270010 J44.9 stable for nowlast PFT 2020 per Pt Body mass index less than 20 256346692 Z68.1 education Benign hypertension 1072 5009 I10 good control ,BP , Pulse 2 weeksEKG 01/21/21 Coronary arteriosclerosis 35561291 I25.10 sees cardiology on reg basis Hyperlipidemia 93979578 E78.5 last LDL 04/17/21 @ goal Osteoporosis 63693990 M8 1.0 last DEXA 07/20/19 last Vit D level 05/17/21 Screening mammography 24 706555 Z12.31 last mammogram 04/2020 Screening for malignant neoplasm of cervix 984799927 Z12.4 Screening for malignant neoplasm of colon 471206543 Z12.11 last C scope 11/06/16 , recheck 2020 Active or passive immunization 806309448 Z23 had flu shot 10/2020 [id number] Terra Rashid MD [facility], [place] [address] [facility] [place] ,[address] [address] 01/25/2022 11:19:27 01/25/2022 12:34:50 Adult health examination 703390268 Z00.01 Peripheral vascular disease 255229509 I73.9 mild on screening on house call ABIrecheck education about use ASA 81 QD Benign hypertension 1072 5009 I10 good control ,BP , Pulse 2 weeksEKG 01/21/21 Allergic r hinitis caused by pollen 60818803 J30.1 Blood gluc ose outside reference range 111061228 R73.09 check BG BID PRN R/O hypo Body mass index less than 20 634726152 Z68.1 education Chronic ob structive pulmonary disease 15234483 J44.9 stable for nowlast PFT 10/26/21 Coronary arteriosclerosis 07920122 I25.10 sees cardiology on reg basis Diverticul ar disease of colon 067137420 K57.30 asymptomat ic Ex-smoker 9646213 Z87.89 1 quit 2019having LDCT with pulm Hemangioma of liver 9346 9006 D18.03 on US 11/11/16 Hyperlipidemia 37499373 E78.5 last LDL 04/17/21 @ goal Mixed anxi ety and depressive disorder 409368243 F41.8 No SI , No HI 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 Osteoporosis 83332228 M8 1.0 last DEXA 07/20/19 last Vit D level 05/17/21 Pulmonary emphysema 8743 3001 J43.9 with exacerbati on , started 1-2 days ago Simple renal cyst 677892 09 N28.1 stable Vitamin D deficiency 347 51650 E55.9 Screening mammography 24 530051 Z12.31 last mammogram 04/2020 Screening for malignant neoplasm of cervix 917407827 Z12.4 asymptomat ic Active or passive immunization 061491053 Z23 had flu shot 10/2020 Screening for malignant neoplasm of colon 417254303 Z12.11 last C scope 11/06/16 , recheck 2020 Pharyngitis 550212316 J0 2.9 Localized eruption of skin 871613806 R21 arms [id number] Terra Rashid MD [facility], [place] [address] [address] [place] [address] 03/04/2022 10:18:18 03/04/2022 12:06:47 Cough 03329485 R05.9 O2 id 93 % on RA Chronic ob structive pulmonary disease 47270675 J44.9 stable for nowlast PFT 10/26/21 [id number] Terra Rashid MD [facility], [place] [address] [address] [place] [address] 04/26/2022 11:47:21 04/26/2022 12:41:09 Localized eruption of skin 582026679 R21 calf Age relate d macular degeneration 659892394 H35.30 seen ophthgetti ng shots now Preoperati ve cardiovascular examination 157111177 Z01.810 OK for cataract under MAC Chronic ob structive pulmonary disease 89924100 J44.9 stable for nowlast PFT 10/26/21 Screening mammography 24 343843 Z12.31 last mammogram 04/2020 Screening for malignant neoplasm of cervix 389052274 Z12.4 asymptomat ic Screening for malignant neoplasm of colon 487499650 Z12.11 last C scope 11/06/16 , recheck 2019 Active or passive immunization 718041211 Z23 did not get flu shot this year Benign hypertension 1072 5009 I10 good control ,BP , Pulse 2 weeksEKG 01/25/22 [id number] Terra Rashid MD [facility], [place] [address] [address] [place] [address] 07/27/2022 12:40:41 07/27/2022 13:54:15 Benign hypertension 42577619 I10 good control ,BP , Pulse 2 weeksEKG 01/25/22 Body mass index less than 20 779674759 Z68.1 education Chronic ob structive pulmonary disease 88183308 J44.9 stable for nowlast PFT 10/26/21 Coronary arteriosclerosis 76701785 I25.10 sees cardiology on reg basis Hyperlipidemia 46261230 E78.5 last LDL 01/25/22 @ goal Osteoporosis 15376763 M8 1.0 last DEXA 07/20/19 last Vit D level 05/17/21 Vitamin D deficiency 347 60298 E55.9 Screening mammography 24 601870 Z12.31 last mammogram 07/01/22 Screening for malignant neoplasm of cervix 500817650 Z12.4 asymptomat ic Screening for malignant neoplasm of colon 142004039 Z12.11 last C scope 11/06/16 , recheck 2020 Active or passive immunization 066150507 Z23 did not get flu shot this year [id number] Terra Rashid MD [employer], [place] [address] [address] [place] [address] 10/26/2022 15:17:35 10/26/2022 19:00:20 Benign hypertension 88923528 I10 good control ,BP , Pulse 2 weeksEKG 01/25/22 Chronic ob structive pulmonary disease 82379574 J44.9 stable for nowlast PFT 10/26/21 Coronary arteriosclerosis 31806597 I25.10 sees cardiology on reg basis Hyperlipidemia 16224097 E78.5 last LDL 01/25/22 @ goal Mixed anxi ety and depressive disorder 586518884 F41.8 No SI , No HI Osteoporosis 51312668 M8 1.0 last DEXA 07/20/19 last Vit D level 05/17/21 Peripheral vascular disease 999668765 I73.9 mild on screening on house call ABIrecck education about use ASA 81 QD Localized eruption of skin 429687164 R21 calf Screening mammography 24 838668 Z12.31 last mammogram 07/01/22 Screening for malignant neoplasm of cervix 917316251 Z12.4 asymptomat ic Screening for malignant neoplasm of colon 435983552 Z12.11 last C scope 11/06/16 , recheck 2020 Active or passive immunization 223449274 Z23 did not get flu shot this year [id number] Terra Rashid MD [employer], [place] [address] [address] ,[address] [place] [address] 01/25/2023 10:53:53 01/25/2023 12:07:27 Adult health examination 361588977 Z00.01 Benign hypertension 1072 5009 I10 good control ,BP , Pulse 2 weeksEKG 01/25/22 Allergic r hinitis caused by pollen 30717273 J30.1 Body mass index less than 20 946252461 Z68.1 education Blood gluc ose outside reference range 385977267 R73.09 check BG BID PRN R/O hypo Chronic ob structive pulmonary disease 90537732 J44.9 stable for nowlast PFT 10/26/21 Coronary arteriosclerosis 40580900 I25.10 sees cardiology on reg basis Cyst of kidney 020734981 N28.1 Diverticul ar disease of colon 943864473 K57.30 asymptomat ic Ex-smoker 8346328 Z87.89 1 quit 2019last LDCT 07/01/22 Hemangioma of liver 9346 9006 D18.03 on US 11/11/16 Hyperlipidemia 59663400 E78.5 last LDL 01/25/22 @ goal Mixed anxi ety and depressive disorder 310141469 F41.8 No SI , No HI 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 760166340 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 Osteoporosis 53010373 M8 1.0 last DEXA 08/10/22 last Vit D level 05/17/21 Peripheral vascular disease 742809063 I73.9 mild on screening on house call ABIlast BRIAN 03/04/22edu cation about use ASA 81 QD Pulmonary emphysema 8743 3001 J43.9 with exacerbati on , started 1-2 days ago Vitamin D deficiency 347 33031 E55.9 Screening mammography 24 816383 Z12.31 last mammogram 07/01/22 Screening for malignant neoplasm of cervix 638906771 Z12.4 asymptomat ic Screening for malignant neoplasm of colon 536721033 Z12.11 last C scope 11/06/16 , recheck 2019 Active or passive immunization 205611028 Z23 up to date Advance di rective discussed with patient 165479269 Z71.89 education Localized eruption of skin 656610653 R21 arms [id number] Terra Rashid MD [employer] [place] [email or web address], [employer] [facility] [place] ,[address] [address] 04/22/2023 10:32:19 04/22/2023 11:36:50 Benign hypertension 47156875 I10 good control ,BP , Pulse 2 weeksEKG 01/25/22 Body mass index less than 20 347403467 Z68.1 education Chronic ob structive pulmonary disease 07536438 J44.9 stable for nowlast PFT 10/26/21 Hyperlipidemia 48260613 E78.5 last LDL 01/25/23 @ goal Mixed anxi ety and depressive disorder 621231006 F41.8 No SI , No HI Osteoporosis 50643821 M8 1.0 last DEXA 08/10/22 last Vit D level 01/25/23 Peripheral vascular disease 640345118 I73.9 mild on screening on house call ABIlast BRIAN 02/2023educ ation about use ASA 81 QD Screening mammography 24 017013 Z12.31 last mammogram 07/01/22 Screening for malignant neoplasm of cervix 807933872 Z12.4 asymptomat ic Screening for malignant neoplasm of colon 711304113 Z12.11 last C scope 11/06/16 , recheck 2020declin e C scope Active or passive immunization 929578636 Z23 up to date Ex-smoker 9944407 Z87.89 1 quit 2019last LDCT 07/01/22 Easy bruising 076484091 R58 History of malignant neoplasm of skin 225073071 Z85.828 per pt [id number] Terra Rashid MD [facility] [facility], [employer] [address] [facility] [address] [address] 06/24/2023 10:38:31 06/24/2023 11:35:49 Chronic obstructive pulmonary disease 50502765 J44.9 stable for nowseen pulm 06/2023last PFT 05/2023 Hyperlipidemia 81416301 E78.5 last LDL 01/25/23 @ goal Mixed anxi ety and depressive disorder 276781703 F41.8 No SI , No HI Peripheral vascular disease 700775847 I73.9 mild on screening on house call ABIlast BRIAN 02/2023educ ation about use ASA 81 QD Screening mammography 24 211580 Z12.31 last mammogram 07/01/22 Screening for malignant neoplasm of cervix 426709516 Z12.4 asymptomat ic Screening for malignant neoplasm of colon 423031415 Z12.11 last C scope 11/06/16 , recheck 2020declin e C scope Active or passive immunization 799259147 Z23 up to date Ex-smoker 7837334 Z87.89 1 quit 2019last LDCT 07/01/22 [id number] Terra Rashid MD [facility], [place] [address] [address] [place] [address] 08/25/2023 11:02:27 08/25/2023 11:48:51 Cellulitis of lower limb 690984578 L03.119 Itching of skin 32042115 0 L29.9 Easy bruising 773479782 R58 [id number] Terra Rashid MD [facility], [place] [address] [address] [place] [address] 09/30/2023 10:51:40 09/30/2023 11:43:52 Cellulitis of lower limb 021931351 L03.119 better but not gone Benign hypertension 1072 5009 I10 good control ,BP , Pulse 2 weeksEKG 05/23/23 Chronic ob structive pulmonary disease 39053824 J44.9 stable for nowseen pulm 06/2023last PFT 05/2023 Coronary arteriosclerosis 58413313 I25.10 sees cardiology on reg basis Hyperlipidemia 48504845 E78.5 last LDL 01/25/23 @ goal Osteoporosis 89378043 M8 1.0 last DEXA 08/10/22 last Vit D level 01/25/23 Peripheral vascular disease 547111606 I73.9 mild on screening on house call ABIlast BRIAN 02/2023educ ation about use ASA 81 QD Vitamin D deficiency 347 68934 E55.9 Pulmonary emphysema 8743 3001 J43.9 with exacerbati on , started 1-2 days ago Screening mammography 24 246335 Z12.31 last mammogram 07/19/23 Screening for malignant neoplasm of cervix 805628570 Z12.4 asymptomat ic Screening for malignant neoplasm of colon 308857688 Z12.11 last C scope 11/06/16 , recheck 2020declin e C scope Active or passive immunization 555157231 Z23 up to date [id number] Terra Rashid MD [facility], [place] [address] [address] [place] [address] 11/14/2023 15:43:43 11/14/2023 16:48:06 Cellulitis of lower limb 183976390 L03.119 better but not goneelevat ion , [employer] wrap ,derm eval Liver enzy mes level above reference range 542262914 R74.01 on 10/01/23 Benign hypertension 1072 5009 I10 good control ,BP , Pulse 2 weeksEKG 05/23/23 [id number] Terra Rashid MD [employer], [employer] [facility] [address] [place] [address] 01/06/2024 10:05:06 01/06/2024 11:25:03 Benign hypertension 87183430 I10 good control ,BP , Pulse 2 weeksEKG 05/23/23last ophth eval 11/2023 per pt Blood gluc ose outside reference range 399588775 R73.09 hypo Body mass index less than 20 057957436 Z68.1 education Chronic ob structive pulmonary disease 43456657 J44.9 stable for nowseen pulm 06/2023last PFT 05/2023 Coronary arteriosclerosis 60903607 I25.10 sees cardiology on reg basis History of malignant neoplasm of skin 428916073 Z85.828 per pt Hyperlipidemia 40030548 E78.5 last LDL 10/01/23 @ goal Mixed anxi ety and depressive disorder 525519851 F41.8 No SI , No HI Osteoporosis 27134226 M8 1.0 last DEXA 08/10/22 last Vit D level 10/01/23 Peripheral vascular disease 612422825 I73.9 mild on screening on house call ABIlast BRIAN 02/2023educ ation about use ASA 81 QD Vitamin D deficiency 347 90340 E55.9 last level 10/11/23 Screening mammography 24 656862 Z12.31 last mammogram 07/19/23 Screening for malignant neoplasm of cervix 473733026 Z12.4 asymptomat ic Screening for malignant neoplasm of colon 656422340 Z12.11 last C scope 11/06/16 , recheck 2020declin e C scope Active or passive immunization 520281160 Z23 up to date Pain of le ft shoulder joint 2925129669 2487738 M25.512 [id number] Terra Rashid MD [employer] [facility], [employer] [address] [place] [address] 04/05/2024 10:39:42 04/05/2024 11:27:03 Benign hypertension 64262338 I10 increase toprolBP , Pulse 2 weeksEKG 05/23/23last ophth eval 11/2023 per pt Cough 73007767 R05.9 O2 id 93 % on RA Chronic ob structive pulmonary disease 95565845 J44.9 stable for nowseen pulm 06/2023last PFT 05/2023 Coronary arteriosclerosis 07681091 I25.10 sees cardiology on reg basis Hemangioma of liver 9346 9006 D18.03 on US 11/11/16 Hyperlipidemia 31934116 E78.5 last LDL 10/01/23 @ goal 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 409864416 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 Osteoporosis 80819484 M8 1.0 last DEXA 08/10/22 last Vit D level 10/01/23 Peripheral vascular disease 529471658 I73.9 mild on screening on house call ABIlast BRIAN 02/2023educ ation about use ASA 81 QD Vitamin D deficiency 347 33440 E55.9 last level 10/11/23 Easy bruising 155677053 R58 Screening mammography 24 626097 Z12.31 last mammogram 07/19/23 Screening for malignant neoplasm of cervix 610963169 Z12.4 asymptomat ic Screening for malignant neoplasm of colon 585915649 Z12.11 last C scope 11/06/16 , recheck 2020declin e C scope Active or passive immunization 045579832 Z23 up to date Mixed anxi ety and depressive disorder 362475903 F41.8 No SI , No HI Adult heal th examination 030297803 Z00.01 Diverticul ar disease of colon 523577588 K57.30 asymptomat ic History of malignant neoplasm of skin 531505287 Z85.828 per pt Age relate d macular degeneration 598477226 H35.30 seen ophthgetti ng shots now [id number] Terra Rashid MD [employer], [employer] [address] [facility] [place] ,[address] [address] 07/05/2024 10:14:13 07/05/2024 11:12:51 Cellulitis of lower leg 424473335 L03.116 20989409 better but not goneelevat ion , Aristeo wrap ,derm eval Chronic ob structive pulmonary disease 83730606 J44.9 stable for nowseen pulm 06/2023last PFT 05/2023 Edema of l ower extremity 677213922 R60.0 91266 Lt , -ve US for DVT , elevation Anxiety 74837389 F41.9 65063 better with buspar Benign hypertension 1072 5009 I10 increase toprolBP , Pulse 2 weeksEKG 05/23/23last ophth eval 11/2023 per pt Peripheral vascular disease 388116231 I73.9 mild on screening on house call ABIlast BRIAN 02/2023educ ation about use ASA 81 QD [id number] Terra Rashid MD [employer], [employer] [facility] [address] [place] [address] 07/31/2024 14:30:53 07/31/2024 15:57:10 Eruption 682912791 R21 120161 Peripheral vascular disease 404483475 I73.9 mild on screening on house call ABIlast BRIAN 02/2023educ ation about use ASA 81 QD Osteoporosis 30199112 M8 1.0 last DEXA 08/10/22 last Vit D level 10/01/23 Chronic ob structive pulmonary disease 98835778 J44.9 stable for nowseen pulm 06/2023last PFT 05/2023 Benign hypertension 1072 5009 I10 increase toprolBP , Pulse 2 weeksEKG 05/23/23last ophth eval 11/2023 per pt Mixed anxi ety and depressive disorder 699867589 F41.8 No SI , No HI Cellulitis of lower leg 412729133 L03.116 better but not goneelevat ion , Aristeo wrap ,derm eval Dry skin dermatitis 2600 57453 L85.3 70976 [id number] Terra Rashid MD [employer], [employer] [facility] [facility] [address] [place] [address] 08/29/2024 14:56:30 08/29/2024 15:58:54 Severe chronic obstructive pulmonary disease [id number] J44.9 763173 stable for nowseen pulm 06/2023last PFT 05/2023 Stasis dermatitis 028531 05 I87.2 64824 better with clobetasol Benign hypertension 1072 5009 I10 better controlBP , Pulse 2 weeksEKG 05/23/23last ophth eval 11/2023 per pt Mixed anxi ety and depressive disorder 825292500 F41.8 No SI , No HI Coronary arteriosclerosis 28280398 I25.10 sees cardiology on reg basis Peripheral vascular disease 194559054 I73.9 mild on screening on house call ABIlast BRIAN 02/2023educ ation about use ASA 81 QD Hyperlipidemia 41715409 E78.5 last LDL 10/01/23 @ goal Osteoporosis 18758587 M8 1.0 last DEXA 08/10/22 last Vit D level 10/01/23 Screening mammography 24 262884 Z12.31 [id number] last mammogram 07/19/23 Immunization due 1636339 08 Z23 [id number] up to date [id number] Terra Rashid MD [facility], [place] [id number] Formerly [facility] [address] [address] 11/29/2024 14:04:44 11/29/2024 15:48:01 Benign hypertension 09402158 I10 - better control- BP , Pulse 2 weeks- EKG 05/23/23- last ophth eval 11/2023 per pt Coronary arteriosclerosis 86225362 I25.10 - sees cardiology on reg basis Peripheral vascular disease 594865058 I73.9 - mild on screening on house call BRIAN- last BRIAN 02/2023- education about use ASA 81 QD Hyperlipidemia 24901106 E78.5 - last LDL 10/01/23 @ goal Unintentio nal weight loss 458410060 R63.4 287297 patient trying to gain weight. drinking 2 high protein shakes a day in addition to 3 full meals.weig ht in 04/2021 was 98 lbs - currently 80 lbs. need to rule out malignancy Dyspnea 888331831 R06.02 37029 O2 is 97% Osteoporosis 74595461 M8 1.0 last DEXA 08/10/22 last Vit D level 10/01/23 Mixed anxi ety and depressive disorder 490684929 F41.8 No SI , No HI Easy bruising 302722875 R58 Xeroderma 78318610 L85.3 579698 Immunization due 4712419 08 Z23 [id number] up to date Health Concerns Section Related Observation LastModified by Organization Detai ls LastModified Time None Recorded Concern Status LastModified by Organization Details LastModified Time None Recorded Advance Directives Directive N: Payers Insurance Date Sequence Insurance Name Policy Number Policy Farfan Covered Member ID Farfan Member ID Guarantor Name 11/29/2024 1 [employer] (MEDICARE REPLACEMENT/ ADVANTAGE - HMO) [id number] Shilpa Pierce Odalys [id number] Elo Morrow 11/29/2024 1 [employer] (MEDICARE REPLACEMENT/ ADVANTAGE - PPO) [id number] Shilpa Pierce Odalys [id number] Elo Morrow 11/29/2024 1 [facility] [id number] Elo Morrow [id number] Elo Morrow Notes Date Note Type Note Provider Name and Address Organization Details Recorded Time 04/05/2024 text/html Medicare Annual Wellness VisitReported by PatientSocial/Behavio ral HistoryFor diet and nutrition, patient reportshealthy diet. For fracture risk, patient reportsno history of fractures,no recent explained fracture,no sudden unexplained fractures, andno previous musculoskeletal injuries. For physical activity, patient reportsexercises on a regular basis,recent increase in physical activity,good physical condition, anddiscussed exercise habits.Mental Status:For depression risk, patient reportsnever feels sad, empty, or tearful,no loss of interest in activities,no significant changes in weight,no sleep disturbances or insomnia,no agitation,no loss of energy,no feelings of worthlessness or guilt,no thoughts of suicide,no history of depression, andno history of mood disorders. For orientation, patient reportsno disorientation to time,no disorientation to date, andno disorientation to place. For concentration and memory, patient reportsno decreased concentrating ability,no memory lapses or loss, anddoes not forget words. For speech/motor difficulties, patient reportsno speech difficulties,no difficulty expressing formulated concepts,no difficulty with fine manipulative tasks,no difficulty writing/copying,no slowed reaction time, anddoes not knock things over when trying to pick them up.Functional AbilityFor hearing, patient reportsno loss of hearing. For vision, patient reportsno vision problems. For activities of daily living, patient reportsable to bathe with limited or no assistance,able to contol urination and bowels,able to dress with limited or no assistance,able to feed self with limited or no assistance,able to get out of chair or bed with limited or no assistance,able to groom with limited or no assistance, andable to toilet with limited or no assistance. For instrumental activities of daily living, patient reportsable to do house work with limited or no assistance,able to grocery shop with limited or no assistance,able to manage medications with limited or no assistance,able to manage money with limited or no assistance,able to prepare meals with limited or no assistance, andable to use the phone with limited or no assistance. For falls risk assessment, patient reportsno frequent falls while walking,no fall in the past year,no fall since last visit, andno dizziness/vertigo. For home safety, patient reportsuse of seatbeltsandno vision or hearing loss while driving. Hypertension F/UReported by PatientHPIFor medications, patient reportstaking medications as directedandno side effects from medication. For lifestyle, patient reportsregular exercise,limiting/nathan iding salt, andcompliant with low salt diet. For associated symptoms, patient reportsno dizziness,no lightheadedness,no chest pain,no shortness of breath,no palpitations,no edema,no calf pain with exertion, andno headache. Terra Rashid MD [address], [place], [address], [employer] 04/05/2024 11:21:40 07/05/2024 text/html Hypertension F/UReported by PatientHPIFor medications, patient reportstaking medications as directedandno side effects from medication. For lifestyle, patient reportsregular exercise,limiting/nathan iding salt, andcompliant with low salt diet. For associated symptoms, patient reportsno dizziness,no lightheadedness,no chest pain,no shortness of breath,no palpitations,no edema,no calf pain with exertion, andno headache. went to ER for LLL cellulitis 05/21/24 MD Brianda Rebollar[address], [place], [address], [employer] [facility] 07/05/2024 11:08:11 07/31/2024 text/html Hypertension F/UReported by PatientHPIFor medications, patient reportstaking medications as directedandno side effects from medication. For lifestyle, patient reportsregular exercise,limiting/nathan iding salt, andcompliant with low salt diet. For associated symptoms, patient reportsno dizziness,no lightheadedness,no chest pain,no shortness of breath,no palpitations,no edema,no calf pain with exertion, andno headache. leg cellulitis is better but not gone ,wants a different pulm Dr Terra Rashid MD [address], [place], [address], [employer] [facility] 07/31/2024 15:49:55 08/29/2024 text/html Hypertension F/UReported by PatientHPIFor medications, patient reportstaking medications as directedandno side effects from medication. For lifestyle, patient reportsregular exercise,limiting/nathan iding salt, andcompliant with low salt diet. For associated symptoms, patient reportsno dizziness,no lightheadedness,no chest pain,no shortness of breath,no palpitations,no edema,no calf pain with exertion, andno headache. COPD is acting up , not sure if she taking her roflumilast ,skin rash is better with clobetasol Terra Rashid MD [address], [place], [address], [employer] [facility] 08/29/2024 15:39:49 11/29/2024 text/html Hypertension F/UReported by PatientHPIFor medications, patient reportstaking medications as directedandno side effects from medication. For lifestyle, patient reportsregular exercise,limiting/nathan iding salt, andcompliant with low salt diet. For associated symptoms, patient reportsno dizziness,no lightheadedness,no chest pain,no shortness of breath,no palpitations,no edema,no calf pain with exertion, andno headache. MD Brianda Rebollar[address], [place], [address], [employer] [facility] 01/01/2025 21:05:02 OBGyn Episode No OBEpisode recorded.
--- OUTSIDE RECORDS SUMMARY | 2025-01-03 18:04 | XMS_ITS | Clinical Summary ---
Author Organization [facility] Address [address] [place] [address] Care Team Providers Care Heel Trimmer Name Role Phone Adriane Howard Primary Care Provider Becca webster Source Comments [facility],non-owned Affiliates and Associated Physician Practices is amultiple site organization consisting of ambulatory clinics and hospital sitesin [place], [place], [place] and [place]. This disclosure is being madepursuant to the Care Everywhere program and may not contain all information available regarding this patient. Last updated 17.[facility] Social History Tobacco Use Types Packs/Day Years [...] series) 05/22/2019 DEPRESSION SCREENING 02/15/2024 COVID-19 VACCINE ( - 2024-2 6 season) 2024 INFLUENZA VACCINE (#1) 2024 08/07/2015 [...] complete this topic Insurance [employer] Care Teams Heel Trimmer Relationship Specialty Start Date End Date Adriane Howard Update Information PCP - General 12/28/21
--- OUTSIDE RECORDS SUMMARY | 2025-01-03 18:04 | XMS_ITS | Data Portability ---
Author Organization [facility], Main Office Address [address] [place] [address] Care Team Providers Care Animal Cruelty Investigator Name Role Phone TERRA RASHID Primary Care Provider Assessment Encounter Date Assessment Date Assessment LastModified by Organization Details LastModified Time 05/09/2023 05/09/2023 Assessment: Nicotine smoke: 1 ppd 7004-7605 = 55 pack years Cough Dyspnea Postnasal [...] done as follows: Respiratory [facility] Serum IgE Serum total IgG, IgG1, IgG2, IgG3, IgG4 Tcixd-6-morwdnztcm n phenotype and level TB stimulated gamma interferon B-type natriuretic peptide (BNP) Eosinophil count Complete pulmonary function testing (PFT) Sputum gm stain and culture The [employer] recommends annual screening for lung [...] 06/23/2023 06/23/2023 Assessment: Nicotine smoke: 1 ppd 4789-0003 = 55 pack years Postnasal drip (+) [...] gm stain and culture if purulent The [employer] recommends annual screening for lung [...] 09/26/2023 09/26/2023 Assessment: Nicotine smoke: 1 ppd 6729-7782 = 55 pack years Postnasal drip (+) [...] Modified Time Details Appointments None recorded. Lab alpha-1-an titrypsin (aat) phenotype, serum [address] (Lab), [address] [place], [address], 4 12:48:29 BNP (B-type natriureti c peptide), serum or plasma 2023 [facility] (Lab), [address] [place], [address], 4 17:03:42 ige, total, serum [address] (Lab), [address] [place], [address], 4 12:48:30 tb (M tuberculos is), ifn-gamma silvia, blood [address] (Lab), [address] [place], [address], 4 12:48:30 eosinophil count, manual, blood (OBS) [address] (Lab), [address] [place], [address], 4 12:48:30 igg subclasses 1+2+3+4, serum [address] (Lab), [address] [place], [address], 4 12:48:30 respirator y allergen panel - [facility] a 2023 [facility] (Lab), [address] [place], [address], 4 12:12:49 respirator y allergen panel - [facility] b 2023 024 [email or web address] 5 [facility] (Lab), [address] [place], [address], 4 12:48:30 culture, sputum 2023 024 5 [facility] (Lab), [address] [place], [address], 4 12:48:30 hepatic function panel, serum 2022 023 [email or web address] 5 Not available 3 12:19:26 Referral pulmonary rehab referral 2023 024 [facility], [address] [place], [address], 4 10:16:51 pulmonary rehab referral 2023 024 [email or web address] 5 [facility], [address] [place], [address], 4 11:37:19 pulmonary rehab referral 2023 024 [email or web address] 5 [facility], [address] [place], [address], 4 14:35:46 Procedures None recorded. Surgeries None recorded. Imaging XR, chest, 2 view 2023 024 [facility] ([facility] Scheduling), [address] [place], [address], 4 14:20:10 LDCT, chest, for lung cancer screening 2023 [email or web address] [place] [address] (One Call Scheduling), [address] [place], [address], 4 09:58:29 LDCT, chest, for lung cancer screening [address] (Radiology), [address], [place], [address], 3 09:27:40 Medication Orders albuterol sulfate HFA 90 mcg/actuat ion aerosol inhaler 2023 024 [id number], [address], [place], [address], 4 11:53:52 Trelegy Ellipta 100 mcg-62.5 mcg-25 mcg powder for inhalation 2023 024 [id number], [address], [place], [address], 4 11:53:52 roflumilas t 500 mcg tablet 2023 024 [id number], [address] [place], [address], 4 11:53:53 ipratropiu m bromide 42 mcg (0.06 %) nasal spray 2023 024 [id number], [address], [place], [address], 4 11:53:51 albuterol sulfate HFA 90 mcg/actuat ion aerosol inhaler 2023 024 [facility]/Pharmacy #[id number], [address], [place], [address], 4 10:41:14 Trelegy Ellipta 100 mcg-62.5 mcg-25 mcg powder for inhalation 2023 024 [facility]/Pharmacy #[id number], [address] [place], [address], 4 10:37:40 roflumilas t 500 mcg tablet 2023 024 [id number], [address], [place], [address], 4 10:37:50 ipratropiu m bromide 42 mcg (0.06 %) nasal spray 2023 024 [id number], [address] [place], [address], 4 10:37:51 albuterol sulfate HFA 90 mcg/actuat ion aerosol inhaler 2023 024 [id number], [address] [place], [address], 4 14:44:30 Trelegy Ellipta 100 mcg-62.5 mcg-25 mcg powder for inhalation 2023 024 [id number], [address] [place], [address], 4 14:44:29 roflumilas t 500 mcg tablet 2023 024 [id number], [address] [place], [address], 4 14:44:29 ipratropiu m bromide 42 mcg (0.06 %) nasal spray 2023 024 [id number], [address] [place], [address], 4 14:44:31 prednisone 20 mg tablet 2022 023 [id number], [address] [place], [address], 5 12:06:00 amoxicilli n 875 mg-potassi um clavulanat e 125 mg tablet 2022 023 [facility]/Pharmacy #[id number], [address], [place], [address], 5 12:06:18 Trelegy Ellipta 100 mcg-62.5 mcg-25 mcg powder for inhalation 2022 023 [facility]/Pharmacy #[id number], [address], [place], [address], 3 11:29:28 ipratropiu m bromide 42 mcg (0.06 %) nasal spray 2022 023 [facility]/Pharmacy #[id number], [address], [place], [address], 4 14:10:41 ipratropiu m bromide 42 mcg (0.06 %) nasal spray 2022 023 [facility]/Pharmacy #[id number], [address], [place], [address], 4 14:10:41 Patient TargetsNo targets recorded. Patient Instructions Encounter Date Encounter Id Patient Instructions Last Modified By Organization Details Last Modified Time 11/05/2022 [id number] six minute walk test* - needs within 30days please [place] Not available 11/30/2022 09:59:06 05/09/2023 [id number] complete PFT w/ post bronchodilator spirometry* [email or web address] Not available 06/01/2023 09:10:20 09/26/2023 [id number] complete PFT w/ post bronchodilator spirometry* [email or web address] Not available 05/28/2024 12:26:38 Reason for Referral Pulmonary Rehab Referral for Severe chronic obstructive pulmonary disease Referring Physician: Mitch Starr, Pulmonary Disease, Encounter Date: 05/09/2023 Pulmonary Rehab Referral for Severe chronic obstructive pulmonary disease Referring Physician: Mitch Starr Pulmonary Disease, Encounter Date: 06/23/2023 Pulmonary Rehab Referral for Severe chronic obstructive pulmonary disease Referring Physician: Mitch Starr, Pulmonary Disease, Encounter Date: 09/26/2023 Results Created Date Observation Date Name Description Value Unit Range Abnormal Flag Note LastModifiedBy Organization Detail LastModifiedTime 07/03/1907/01/2022 CT, chest , w/o contr ast No observ ation record ed. [email or web address] [facility] (Radiology) [address] [place], [address], 07/05/2022 17:44:43 06/17/19 24 06/14/2023 compl ete PFT w/ post [facility] hodil ator jose metry * No observ ation record ed. [facility] ([facility] Scheduling) [address] [place], [address], 06/17/2023 09:53:05 09/26/19 24 09/26/2023 XR, chest , 2 view No observ ation record ed. [email or web address] [facility] [address] [place], [address], 09/26/2023 17:27:40 Result Notes None recorded. Problems Name Problem SNOMED Code Status Onset Date Resolution Date Notes Provider Name and Address Organization Details Recorded Time COVID-19 351761885 Active 2020 Not Available [facility] 3 02:52:22 Ex-smoker 4129961 Active 2020 Not Available [facility] 3 02:52:22 Posterior rhinorrhea 07245105 Active 2021 Not Available [facility] 3 02:52:22 Severe chronic obstructive pulmonary disease 130702910 Active 2023 Mitch Starr MD [address], [address] , [facility] 4 14:40:06 Notes:Medical History: COVID infection 11/2019 Rhinitis with postnasal drip Eosinophils 150/uL (+) 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 Medical Equipment None Reported. [...] 1 CAPSULE BY MOUTH TWICE A DAY 06/02 completed Not Available Not Available Not Available clindamycin HCl 300 mg capsule TK [...] 1 TABLET DAILY FOR 4 DAYS DIRECTED 06/25 completed Not Available Not Available Not Available ofloxacin 0.3 % eye drops 04/30 completed Not Available Not Available Not Available metoprolol succinate ER 50 mg tablet,exte nded release 24 hr TAKE 1 TABLET BY MOUTH EVERY DAY IN THE MORNING 06/25 completed Not Available Not Available Not Available albuterol sulfate 1.25 mg/3 mL solution for nebulizatio n INHALE 1 VIAL (3 MLS) VIA NEBULIZER 3 TIMES A DAY NEEDED 06/25 completed Not Available Not Available Not Available prednisone 20 mg tablet TAKE 1 TABLET BY MOUTH EVERY DAY 06/25 completed Not Available Not Available Not Available alendronate 70 mg tablet 06/29 completed Not Available Not Available Not Available clobetasol 0.05 % topical cream APPLY A THIN FILM TO AFFECTED AREA TWICE DAILY FOR 1 MONTH, THEN TWICE WEEKLY FOR THE NEXT 2 WEEKS 06/25 completed Not Available Not Available Not Available permethrin 5 % topical cream APPLY TOPICALLY FROM NECK TO TOES AND LEAVE ON FOR 8 HOURS DIRECTED. REPEAT IN 1 WEEK 04/30 completed Not Available Not Available Not Available sulfamethox azole 800 mg-trimetho prim 160 mg tablet TAKE 1 TABLET BY MOUTH EVERY 12 HOURS FOR 5 DAYS 06/25 completed Not Available Not Available Not Available aspirin 81 mg tablet,reinaldo yed release qod active Not Available Not Available Not Available triamcinolo ne acetonide 0.1 % topical cream APPLY 1 APPLICATI ON ONTO THE LEFT LEG TWICE DAILY 06/02 completed Not Available Not Available Not Available simvastatin 40 mg tablet TAKE 1 TABLET BY MOUTH EVERYDAY AT BEDTIME active Not Available Not Available No t Available ketorolac 0.5 % eye drops 04/30 completed Not Available Not Available Not Available prednisolon e acetate 1 % eye drops,suspe nsion 04/30 completed Not Available Not Available Not Available linezolid 600 mg tablet TAKE 1 TABLET BY MOUTH EVERY 12 HOURS 06/02 completed Not Available Not Available Not Available benzonatate 100 mg capsule TAKE 1 CAPSULE BY MOUTH THREE TIMES A DAY 06/25 completed Not Available Not Available Not Available cephalexin 500 mg capsule TAKE 1 CAPSULE BY MOUTH EVERY 8 HOURS FOR 10 DAYS 06/25 completed Not Available Not Available Not Available [...] TO AFFECTED AREA 3 TIMES A DAY 06/02 completed Not Available Not Available Not Available mirtazapine 15 mg tablet TAKE 1 [...] 1 TABLET BY MOUTH TWICE A DAY 06/25 completed Not Available Not Available Not Available amoxicillin 875 mg-potassiu m clavulanate 125 mg tablet TAKE 1 TABLET BY MOUTH EVERY 12 HOURS X6 DAYS 06/25 completed Not Available Not Available Not Available [...] Not Available Not Available Not Available raloxifene 06/02 completed Not Available Not Available Not Available Centrum Silver qd 04/30 completed Not Available Not Available Not Available Symbicort 160 mcg-4.5 mcg/actuati on HFA aerosol inhaler active Not Available Not Available Not Available cholecalcif emi (vitamin D3) 125 mcg (5,000 unit) tablet TAKE 1 TABLET BY MOUTH EVERY DAY 06/02 completed Not Available Not Available Not Available Vitamin D3 50 mcg (2,000 unit) [...] Available No t Available Fluzone High-Dose Quad 2020 (PF) 240 mcg/0.7 mL IM syringe ADM 0.7ML IM UTD active Not Available Not Available No t Available Vitals Date Recorded Body height Body mass index (BMI) Body weight Body temperature Heart rate Oxygen saturation Systolic And Diastolic Provider Name and Address Organization Details Last Updated DateTime 3 160.02 cm 16.8 kg/m2 53429.2 8 g 98.3 [degF] 97 /min 97 % 110/52 mm[Hg] Bruna Wagner [facility] 3 11:28:54 Date Recorded Heart rate Oxygen saturation Heart rate Respiratory rate Provider Name and Address Organization Details Last Updated DateTime 05/09/2023 97 /min 94 % 97 /min 15 /min Mitch Starr MD [address], [place], [address] , [facility] 05/09/2023 14:57:07 Date Recorded Body height Body mass index (BMI) Body weight Body temperature Systolic And Diastolic Provider Name and Address Organization Details Last Updated DateTime 05/09/2023 154.94 cm 16.9 kg/m2 92846.1 6 g 97.7 [degF] 136/62 mm[Hg] Linda Sosa MA [facility] 4 14:09:33 Date Recorded Body temperature Oxygen saturation Heart rate Respiratory rate Provider Name and Address Organization Details Last Updated DateTime 06/23/2023 97.5 [degF] 95 % 84 /min 15 /min Mitch Starr MD [address] [facility] [address], [place], [address], 2U 4 10:34:34 Date Recorded Body height Body mass index (BMI) Body weight Heart rate Systolic And Diastolic Provider Name and Address Organization Details Last Updated DateTime 06/23/2023 154.94 cm 16.6 kg/m2 66987.13 g 84 /min 120/72 mm[Hg] Estefanía Cormier CMA 2U 06/23/2023 10:12:12 Date Recorded Body height Body mass index (BMI) Body weight Body temperature Heart rate Oxygen saturation Systolic And Diastolic Provider Name and Address Organization Details Last Updated DateTime 4 154.94 cm 15.7 kg/m2 56783.8 9 g 97.6 [degF] 88 /min 93 % 130/70 mm[Hg] Estefanía Cormier [facility] 2U 4 11:24:47 Date Recorded Body height Body mass index (BMI) Body weight Body temperature Heart rate Oxygen saturation Systolic And Diastolic Provider Name and Address Organization Details Last Updated DateTime 3 160.02 cm 15.9 kg/m2 85840.3 1 g 97.7 [degF] 107 /min 93 % 132/62 mm[Hg] Bruna Cooley [facility] 3 11:06:37 Social History Question Answer Notes LastModified by Organization Details LastModified Time Tobacco Smoking Status Former Smoker quit 2018 Not Available [facility] 04/14/2022 02:38:59 What Is Your Level Of Caffeine Consumption? Moderate [id number].[id number] [id number] Information not available 04/14/2022 How Much Tobacco Do You Chew? None MIGRATION.0301 [id number] Information not available 04/14/2022 In The 14 Days Before Symptom Onset, Have You Had Close Contact With A Laboratory-confi rmed COVID-19 While That Case Was Ill? No MIGRATION.0301 [id number] Information not available 04/14/2022 In The 14 Days Before Symptom Onset, Have You Had Close Contact With A Person Who Is Under Investigation For COVID-19 While That Person Was Ill? No MIGRATION.0301 [id number] Information not available 04/14/2022 What Type Of Diet Are You Following? REGULAR MIGRATION.0301 [id number] Information not available 04/14/2022 Which Illicit Or Recreational Drugs Have You Used? None MIGRATION.0301 [id number] Information not available 04/14/2022 Do You Have An Electrostatic Air Filter? No Information not available 05/09/2023 When Did You Quit Smoking? 1-5yearssincelastci garette MIGRATION.0301 [id number] Information not available 04/14/2022 Do You Have A Humidifier? No Information not available 05/09/2023 Where Do You Live? [place] Information not available 05/09/2023 Do You Have Moisture Problems In Your Home? No Information not available 05/09/2023 What Was The Date Of Your Most Recent Tobacco Screening? 05/09/2023 Information not available 05/09/2023 Do You Have Any Pets? No MIGRATION.0301 [id number] Information not available 04/14/2022 What Is Your Relationship Status? Single Information not available 05/09/2023 Do You Use Your Seat Belt Or Car Seat Routinely? Yes Information not available 05/09/2023 Do You Have Smoke And Carbon Monoxide Detectors In Your Home? Yes Information not available 05/09/2023 At What Age Did You Start Smoking Tobacco? 17 MIGRATION.0301 [id number] Information not available 04/14/2022 Are You Passively Exposed To Smoke? No Information not available 05/09/2023 Do You Use Sunscreen Routinely? Yes Information not available 05/09/2023 Have You Recently Traveled Abroad? No MIGRATION.0301 [id number] Information not available 04/14/2022 Do You Have Any Dietary Restrictions? No MIGRATION.0301 986146 Information not available 04/14/2022 Sex: Unknown Functional Status Question Answer Note LastModified by Organizat ion Details LastModified Time Do you use any illicit or recreational drugs? No MIGRATION.[id number] Information not available 04/14/2022 Do you or have you ever used any other forms of tobacco or nicotine? No MIGRATION.805796 3714 Information not available 04/14/2022 What is your level of alcohol consumption? None MIGRATION.[id number] 4437 Information not available 04/14/2022 Do you or have you ever used smokeless tobacco? Never used smokeless tobacco MIGRATION.037702 9817 Information not available 04/14/2022 Are you currently employed? No Information not available 05/09/2023 Have you been exposed to chemicals or toxins? Not that aware of Information not available 05/09/2023 Do you or have you ever used e-cigarettes or vape? Never used electronic cigarettes MIGRATION.[id number] 3650 Information not available 04/14/2022 Mental Status Question Answer Note LastModified by Organization D etails LastModified Time Do you feel stressed (tense, restless, nervous, or anxious, or unable to sleep at night)? [id number] Information not available 05/09/2023 Family History Relationship Description Onset Age of [...] 50 mcg/0.25mL dose 1 completed Not Available [facility] 04/14/2022 03:03:57 COVID-19, mRNA, LNP-S, PF, 100 mcg/0.5mL dose or 50 mcg/0.25mL dose 1 completed Not Available [facility] 04/14/2022 03:03:57 Influenza, high-dose, quadrivalent, PF 0 completed Not Available [facility] 04/14/2022 03:03:57 Influenza, split virus, quadrivalent, preservative 9 completed Not Available [facility] 04/14/2022 03:03:58 Past Encounters Encounter ID Performer Location Encounter Start Date Encounter Closed Date Diagnosis/Indication Diagnosis SNOMED-CT Code Diagnosis ICD10 Code Diagnosis IMO Codes Diagnosis Note [id number] JUSTINE Ford [facility] [address] [address] 04/25/2020 00:00:00 04/25/2020 13:31:22 [id number] [facility] [place] [address] [place] [address] 08/22/2020 00:00:00 08/22/2020 13:13:26 [id number] [facility] [place] [address] [place] [address] 12/25/2020 00:00:00 12/25/2020 13:30:05 [id number] [facility] [place] [address] [place] [address] 05/04/2021 00:00:00 05/04/2021 13:24:03 [id number] JUSTINE Ford [facility] [place] [address] [place] [address] 11/02/2021 00:00:00 11/02/2021 11:54:10 [id number] Elisha Stokes [facility] [place] [address] [place] [address] 05/03/2022 11:19:49 05/03/2022 14:25:47 Ex-smoker 5811244 Z87.891 Quit 2018 with 80 pack year historyLDC T 01/2021 with no nodule or mass in the lungsShe has not completed repeat, re-ordered today Posterior rhinorrhea 758 00604 R09.82 Continue ipratropiu m - good clinical benefitSal ine nasal rinses History of SARS-CoV-2 29 44030933 94839618 Z86.16 01/01/2020 Improved Chronic ob structive pulmonary disease 65639494 J44.9 CAT 16 1/2PFT 09/08/20 with FEV1:FVC ratio 33%.FEV1 PBD 35%.TLC 130%.DLCO 39%Continu e Trelegy Ellipta 100 and DalirespIn structed on techniqueA lbuterol PRNShe is aware of reportable signs and symptoms.C ontinues to decline AL due to cost - she will look in to Silver Sneakers through the [employer] on RA 07/17/18 WNLRTO in 6 months, PRN for concerns Bronchiectasis 45225069 J47.9 CT 01/17/21, noted to LLLContinu e flutter valve consistent lyNebulize r [id number] Elisha Stokes [facility] [place] [address] [place] [address] 11/05/2022 10:36:20 11/05/2022 11:53:57 Long-term drug therapy 797185810 Z79.899 Check LFT Acute exac erbation of chronic obstructive pulmonary disease 035295004 J44.1 Start prednisone and amoxDiscus sed S/S that require emergent evaluation Chronic ob structive pulmonary disease 01805181 J44.9 CAT 24 (was 16)PFT 09/08/20 with FEV1:FVC ratio 33%.FEV1 PBD 35%.TLC 130%.DLCO 39%Decline s repeatCont inue Trelegy Ellipta 100 and DalirespIn structed on techniqueA lbuterol PRNShe is aware of reportable signs and symptoms.C ontinues to decline AL due to cost - she will look in to Silver Sneakers through the [employer] on RA 07/17/18 WNLCheck 6MWTRTO in 6 months, PRN for concerns Posterior rhinorrhea 758 15141 R09.82 Continue ipratropiu m - good clinical benefitSal ine nasal rinses History of SARS-CoV-2 29 57430842 24974926 Z86.16 01/01/2020 Improved Ex-smoker 6233150 Z87.89 1 Quit 2017 with 80 pack year historyLDC T 01/2021 with no nodule or mass in the lungsRepea flavia 06/2022 with no changes [id number] Mitch Starr MD [facility] [place] [address] 05/09/2023 13:51:11 05/10/2023 08:03:22 Posterior rhinorrhea 65060427 R09.82 Dyspnea on exertion 6084 5006 R06.09 R05.9 T78.40XA D89.9 Ex-smoker 9730097 Z87.89 1 F17.218 F17.219 Severe chr onic obstructive pulmonary disease 275105215 J44.9 J42 [id number] Mitch Starr MD [facility] [place] [address] 06/23/2023 09:38:19 06/23/2023 10:47:42 Posterior rhinorrhea 63877594 R09.82 Ex-smoker 7068567 Z87.89 1 F17.218 F17.219 Severe chr onic obstructive pulmonary disease 088773906 J44.9 J42 [id number] MD BRAYDEN Guidry[facility] [place] [address] 0 09/26/2023 10:42:54 09/27/2023 08:04:44 Posterior rhinorrhea 96971293 R09.82 Severe chr onic obstructive pulmonary disease 733009764 J44.9 J42 Health Concerns Section Related Observation LastModified by Organization Detai ls LastModified Time None Recorded Concern Status LastModified by Organization Details LastModified Time None Recorded Advance Directives Directive None Recorded Payers Insurance Date Sequence Insurance Name Policy Number Policy Farfan Covered Member ID Farfan Member ID Guarantor Name 06/25/2024 1 [employer] (MEDICARE REPLACEMENT/ ADVANTAGE - PPO) [id number] L Elo Morrow [id number] Elo Morrow Notes Date Note Type Note Provider Name and Address Organization Details Recorded Time 05/03/2022 text/html Ms Morrow presents today to follow up on COPD, dyspnea, cough, recent exacerbationShe reports that she was using samples of Daliresp and realized that they were 3 months when she started to have some dyspnea.Antibiotics x2 and steroids from [facility].She is now using Daliresp from pharmacy and [...] DalirespShe has had one exacerbation this year JUSTINE Ford [address] [facility], [place] [address], [place], [address], [employer] 05/03/2022 16:32:29 11/05/2022 text/html Ms Morrow presents today to follow up on COPD, dyspnea, coughSHe has had increased dyspnea and cough for the last monthCough is mildly productive.Increased fatigue.Compliant with Daliresp and Trelegy Ellipta 100Has increased albuterol useContinues to have difficulty with the weather changesCough is chronic, unchangedRare clear mucous productionNo hemoptysisShe can still dress and bathe without shortness of breathDenies weight loss, wheezing, chest tightnessGood benefit from ipratropium JUSTINE Ford [address] [facility], [facility] [address], [place], [address], 2U 11/05/2022 15:25:17 05/09/2023 text/html Primary care/Referring provider: Terra Rashid MD Patient is here to go over shortness of breath evaluation/management. Initial development of shortness of breath: 2018 Duration of shortness of breath: 6 years Condition of shortness of breath: stable Timing of shortness of breath: none Frequency: up to 3 times a day Limits activities: yes Aggravating factors: walking, going upstairs, getting upset Alleviating factors: rest Modified Medical [employer] [place] (mMRC) Dyspnea Scale - Grade 2 Grade [...] no Environmental exposures: Nicotine smoke: 1 ppd 5518-6027 = 55 pack years [place]: no Dye: no Dust mites: yes Mold: no Damp basement: no Wood burning stove: no Animal dander: no Cockroaches: no Pollen: yes Arsenic: no Asbestos: no Beryllium: no Cadmium: no Chromium: no [place] smoke: no Diesel fumes: no Nickel: no [...] slight chance of dozing. Mitch Starr MD [address] [place] [address], [facility] [address], [place], [address], [place] [facility] [place] [employer] 05/09/2023 14:58:13 06/23/2023 text/html Primary care/Referring provider: Terra Rashid MD Patient is here to go over her COPD management. Initial development of shortness of breath: 2018Duration of shortness of breath: 6 yearsCondition of shortness of breath: stableTiming of shortness of breath: noneFrequency: up to 3 times a dayLimits activities: yesAggravating factors: walking, going upstairs, getting upsetAlleviating factors: rest Modified Medical [employer] (mMRC) Dyspnea Scale - Grade 2Grade 0 [...] noEdema: no Environmental exposures:Nicotine smoke: 1 ppd 9385-4842 = 55 pack yearsPaint: noDye: noDust mites: [...] slight chance of dozing. Mitch Starr MD [address] [place] [address], [address], [facility] [place] [employer] [facility] 06/23/2023 10:45:32 09/26/2023 text/html Primary care/Referring provider: Terra Rashid MD Patient is here to go over her COPD management. Initial development of shortness of breath: 2018Duration of shortness of breath: 6 yearsCondition of shortness of breath: stableTiming of shortness of breath: noneFrequency: up to 3 times a dayLimits activities: yesAggravating factors: walking, going upstairs, getting upsetAlleviating factors: rest Modified Medical [employer] [place] (mMRC) Dyspnea Scale - Grade 2Grade 0 [...] noEdema: no Environmental exposures:Nicotine smoke: 1 ppd 1657-4134 = 55 pack yearsPaint: noDye: noDust mites: [...] no chance of dozing. Mitch Starr MD [address] [place] [address], [facility] [address], [place], [address], [place] [facility] 09/26/2023 12:06:22 OBGyn Episode No OBEpisode recorded.
--- OUTSIDE RECORDS SUMMARY | 2025-01-03 18:04 | XMS_ITS | Continuity of Care Document ---
Author Organization [facility] [employer], [employer] website Address [address] [place] [address] Care Team Providers Care Blocking Machine Operator Name Role Phone TERRA RASHID Primary Care Provider [phone] Assessment Encounter Date Assessment Date Assessment LastModified by Organization Details LastModified Time 11/29/2024 11/29/2024 Patient presented for follow up. Studies ordered as below. Discussed plan with patient/careg iver, who expressed understanding . Follow up as noted below. [email or web address] Not available 11/29/2024 14:17:28 Plan of Treatment Reminders Order Date Submit Date Provider Last Modified By Organization Details Last Modified Time Details Appointments ESTABLISH ED PATIENT 15 2025 01:15P Lili Rashid MD Not available Not available Not available Lab CMP, serum or plasma 2024 025 [facility], [address] [facility] [address], [place], [address], 12/01/2024 13:14:07 CBC w/ auto diff 2024 025 [facility], [address], [place], [address], 12/01/2024 13:14:06 lipid panel w/ direct LDL, serum 2024 025 [facility], [address], [place], [address], 12/06/2024 04:08:42 TSH, serum or plasma 2024 [facility], [address], [place], [address], 12/06/2024 04:08:42 D-dimer, quant, plasma 2024 [facility], [address], [place], [address], 12/01/2024 13:14:08 Referral gastroent erologist referral 2024 UNALASKASHAHBAZ Pérez MD, [address], [place], [address], 12/20/2024 16:30:54 Procedures None recorded. Surgeries None recorded. Imaging CT, chest + abdomen + pelvis, w/o contrast 2024 [facility], [address], [address], 12/06/2024 04:08:42 Medication Orders Dermend topical cream 2024 [facility] #[id number], [address], [place], [address], 11/29/2024 15:26:32 ammonium lactate 12 % lotion 2024 [facility] #[id number], [address], [place], [address], 11/29/2024 15:26:32 Ensure Clear oral liquid 2024 [facility]arm[facility] #[id number], [address], [place], [address], 11/29/2024 15:26:32 Patient TargetsNo targets recorded. Patient Instructions Encounter Date Encounter Id Patient Instructions Last Modified By Organization Details Last Modified Time 11/29/2024 [id number] Peripheral Arterial Disease (PAD): Care Instructions [email or web address] Not available 11/29/2024 15:26:27 osteoporosis: care instructions [email or web address] Not available 11/29/2024 15:26:28 high cholesterol : care instructions [email or web address] Not available 11/29/2024 15:26:27 dry skin: care instructions [email or web address] Not available 11/29/2024 15:26:28 shortness of breath: care instructions [email or web address] Not available 11/29/2024 15:26:27 Reason for Referral Ship Washer Referral for Unintentional weight loss Referring Physician: Terra Rashid, Internal Medicine, Encounter Date: 11/29/2024 Results Created Date Observation Date Name Description Value Unit Range Abnormal Flag Note LastModifiedBy Organization Detail LastModifiedTime 11/30/1912/01/2024 D-DIM ER D-dimer 0.59 mg/L_ feu 0.00-0 .49 high Accor ding to the assay manuf actur er's publi shed packa ge inser t, a loreta l (<0.5 0 mg/L FEU) D-dim er [...] year old 0.80 mg/L FEU. Not Available [facility] [address], [place], [address], 12/01/2024 13:14:08 12/11/19 25 10/26/2024 jose metry testi ng* No observ ation record ed. [email or web address] Not Available 2024 21:33:54 Result Notes None recorded. Problems Name Problem SNOMED Code Status Onset Date Resolution Date Notes Provider Name and Address Organization Details Recorded Time Chronic obstructiv e pulmonary disease 47130859 Active Not Available [facility] 3 13:52:09 Diverticul itis 653576221 Completed 08/01/2015 MD Brianda Rebollar[address], [place], [address] , [facility] 6 09:23:19 Pulmonary emphysema 39292489 Active Not Available [facility] 3 13:52:10 Benign hypertensi on 70381396 Active Not Available [facility] 3 13:52:09 Blood glucose outside reference range 608055316 Active Not Available [facility] 3 13:52:09 Hyperlipid emia 22315966 Active Not Available [facility] 3 13:52:09 Neoplasm of liver 491217219 Completed 10/19/2019 Terra Rashid MD [address], [place], [address] , [facility] 0 10:57:51 Osteopenia 654457983 Completed 08/01/2015 MD Brianda Rebollar[address], [place], [address] , [facility] 6 09:26:25 Osteoporos is 50202699 Active Not Available [facility] 3 13:52:09 Simple renal cyst 41564572 Active Not Available [facility] 3 13:52:10 Diverticul ar disease of colon 002201641 Active 2015 Not Available [facility] 3 13:52:09 Hemangioma of liver 33675941 Active 2015 Not Available [facility] 3 13:52:10 Mixed anxiety and depressive disorder 370429342 Active 2016 Not Available [facility] 3 13:52:09 Ex-smoker 1826671 Active 2016 Not Available [facility] 3 13:52:10 Coronary arterioscl erosis 49421150 [address] chest 7 Not Available [facility] 3 13:52:09 Body mass index less than 20 087348829 Active 2018 Not Available [facility] 3 13:52:09 Osteoarthr itis 139703607 Active 2019 Not Available [facility] 3 13:52:09 COVID-19 794539548 Completed 202007/17/2020 Terra Rashid MD [address], [place], [address] , [facility] 1 10:28:46 Allergic rhinitis caused by pollen 15889312 Active 2021 Not Available [facility] 3 13:52:09 Peripheral vascular disease 608836607 Active 2021 Not Available [facility] 3 13:52:09 Vitamin D deficiency 35267309 Active 2021 Not Available [facility] 3 13:52:09 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 795631256 Active 2022 Not Available [facility] 3 13:52:09 Cyst of kidney 630736986 Active [address] chest 3 Not Available [facility] 3 13:52:10 History of malignant neoplasm of skin 436087424 Active 2023 Terra Rashid MD [address], [place], [address] , [facility] 4 11:09:16 Stasis dermatitis 47700021 Active 2024 Terra Rashid MD [address], [place], [address] , [facility] 5 15:33:33 Severe chronic obstructiv e pulmonary disease 826759452 Active 2024 Terra Rashid MD [address], [place], [address] , [facility] 5 15:35:02 D-dimer above reference range 160732625 Active 2024 Terra Rashid MD [address], [place], [address] , [facility] 5 19:40:23 Problem Notes None recorded. Procedures Surgical History Date Name Laterality Status Provider Name and Address Organization Details Recorded Time 10/28/19 17 Date of Last Colonoscopy completed Shirley Ivey [facility] 05/13/2017 10:15:11 Tonsillectomy completed Shirley Ivey [facility] 08/01/2015 08:32:59 Imaging Results None recorded. Procedure Notes None recorded. Medical Equipment None Reported. Allergies Allergen ID Allergen Name Allergen Category Reaction Reaction Severity Criticality Documentation Date Start Date Code Code System Note Provider Name and Address Organization Details Recorded Time 2294 Augmentin medicatio n Not available Not available Not available 08/01/2015 77540 2 RxNorm Shirleymonica Ivey [facility] 6 08:32:43 Medications Name Sig Start [...] Not Available Not Available Vitals Date Recorded Heart rate Provider Name an d Address Organization Details Last Updated DateTime 11/29/2024 96 /min Terra Rashid MD [address], [place], [address], [facility] 11/29/2024 14:39:41 Date Recorded Body height Body mass index (BMI) Body weight Body temperature Respiratory rate Systolic And Diastolic Provider Name and Address Organization Details Last Updated DateTime 160.02 cm 14.2 kg/m2 17017.3 9 g 97.8 [degF] 18 /min 126/73 mm[Hg] Herlinda Tobar [facility] 14:19:04 Social History Question Answer Notes LastModified by Organizat ion Details LastModified Time Tobacco Smoking Status Former Smoker about 1PPD for over 30 years Grace resendiz, [facility] 04/18/2020 10:01:14 Do You Have An Advance Directive? No [id number] Information not available 11/30/2019 What Is Your [...] 04/18/2020 Live Alone Or With Others? Alone [email or web address] Information not available 08/01/2015 What Was The Date Of Your Most Recent Tobacco Screening? 07/21/2018 [id number] Information not available 11/30/2019 Mother With HIV? [...] is your level of alcohol consumption? None [id number] Information not available 11/30/2019 Are you able to care for yourself independently? Yes Information not available 04/18/2020 Mental Status None recorded. Family History Relationship Description Onset Age of this Age Resolved Age Notes LastModified by Organization Details LastModified Time Father Coronary arterioscler osis 83 [email or web address] Not available 2015 08:33:25 Father Malignant neoplasm of prostate [email or web address] Not available 2015 08:33:34 Mother Coronary arterioscler osis 92 [email or web address] Not available 2015 08:33:25 Brother Coronary arterioscler osis 63 [email or web address] Not available 2015 08:33:25 Brother Diabetes mellitus [email or web address] Not available 2015 08:33:41 Medical History Condition Response Coronary Artery Disease N Other N Gout N Kidney Stones N Blood Diseases N Hyperthyroidism N Breast Cancer N Blood Transfusion N COPD N Depression N Lung Disease [...] split virus, quadrivalent, preservative 5 completed MD Ayden Rebollar [address], [place], [address], [facility] 12/12/2022 14:04:19 pneumococcal polysaccharide PPV23 6 completed MD Ayden Rebollar [address], [place], [address], [facility] 12/12/2022 14:04:19 Influenza, split virus, quadrivalent, preservative 8 completed MD Ayden Rebollar [address], [place], [address], [facility] 12/12/2022 14:04:19 Influenza, split virus, quadrivalent, preservative 8 completed MD Ayden Rebollar [address], [place], [address], [facility] 12/12/2022 14:04:19 Influenza, split virus, quadrivalent, preservative 9 completed MD Ayden Rebollar [address], [place], [address], [facility] 12/12/2022 14:04:19 Influenza, split virus, quadrivalent, preservative 0 completed MD Ayden Rebollar [address], [place], [address], [facility] 12/12/2022 14:04:19 SARS-COV-2 (COVID-19) vaccine, UNSPECIFIED 1 completed MD Ayden Rebollar [address], [place], [address], [facility] 12/12/2022 14:04:19 Td(adult) unspecified formulation 6 completed MD Ayden Rebollar [address], [place], [address], [facility] 12/12/2022 14:04:19 Influenza, split virus, quadrivalent, preservative 1 completed MD Ayden Rebollar [address], [place], [address], [facility] 12/12/2022 14:04:19 Influenza, split virus, trivalent, preservative 6 completed Not Available [facility] 03/03/2019 02:27:19 Influenza, adjuvanted, quadrivalent, PF 3 completed MD Ayden Rebollar [address], [place], [address], [facility] 12/12/2022 14:04:19 COVID-19, mRNA, LNP-S, PF, lakhwinder-sucrose, 30 mcg/0.3 mL 3 completed MD Ayden Rebollar [address], [place], [address], [facility] 12/12/2022 14:04:19 Pneumococcal conjugate PCV20, polysaccharide XHM202 conjugate, adjuvant, PF 4 completed MD Ayden Rebollar [address], [place], [address], [facility] 01/11/2024 17:30:57 Tdap 4 completed MD Ayden Rebollar [address], [place], [address], [facility] 01/11/2024 17:30:57 Pneumococcal conjugate PCV 13 7 completed MD Ayden Rebollar [address], [place], [address], [facility] 12/12/2022 14:04:19 Influenza, split virus, quadrivalent, preservative 7 completed Terra Rashid MD [address], [place], [address], [facility] 12/12/2022 14:04:19 Past Encounters Encounter ID Performer Location Encounter Start Date Encounter Closed Date Diagnosis/Indication Diagnosis SNOMED-CT Code Diagnosis ICD10 Code Diagnosis IMO Codes Diagnosis Note [id number] Terra Rashid MD [facility], [facility] [address] [place] [address] 11/29/2024 14:04:44 11/29/2024 15:48:01 Benign hypertension 19542068 I10 - better control- BP , Pulse 2 weeks- EKG 05/23/23- last ophth eval 11/2023 per pt Coronary arteriosclerosis 89874250 I25.10 - sees cardiology on reg basis Peripheral vascular disease 714813288 I73.9 - mild on screening on house call BRIAN- last BRIAN 02/2023- education about use ASA 81 QD Hyperlipidemia 40456899 E78.5 - last LDL 10/01/23 @ goal Unintentio nal weight loss 103932665 R63.4 [id number] patient trying to gain weight. drinking 2 high protein shakes a day in addition to 3 full meals.weig ht in 04/2021 was 98 lbs - currently 80 lbs. need to rule out malignancy Dyspnea 670765831 R06.02 66622 O2 is 97% Osteoporosis 30935137 M8 1.0 last DEXA 08/10/22 last Vit D level 10/01/23 Mixed anxi ety and depressive disorder 445202013 F41.8 No SI , No HI Easy bruising 010023923 R58 Xeroderma 28620074 L85.3 560464 Immunization due 9683197 08 Z23 9690083 up to date Health Concerns Section Related Observation LastModified by Organization Detai ls LastModified Time None Recorded Concern Status LastModified by Organization Details LastModified Time None Recorded Payers Encounter Date Sequence Insurance Name Policy Number Policy Farfan Covered Member ID Farfan Member ID Guarantor Name 11/29/2024 1 [employer] (MEDICARE REPLACEMENT/ ADVANTAGE - PPO) [id number] L Elo Morrow [id number] Elo Morrow Notes Date Note Type Note Provider Name and Address Organization Details Recorded Time 11/29/2024 text/html Hypertension F/UReported by PatientHPIFor medications, patient reportstaking medications as directedandno side effects from medication. For lifestyle, patient reportsregular exercise,limiting/av oiding salt, andcompliant with low salt diet. For associated symptoms, patient reportsno dizziness,no lightheadedness,no chest pain,no shortness of breath,no palpitations,no edema,no calf pain with exertion, andno headache. Terra Rashid MD [address] [facility], [place], [address], [facility] 01/01/2025 21:05:02 OBGyn Episode No OBEpisode recorded.
--- OUTSIDE RECORDS SUMMARY | 2025-01-03 18:04 | XMS_ITS | Encounter Summary ---
Author Organization [facility] Address [address] [place] [address] Care Team Providers Care Clinical Documentation Nurse Name Role Phone Adriane Howard Primary Care Provider Becca webster Encounter Details Date Type Department Care Team (Late st Contact Info) Description 11/16/2021 Lab Requisition [facility] [address] [place] [address] Froylan Linn MD [address] [place] [address] Social History Tobacco Use Types Packs/Day Years [...] AM CDT) Case Report Dermatopathology Report Case: [id number] Authorizing Provider: Froylan Linn MD Collected: 11/12/2021 03:33 AM Ordering Location: [facility] Received: 11/16/2021 05:45 AM [...] Clinical History 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 Path# [id number] B: BCCA vs. SCCA. Path# [id number] C: BCCA vs. SCCA. Path# [id number] 1:39 PM CDT DERMATOPATHOLOGY LABORATORY Gross Description Specimen A: Received is one formalin filled container labeled with the patient's name and designated left distal rodriges. The specimen consists of a shave biopsy measuring 0a9t4cy and it is bisected. Jar 0. Specimen B: Received is one formalin filled container labeled with the patient's name and designated left ant ankle. The specimen consists of a shave biopsy measuring 9x6a0fr. Jar 0. Specimen C: Received is one formalin filled container labeled with the patient's name and designated right lower leg. The specimen consists of a shave biopsy measuring 4m6t0hx. Jar 0. 1:39 PM T DERMATOPATHOLOGY LABORATORY [...] determined by the Dermatopathology Laboratory at [facility], directed by Dr. Raheel Muniz. These tests need not be, and therefore are not, approved by the [place] Food and Drug Administration. The tests are used for clinical purposes. Billing Codes Specimen Charges Stain Charges 94900 89498 52245 1 1 1 2 1:39 PM CDT [...] PATHOLOGY/CYTOLOGY ORDER CRISTOPHER Final Result DERMATOPATHOLOGY LABORATORY [facility] - Department of Dermatology [address], [address] [phone] documented in this encounter Visit Diagnoses Not on filedocumented in this encounter Care Teams Clinical Documentation Nurse Relationship Specialty Start Date End Date Adriane Howard Update Information PCP - General 12/28/21 documented as of this encounter
== END 2025-01-03 15:14 | disposition home or self-care (01) ==
PROVIDERS: PCP Internal Medicine; Visit Provider Internal Medicine
DX: I27.0 Primary pulmonary hypertension (principal); J43.9 Emphysema, unspecified; R79.89 Other specified abnormal findings of blood chemistry
CPT/HCPCS: 71275; Q9967